=== PATIENT | female | born 1985 | race Caucasian/White ===

== ENCOUNTER → 2018-05-10 | Outpatient (REF) | payer MEDICAID, OTHER ==
[2018-05-10 15:31] LABS: FREE T3 2.7 PG/ML (2.2-4.0); FREE T4 0.79 NG/DL (0.76-1.46); THYROID STIMULATING HORMONE 0.409 uIU/ML (0.358-3.740)
== END ==
LOC: M LAB REF 14:20
DX: E03.9 Hypothyroidism, unspecified (principal)
CPT/HCPCS: 84443

== ENCOUNTER 2018-05-21 20:03 | Inpatient (IN) | payer MEDICAID, OTHER ==
[~2018-05-21] VITALS: Ht 157.5 cm; Wt 66.7 kg
[2018-05-21] MEDS ORDERED: PROC5TA PO (20:25)
[2018-05-21] MEDS ORDERED: MIDO10TA PO (20:25)
[2018-05-21] MEDS ORDERED: HYDR5TAB59 PO (20:25)
[2018-05-21] MEDS ORDERED: NS 1,000 ML IV ONE (20:45)
[2018-05-21] MEDS ORDERED: dexameTHASONE 20 MG/5 ML VIAL (J1100) IV ONE ×2 (20:45→21:30)
[2018-05-21 21:05] LABS: BASO % 0.2 % (0.0-1.0); EOS % 0.3 % (0.0-3.0); HEMOGLOBIN 13.4 g/dl (12.0-15.5); LYMPH # 1.5 10^3/uL (1.5-4.5); LYMPH % 15.9 % (24.0-44.0); MEAN CORPUSCULAR HGB CONC 34.4 g/dl (32.0-36.5); MEAN CORPUSCULAR VOLUME 87.2 fl (80.0-96.0); MONO # 0.6 10^3/uL (0.0-0.8); MONO % 6.4 % (0.0-5.0); NEUTROPHILS # 7.2 10^3/uL (1.8-7.7); NEUTROPHILS % 76.8 % (36.0-66.0); PLATELET COUNT, AUTOMATED 333 10^3/uL (150-450); RED BLOOD COUNT 4.47 10^6/uL (4.00-5.40); WHITE BLOOD COUNT 9.4 10^3/uL (4.0-10.0)
[2018-05-21] MEDS ORDERED: HYDROCORTISONE 100 MG/2 ML VIAL (J1720) IV ONE (21:15)
[2018-05-21 21:31] LABS: ALBUMIN 3.8 GM/DL (3.2-5.2); ALT/SGPT 20 U/L (12-78); BILIRUBIN,DIRECT < 0.1 MG/DL (0.0-0.2); BILIRUBIN,TOTAL 0.3 MG/DL (0.2-1.0); BLOOD UREA NITROGEN 5 MG/DL (7-18); CALCIUM LEVEL 9.2 MG/DL (8.5-10.1); CARBON DIOXIDE LEVEL 23 MEQ/L (21-32); CHLORIDE LEVEL 110 MEQ/L (98-107); CREATININE FOR GFR 0.63 MG/DL (0.55-1.30); GLOMERULAR FILTRATION RATE > 60.0 (>60); GLUCOSE, FASTING 110 MG/DL (70-100); LIPASE 65 U/L (73-393); POTASSIUM SERUM 3.7 MEQ/L (3.5-5.1); SODIUM LEVEL 142 MEQ/L (136-145); TOTAL PROTEIN 7.3 GM/DL (6.4-8.2)
[2018-05-21] MEDS ORDERED: ONDANSETRON 4 MG ORAL DISINTEGRATING TAB (Q0162 PER 1MG) PO ONE (22:00)
[2018-05-21] MEDS ORDERED: ACETAMINOPHEN 325 MG TAB PO ONE (22:00)
[2018-05-21] MEDS ORDERED: KETOROLAC 30 MG/ML VIAL (J1885) IV ONE (22:45)
[2018-05-21 23:52] LABS: AMORPHOUS SEDIMENT SMALL (NEGATIVE); APPEARANCE, URINE TURBID (CLEAR); BACTERIA, URINE AUTO 1+ (NEGATIVE); BILIRUBIN, URINE AUTO NEGATIVE (NEGATIVE); BLOOD, URINE BLOOD NEGATIVE (NEGATIVE); COLOR, URINE AMBER (YELLOW); GLUCOSE, URINE (UA) AUTO NEGATIVE (NEGATIVE); KETONE, URINE AUTO NEGATIVE (NEGATIVE); LEUKOCYTE ESTERASE, URINE AUTO NEGATIVE (NEGATIVE); MUCUS, URINE SMALL (NEGATIVE); NITRITE, URINE AUTO NEGATIVE (NEGATIVE); PROTEIN, URINE AUTO NEGATIVE (NEGATIVE); RBC, URINE AUTO 0 /HPF (0-3); SPECIFIC GRAVITY URINE AUTO 1.012 (1.002-1.035); SQUAMOUS EPITHELIAL CELL UR AU 2 /HPF (0-6); UROBILINOGEN, URINE AUTO 0.2 mg/dL (0.0-2.0); WBC, URINE AUTO 1 /HPF (0-3)
[2018-05-22 00:49] LABS: HCG, SERUM QUALITATIVE NEGATIVE (NEGATIVE)
[2018-05-22] MEDS ORDERED: TOPI50TA9 PO (01:26)
[2018-05-22] MEDS ORDERED: HYDR5TAB59 PO (01:26)
[2018-05-22] MEDS ORDERED: SUMA25TA3 PO (01:26)
[2018-05-22] MEDS ORDERED: TOPI25CA PO (01:26)
--- NOTE | 2018-05-22 02:22 | REPVR ---
EXAM: CT Abdomen and Pelvis Without Intravenous Contrast EXAM DATE/TIME: 05/22/2018 1:23 AM CLINICAL HISTORY: 32 years old, female; Pain; Abdominal pain; Additional info: Colic TECHNIQUE: Axial computed tomography images of the abdomen and pelvis without intravenous contrast. All CT scans at this facility use at least one of these dose optimization techniques: automated exposure control; mA and/or kV adjustment per patient size (includes targeted exams where dose is matched to clinical indication); or iterative reconstruction. Coronal and sagittal reformatted images were created and reviewed. COMPARISON: No relevant prior studies available. FINDINGS: Lower thorax: No acute findings. ABDOMEN: Liver: Normal. No mass. Gallbladder and bile ducts: Normal. No calcified stones. No ductal dilation. Pancreas: Normal. No ductal dilation. Spleen: Normal. No splenomegaly. Adrenals: Normal. No mass. Kidneys and ureters: Normal. No hydronephrosis. Stomach and bowel: Mild to moderate fecal loading in the right colon. No bowel dilatation or obstruction. Appendix: No evidence of appendicitis. PELVIS: Bladder: Unremarkable as visualized. Reproductive: Cyst in the right ovary measuring 21 x 15 mm. Uterus and left ovary are unremarkable. ABDOMEN and PELVIS: Intraperitoneal space: Small free fluid in the pelvis on the right likely physiologic. Bones/joints: No acute fracture. No dislocation. Soft tissues: Unremarkable. Vasculature: Normal. No abdominal aortic aneurysm. Lymph nodes: Normal. No enlarged lymph nodes. IMPRESSION: Mild to moderate fecal loading in the right colon. No bowel dilatation or obstruction. Small free fluid in the pelvis on the right likely physiologic. Cyst in the right ovary measuring 21 x 15 mm. Uterus and left ovary are unremarkable. Appendix is not seen, however, no secondary signs to suggest acute appendicitis. Electronically signed by: Jerri Cheney On 05/22/2018 02:22:48 AM
[2018-05-22] MEDS ORDERED: ACETAMINOPHEN 650 MG SUPP PR PRN (03:30)
[2018-05-22] MEDS: ONDANSETRON 4MG/2ML VIAL (J2405) IV SCH ×5 (04:37→21:08)
[2018-05-22] MEDS: NS 1,000 ML IV SCH ×2 (04:39→13:18)
--- NOTE | 2018-05-22 04:51 | HPEPDOC ---
[facility] Medical History & Physical Date of Admission May 22, 2018 Attending Physician: Toby Peace MD History and Physical CHIEF COMPLAINT: Nausea and vomiting 3 days HISTORY OF PRESENT ILLNESS: Patient is a 32-year-old female with history of depression, PTSD, insomnia, was on Klonopin. Irritable bowel syndrome, Lyme dise ase, adrenal insufficiency, hypertension and ? Autonomic neuropathy. According to her, she was in her usual state of health until about 3 days ago when she started having abdominal cramps associated with nausea and vomiting recently ingested food and greenish colored liquid substance. She has since been unable to comply with her outpatient medications. She denies any hematemesis. No fever or chills. No shortness of breath. No recent sick contacts. No chest pain or palpitations. No cough. She is unsure if her symptoms started after eating. No recent lower extremity swellings. No pain. No change in urinary habits. No change in bowel habits. PAST MEDICAL HISTORY: As per [facility] PAST SURGICAL HISTORY: None SOCIAL HISTORY: Denies smoking, denies alcohol use. Denies illicit drug use. Denies marijuana use Lives with mother and brother FAMILY HISTORY: Denies significant heart disease in the family. ALLERGIES: Please see below. REVIEW OF SYSTEMS: 14 point review of systems negative other than that described in the body of the [facility] HOME MEDICATIONS: Please see below. PHYSICAL EXAMINATION: VITAL SIGNS: Temperature 98, pulse 98, respiratory rate 16, blood pressure 140/79, pulse oximetry 98% on room air. GENERAL APPEARANCE: See young woman lying down calmly in bed, not in any obvious painful distress. No respiratory distress.. Head: Atraumatic. Neck: Supple. Chest: Clear to auscultation bilaterally. CVS: S1 and 2 heard, no murmurs, rubs or gallops. Abdomen: Obese, soft, not tender, not distended. Bowel sounds normoactive. Extremities: No pedal edema, 2+ bilateral pedal pulses noted. [employer]: Awake, alert, oriented 3. Psychiatric: Normal affect. LABORATORY DATA: See below. IMAGING: CT abdomen and pelvis: Mild to moderate fecal loading in the right colon, appendix not seen. No secondary sign to suggest acute appendicitis. MICROBIOLOGY: Please see below. ASSESSMENT: 49-year-old woman with medical history as enumerated above, comes in with intractable vomiting and abdominal cramping for 3 days. Physical exam reveals mild abdominal tenderness with deep palpation. Imaging revealed fecal loading in the right colon. Labs reviewed grossly within normal limits. . DIAGNOSIS: 1. Intractable vomiting PLAN: 1. Admit to medicine floor. 2. Intractable vomiting with no metabolic changes consistent with vomiting for such an extended period. We will maintain nothing by mouth for now. IV Zofran when necessary nausea and vomiting. IV pantoprazole IV normal saline to run at 100MLS/HR 3. Imaging revealed fecal loading of the right colon was adequate anticonstipation medication. 4. Patient is nothing by mouth for now. She may resume outpatient medications as soon as she can tolerate po. 5. We'll give stress dose hydrocortisone IV 6. DVT prophylaxis: Subcutaneous heparin 5000 units every 12 hours 7. Further management will be per patient's clinical course Vital Signs Vital Signs Date Time Temp Pulse Resp B/P (MAP) Pulse Ox O2 Delivery O2 Flow Rate FiO2 05/22/18 03:31 74 96 05/22/18 03:15 16 140/79 (99) Room Air 05/22/18 01:23 96.8 Laboratory Data Labs 24H Laboratory Tests 2 05/21/18 20:59: Immature Granulocyte % (Auto) 0.4, White Blood Count 9.4, Red Blood Count 4.47, Hemoglobin 13.4, Hematocrit 39.0, Mean Corpuscular Volume 87.2, Mean Corpuscular Hemoglobin 30.0, Mean Corpuscular Hemoglobin Concent 34.4, Red Cell Distribution Width 11.9, Platelet Count 333, Neutrophils (%) (Auto) 76.8H, Lymphocytes (%) (Auto) 15.9L, Monocytes (%) (Auto) 6.4H, Eosinophils (%) (Auto) 0.3, Basophils (%) (Auto) 0.2, Neutrophils # (Auto) 7.2, Lymphocytes # (Auto) 1.5, Monocytes # (Auto) 0.6, Eosinophils # (Auto) 0.0, Basophils # (Auto) 0.0, Nucleated Red Blood Cells % (auto) 0.0, Anion Gap 9, Glomerular Filtration Rate > 60.0, Calcium Level 9.2, Aspartate Amino Transf (AST/SGOT) 11, Alanine Aminotransferase (ALT/SGPT) 20, Alkaline Phosphatase 47, Total Bilirubin 0.3, Direct Bilirubin < 0.1, Total Protein 7.3, Albumin 3.8, Albumin/Globulin Ratio 1.09, Lipase 65L, Human Chorionic Gonadotropin, Qual NEGATIVE 05/21/18 23:36: Urine Appearance TURBIDH, Urine Color ODILON, Urine pH 8.0, Urine Specific [place] 1.012, Urine Protein NEGATIVE, Urine Glucose (UA) NEGATIVE, Urine Ketones NEGATIVE, Urine Urobilinogen 0.2, Urine Bilirubin NEGATIVE, Urine Leukocyte Esterase NEGATIVE, Urine Blood NEGATIVE, Urine Nitrite NEGATIVE, Urine WBC (Auto) 1, Urine RBC (Auto) 0, Urine Hyaline Casts (Auto) 0, Urine Bacteria (Auto) 1+H, Urine Squamous Epithelial Cells 2, Urine Amorphous Sediment SMALLH, Urine Mucus (Auto) SMALL, Urine Sperm (Auto) CBC/BMP Laboratory Tests 05/21/18 20:59 Red Blood Count 4.47, Mean Corpuscular Volume 87.2, Mean Corpuscular Hemoglobin 30.0, Mean Corpuscular Hemoglobin Concent 34.4, Red Cell Distribution Width 11.9, Neutrophils (%) (Auto) 76.8 H, Lymphocytes (%) (Auto) 15.9 L, Monocytes (%) (Auto) 6.4 H, Eosinophils (%) (Auto) 0.3, Basophils (%) (Auto) 0.2, Neutrophils # (Auto) 7.2, Lymphocytes # (Auto) 1.5, Monocytes # (Auto) 0.6, Eosinophils # (Auto) 0.0, Basophils # (Auto) 0.0 Microbiology Microbiology 05/21/18 Urine Culture, Received Pending Home Medications Scheduled Hydrocortisone Base (Hydrocortisone) 5 Mg Tab, 10 MG PO BID TAKES AM AND NOON. PATIENT STATES SHE HAS TAKEN UP TO 75MG A DAY DEPENDING ON HER STATE OF HEALTH AND STRESS LEVEL. SHE ADJUSTS THE DOSE ACCORDINGLY Hydrocortisone Base (Hydrocortisone) 5 Mg Tab, 5 MG PO QPM Midodrine HCl (Midodrine HCl) 10 Mg Tab, 1 TAB PO TID Sumatriptan Succinate (Sumatriptan Succinate) 25 Mg Tab, 25 MG PO ASDIRECTED Topiramate (Topiramate) 25 Mg Cap, 25 MG PO DAILY FOR 2 DAYS Topiramate (Topiramate) 50 Mg Tab, 50 MG PO DAILY TO BEGIN AFTER THE 2 DAYS OF 25MG TABLETS Scheduled PRN Prochlorperazine (Prochlorperazine Maleate) 5 Mg Tab, 1 TAB PO TID PRN for ELLE Allergies Coded Allergies: Gluten Meal (Verified Allergy, Unknown, 05/21/18) AMARILIS HUTSON MD May 22, 2018 04:51
[2018-05-22] MEDS ORDERED: HYDROCORTISONE 100 MG/2 ML VIAL (J1720) IV SCH ×2 (09:00)
[2018-05-22] MEDS ORDERED: HYDROCORTISONE 100 MG/2 ML VIAL (J1720) As Ordered ONE (10:52)
[2018-05-22 11:10] VITALS: BP 132/65
[2018-05-22] MEDS: PANTOPRAZOLE 40MG INJ (PROTONIX) (C9113) IV SCH (13:17)
[2018-05-22] MEDS: HEPARIN SOD (PORCINE) 5000 UNITS/ML VIAL SQ SCH ×3 (13:21→21:08)
[2018-05-22 14:00] VITALS: BP 119/73
[2018-05-22] MEDS: NATURE THROID PO SCH (14:00)
[2018-05-22] MEDS ORDERED: SUMAtriptan SUCCINATE 25 MG TAB PO PRN (16:15)
--- NOTE | 2018-05-22 16:20 | IPNPDOC ---
Subjective Date Seen The patient was seen on 05/22/18. Subjective Chief Complaint/HPI headache General: Denies: Chills Constitutional: Denies: Chills, Fever Eyes: Denies: Pain, Vision change ENT: Reports: Head Aches Skin: Denies: Rash Pulmonary: Denies: Dyspnea, Cough Cardiovascular: Denies: Chest Pain, Palpitations Gastrointestinal: Reports: Nausea Genitourinary: Denies: Dysuria Hematologic: Denies: Bruising Endocrine: Denies: Polydipsia Musculoskeletal: Denies: Neck Pain Neurological: Denies: Weakness Objective Physical Examination General Exam: Positive: Alert Eye Exam: Positive: PERRLA Neck Exam: Negative: JVD Chest Exam: Positive: Clear to auscultation Abdomen Exam: Positive: Normal bowel sounds Extremity Exam: Negative: Cyanosis, Edema Skin Exam: Positive: Nl turgor and temperature Neuro Exam: Positive: Normal Gait Psych Exam: Positive: Mental status NL Assessment /Plan Problems (1) Abdominal migraine with status migrainosus Status: Acute Problem Text: 05/22 increased HD topir 50 QD to BID, restarted HD natalie 100 BID prn, + Fiorcet prn, given vestibular trigger, + meclizine (minimal benefit from ondan, benzos, steroid) IVF at maintenance given minimal po given nausea Contingency: +DVP, eletriptan 40 BID prn (2) Adrenal insufficiency Status: Chronic Problem Text: favor 2 iatrogenic chronic glucocorticoid steroid use from previous PCP for unknown reason 05/22 has received stress dose HC, but s s/s of adrenal crisis; therefore, resta rted HC 10 TID (HD ) 05/21 Na 142/K 3.7 c SBP 130s on admission (3) Orthostatic dizziness Status: Chronic Problem Text: ? POTS on chronic midodrine 10 TID -case dw PCP Dr. Giraldo who favor to hold and repeat outpx tilt-table in soon p dc (apparently previous this year was normal) check orthostatics qshift (4) Constipation, chronic Status: Chronic Problem Text: chronic senna / enema dependence (admits to chronic 8-10 "herbal" senna QD for "years" and ~q2W tap water/cider enema prn) exacerbates abdominal migraine 05/22/18 + HD senna 05/14/18 CT AP c moderate R sided fecal stasis Plan/VTE VTE Prophylaxis Ordered?: Yes (Lovenox) Plan IVF: Continue Diet: Continue Current Activity: Continue Current Therapy: PT Pt and Family Services: Home Care Diagnostics: Check Labs Anticipated Discharge: Home Advance Directives: Other Advance Directive Disposition stable VS, I&O, 24H, Fishbone Vital Signs/I&O Vital Signs Date Time Temp Pulse Resp B/P (MAP) Pulse Ox O2 Delivery O2 Flow Rate FiO2 05/22/18 14:00 98.6 75 16 119/73 (88) 100 Room Air I&O- Last 24 Hours up to 6 AM 05/22/18 05:59 Intake Total 1000 ml Balance 1000 ml Laboratory Data 24H LABS Laboratory Tests 2 05/21/18 20:59: Immature Granulocyte % (Auto) 0.4, White Blood Count 9.4, Red Blood Count 4.47, Hemoglobin 13.4, Hematocrit 39.0, Mean Corpuscular Volume 87.2, Mean Corpuscular Hemoglobin 30.0, Mean Corpuscular Hemoglobin Concent 34.4, Red Cell Distribution Width 11.9, Platelet Count 333, Neutrophils (%) (Auto) 76.8H, Lymphocytes (%) (Auto) 15.9L, Monocytes (%) (Auto) 6.4H, Eosinophils (%) (Auto) 0.3, Basophils (%) (Auto) 0.2, Neutrophils # (Auto) 7.2, Lymphocytes # (Auto) 1.5, Monocytes # (Auto) 0.6, Eosinophils # (Auto) 0.0, Basophils # (Auto) 0.0, Nucleated Red Blood Cells % (auto) 0.0, Anion Gap 9, Glomerular Filtration Rate > 60.0, Calcium Level 9.2, Aspartate Amino Transf (AST/SGOT) 11, Alanine Aminotransferase (ALT/SGPT) 20, Alkaline Phosphatase 47, Total Bilirubin 0.3, Direct Bilirubin < 0.1, Total Protein 7.3, Albumin 3.8, Albumin/Globulin Ratio 1.09, Lipase 65L, Human Chorionic Gonadotropin, Qual NEGATIVE 05/21/18 23:36: Urine Appearance TURBIDH, Urine Color ODILON, Urine pH 8.0, Urine Specific [place] 1.012, Urine Protein NEGATIVE, Urine Glucose (UA) NEGATIVE, Urine Ketones NEGATIVE, Urine Urobilinogen 0.2, Urine Bilirubin NEGATIVE, Urine Leukocyte Esterase NEGATIVE, Urine Blood NEGATIVE, Urine Nitrite NEGATIVE, Urine WBC (Auto) 1, Urine RBC (Auto) 0, Urine Hyaline Casts (Auto) 0, Urine Bacteria (Auto) 1+H, Urine Squamous Epithelial Cells 2, Urine Amorphous Sediment SMALLH, Urine Mucus (Auto) SMALL, Urine Sperm (Auto) CBC/BMP Laboratory Tests 05/21/18 20:59 Red Blood Count 4.47, Mean Corpuscular Volume 87.2, Mean Corpuscular Hemoglobin 30.0, Mean Corpuscular Hemoglobin Concent 34.4, Red Cell Distribution Width 11.9, Neutrophils (%) (Auto) 76.8 H, Lymphocytes (%) (Auto) 15.9 L, Monocytes (%) (Auto) 6.4 H, Eosinophils (%) (Auto) 0.3, Basophils (%) (Auto) 0.2, Neutrophils # (Auto) 7.2, Lymphocytes # (Auto) 1.5, Monocytes # (Auto) 0.6, Eosinophils # (Auto) 0.0, Basophils # (Auto) 0.0 Microbiology Microbiology 05/21/18 Urine Culture, Received Pending Blu Lamar M.D. May 22, 2018 16:20
[2018-05-22 16:51] VITALS: BP 110/51
[2018-05-22] MEDS: HYDROCORTISONE 10 MG TAB PO SCH (17:13)
[2018-05-22] MEDS: FIORICET TAB PO PRN (17:14)
[2018-05-22] MEDS ORDERED: TOPIRAMATE (TopAMAX) 25 MG TAB PO SCH ×2 (21:00)
[2018-05-22] MEDS: MECLIZINE 25 MG TABLET PO SCH (21:08)
[2018-05-22] MEDS: SUMAtriptan SUCCINATE 25 MG TAB PO PRN (21:09)
[2018-05-22 22:00] VITALS: BP 114/62
[2018-05-23] MEDS: ONDANSETRON 4MG/2ML VIAL (J2405) IV SCH ×5 (00:21→16:00)
[2018-05-23] MEDS ORDERED: TOPIRAMATE (TopAMAX) 25 MG TAB PO ONE (02:00)
[2018-05-23] MEDS: NS 1,000 ML IV SCH ×2 (04:37→09:29)
[2018-05-23 06:00] VITALS: BP 100/51
[2018-05-23] MEDS: NATURE THROID PO SCH ×2 (06:00→14:31)
[2018-05-23 06:36] LABS: BASO % 0.2 % (0.0-1.0); EOS # 0.1 10^3/uL (0.0-0.50); EOS % 0.7 % (0.0-3.0); LYMPH # 2.8 10^3/uL (1.5-4.5); LYMPH % 33.5 % (24.0-44.0); MEAN CORPUSCULAR HEMOGLOBIN 29.8 pg (27.0-33.0); MEAN CORPUSCULAR HGB CONC 33.3 g/dl (32.0-36.5); MEAN CORPUSCULAR VOLUME 89.4 fl (80.0-96.0); MONO # 0.8 10^3/uL (0.0-0.8); MONO % 9.1 % (0.0-5.0); NEUTROPHILS # 4.6 10^3/uL (1.8-7.7); NEUTROPHILS % 56.3 % (36.0-66.0); PLATELET COUNT, AUTOMATED 251 10^3/uL (150-450); RED BLOOD COUNT 3.69 10^6/uL (4.00-5.40); WHITE BLOOD COUNT 8.2 10^3/uL (4.0-10.0)
[2018-05-23] MEDS: [UNRECOGNIZED DRUG - OTHER] PO SCH ×2 (06:41→20:08)
[2018-05-23] MEDS: HERB LAX PO SCH ×2 (06:41→20:08)
[2018-05-23 06:55] VITALS: BP_SYST 112; BP_SYST 115; BP_DIAS 65; BP_DIAS 66
[2018-05-23 06:59] LABS: BLOOD UREA NITROGEN 10 MG/DL (7-18); CALCIUM LEVEL 8.3 MG/DL (8.5-10.1); CARBON DIOXIDE LEVEL 24 MEQ/L (21-32); CHLORIDE LEVEL 112 MEQ/L (98-107); GLOMERULAR FILTRATION RATE > 60.0 (>60); GLUCOSE, FASTING 74 MG/DL (70-100); POTASSIUM SERUM 3.5 MEQ/L (3.5-5.1); SODIUM LEVEL 143 MEQ/L (136-145)
[2018-05-23] MEDS: HEPARIN SOD (PORCINE) 5000 UNITS/ML VIAL SQ SCH ×2 (08:38→20:08)
[2018-05-23] MEDS: HYDROCORTISONE 10 MG TAB PO SCH ×4 (08:39→17:53)
[2018-05-23] MEDS: MECLIZINE 25 MG TABLET PO SCH ×2 (08:39→19:55)
[2018-05-23] MEDS: PANTOPRAZOLE 40MG INJ (PROTONIX) (C9113) IV SCH (08:40)
[2018-05-23] MEDS: SUMAtriptan SUCCINATE 25 MG TAB PO PRN ×2 (11:52→17:53)
[2018-05-23] MEDS: FIORICET TAB PO PRN ×2 (14:31→19:57)
[2018-05-23] MEDS: KCL 20MEQ IN D5/0.45NS 1000ML 1,000 ML IV SCH (14:32)
--- NOTE | 2018-05-23 15:15 | REP ---
MAXILLOFACIAL MR: HISTORY: Possible CSF leak. COMPARISON: MR brain 04/26/2012. The sinuses are clear. There is no encephalocele. The globes, optic nerves and rectus muscles are normal in appearance. The naso-and oropharynx are normal in appearance. The salivary glands are normal in size and signal intensity. Small lymph nodes less than 1 cm in size are present in the left internal jugular chain, posterior triangles, and submandibular areas. There are no areas of abnormal signal intensity in the visualized brain. IMPRESSION: Normal study. Electronically Signed by David Tate MD 05/23/2018 03:32 P
[2018-05-23] MEDS ORDERED: MAG SULF 1GM/100ML (MAG RUN) 1 GM in APPROPRIATE DILUENT 1 EA IV ONE (16:45)
[2018-05-23] MEDS: PROMETHAZINE INJ 25 MG/ML VIAL (J2550) IV PRN (16:47)
[2018-05-23] MEDS: LORazepam 2 MG/ML VIAL (J2060) IV PRN (21:12)
[2018-05-23] MEDS: KETOROLAC 30 MG/ML VIAL (J1885) IV SCH (21:12)
[2018-05-23 22:00] VITALS: BP 125/71
[2018-05-23] MEDS ORDERED: PROHANCE 279.3MG/ML 15ML VIAL (A9576) As Ordered ONE (22:09)
--- NOTE | 2018-05-23 23:00 | REPVR ---
EXAM: MRI Head Without and With Intravenous Contrast EXAM DATE/TIME: 05/23/2018 9:48 PM CLINICAL HISTORY: 32 years old, female; Pain; Headache; Headache not specified; Patient HX: Intractable vomiting, intractable jensen's TECHNIQUE: Magnetic resonance images of the head/brain without and with intravenous contrast in multiple planes. CONTRAST: 11 ml of prohance administered intravenously. COMPARISON: MRI-Brain without Contrast 04/26/2012 2:19 PM FINDINGS: Brain: Normal. No hemorrhage. No significant white matter disease. No edema. Ventricles: Normal. No ventriculomegaly. Bones/joints: Unremarkable. Soft tissues: Normal. Sinuses: Normal as visualized. No acute sinusitis. Mastoid air cells: Normal as visualized. No mastoid effusion. IMPRESSION: No acute findings. Electronically signed by: German Mendoza On 05/23/2018 22:59:28 PM
[2018-05-24 02:20] VITALS: BP 107/60
[2018-05-24] MEDS: KETOROLAC 30 MG/ML VIAL (J1885) IV SCH ×4 (03:07→20:44)
[2018-05-24] MEDS: PROMETHAZINE INJ 25 MG/ML VIAL (J2550) IV PRN ×2 (03:07→08:57)
[2018-05-24] MEDS: LORazepam 2 MG/ML VIAL (J2060) IV PRN ×2 (03:56→21:26)
[2018-05-24] MEDS: NATURE THROID PO SCH ×2 (05:16→13:02)
[2018-05-24] MEDS: KCL 20MEQ IN D5/0.45NS 1000ML 1,000 ML IV SCH ×2 (05:16→16:30)
--- NOTE | 2018-05-24 06:17 | IPNPDOC ---
Subjective Date Seen The patient was seen on 05/23/18. Subjective Chief Complaint/HPI intractable vomiting Events since last encounter Patient seen and examined at bedside. Barely able to talk during the beginning of the encounter. As visit progressed, patient was able to converse normally with normal movement and facial expressions. Mother concerned that patient was crying/tearful after MRI and states she has a high tolerance for pain. Nurse reports that orthostatic VS have not been fully successful due to patient's symptoms of nauseousness and unable to go from laying to sitting position to standing position. So far, laying to sitting position orthostatics have been negative. Patient reports she is not eating/drinking. Is having dry heaves but no vomiting. Has been able to take sips of water with medications and able to keep that down. However, unable to intake anything more. States zofran does not help the nausea and feels she needs something 5 times stronger than that. Has tried reglan in the past and this did not help her nausea. Is also asking for stronger dose of meclizine and to have antinausea medications plus fioricet plus immitrex plus meclizine given together for her migraines to see if this helps. In addition, reports that she has been given IV Magnesium during previous hos pitalizations at [facility] and [place], which has helped control her migraines/pain effectively. Is asking if this could also be administered here. Also asks if PICC line can be placed during hospitalization vs. as outpatient, which was being coordinated by PCP and public health. Patient admits to feeling debilitating pain. General: Denies: Night Sweats Constitutional: Denies: Chills, Fever Eyes: Denies: Vision change ENT: Reports: Head Aches Skin: Denies: Rash Pulmonary: Denies: Dyspnea, Cough Cardiovascular: Denies: Chest Pain Gastrointestinal: Reports: Nausea, Constipation; Denies: Vomiting, Abdominal Pain, Diarrhea Genitourinary: Denies: Dysuria Hematologic: Denies: Bruising Musculoskeletal: Reports: Other Symptoms (admits to generalized pain all over when her migraines take over) Neurological: Denies: Weakness Psych: Denies: Mood Normal Objective Physical Examination General Exam: Positive: Alert, Cooperative, No Acute Distress Eye Exam: Positive: Conjunctiva & lids normal, EOMI; Negative: Sclera icteric ENT Exam: Positive: Atraumatic Neck Exam: Positive: Supple Chest Exam: Positive: Clear to auscultation, Normal air movement, Wheezing; Negative: Rales, Rhonchi Heart Exam: Positive: Rate Normal, Regular Rhythm, Normal S1, Normal S2; Negative: Murmurs Abdomen Exam: Positive: Normal bowel sounds, Soft, Tenderness (generalized (mild)); Negative: Hepatospenomegaly Extremity Exam: Negative: Clubbing, Cyanosis, Edema Skin Exam: Negative: Nl turgor and temperature, Rash Neuro Exam: Positive: Normal Speech, Other (no focal neurologic deficits appreciated) Psych Exam: Positive: Mental status NL, Memory Intact, Oriented x 3; Negative: Mood NL (tearful, appears anxious/depressed with flat affect) Assessment /Plan Problems (1) Abdominal migraine with status migrainosus Status: Acute Problem Text: 05/23: increased meclizine to 50 mg BID and switched zofran to phenergan. Gave one dose of IV Mg as patient reported therapeutic effectiveness of this during previous hospitalizations for her migraines. MRI Brain negative for CSF leak. Consider Neurology consult. 05/22 increased HD topir 50 QD to BID, restarted HD natalie 100 BID prn, + Fiorcet prn, given vestibular trigger, + meclizine (minimal benefit from ondan, benzos, steroid) IVF at maintenance given minimal po given nausea Contingency: +DVP, eletriptan 40 BID prn (2) Adrenal insufficiency Status: Chronic Problem Text: 05/23: continue hydrocortisone favor 2 iatrogenic chronic glucocorticoid steroid use from previous PCP for unknown reason 05/22 has received stress dose HC, but s s/s of adrenal crisis; therefore, restarted HC 10 TID (HD ) 05/21 Na 142/K 3.7 c SBP 130s on admission (3) Orthostatic dizziness Status: Chronic Problem Text: 05/23: Orthostatic VS thus far from lying to sitting have been negative. Otherwise, Orthostatics have been unsuccessful due to patient being unable to cooperate secondary to her symptoms. ? POTS on chronic midodrine 10 TID -case dw PCP Dr. Giraldo who favor to hold and repeat outpx tilt-table in soon p dc (apparently previous this year was normal) check orthostatics qshift (4) Constipation, chronic Status: Chronic Problem Text: 05/23: has not eaten yet. Reports hx of several year hx of chronic constipation. Suspect IBS--constipation predominant. chronic senna / enema dependence (admits to chronic 8-10 "herbal" senna QD for "years" and ~q2W tap water/cider enema prn) exacerbates abdominal migraine 05/22/18 + HD senna 05/14/18 CT AP c moderate R sided fecal stasis (5) Intractable vomiting with nausea Status: Acute Problem Text: 05/23: no emesis today. However, admits to nausea uncontrolled with zofran. Have switched to phenergan to see if this may help. In addition, patient reports that reglan did not help her in the past. Plan/VTE VTE Prophylaxis Ordered?: Yes VS, I&O, 24H, Fishbone Vital Signs/I&O Vital Signs Date Time Temp Pulse Resp B/P (MAP) Pulse Ox O2 Delivery O2 Flow Rate FiO2 05/24/18 02:20 97.9 69 19 107/60 (76) 99 Room Air I&O- Last 24 Hours up to 6 AM 05/24/18 06:00 Intake Total 1800 ml Output Total 2700 ml Balance -900 ml Laboratory Data 24H LABS Laboratory Tests 2 05/23/18 06:03: Immature Granulocyte % (Auto) 0.2, White Blood Count 8.2, Red Blood Count 3.69L, Hemoglobin 11.0#L, Hematocrit 33.0L, Mean Corpuscular Volume 89.4, Mean Corpuscular Hemoglobin 29.8, Mean Corpuscular Hemoglobin Concent 33.3, Red Cell Distribution Width 12.1, Platelet Count 251, Neutrophils (%) (Auto) 56.3, Ly mphocytes (%) (Auto) 33.5, Monocytes (%) (Auto) 9.1H, Eosinophils (%) (Auto) 0.7, Basophils (%) (Auto) 0.2, Neutrophils # (Auto) 4.6, Lymphocytes # (Auto) 2.8, Monocytes # (Auto) 0.8, Eosinophils # (Auto) 0.1, Basophils # (Auto) 0.0, Nucleated Red Blood Cells % (auto) 0.0, Anion Gap 7L, Glomerular Filtration Rate > 60.0, Blood Urea Nitrogen 10#, Creatinine 0.60, Sodium Level 143, Potassium Level 3.5, Chloride Level 112H, Carbon Dioxide Level 24, Calcium Level 8.3L CBC/BMP Laboratory Tests 05/23/18 06:03 Red Blood Count 3.69 L, Mean Corpuscular Volume 89.4, Mean Corpuscular Hemoglobin 29.8, Mean Corpuscular Hemoglobin Concent 33.3, Red Cell Distribution Width 12.1, Neutrophils (%) (Auto) 56.3, Lymphocytes (%) (Auto) 33.5, Monocytes (%) (Auto) 9.1 H, Eosinophils (%) (Auto) 0.7, Basophils (%) (Auto) 0.2, Neutrophils # (Auto) 4.6, Lymphocytes # (Auto) 2.8, Monocytes # (Auto) 0.8, Eosinophils # (Auto) 0.1, Basophils # (Auto) 0.0, Calcium Level 8.3 L Microbiology Microbiology 05/21/18 Urine Culture - Final, Complete GME ATTESTATION GME ATTESTATION My faculty preceptor for this patient encounter was Dr. Valentín Muir, and was physically present during the encounter and was fully available. All aspects of the patient interview, examination, medical decision making process, and [facility] care plan development were reviewed and approved by the faculty preceptor. The faculty preceptor is aware and concurs with the plan as stated in the body of this note and will attest to such by his/her cosignature. AMBERLY WRIGHT DO May 24, 2018 06:17
[2018-05-24 06:31] LABS: BASO % 0.3 % (0.0-1.0); EOS # 0.1 10^3/uL (0.0-0.50); EOS % 1.4 % (0.0-3.0); HEMATOCRIT 37.8 % (36.0-47.0); HEMOGLOBIN 12.6 g/dl (12.0-15.5); LYMPH # 2.3 10^3/uL (1.5-4.5); LYMPH % 39.4 % (24.0-44.0); MEAN CORPUSCULAR HGB CONC 33.3 g/dl (32.0-36.5); MONO # 0.7 10^3/uL (0.0-0.8); MONO % 11.4 % (0.0-5.0); NEUTROPHILS # 2.8 10^3/uL (1.8-7.7); NEUTROPHILS % 47.2 % (36.0-66.0); PLATELET COUNT, AUTOMATED 233 10^3/uL (150-450); WHITE BLOOD COUNT 5.9 10^3/uL (4.0-10.0)
[2018-05-24 06:46] LABS: BLOOD UREA NITROGEN 8 MG/DL (7-18); CALCIUM LEVEL 8.8 MG/DL (8.5-10.1); CARBON DIOXIDE LEVEL 25 MEQ/L (21-32); CHLORIDE LEVEL 111 MEQ/L (98-107); CREATININE FOR GFR 0.57 MG/DL (0.55-1.30); GLOMERULAR FILTRATION RATE > 60.0 (>60); GLUCOSE, FASTING 86 MG/DL (70-100); MAGNESIUM LEVEL 2.3 MG/DL (1.8-2.4); POTASSIUM SERUM 3.6 MEQ/L (3.5-5.1); SODIUM LEVEL 142 MEQ/L (136-145)
[2018-05-24 07:50] VITALS: BP 118/62
[2018-05-24] MEDS: PANTOPRAZOLE 40MG INJ (PROTONIX) (C9113) IV SCH (08:57)
[2018-05-24] MEDS: SUMAtriptan SUCCINATE 25 MG TAB PO PRN ×2 (08:58→16:02)
[2018-05-24] MEDS: HYDROCORTISONE 10 MG TAB PO SCH ×3 (08:58→17:12)
[2018-05-24] MEDS: MECLIZINE 25 MG TABLET PO SCH ×2 (08:59→22:47)
[2018-05-24] MEDS: HEPARIN SOD (PORCINE) 5000 UNITS/ML VIAL SQ SCH ×2 (09:00→20:45)
[2018-05-24 12:12] VITALS: BP 123/77
[2018-05-24] MEDS: ONDANSETRON 4MG/2ML VIAL (J2405) IV PRN ×3 (13:02→22:18)
[2018-05-24] MEDS: FIORICET TAB PO PRN ×3 (14:31→23:09)
[2018-05-24 16:00] VITALS: BP 136/76
--- NOTE | 2018-05-24 16:42 | CR ---
DATE OF CONSULTATION: 05/24/2018 REFERRING PHYSICIAN: Dr. Valentín Muir Spoke with Dr. Muir about patient's complicated case. Reviewed in-house documents. Spoke with both mother and brother outside of the patient's room. Dr. Giraldo was examining the patient. Due to the complexity of this case I really do not have any recommendations that have not already been sought. I do hear that the mother would really like to have a last model department supervisor evaluation and I do feel that Dr. Giraldo is working on that. They have seen several neurologists. She is following with Psychiatry. The only long shot that she could entertain as an outpatient would be coming to us for an evaluation for Botox injections. She would not be a candidate due to her current acute status for Botox at this point but may be in the future. ANDREE
[2018-05-24] MEDS: SCOPOLAMINE 1MG TRANSDERMAL PATCH TOP SCH (18:53)
[2018-05-24 20:00] VITALS: BP 132/82
[2018-05-24] MEDS: HERB LAX PO SCH (21:00)
[2018-05-24] MEDS: [UNRECOGNIZED DRUG - OTHER] PO SCH (21:00)
--- NOTE | 2018-05-24 22:50 | IPN ---
DATE: 05/23/2018 Jemima was seen on [address] [place] [address], and her office records were reviewed; whatever records from [facility] were reviewed. She was admitted with intractable headache, vertigo, nausea, and vomiting. She has an extensive history that was comprehensively summarized in Dr. Giraldo's office note from this month. Patient has had several concussions and has a history of chronic rhinitis/sinusitis symptoms and frequent use of a neti pot. No history of fever, chills, neck stiffness. She has seen Dr. Lei in the past. An MRI of the brain was done in 2011 through his office. PHYSICAL EXAMINATION: Afebrile. Blood pressure 112/62, pulse 67, respiratory rate 18, 98% oxygen saturation. General appearance: She is lying in a darkened room with her face covered. She mumbles answers. She moved arms and legs with equal strength. Lungs: Clear. Heart: Regular rhythm. Abdomen: Soft, nontender. No hyperpigmentation of skin. LABS: Reviewed. They were unremarkable. IMPRESSION: Intractable headache. Etiology is unknown. This does defy diagnosis at several tertiary care centers including a prolonged hospitalization at [facility]. She does have a history of chronic rhinitis after head trauma. Raises the possibility of cerebrospinal fluid (CSF) leak, so I ordered an MRI of the brain with maxillofacial MRI to make sure no cribriform plate trauma. Discussed this with neuroradiology. Results have come back today negative for maxillofacial. I do not see the MRI of the brain, which I ordered, was done. Patient has wanted to avoid opiate pain medication per report. She has this intractable pain that has not responded to Toradol in the emergency room, Fioricet, Imitrex, and a run of magnesium. This evening, I discussed the situation with her mother, Meenu, who likewise would like to avoid opiate medication if possible. Patient is very distressed and unable to sleep. I have ordered IV Ativan so that she can sleep, IV Toradol for analgesia. Tomorrow, we will consult neurology as well as the pain clinic. There is a question of adrenal insufficiency. I have not seen strong evidence supporting this diagnosis, but at this point she has received IV hydrocortisone at a high dose yesterday and is on her usual dose of Cortef 10 mg three times a day now. Blood pressure is normal, and electrolytes are unremarkable. I do not think she is in any kind of adrenal crisis of any type.
[2018-05-24 23:59] VITALS: BP 105/58
[2018-05-25] MEDS: KCL 20MEQ IN D5/0.45NS 1000ML 1,000 ML IV SCH ×2 (03:05→17:02)
[2018-05-25] MEDS: KETOROLAC 30 MG/ML VIAL (J1885) IV SCH ×4 (03:06→20:56)
[2018-05-25] MEDS: ONDANSETRON 4MG/2ML VIAL (J2405) IV PRN ×4 (03:14→19:41)
[2018-05-25 04:00] VITALS: BP 117/71
[2018-05-25] MEDS: FIORICET TAB PO PRN ×4 (05:15→19:42)
[2018-05-25 05:22] LABS: BASO % 0.2 % (0.0-1.0); EOS # 0.1 10^3/uL (0.0-0.50); HEMATOCRIT 36.6 % (36.0-47.0); HEMOGLOBIN 12.4 g/dl (12.0-15.5); LYMPH # 2.3 10^3/uL (1.5-4.5); LYMPH % 35.6 % (24.0-44.0); MEAN CORPUSCULAR HEMOGLOBIN 30.1 pg (27.0-33.0); MEAN CORPUSCULAR HGB CONC 33.9 g/dl (32.0-36.5); MEAN CORPUSCULAR VOLUME 88.8 fl (80.0-96.0); MONO # 0.8 10^3/uL (0.0-0.8); MONO % 12.3 % (0.0-5.0); NEUTROPHILS # 3.2 10^3/uL (1.8-7.7); NEUTROPHILS % 49.7 % (36.0-66.0); PLATELET COUNT, AUTOMATED 234 10^3/uL (150-450); RED BLOOD COUNT 4.12 10^6/uL (4.00-5.40); WHITE BLOOD COUNT 6.4 10^3/uL (4.0-10.0)
[2018-05-25 05:41] LABS: BLOOD UREA NITROGEN 5 MG/DL (7-18); CALCIUM LEVEL 8.9 MG/DL (8.5-10.1); CARBON DIOXIDE LEVEL 27 MEQ/L (21-32); CHLORIDE LEVEL 109 MEQ/L (98-107); CREATININE FOR GFR 0.63 MG/DL (0.55-1.30); GLOMERULAR FILTRATION RATE > 60.0 (>60); GLUCOSE, FASTING 99 MG/DL (70-100); POTASSIUM SERUM 3.7 MEQ/L (3.5-5.1); SODIUM LEVEL 142 MEQ/L (136-145)
[2018-05-25] MEDS: NATURE THROID PO SCH ×2 (06:00→10:11)
[2018-05-25 08:00] VITALS: BP 108/75
[2018-05-25] MEDS: HEPARIN SOD (PORCINE) 5000 UNITS/ML VIAL SQ SCH ×2 (09:00→21:00)
[2018-05-25] MEDS: SUMAtriptan SUCCINATE 25 MG TAB PO PRN (09:33)
[2018-05-25] MEDS: PANTOPRAZOLE 40MG INJ (PROTONIX) (C9113) IV SCH (09:50)
[2018-05-25] MEDS: HYDROCORTISONE 10 MG TAB PO SCH ×3 (10:03→17:38)
[2018-05-25] MEDS: MECLIZINE 25 MG TABLET PO SCH (10:03)
[2018-05-25 12:15] VITALS: BP 102/71
--- NOTE | 2018-05-25 14:24 | IPNPDOC ---
Text Note Date of Service The patient was seen on 05/24/18. NOTE This note is a supplemental note to the note from Dr. Muir's team for 05/24. I stopped in to see my patient, Ms. Baum, and see how she is doing. Since I saw her in the office she has been admitted to [facility] and subsequently discharged and then admitted to our facility. I have been kept contact with her and her treatment teams throughout. At [facility] she was admitted and seen in the observation unit by Dr. Lyn Leyva. Following a failed ACTH stimulation test, she was admitted to the neurology service of Dr. Patti Abel. I spoke by phone with both of these physicians. Additionally, she was seen for an endocrinology consultation, but I did not have a chance to speak with them. The reason that she was admitted to the neurology service was that they felt that the primary problem was migraines and were working to control this. She was discharged on a taper up of topirimate with sumatriptan for an abortive medication. The endocrinology service seemed to feel that her adrenal insufficiency was likely secondary and iatrogenic. They recommended she drop to physiologic supplementation (hydrocortisone ), but she was too symptomatic and they ended up increasing her to 20mg TID, but discharging her on . At home over the next several days the patient had increasing symptoms that included: nausea with vomiting and anorexia. The patient/family decided to bring her to the [facility] ER for further evaluation after roughly three days of this stating that they were told by the discharge team that if she couldn't keep anything down that she needed to come in again. They were especially concerned that she couldn't keep her Cortef down. The patient tells me that she is unhappy to be here and would very much like to be out of the hospital and getting better. To help facilitate this she has been paying attention to all of her symptoms and trying to find patterns. She has identified three different types of "headaches" that she experiences and is interested in sharing the differences between these as well as what she has fo und helps to alleviate them. I think this is relevant information as I am beginning to think that migraines are the primary pathology in this patient. Her mother also added that the patient's maternal grandmother suffered for a couple decades with "debilitating migraines" before they found the right balance of supplements for her, "then she never had a headache again in her life." The first type of headache that Jemima describes is brought on by positional change, specifically standing up. She reports that it isn't present initially, but that roughly 5 minutes after she stands or becomes vertical (e.g. to go to the bathroom) she will have an increasingly intense sense of lightheadedness like she is going to pass out. This is only alleviated by going horizontal agai n. She had had times where she has had to lay down on the bathroom floor for fear she would pass out. Once she lays down for a minute or two this "headache" sensation subsides. The second type of headache Jemima describes is a constant retroorbital pressure like pain. It is bilateral and is always present as a dull ache, though often in a less intense way. This headache seems to be exacerbated by lights, smells, and sounds, but she has found that if she drinks caffeine it tends to make this headache less intense. The third type of headache she describes is exacerbated by motion of almost any sort. It can even be if her bed is jostled too hard. She is not always exquisitely sensitive to motion, but when this third type of headache is active she needs to "lay still like [she's] paralyzed." If she doesn't it feels like a sharp, loud car crash inside her head. Additionally this seems to usually be associated with a intense abdominal throbbing that she carefully describes at 10 Hz and nausea so bad that she wretches. Of course the movement from the vomiting makes the headache worse. The pain for this headache is extremely intense and she has not found anything that will alleviate it. She states that she just lays there and tries to be "in the moment" (mindfulness) and prays. She admits that she often asks God to allow her to so that the pain will stop when these headaches are at their most intense. She is careful to explain that she is not suicidal and wouldn't do anything to harm herself; however, when this type of headache is at its worst all she can think of is that being would be so much better than the suffering she is currently enduring. I think that these carefully gleaned insights are clinically helpful. The first type of headache seems to obviously be orthostatic lightheadedness. Interestingly we have not been able to document objective orthostatic hypotension. Dr. Muir is wondering if the basilar artery is more effected than the other circulation. This could explain the symptoms without significant corroborating objective changes in her vitals. The second headache sounds like classic migraines with dilation of the meningeal vasculature. Brought on by light, sounds and smells and responsive to vasoconstrictive treatment (i.e. caffeine). The last sounds like cluster or "suicide headaches." Interestingly usually cluster headaches follow a chronology rather than a specific trigger, like movement. However, the description is pretty accurate for them. I am very much looking forward to Dr. Lei's insights into this case. I am wondering if a genetic predisposition to headaches was activated by the volatile solvent exposure last year. Since she didn't have primary care she fell prey to those on the fringes of medicine who took her money while pushing their own pet agendas including dx of "environmentally triggered immune dysfunction" and "adrenal fatigue with dysautonomia". Unfortunately, she was started on a regimen of medications of great physiologic significance which we now need to carefully wean her off of. I'd like to consider treating her typical, atypical and cluster headache symptoms first and include: abortive medications, prophylactic medications, with consideration for magnesium and oxygen as therapeutic agents. Once we have the headaches as treated as we can, then we can work on an (outpatient) toxicology referral to see what if any treatment is still needed for the solvent exposure. While here I'd like to try to wean her off steroid supplementation as this can cause neuropathy in and of itself. If she shows objective signs of adrenal crisis (abnormal vitals), then we should consider adding this back, otherwise, I'd really like to see her off of all adrenally active meds by discharge. VS,Fishbone, I+O VS, Fishbone, I+O Laboratory Tests 05/25/18 05:04 Red Blood Count 4.12, Mean Corpuscular Volume 88.8, Mean Corpuscular Hemoglobin 30.1, Mean Corpuscular Hemoglobin Concent 33.9, Red Cell Distribution Width 11.7, Neutrophils (%) (Auto) 49.7, Lymphocytes (%) (Auto) 35.6, Monocytes (%) (Auto) 12.3 H, Eosinophils (%) (Auto) 2.0, Basophils (%) (Auto) 0.2, Neutrophils # (Auto) 3.2, Lymphocytes # (Auto) 2.3, Monocytes # (Auto) 0.8, Eosinophils # (Auto) 0.1, Basophils # (Auto) 0.0, Calcium Level 8.9 Vital Signs Date Time Temp Pulse Resp B/P (MAP) Pulse Ox O2 Delivery O2 Flow Rate FiO2 05/25/18 11:22 99.0 79 20 117/71 100 Room Air I&O- Last 24 Hours up to 6 AM 05/25/18 06:00 Intake Total 2680 ml Output Total 300 ml Balance 2380 ml Luis Giraldo MD May 25, 2018 14:24
[2018-05-25] MEDS ORDERED: LIDOCAINE 1% MDV 20ML VIAL As Ordered ONE (14:33)
[2018-05-25] MEDS: LORazepam 2 MG/ML VIAL (J2060) IV PRN (15:49)
[2018-05-25 16:20] VITALS: BP 113/68
[2018-05-25] MEDS ORDERED: FLEET OIL RETENTION ENEMA PR PRN (17:30)
[2018-05-25] MEDS ORDERED: MAG SULF 1GM/100ML (MAG RUN) 1 GM in APPROPRIATE DILUENT 1 EA IV ONE (17:30)
[2018-05-25] MEDS ORDERED: MAGNESIUM SULFATE 1 GM/100 ML D5W BAG (10MG/ML) (J3475) As Ordered ONE (17:31)
[2018-05-25] MEDS: MECLIZINE 25 MG TABLET PO PRN ×2 (17:37→20:54)
[2018-05-25] MEDS ORDERED: APPLE CIDER VINEGAR PR PRN (18:00)
--- NOTE | 2018-05-25 18:19 | REP ---
Procedure: PICC line insertion with Natalie The procedure was performed under the direct supervision of Dr. Yanes. The risks and benefits of the procedure were explained to the patient and informed consent was obtained. The left basilic vein was localized using ultrasound guidance. The skin was prepped and draped in a sterile fashion. 2% lidocaine was used as a local anesthetic. Using ultrasound guidance the basilic vein was cannulated and a 0.018 guidewire was inserted and advanced to the SVC using fluoroscopic guidance. The needle was removed and a 5.5 Colombian dilator and peel-away sheath was inserted over the guide wire. A 5.5 Colombian dual lumen catheter was cut to length of 37 cm. The dilator was removed and the catheter was inserted over the guide wire with the tip ending in the SVC. The peel-away sheath was removed and the catheter was flushed with heparinized saline as per Hospital protocol. The catheter was affixed to the skin and a sterile dressing was applied. The patient tolerated the procedure well and there were no immediate complications. 0.3 minutes of fluoro time was utilized for this procedure. Reviewed by CEDRIC Peña 05/25/2018 05:36 P Electronically Signed by Aurelio Yanes MD 05/25/2018 06:09 P
--- NOTE | 2018-05-25 18:28 | IPNPDOC ---
Subjective Date Seen The patient was seen on 05/25/18. Subjective Chief Complaint/HPI intractable vomiting Events since last encounter Patient seen and examined at bedside. Nurse reports unable to take orthostatics due to patient's inability to cooperate. Patient refused heparin injection today and stated she was trying to move as much as she could around in bed. Admits to 8/10 pain on her scale. Reports any kind of movements around her including trying to move a bedrail will bring on her migraines. Denies fevers, chills, chest pain, SOB. Denies abdominal pain/queeziness. Admits to nausea improved wit h higher dose of zofran, but she did have one episode of bilious vomiting yesterday evening. Is unable to keep any food/water down. Nurse reports patient also wet the bed 3 or 4 times last night because she refused to wear adult pads/"diapers." Reports that last night was the first time she felt better and was able to be pain-free, able to have some clarity. Believes it may be in part due to scopolamine patch, ativan, toradol, zofran. Is requesting if she can have her own enemas from home and use them since she has not had a bowel movement since she has been hospitalized. Is sensitive to light, noise, and movement. Is requesting to be given stress dose of hydrocortisone 100 mg prior to and after PICC line is supposed to be placed this afternoon. Is also requesting a GI consult as this was recommended to her in the past during previous evaluations. Is also wondering if her meclizine can be increased. Constitutional: Denies: Chills, Fever Eyes: Denies: Vision change ENT: Reports: Head Aches (8/10) Skin: Denies: Rash Pulmonary: Denies: Dyspnea Cardiovascular: Denies: Chest Pain Gastrointestinal: Reports: Nausea, Vomiting, Constipation; Denies: Abdominal Pain, Diarrhea Genitourinary: Denies: Dysuria, Frequency Hematologic: Denies: Bruising Endocrine: Denies: Polydipsia, Polyphagia Neurological: Denies: Weakness, Confusion Psych: Reports: Anxiety (is on ativan) Objective Physical Examination General Exam: Positive: Alert, Cooperative, No Acute Distress Eye Exam: Negative: Sclera icteric ENT Exam: Positive: Atraumatic Neck Exam: Positive: Supple Chest Exam: Positive: Clear to auscultation, Normal air movement; Negative: Rales, Rhonchi, Wheezing Heart Exam: Positive: Rate Normal, Regular Rhythm, Normal S1, Normal S2; Negative: Murmurs Telemetry: Positive: No significant arrhythmia, Sinus, Other Telemetry: (VR: 61) Abdomen Exam: Positive: Normal bowel sounds, Soft, Tenderness (under umbilicus (moderate), L and R lower quadrants (mild-moderate), midepigastric region (mild) to deep palpation.); Negative: Hepatospenomegaly Extremity Exam: Negative: Clubbing, Cyanosis, Edema Skin Exam: Negative: Nl turgor and temperature, Rash Neuro Exam: Positive: Normal Speech, Other (no focal neurologic deficits appreciated) Psych Exam: Positive: Mental status NL, Memory Intact, Oriented x 3; Negative: Mood NL (tearful, appears anxious/depressed with flat affect) Assessment /Plan Problems (1) Abdominal migraine with status migrainosus Status: Acute Problem Text: 05/25: Neurology has been consulted: Dr. Lei--awaiting dictation a nd recommendations. Currently patient is on zofran 8 mg q4h PRN, meclizine 50 mg BID, ativan 1 mg q6h PRN anxiety/agitation, immitrex 100 mg BID PRN migraine, fioricet q4h PRN, scopolamine 1 mg q72h topical, toradol 15 mg q6h IV, and IV KCL/dextrose/NaCl @ 100 mLs/hr. Patient reported improvement in symptoms with scopolamine patch. In addition, she is requesting increasing dose of meclizine. Will increase meclizine to 50 mg Q4H PRN and switch short-acting ativan to longer-acting valium 2 mg BID for vestibular symptoms. Will be having PICC line insertion later this afternoon. In addition, spoke to PCP Dr. 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 Her levels on a volatile solvents profile for these chemicals were elevated. In addition, reportedly patient has a family hx of a maternal grandmother who had debilitating migraines as well. It is speculated that patient already may have had abdominal migraines which were not as severe, but worsening migraines may have been triggered by these toxic exposures. These volatile toxins could have produced dysequilibrium/vertigo like side effects affecting the vestibular system. In addition, patient also may be experiencing suicidal migraines. During this hospitalization, the goal should be to control her migraines, getting patient back to functioning, and safely tapering off her steroids for supposed adrenal insufficiency (which is most likely iatrogenic). PCP is also planning to send patient to [facility] for Toxicology evaluation for volatile solvent/chemical exposures as above. 05/23: increased meclizine to 50 mg BID and switched zofran to phenergan. Gave one dose of IV Mg as patient reported therapeutic effectiveness of this during previous hospitalizations for her migraines. MRI Brain negative for CSF leak. Consider Neurology consult. 05/22 increased HD topir 50 QD to BID, restarted HD natalie 100 BID prn, + Fiorcet prn, given vestibular trigger, + meclizine (minimal benefit from ondan, benzos, steroid) IVF at maintenance given minimal po given nausea Contingency: +DVP, eletriptan 40 BID prn (2) Adrenal insufficiency Status: Chronic Problem Text: 05/25: Likely secondary adrenal insufficiency after reviewing Dr. Giraldo's HPI on ECW. 05/23: continue hydrocortisone favor 2 iatrogenic chronic glucocorticoid steroid use from previous PCP for unknown reason 05/22 has received stress dose HC, but s s/s of adrenal crisis; therefore, restarted HC 10 TID (HD ) 05/21 Na 142/K 3.7 c SBP 130s on admission (3) Orthostatic dizziness Status: Chronic Problem Text: 05/25: Nurses still unsuccessful at performing orthostatics. Speculated that one of the three types of migraines patient reports she has: the first migraine is likely from being orthostatic. 05/23: Orthostatic VS thus far from lying to sitting have been negative. Otherwise, Orthostatics have been unsuccessful due to patient being unable to cooperate secondary to her symptoms. ? POTS on chronic midodrine 10 TID -case dw PCP Dr. Giraldo who favor to hold and repeat outpx tilt-table in soon p dc (apparently previous this year was normal) check orthostatics qshift (4) Constipation, chronic Status: Chronic Problem Text: 05/25: patient asked if she can use enemas from home. Will place an order for her to use home medication. 05/23: has not eaten yet. Reports hx of several year hx of chronic constipation. Suspect IBS--constipation predominant vs. gluten enteropathy vs. celiac's disease. chronic senna / enema dependence (admits to chronic 8-10 "herbal" senna QD for "years" and ~q2W tap water/cider enema prn) exacerbates abdominal migraine 05/22/18 + HD senna 05/14/18 CT AP c moderate R sided fecal stasis (5) Intractable vomiting with nausea Status: Acute Problem Text: 05/25: had one episode of bilious vomiting last night reported by patient herself. Increased dose of zofran is more effective. Will continue this. 05/23: no emesis today. However, admits to nausea uncontrolled with zofran. Have switched to phenergan to see if this may help. In addition, patient reports that reglan did not help her in the past. Plan/VTE VTE Prophylaxis Ordered?: Yes VS, I&O, 24H, Fishbone Vital Signs/I&O Vital Signs Date Time Temp Pulse Resp B/P (MAP) Pulse Ox O2 Delivery O2 Flow Rate FiO2 05/25/18 10:52 99.0 79 20 117/71 100 Room Air I&O- Last 24 Hours up to 6 AM 05/25/18 06:00 Intake Total 2680 ml Output Total 300 ml Balance 2380 ml Laboratory Data 24H LABS Laboratory Tests 2 05/25/18 05:04: Immature Granulocyte % (Auto) 0.2, White Blood Count 6.4, Red Blood Count 4.12, Hemoglobin 12.4, Hematocrit 36.6, Mean Corpuscular Volume 88.8, Mean Corpuscular Hemoglobin 30.1, Mean Corpuscular Hemoglobin Concent 33.9, Red Cell Distribution Width 11.7, Platelet Count 234, Neutrophils (%) (Auto) 49.7, Lymphocytes (%) (Auto) 35.6, Monocytes (%) (Auto) 12.3H, Eosinophils (%) (Auto) 2.0, Basophils (%) (Auto) 0.2, Neutrophils # (Auto) 3.2, Lymphocytes # (Auto) 2.3, Monocytes # (Auto) 0.8, Eosinophils # (Auto) 0.1, Basophils # (Auto) 0.0, Nucleated Red Blood Cells % (auto) 0.0, Anion Gap 6L, Glomerular Filtration Rate > 60.0, Blood Urea Nitrogen 5L, Creatinine 0.63, Sodium Level 142, Potassium Level 3.7, Chloride Level 109H, Carbon Dioxide Level 27, Calcium Level 8.9 CBC/BMP Laboratory Tests 05/25/18 05:04 Red Blood Count 4.12, Mean Corpuscular Volume 88.8, Mean Corpuscular Hemoglobin 30.1, Mean Corpuscular Hemoglobin Concent 33.9, Red Cell Distribution Width 11.7, Neutrophils (%) (Auto) 49.7, Lymphocytes (%) (Auto) 35.6, Monocytes (%) (Auto) 12.3 H, Eosinophils (%) (Auto) 2.0, Basophils (%) (Auto) 0.2, Neutrophils # (Auto) 3.2, Lymphocytes # (Auto) 2.3, Monocytes # (Auto) 0.8, Eosinophils # (Auto) 0.1, Basophils # (Auto) 0.0, Calcium Level 8.9 Microbiology Microbiology 05/21/18 Urine Culture - Final, Complete GME ATTESTATION GME ATTESTATION My faculty preceptor for this patient encounter was Dr. Valentín Muir, and was physically present during the encounter and was fully available. All aspects of the patient interview, examination, medical decision making process, and medical care plan development were reviewed and approved by the faculty preceptor. The faculty preceptor is aware and concurs with the plan as stated in the body of this note and will attest to such by his/her cosignature. AMBERLY WRIGHT DO May 25, 2018 11:45
[2018-05-25 20:00] VITALS: BP 108/59
[2018-05-25] MEDS: HERB LAX PO SCH (21:00)
[2018-05-25] MEDS: [UNRECOGNIZED DRUG - OTHER] PO SCH (21:00)
[2018-05-25] MEDS: diazePAM 2 MG TAB PO SCH (22:21)
[2018-05-25 23:59] VITALS: BP 104/74
[2018-05-26] MEDS: MECLIZINE 25 MG TABLET PO PRN ×6 (00:14→20:27)
[2018-05-26] MEDS: ONDANSETRON 4MG/2ML VIAL (J2405) IV PRN ×6 (00:15→20:26)
[2018-05-26] MEDS: FIORICET TAB PO PRN ×6 (00:15→20:28)
[2018-05-26] MEDS: KCL 20MEQ IN D5/0.45NS 1000ML 1,000 ML IV SCH ×3 (00:30→15:33)
[2018-05-26 04:00] VITALS: BP 108/68
[2018-05-26] MEDS: KETOROLAC 30 MG/ML VIAL (J1885) IV SCH ×4 (04:05→21:10)
[2018-05-26 05:07] LABS: BASO % 0.3 % (0.0-1.0); EOS # 0.2 10^3/uL (0.0-0.50); EOS % 1.9 % (0.0-3.0); HEMATOCRIT 34.9 % (36.0-47.0); HEMOGLOBIN 11.9 g/dl (12.0-15.5); LYMPH # 2.3 10^3/uL (1.5-4.5); LYMPH % 24.7 % (24.0-44.0); MEAN CORPUSCULAR HGB CONC 34.1 g/dl (32.0-36.5); MEAN CORPUSCULAR VOLUME 87.9 fl (80.0-96.0); MONO # 0.9 10^3/uL (0.0-0.8); MONO % 9.7 % (0.0-5.0); NEUTROPHILS % 63.1 % (36.0-66.0); PLATELET COUNT, AUTOMATED 241 10^3/uL (150-450); RED BLOOD COUNT 3.97 10^6/uL (4.00-5.40); WHITE BLOOD COUNT 9.5 10^3/uL (4.0-10.0)
[2018-05-26] MEDS: NATURE THROID PO SCH ×2 (05:47→14:21)
[2018-05-26 05:56] LABS: BLOOD UREA NITROGEN 3 MG/DL (7-18); CALCIUM LEVEL 8.2 MG/DL (8.5-10.1); CARBON DIOXIDE LEVEL 23 MEQ/L (21-32); CHLORIDE LEVEL 108 MEQ/L (98-107); CREATININE FOR GFR 0.57 MG/DL (0.55-1.30); GLOMERULAR FILTRATION RATE > 60.0 (>60); GLUCOSE, FASTING 79 MG/DL (70-100); POTASSIUM SERUM 3.1 MEQ/L (3.5-5.1); SODIUM LEVEL 142 MEQ/L (136-145)
[2018-05-26 08:00] VITALS: BP 96/54
[2018-05-26] MEDS: HEPARIN SOD (PORCINE) 5000 UNITS/ML VIAL SQ SCH ×2 (08:53→20:14)
[2018-05-26] MEDS: PANTOPRAZOLE 40MG INJ (PROTONIX) (C9113) IV SCH (09:20)
[2018-05-26] MEDS: SODIUM CHLORIDE 0.9% INJ 10 ML SYR IV SCH ×2 (09:21→17:45)
[2018-05-26] MEDS: HYDROCORTISONE 10 MG TAB PO SCH ×3 (09:21→17:45)
[2018-05-26] MEDS: SUMAtriptan SUCCINATE 25 MG TAB PO PRN (09:21)
[2018-05-26] MEDS: diazePAM 2 MG TAB PO SCH ×2 (09:21→21:10)
[2018-05-26] MEDS: POTASSIUM CHLORIDE 10 MEQ SR TABLET PO SCH ×2 (10:18→12:15)
[2018-05-26] MEDS ORDERED: SUMAtriptan SUCCINATE 6 MG/0.5 ML VIAL SC PRN (11:15)
[2018-05-26 12:00] VITALS: BP 118/56
[2018-05-26 15:45] VITALS: BP 106/60
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
--- NOTE | 2018-05-26 17:32 | IPNPDOC ---
Subjective Date Seen The patient was seen on 05/26/18. Subjective Chief Complaint/HPI intractable vomiting Events since last encounter Patient seen and examined at bedside. Denies fevers, chills, chest pain, SOB, abdominal pain, diarrhea, weakness in extremities, or pain anywhere else. Admits to mild headache, nausea, but minor dizziness when moving positions. Has had some minor bowel movements with her home enema treatment. However, reports she has not gotten much stool out and has to go through 3 rounds of enemas in order to completely evacuate. Had around 8 episodes of vomiting overnight. Is able to keep coffee down this AM, but not able to eat. Feels a lot better this AM than last evening. However, reports yesterday was a nightmare with vertigo, headache, nausea, vomiting symptoms. Nurse on PCU overnight was very helpful with calming things down and helping patient. Patient reports she feels the scopolamine patch, fioricet, imitrex, valium, zofran have helped. She feels that asking for obtaining these medications earlier than scheduled would be helpful prior to when they are due in order to prevent her symptoms from coming on as there is an efficiency difference with administration of medications. Constitutional: Denies: Chills, Fever, Weakness ENT: Reports: Head Aches (minor) Pulmonary: Denies: Dyspnea Cardiovascular: Denies: Chest Pain Gastrointestinal: Reports: Nausea; Denies: Vomiting, Abdominal Pain, Diarrhea Genitourinary: Denies: Dysuria Musculoskeletal: Denies: Joint Pain, Muscle Pain Neurological: Denies: Weakness, Numbness Psych: Reports: Mood Normal Objective Physical Examination General Exam: Positive: Alert, Cooperative, No Acute Distress Eye Exam: Negative: Sclera icteric ENT Exam: Positive: Atraumatic Neck Exam: Positive: Supple Chest Exam: Positive: Clear to auscultation, Normal air movement; Negative: Rales, Rhonchi, Wheezing Heart Exam: Positive: Rate Normal, Regular Rhythm, Normal S1, Normal S2 Telemetry: Positive: No significant arrhythmia, Sinus, Other Telemetry: (VR: 66) Abdomen Exam: Positive: Normal bowel sounds, Soft, Tenderness (mild tenderness to palpation of RLQ and LLQ, but not midepigastric region/RUQ/LUQ); Negative: Hepatospenomegaly Extremity Exam: Negative: Clubbing, Cyanosis, Edema Skin Exam: Negative: Nl turgor and temperature, Rash Neuro Exam: Positive: Normal Speech, Other Psych Exam: Positive: Mental status NL, Mood NL, Memory Intact, Oriented x 3 Assessment /Plan Problems (1) Abdominal migraine with status migrainosus Status: Acute Problem Text: 05/26: Patient looks much improved from prior. Have spoken to Dr. Lei regarding his recommendations. States he has dictated his note last evening. However, it is not yet up on [employer]. He feels that patient is suffering from an emotional state of depression and PTSD. She was crying when he went to evaluate her. She may have Borderline Dependent Personality Disorder, but he is unsure. He recommendations a Psychiatry consultation before placing patient on any antidepressant medications. He also recommends botox injections as outpatient for migraine pain. Feels that patient needs a Multidisciplinary team approach to therapy such as a Comprehensive Headache Clinic at [facility], or [facility], as well as Psychiatry. Patient does report she has a Psychotherapist that she has been working with for >20 years in [place] where she grew up: Nickie Lui. She has been encouraged to communicate with her for psychotherapy during hospitalization if this is available to her. For now, we will continue patient on zofran, meclizine, imitrex, fioricet, scopolamine, toradol, and valium. Will switch the imitrex to 6 mg q2h PRN migraine subcutaneous injection route for better absorption due to patient's GI issues possibly causing decreased absorption. Have also recommended to patient's father to get OTC lubricating eyedrops/artificial tears since meclizine and scopolamine can cause dry eyes. In addition, goal is to try to administer more medications by other routes such as IV/SC in order for patient to have more therapeutic dose absorption to combat her symptoms. 05/25: Neurology has been consulted: Dr. Lei--awaiting dictation and recommendations. Currently patient is on zofran 8 mg q4h PRN, meclizine 50 mg BID, ativan 1 mg q6h PRN anxiety/agitation, imitrex 100 mg BID PRN migraine, fioricet q4h PRN, scopolamine 1 mg q72h topical, toradol 15 mg q6h IV, and IV KCL/dextrose/NaCl @ 100 mLs/hr. Patient reported improvement in symptoms with scopolamine patch. In addition, she is requesting increasing dose of meclizine. Will increase meclizine to 50 mg Q4H PRN and switch short-acting ativan to longer-acting valium 2 mg BID for vestibular symptoms. Will be having PICC line insertion later this afternoon. In addition, spoke to PCP Dr. 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 Her levels on a volatile solvents profile for these chemicals were elevated. In addition, reportedly patient has a family hx of a maternal grandmother who had debilitating migraines as well. It is speculated that patient already may have had abdominal migraines which were not as severe, but worsening migraines may have been triggered by these toxic exposures. These volatile toxins could have produced dysequilibrium/vertigo like side effects affecting the vestibular system. In addition, patient also may be experiencing suicidal migraines. During this hospitalization, the goal should be to control her migraines, getting patient back to functioning, and safely tapering off her steroids for supposed adrenal insufficiency (which is most likely iatrogenic). PCP is also planning to send patient to [facility] for Toxicology evaluation for volatile solvent/chemical exposures as above. 05/23: increased meclizine to 50 mg BID and switched zofran to phenergan. Gave one dose of IV Mg as patient reported therapeutic effectiveness of this during previous hospitalizations for her migraines. MRI Brain negative for CSF leak. Consider Neurology consult. 05/22 increased HD topir 50 QD to BID, restarted HD natalie 100 BID prn, + Fiorcet prn, given vestibular trigger, + meclizine (minimal benefit from ondan, benzos, steroid) IVF at maintenance given minimal po given nausea Contingency: +DVP, eletriptan 40 BID prn (2) Adrenal insufficiency Status: Chronic Problem Text: 05/25: Likely secondary adrenal insufficiency after reviewing Dr. Giraldo's HPI on [facility]. 05/23: continue hydrocortisone favor 2 iatrogenic chronic glucocorticoid steroid use from previous PCP for unknown reason 05/22 has received stress dose HC, but s s/s of adrenal crisis; therefore, restarted HC 10 TID (HD ) 05/21 Na 142/K 3.7 c SBP 130s on admission (3) Orthostatic dizziness Status: Chronic Problem Text: 05/25: Nurses still unsuccessful at performing orthostatics. Speculated that one of the three types of migraines patient reports she has: the first migraine is likely from being orthostatic. 05/23: Orthostatic VS thus far from lying to sitting have been negative. Otherwise, Orthostatics have been unsuccessful due to patient being unable to cooperate secondary to her symptoms. ? POTS on chronic midodrine 10 TID -case dw PCP Dr. Giraldo who favor to hold and repeat outpx tilt-table in soon p dc (apparently previous this year was normal) check orthostatics qshift (4) Constipation, chronic Status: Chronic Problem Text: 05/25: patient asked if she can use enemas from home. 05/23: has not eaten yet. Reports hx of several year hx of chronic constipation. Suspect IBS--constipation predominant vs. gluten enteropathy vs. celiac's disease. chronic senna / enema dependence (admits to chronic 8-10 "herbal" senna QD for "years" and ~q2W tap water/cider enema prn) exacerbates abdominal migraine 05/22/18 + HD senna 05/14/18 CT AP c moderate R sided fecal stasis (5) Intractable vomiting with nausea Status: Acute Problem Text: 05/26: had 8 episodes of vomiting reported overnight. Is feeling less nauseous and much better today. Continue zofran 8 mg q4h PRN IV nausea/vomiting. 05/25: had one episode of bilious vomiting last night reported by patient herself. Increased dose of zofran is more effective. Will continue this. 05/23: no emesis today. However, admits to nausea uncontrolled with zofran. Have switched to phenergan to see if this may help. In addition, patient reports that reglan did not help her in the past. Plan/VTE VTE Prophylaxis Ordered?: Yes VS, I&O, 24H, Fishbone Vital Signs/I&O Vital Signs Date Time Temp Pulse Resp B/P (MAP) Pulse Ox O2 Delivery O2 Flow Rate FiO2 05/26/18 13:00 17 05/26/18 12:00 98.8 96 118/56 (76) 96 Room Air I&O- Last 24 Hours up to 6 AM 05/26/18 06:00 Intake Total 2280 ml Output Total 150 ml Balance 2130 ml Laboratory Data 24H LABS Laboratory Tests 2 05/26/18 04:46: Immature Granulocyte % (Auto) 0.3, White Blood Count 9.5, Red Blood Count 3.97L, Hemoglobin 11.9L, Hematocrit 34.9L, Mean Corpuscular Volume 87.9, Mean Corpuscular Hemoglobin 30.0, Mean Corpuscular Hemoglobin Concent 34.1, Red Cell Distribution Width 11.7, Platelet Count 241, Neutrophils (%) (Auto) 63.1, Lymphocytes (%) (Auto) 24.7, Monocytes (%) (Auto) 9.7H, Eosinophils (%) (Auto) 1.9, Basophils (%) (Auto) 0.3, Neutrophils # (Auto) 6.0, Lymphocytes # (Auto) 2.3, Monocytes # (Auto) 0.9H, Eosinophils # (Auto) 0.2, Basophils # (Auto) 0.0, Nucleated Red Blood Cells % (auto) 0.0, Anion Gap 11, Glomerular Filtration Rate > 60.0, Blood Urea Nitrogen 3L, Creatinine 0.57, Sodium Level 142, Potassium Level 3.1L, Chloride Level 108H, Carbon Dioxide Level 23, Calcium Level 8.2L CBC/BMP Laboratory Tests 05/26/18 04:46 Red Blood Count 3.97 L, Mean Corpuscular Volume 87.9, Mean Corpuscular Hemoglobin 30.0, Mean Corpuscular Hemoglobin Concent 34.1, Red Cell Distribution Width 11.7, Neutrophils (%) (Auto) 63.1, Lymphocytes (%) (Auto) 24.7, Monocytes (%) (Auto) 9.7 H, Eosinophils (%) (Auto) 1.9, Basophils (%) (Auto) 0.3, Neutrophils # (Auto) 6.0, Lymphocytes # (Auto) 2.3, Monocytes # (Auto) 0.9 H, Eosinophils # (Auto) 0.2, Basophils # (Auto) 0.0, Calcium Level 8.2 L Microbiology Microbiology 05/21/18 Urine Culture - Final, Complete GME ATTESTATION GME ATTESTATION My faculty preceptor for this patient encounter was Dr. Valentín Muir, and was physically present during the encounter and was fully available. All aspects of the patient interview, examination, medical decision making process, and medical care plan development were reviewed and approved by the faculty preceptor. The faculty preceptor is aware and concurs with the plan as stated in the body of this note and will attest to such by his/her cosignature. AMBERLY WRIGHT DO May 26, 2018 14:54
[2018-05-26 20:00] VITALS: BP 104/61
[2018-05-26] MEDS: [UNRECOGNIZED DRUG - OTHER] PO SCH (21:11)
[2018-05-26] MEDS: HERB LAX PO SCH (21:11)
[2018-05-26 23:59] VITALS: BP 106/69
[2018-05-27] MEDS: KCL 20MEQ IN D5/0.45NS 1000ML 1,000 ML IV SCH ×3 (00:31→18:19)
[2018-05-27] MEDS: MECLIZINE 25 MG TABLET PO PRN ×6 (00:32→19:59)
[2018-05-27] MEDS: ONDANSETRON 4MG/2ML VIAL (J2405) IV PRN ×6 (00:32→19:59)
[2018-05-27] MEDS: FIORICET TAB PO PRN ×6 (00:33→19:59)
[2018-05-27] MEDS: KETOROLAC 30 MG/ML VIAL (J1885) IV SCH ×4 (03:09→21:16)
[2018-05-27 04:00] VITALS: BP 108/66
[2018-05-27] MEDS: SODIUM CHLORIDE 0.9% INJ 10 ML SYR IV SCH ×2 (06:11→17:02)
[2018-05-27] MEDS: NATURE THROID PO SCH ×2 (06:11→14:14)
[2018-05-27 06:22] LABS: BASO % 0.4 % (0.0-1.0); EOS # 0.3 10^3/uL (0.0-0.50); EOS % 3.8 % (0.0-3.0); HEMOGLOBIN 12.4 g/dl (12.0-15.5); LYMPH # 2.6 10^3/uL (1.5-4.5); LYMPH % 36.8 % (24.0-44.0); MEAN CORPUSCULAR HEMOGLOBIN 30.5 pg (27.0-33.0); MEAN CORPUSCULAR HGB CONC 34.4 g/dl (32.0-36.5); MEAN CORPUSCULAR VOLUME 88.5 fl (80.0-96.0); MONO # 0.7 10^3/uL (0.0-0.8); MONO % 9.5 % (0.0-5.0); NEUTROPHILS # 3.5 10^3/uL (1.8-7.7); NEUTROPHILS % 49.2 % (36.0-66.0); PLATELET COUNT, AUTOMATED 221 10^3/uL (150-450); RED BLOOD COUNT 4.07 10^6/uL (4.00-5.40); WHITE BLOOD COUNT 7.2 10^3/uL (4.0-10.0)
[2018-05-27 06:42] LABS: BLOOD UREA NITROGEN 3 MG/DL (7-18); CALCIUM LEVEL 8.9 MG/DL (8.5-10.1); CARBON DIOXIDE LEVEL 26 MEQ/L (21-32); CHLORIDE LEVEL 109 MEQ/L (98-107); CREATININE FOR GFR 0.59 MG/DL (0.55-1.30); GLOMERULAR FILTRATION RATE > 60.0 (>60); GLUCOSE, FASTING 93 MG/DL (70-100); MAGNESIUM LEVEL 2.2 MG/DL (1.8-2.4); POTASSIUM SERUM 3.9 MEQ/L (3.5-5.1); SODIUM LEVEL 140 MEQ/L (136-145)
[2018-05-27] MEDS: PANTOPRAZOLE 40MG INJ (PROTONIX) (C9113) IV SCH (08:36)
[2018-05-27] MEDS: HYDROCORTISONE 10 MG TAB PO SCH ×3 (08:38→18:19)
[2018-05-27] MEDS: diazePAM 2 MG TAB PO SCH ×2 (08:38→21:16)
[2018-05-27] MEDS: HEPARIN SOD (PORCINE) 5000 UNITS/ML VIAL SQ SCH ×2 (08:40→19:49)
[2018-05-27] MEDS: SCOPOLAMINE 1MG TRANSDERMAL PATCH TOP SCH (08:40)
[2018-05-27] MEDS ORDERED: MAG SULF 1GM/100ML (MAG RUN) 1 GM in APPROPRIATE DILUENT 1 EA IV ONE (10:30)
[2018-05-27] MEDS ORDERED: SUMAtriptan SUCCINATE 25 MG TAB PO PRN (10:30)
[2018-05-27] MEDS: SUMAtriptan SUCCINATE 25 MG TAB PO PRN ×2 (10:44→20:28)
[2018-05-27 12:00] VITALS: BP 105/58
--- NOTE | 2018-05-27 12:16 | IPNPDOC ---
Subjective Date Seen The patient was seen on 05/27/18. Subjective Chief Complaint/HPI intractable vomiting Events since last encounter Patient seen but not fully examined at bedside. Brother at bedside reports patient was having a severe migraine with escalating pain. Patient reported having a reaction to the IV sumatriptan with nausea/vomiting/headache/neck pain. Requesting to be switched back to PO. Is in obvious discomfort and lying in position crying in bed with lights off in room. Nurse reports no events reported overnight, but that she was having vertigo with "anything," a 10/10 constant headache, but no vomiting. Was on the commode and had a bowel movement. General: Reports: ROS Unobtainable (not fully obtainable. ) ENT: Reports: Head Aches Gastrointestinal: Denies: Vomiting, Constipation Musculoskeletal: Reports: Other Symptoms (experiencing pain in neck) Neurological: Reports: Other Symptoms (migraine headache and vertigo) Objective Physical Examination General Exam: Positive: Alert, Cooperative, Mild Distress Neck Exam: Positive: Supple Chest Exam: Positive: Other (symmetric chest rise ) Skin Exam: Negative: Rash Neuro Exam: Positive: Normal Speech Psych Exam: Positive: Anxiety, Memory Intact, Oriented x 3 Assessment /Plan Problems (1) Abdominal migraine with status migrainosus Status: Acute Problem Text: 05/27: Patient's condition has once again deteriorated and patient is crying at bedside. Is having 10/10 headache and vertigo symptoms. Difficult to get an accurate hx/physical in this state. Dr. Lei's Neurology note has been reviewed and recommendations will be taken. However, at this point, will not advise a Psychiatric consult since patient already follows with Psych as outpatient. Will look into Multidisciplinary Team Approach and corresponding with [facility], [place] etc. for patient's care. Will look into arranging patient botox injections with Pain Clinic as outpatient. Have d/ce'd IV sumatriptan and restarted 100 mg PO sumatriptan BID. Have given Mg run x1. Will order Mg level checks tonight and tomorrow. Will order a standard Mg run as previously to see if this will help. Will continue current regimen. 05/26: Patient looks much improved from prior. Have spoken to Dr. Lei regarding his recommendations. States he has dictated his note last evening. However, it is not yet up on [employer]. He feels that patient is suffering from an emotional state of depression and PTSD. She was crying when he went to evaluate her. She may have Borderline Dependent Personality Disorder, but he is unsure. He recommendations a Psychiatry consultation before placing patient on any antidepressant medications. He also recommends botox injections as outpatient for migraine pain. Feels that patient needs a Multidisciplinary team approach to therapy such as a [facility] at [place], [place], or [facility], as well as Psychiatry. Patient does report she has a Psychotherapist th at she has been working with for >20 years in [place] where she grew up: Nickie Lui. She has been encouraged to communicate with her for psychotherapy during hospitalization if this is available to her. For now, we will continue patient on zofran, meclizine, imitrex, fioricet, scopolamine, toradol, and valium. Will switch the imitrex to 6 mg q2h PRN migraine subcutaneous injection route for better absorption due to patient's GI issues possibly causing decreased absorption. Have also recommended to patient's father to get OTC lubricating eyedrops/artificial tears since meclizine and scopolamine can cause dry eyes. In addition, goal is to try to administer more medications by other routes such as IV/SC in order for patient to have more therapeutic dose absorption to combat her symptoms. 05/25: Neurology has been consulted: Dr. Lei--awaiting dictation and recommendations. Currently patient is on zofran 8 mg q4h PRN, meclizine 50 mg BID, ativan 1 mg q6h PRN anxiety/agitation, imitrex 100 mg BID PRN migraine, fioricet q4h PRN, scopolamine 1 mg q72h topical, toradol 15 mg q6h IV, and IV KCL/dextrose/NaCl @ 100 mLs/hr. Patient reported improvement in symptoms with scopolamine patch. In addition, she is requesting increasing dose of meclizine. Will increase meclizine to 50 mg Q4H PRN and switch short-acting ativan to longer-acting valium 2 mg BID for vestibular symptoms. Will be having PICC line insertion later this afternoon. In addition, spoke to PCP Dr. 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 Her levels on a volatile solvents profile for these chemicals were elevated. In addition, reportedly patient has a family hx of a maternal grandmother who had debilitating migraines as well. It is speculated that patient already may have had abdominal migraines which were not as severe, but worsening migraines may have been triggered by these toxic exposures. These volatile toxins could have produced dysequilibrium/vertigo like side effects affecting the vestibular system. In addition, patient also may be experiencing suicidal migraines. During this hospitalization, the goal should be to control her migraines, getting patient back to functioning, and safely tapering off her steroids for supposed adrenal insufficiency (which is most likely iatrogenic). PCP is also planning to send patient to [facility] for Toxicology evaluation for volatile solvent/chemical exposures as above. 05/23: increased meclizine to 50 mg BID and switched zofran to phenergan. Gave one dose of IV Mg as patient reported therapeutic effectiveness of this during previous hospitalizations for her migraines. MRI Brain negative for CSF leak. Consider Neurology consult. 05/22 increased HD topir 50 QD to BID, restarted HD natalie 100 BID prn, + Fiorcet prn, given vestibular trigger, + meclizine (minimal benefit from ondan, benzos, steroid) IVF at maintenance given minimal po given nausea Contingency: +DVP, eletriptan 40 BID prn (2) Adrenal insufficiency Status: Chronic Problem Text: 05/25: Likely secondary adrenal insufficiency after reviewing Dr. Giraldo's HPI on [facility]. 05/23: continue hydrocortisone favor 2 iatrogenic chronic glucocorticoid steroid use from previous PCP for unknown reason 05/22 has received stress dose HC, but s s/s of adrenal crisis; therefore, restarted HC 10 TID (HD ) 05/21 Na 142/K 3.7 c SBP 130s on admission (3) Orthostatic dizziness Status: Chronic Problem Text: 05/25: Nurses still unsuccessful at performing orthostatics. Speculated that one of the three types of migraines patient reports she has: the first migraine is likely from being orthostatic. 05/23: Orthostatic VS thus far from lying to sitting have been negative. Otherwise, Orthostatics have been unsuccessful due to patient being unable to cooperate secondary to her symptoms. ? POTS on chronic midodrine 10 TID -case dw PCP Dr. Giraldo who favor to hold and repeat outpx tilt-table in soon p dc (apparently previous this year was normal) check orthostatics qshift (4) Constipation, chronic Status: Chronic Problem Text: 05/27: Has 5 documented BMs. 05/25: patient asked if she can use enemas from home. 05/23: has not eaten yet. Reports hx of several year hx of chronic constipation. Suspect IBS--constipation predominant vs. gluten enteropathy vs. celiac's disease. chronic senna / enema dependence (admits to chronic 8-10 "herbal" senna QD for "years" and ~q2W tap water/cider enema prn) exacerbates abdominal migraine 05/22/18 + HD senna 05/14/18 CT AP c moderate R sided fecal stasis (5) Intractable vomiting with nausea Status: Acute Problem Text: 05/27: No vomiting reported today. 05/26: had 8 episodes of vomiting reported overnight. Is feeling less nauseous and much better today. Continue zofran 8 mg q4h PRN IV nausea/vomiting. 05/25: had one episode of bilious vomiting last night reported by patient herself. Increased dose of zofran is more effective. Will continue this. 05/23: no emesis today. However, admits to nausea uncontrolled with zofran. Have switched to phenergan to see if this may help. In addition, patient reports that reglan did not help her in the past. Plan/VTE VTE Prophylaxis Ordered?: Yes VS, I&O, 24H, Fishbone Vital Signs/I&O Vital Signs Date Time Temp Pulse Resp B/P (MAP) Pulse Ox O2 Delivery O2 Flow Rate FiO2 05/27/18 09:08 18 Room Air 05/27/18 04:00 99.8 57 108/66 (80) 99 I&O- Last 24 Hours up to 6 AM 05/27/18 06:00 Intake Total 3740 ml Output Total 1900 ml Balance 1840 ml Laboratory Data 24H LABS Laboratory Tests 2 05/27/18 06:11: Immature Granulocyte % (Auto) 0.3, White Blood Count 7.2, Red Blood Count 4.07, Hemoglobin 12.4, Hematocrit 36.0, Mean Corpuscular Volume 88.5, Mean Corpuscular Hemoglobin 30.5, Mean Corpuscular Hemoglobin Concent 34.4, Red Cell Distribution Width 12.0, Platelet Count 221, Neutrophils (%) (Auto) 49.2, Lymphocytes (%) (Auto) 36.8, Monocytes (%) (Auto) 9.5H, Eosinophils (%) (Auto) 3.8H, Basophils (%) (Auto) 0.4, Neutrophils # (Auto) 3.5, Lymphocytes # (Auto) 2.6, Monocytes # (Auto) 0.7, Eosinophils # (Auto) 0.3, Basophils # (Auto) 0.0, Nucleated Red Blood Cells % (auto) 0.0, Anion Gap 5L, Glomerular Filtration Rate > 60.0, Blood Urea Nitrogen 3L, Creatinine 0.59, Sodium Level 140, Potassium Level 3.9#, Chloride Level 109H, Carbon Dioxide Level 26, Calcium Level 8.9, Magnesium Level 2.2 CBC/BMP Laboratory Tests 05/27/18 06:11 Red Blood Count 4.07, Mean Corpuscular Volume 88.5, Mean Corpuscular Hemoglobin 30.5, Mean Corpuscular Hemoglobin Concent 34.4, Red Cell Distribution Width 12.0, Neutrophils (%) (Auto) 49.2, Lymphocytes (%) (Auto) 36.8, Monocytes (%) (Auto) 9.5 H, Eosinophils (%) (Auto) 3.8 H, Basophils (%) (Auto) 0.4, Neutrophils # (Auto) 3.5, Lymphocytes # (Auto) 2.6, Monocytes # (Auto) 0.7, Eosinophils # (Auto) 0.3, Basophils # (Auto) 0.0, Calcium Level 8.9 Microbiology Microbiology 05/21/18 Urine Culture - Final, Complete GME ATTESTATION GME ATTESTATION My faculty preceptor for this patient encounter was Dr. Valentín Muir, and was physically present during the encounter and was fully available. All aspects of the patient interview, examination, medical decision making process, and medical care plan development were reviewed and approved by the faculty preceptor. The faculty preceptor is aware and concurs with the plan as stated in the body of this note and will attest to such by his/her cosignature. AMBERLY WRIGHT DO May 27, 2018 12:16
[2018-05-27 16:00] VITALS: BP 118/71
[2018-05-27] MEDS: SODIUM CHLORIDE 0.9% INJ 10 ML SYR IV PRN (16:30)
[2018-05-27 20:00] VITALS: BP 106/64
[2018-05-27] MEDS: [UNRECOGNIZED DRUG - OTHER] PO SCH (21:00)
[2018-05-27] MEDS: HERB LAX PO SCH (21:00)
[2018-05-27 23:59] VITALS: BP 140/80
[2018-05-28] MEDS: FIORICET TAB PO PRN ×3 (00:03→08:09)
[2018-05-28] MEDS: MECLIZINE 25 MG TABLET PO PRN ×3 (00:03→08:09)
[2018-05-28] MEDS: ONDANSETRON 4MG/2ML VIAL (J2405) IV PRN ×3 (00:04→08:08)
[2018-05-28] MEDS: KETOROLAC 30 MG/ML VIAL (J1885) IV SCH (03:03)
[2018-05-28 04:00] VITALS: BP 98/60
[2018-05-28] MEDS: KCL 20MEQ IN D5/0.45NS 1000ML 1,000 ML IV SCH ×2 (04:03→17:01)
[2018-05-28] MEDS: [UNRECOGNIZED DRUG - OTHER] PO SCH ×2 (04:45→21:12)
[2018-05-28] MEDS: HERB LAX PO SCH ×2 (04:45→21:12)
[2018-05-28] MEDS: SODIUM CHLORIDE 0.9% INJ 10 ML SYR IV SCH ×2 (06:24→17:01)
[2018-05-28] MEDS: NATURE THROID PO SCH ×2 (06:24→14:00)
[2018-05-28 06:46] LABS: BASO % 0.5 % (0.0-1.0); EOS # 0.3 10^3/uL (0.0-0.50); EOS % 4.7 % (0.0-3.0); HEMATOCRIT 35.2 % (36.0-47.0); LYMPH # 2.4 10^3/uL (1.5-4.5); MEAN CORPUSCULAR HEMOGLOBIN 30.3 pg (27.0-33.0); MEAN CORPUSCULAR HGB CONC 34.1 g/dl (32.0-36.5); MEAN CORPUSCULAR VOLUME 88.9 fl (80.0-96.0); MONO # 0.7 10^3/uL (0.0-0.8); MONO % 11.1 % (0.0-5.0); NEUTROPHILS % 46.4 % (36.0-66.0); PLATELET COUNT, AUTOMATED 214 10^3/uL (150-450); RED BLOOD COUNT 3.96 10^6/uL (4.00-5.40); WHITE BLOOD COUNT 6.4 10^3/uL (4.0-10.0)
[2018-05-28 07:00] LABS: BLOOD UREA NITROGEN 2 MG/DL (7-18); CALCIUM LEVEL 9.1 MG/DL (8.5-10.1); CARBON DIOXIDE LEVEL 24 MEQ/L (21-32); CHLORIDE LEVEL 109 MEQ/L (98-107); CREATININE FOR GFR 0.56 MG/DL (0.55-1.30); GLOMERULAR FILTRATION RATE > 60.0 (>60); GLUCOSE, FASTING 95 MG/DL (70-100); POTASSIUM SERUM 3.8 MEQ/L (3.5-5.1); SODIUM LEVEL 140 MEQ/L (136-145)
[2018-05-28 08:00] VITALS: BP 96/50
[2018-05-28] MEDS: SUMAtriptan SUCCINATE 25 MG TAB PO PRN (08:36)
[2018-05-28] MEDS: HEPARIN SOD (PORCINE) 5000 UNITS/ML VIAL SQ SCH ×2 (09:00→21:00)
[2018-05-28] MEDS ORDERED: diazePAM 2 MG TAB PO PRN (10:30)
[2018-05-28] MEDS: HYDROCORTISONE 10 MG TAB PO SCH ×3 (11:04→18:22)
[2018-05-28 12:00] VITALS: BP 97/59
--- NOTE | 2018-05-28 12:27 | IPN ---
DATE: 05/28/2018 Jemima was seen in the presence of her parents and brother. It was a 57-minute visit today, and the plan as determined through that visit will be outlined below. Today, things started off poorly for Jemima. She was exposed to bleach fumes, which provoked migraine and then she developed a migraine with a strong vertiginous component that improved during the course of our visit. PHYSICAL EXAMINATION: Vital signs were stable. Neurologic Exam: She had no facial droop or weakness. Moves arms and legs with equal strength. Lungs: Clear. Heart: Regular rhythm. Labs were unremarkable today. IMPRESSION: 1. Severe migraine headaches with strong vestibular component. At this point, she has been seen by neurology as well as the pain clinic, she has had adequate imaging studies. We have been treating the pain with IV Toradol, but she has reached the limit of how much of that we can give. She has been getting as needed doses of Imitrex and Fioricet, and finds that she does much better if she gets her as needed medications on a scheduled basis and to accommodate that, I have changed the Fioricet to every 4 hours scheduled, her meclizine to every 4 hours scheduled, and her Zofran every 4 hours scheduled. I think if we can accommodate this for a few days, we can knock back the headache enough that she can become more functional. I have stopped the Toradol; she has reached the dose limit on that. I have ordered Indomethacin 50 mg three times a day as needed in its place. We have been using Valium to deal with the vestibular component of her headaches and it has done a good job in making her more functional. She is sitting up in bed today, able to move head, arms, hands, etcetera without provoking any motion sickness. I will increase the Valium to 3 mg twice a day today. We talked about outpatient care, which might include going to the pain clinic for Botox injections. She already gets cognitive behavioral therapy through her counselor that she works with through [facility] or telephone, and the person is in [place]. 2. Urinary frequency. It is probably from the IV fluids. At this point, she thinks she can take orally well enough that I am reducing her IV rate to 50 mL per hour. I will get a urinalysis (UA) with a culture and sensitivity (C and S). She has had lifelong problems with urinary issues including urinary incontinence. It is worse when she has migraines but is a premorbid condition in its own way, and I discussed with her the possibility of referral for pelvic conditioning therapy through the physical therapy department at [facility], which can also be set up by Dr. Giraldo. 3. Questionable adrenal problems. I again expressed skepticism that she has any documented problems with her adrenal glands. Her adrenal antibodies are negative, which rules out autoimmune problems with her adrenals. At this point, she has been placed on hydrocortisone 10 mg three times a day by the provider in [facility] referenced previously, and, unfortunately, it is going to take months of weaning off from that before true adrenal functioning can be tested in a legitimate fashion. I did tell the family I see nothing to suggest that she has an adrenal problem except that created by being placed on the hydrocortisone, which we now have to deal with and wean off in a slow systematic fashion. Dr. Lamar will be assuming her care tomorrow. I will give him adequate sign out on this challenging but ultimately rewarding case.
[2018-05-28] MEDS: PYRIDOXINE 50 MG TAB PO SCH (12:49)
[2018-05-28] MEDS: TOPIRAMATE (TopAMAX) 25 MG TAB PO SCH ×2 (12:50→21:08)
[2018-05-28] MEDS: FIORICET TAB PO SCH ×3 (12:50→21:09)
[2018-05-28] MEDS: ONDANSETRON 4MG/2ML VIAL (J2405) IV SCH ×3 (12:51→21:10)
[2018-05-28] MEDS: MECLIZINE 25 MG TABLET PO SCH ×3 (12:51→21:10)
[2018-05-28] MEDS: SODIUM CHLORIDE 0.9% INJ 10 ML SYR IV PRN (12:51)
[2018-05-28] MEDS: ANUSOL HC CREAM 30GM TOP SCH ×2 (12:52→21:12)
[2018-05-28 13:09] LABS: APPEARANCE, URINE CLEAR (CLEAR); BACTERIA, URINE AUTO 1+ (NEGATIVE); BILIRUBIN, URINE AUTO NEGATIVE (NEGATIVE); BLOOD, URINE BLOOD NEGATIVE (NEGATIVE); COLOR, URINE YELLOW (YELLOW); GLUCOSE, URINE (UA) AUTO NEGATIVE (NEGATIVE); KETONE, URINE AUTO NEGATIVE (NEGATIVE); LEUKOCYTE ESTERASE, URINE AUTO NEGATIVE (NEGATIVE); MUCUS, URINE SMALL (NEGATIVE); NITRITE, URINE AUTO NEGATIVE (NEGATIVE); PROTEIN, URINE AUTO NEGATIVE (NEGATIVE); RBC, URINE AUTO 0 /HPF (0-3); SPECIFIC GRAVITY URINE AUTO 1.006 (1.002-1.035); SQUAMOUS EPITHELIAL CELL UR AU 0 /HPF (0-6); UROBILINOGEN, URINE AUTO 0.2 mg/dL (0.0-2.0); WBC, URINE AUTO 1 /HPF (0-3)
[2018-05-28] MEDS ORDERED: PILL CRUSHER/CUTTER 1 EACH XX PRN (13:15)
[2018-05-28] MEDS: diazePAM 2 MG TAB PO SCH ×2 (14:34→22:24)
[2018-05-28 16:00] VITALS: BP 109/53
[2018-05-28 20:00] VITALS: BP 126/74
[2018-05-29] VITALS (8 sets, daily range): BP systolic 102–133; BP diastolic 56–74
[2018-05-29] MEDS: MECLIZINE 25 MG TABLET PO SCH ×6 (00:46→20:34)
[2018-05-29] MEDS: ONDANSETRON 4MG/2ML VIAL (J2405) IV SCH ×6 (00:46→20:34)
[2018-05-29] MEDS: FIORICET TAB PO SCH ×6 (00:47→20:35)
[2018-05-29] MEDS: SODIUM CHLORIDE 0.9% INJ 10 ML SYR IV SCH ×4 (05:14→17:18)
[2018-05-29 08:45] LABS: BASO % 0.6 % (0.0-1.0); EOS # 0.3 10^3/uL (0.0-0.50); EOS % 4.7 % (0.0-3.0); HEMOGLOBIN 12.6 g/dl (12.0-15.5); LYMPH # 2.7 10^3/uL (1.5-4.5); LYMPH % 37.4 % (24.0-44.0); MEAN CORPUSCULAR HEMOGLOBIN 29.9 pg (27.0-33.0); MEAN CORPUSCULAR HGB CONC 33.2 g/dl (32.0-36.5); MONO # 0.6 10^3/uL (0.0-0.8); MONO % 8.2 % (0.0-5.0); NEUTROPHILS # 3.5 10^3/uL (1.8-7.7); NEUTROPHILS % 48.8 % (36.0-66.0); PLATELET COUNT, AUTOMATED 241 10^3/uL (150-450); RED BLOOD COUNT 4.22 10^6/uL (4.00-5.40); WHITE BLOOD COUNT 7.2 10^3/uL (4.0-10.0)
[2018-05-29] MEDS: HEPARIN SOD (PORCINE) 5000 UNITS/ML VIAL SQ SCH ×2 (09:00→20:35)
[2018-05-29 09:04] LABS: BLOOD UREA NITROGEN 2 MG/DL (7-18); CALCIUM LEVEL 8.4 MG/DL (8.5-10.1); CARBON DIOXIDE LEVEL 21 MEQ/L (21-32); CHLORIDE LEVEL 110 MEQ/L (98-107); GLOMERULAR FILTRATION RATE > 60.0 (>60); GLUCOSE, FASTING 381 MG/DL (70-100); POTASSIUM SERUM 5.3 MEQ/L (3.5-5.1); SODIUM LEVEL 137 MEQ/L (136-145)
[2018-05-29] MEDS: diazePAM 2 MG TAB PO SCH ×2 (09:23→20:35)
[2018-05-29] MEDS: PANTOPRAZOLE 40MG TAB (PROTONIX) PO SCH (09:25)
[2018-05-29] MEDS: PYRIDOXINE 50 MG TAB PO SCH (09:25)
[2018-05-29] MEDS: HYDROCORTISONE 10 MG TAB PO SCH ×3 (09:26→17:18)
[2018-05-29] MEDS: TOPIRAMATE (TopAMAX) 25 MG TAB PO SCH ×2 (09:26→20:34)
[2018-05-29] MEDS: ANUSOL HC CREAM 30GM TOP SCH ×2 (09:30→20:36)
[2018-05-29] MEDS: NATURE THROID PO SCH ×2 (09:34→13:30)
[2018-05-29] MEDS: PROPRANOLOL 10 MG TAB PO SCH ×2 (13:30→22:43)
[2018-05-29] MEDS: PROCHLORPERAZINE 5 MG TAB (S0183) PO PRN (13:43)
[2018-05-29] MEDS: HERB LAX PO SCH (20:35)
[2018-05-29] MEDS: [UNRECOGNIZED DRUG - OTHER] PO SCH (20:35)
[2018-05-30] VITALS (7 sets, daily range): BP systolic 99–132; BP diastolic 54–77
[2018-05-30] MEDS: FIORICET TAB PO SCH ×6 (01:05→20:56)
[2018-05-30] MEDS: MECLIZINE 25 MG TABLET PO SCH ×6 (01:05→20:54)
[2018-05-30] MEDS: ONDANSETRON 4MG/2ML VIAL (J2405) IV SCH ×6 (01:05→20:54)
[2018-05-30] MEDS: PROCHLORPERAZINE 5 MG TAB (S0183) PO PRN ×3 (01:16→19:50)
[2018-05-30] MEDS: SODIUM CHLORIDE 0.9% INJ 10 ML SYR IV PRN (05:09)
[2018-05-30] MEDS: diazePAM 2 MG TAB PO SCH ×2 (08:48→20:57)
[2018-05-30] MEDS: SCOPOLAMINE 1MG TRANSDERMAL PATCH TOP SCH (08:48)
[2018-05-30] MEDS: PYRIDOXINE 50 MG TAB PO SCH (08:50)
[2018-05-30] MEDS: PANTOPRAZOLE 40MG TAB (PROTONIX) PO SCH (08:51)
[2018-05-30] MEDS: TOPIRAMATE (TopAMAX) 25 MG TAB PO SCH ×2 (08:58→20:55)
[2018-05-30] MEDS: NATURE THROID PO SCH ×2 (09:00→14:00)
[2018-05-30] MEDS: HEPARIN SOD (PORCINE) 5000 UNITS/ML VIAL SQ SCH ×2 (09:00→20:57)
[2018-05-30] MEDS: ANUSOL HC CREAM 30GM TOP SCH ×2 (09:00→20:57)
[2018-05-30] MEDS: PROPRANOLOL 10 MG TAB PO SCH (09:00)
[2018-05-30] MEDS: HYDROCORTISONE 10 MG TAB PO SCH ×3 (09:00→17:11)
--- NOTE | 2018-05-30 14:40 | IPNPDOC ---
Subjective Date Seen The patient was seen on 05/30/18. Subjective Chief Complaint/HPI Patient seen and examined at bedside. Reports she is feeling better today. However, had a difficult night and was not able to sleep well. Was begun on propanolol yesterday to which she reports a reaction where her anterior neck m uscles spasmed. Last time she vomited was yesterday morning multiple times from a sensitivity to bleach. Was able to hold breakfast and dinner down yesterday. Reports her bowels are moving regularly now and reports 3 BMs yesterday, none today. Admits to 5-6/10 throbbing frontal and retroorbital headache. Denies dizziness, visual changes, weakness in extremities. It was reported that labs were canceled this morning including CBC and chemistry due to patient refusal/difficulty with obtaining blood from PICC line. In addition, patient reports that as long as she gets meclizine, zofran, fioricet cocktail exactly at the 4 hour scheduled interval, it seems to keep her symptoms controlled/stable. She would like the zofran increased from 4 to 8 mg if possible along with the compazine. She also states she does not want to have to take imitrex and she does not wish to make herself susceptible to migraines. States her vertigo is not managed yet. When she tries to stand up during PT, it's a lot of movement for her and she starts feeling like she is experiencing a car crash and becomes nauseous/starts vomiting again. Feels that she is off balance going from a sitting to standing position and can fall. Has not been able to stand for an extended period of time successfully. Is asking if another medication could be added as an extra support for vertigo as a daily scheduled medication. States Dr. Lamar was considering dopamine inhibitor and valproic acid. In addition, she does not know if valium helped her. Is also asking for a "muscle strengthener" on a short-term basis for her to be able to work with PT to allow for a faster initial recovery stage. Last but not least, is asking if her Nature Thyroid medication can be increased to a 1/2 grain or 3/4 grain BID as she states she is getting a low dose of this as of now. General: Reports: Normal Appetite Constitutional: Denies: Chills, Fever ENT: Reports: Head Aches, Sore Throat Skin: Denies: Rash Pulmonary: Reports: Dyspnea (mild); Denies: Cough Cardiovascular: Denies: Chest Pain Gastrointestinal: Reports: Nausea; Denies: Vomiting, Abdominal Pain, Diarrhea, Constipation Genitourinary: Reports: Frequency, Hematuria; Denies: Dysuria Endocrine: Reports: Polyuria; Denies: Polydipsia, Polyphagia, Heat Intolerance, Cold Intolerance Musculoskeletal: Denies: Joint Pain, Muscle Pain, Spasms Neurological: Reports: Incoordination (when trying to stand); Denies: Weakness, Numbness Psych: Reports: Mood Normal; Denies: Anxiety, Depression Objective Physical Examination General Exam: Positive: Alert, Cooperative, No Acute Distress Eye Exam: Positive: Conjunctiva & lids normal ENT Exam: Positive: Atraumatic Neck Exam: Positive: Supple Chest Exam: Positive: Clear to auscultation, Normal air movement; Negative: Rales, Rhonchi, Wheezing Heart Exam: Positive: Rate Normal, Regular Rhythm, Normal S1, Normal S2; Negative: Murmurs Telemetry: Positive: Other Telemetry: (SA, VR: 77) Abdomen Exam: Positive: BS Hypoactive, Soft; Negative: Tenderness Extremity Exam: Negative: Clubbing, Cyanosis, Edema Skin Exam: Positive: Nl turgor and temperature; Negative: Rash Neuro Exam: Positive: Normal Speech Psych Exam: Positive: Mental status NL, Mood NL, Oriented x 3 Assessment /Plan Problems (1) Abdominal migraine with status migrainosus Status: Acute Problem Text: 05/30: Patient feeling better today than yesterday and was more functional upon interview. Current regimen for migraine includes: ondansetron 4 mg q4h IV, prochlorperazine 10 mg PO q6h PRN nausea/vomiting, fioricet 1 ea q4h PO, meclizine 50 mg q4h PO, indomethacin 50 mg TID PRN PO pain, topiramate 50 mg BID PO, valium 3 mg PO BID, imitrex 100 mg PO BID PRN, scopolamine 1 mg q72h topical. Today, added 250 mg BID divalproex sodium Er and propanolol 10 mg QID for help with migraine prophylaxis. However, patient refused propanolol as she stated she had a bad reaction to it with muscle spasms in her anterior neck. Additionally, was worried about the additive colored coating that the propanolol pills were made with, and asking for the same/similar type of medication that is white. Have d/ce'd propanolol and started carvedilol 3.125 mg BID. Will see if this helps with migraine prophylaxis. Will reevaluate tomorrow for improvement in symptoms. 05/27: Patient's condition has once again deteriorated and patient is crying at bedside. Is having 10/10 headache and vertigo symptoms. Difficult to get an accurate hx/physical in this state. Dr. Lei's Neurology note has been reviewed and recommendations will be taken. However, at this point, will not advise a Psychiatric consult since patient already follows with Psych as outpatient. Will look into Multidisciplinary Team Approach and corresponding with [place], [facility], [place] etc. for patient's care. Will look into arranging patient botox injections with [facility] as outpatient. Have d/ce'd IV sumatriptan and restarted 100 mg PO sumatriptan BID. Have given Mg run x1. Will order Mg level checks tonight and tomorrow. Will order a standard Mg run as previously to see if this will help. Will continue current regimen. 05/26: Patient looks much improved from prior. Have spoken to Dr. Lei regarding his recommendations. States he has dictated his note last evening. However, it is not yet up on [employer]. He feels that patient is suffering from an emotional state of depression and PTSD. She was crying when he went to evaluate her. She may have Borderline Dependent Personality Disorder, but he is unsure. He recommendations a Psychiatry consultation before placing patient on any antidepressant medications. He also recommends botox injections as outpatient for migraine pain. Feels that patient needs a Multidisciplinary team approach to therapy such as a Comprehensive Headache Clinic at [facility], or [facility], as well as Psychiatry. Patient does report she has a Psychotherapist that she has been working with for >20 years in [place] where she grew up: Nickie Lui. She has been encouraged to communicate with her for psychotherapy during hospitalization if this is available to her. For now, we will continue patient on zofran, meclizine, imitrex, fioricet, scopolamine, toradol, and valium. Will switch the imitrex to 6 mg q2h PRN migraine subcutaneous injection route for better absorption due to patient's GI issues possibly causing decreased absorption. Have also recommended to patient's father to get OTC lubricating eyedrops/artificial tears since meclizine and scopolamine can cause dry eyes. In addition, goal is to try to administer more medications by other routes such as IV/SC in order for patient to have more therapeutic dose absorption to combat her symptoms. 05/25: Neurology has been consulted: Dr. Lei--awaiting dictation and rec ommendations. Currently patient is on zofran 8 mg q4h PRN, meclizine 50 mg BID, ativan 1 mg q6h PRN anxiety/agitation, imitrex 100 mg BID PRN migraine, fioricet q4h PRN, scopolamine 1 mg q72h topical, toradol 15 mg q6h IV, and IV KCL/dextrose/NaCl @ 100 mLs/hr. Patient reported improvement in symptoms with scopolamine patch. In addition, she is requesting increasing dose of meclizine. Will increase meclizine to 50 mg Q4H PRN and switch short-acting ativan to longer-acting valium 2 mg BID for vestibular symptoms. Will be having PICC line insertion later this afternoon. In addition, spoke to PCP Dr. 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 Her levels on a volatile solvents profile for these chemicals were elevated. In addition, reportedly patient has a family hx of a maternal grandmother who had debilitating migraines as well. It is speculated that patient already may have had abdominal migraines which were not as severe, but worsening migraines may have been triggered by these toxic exposures. These volatile toxins could have produced dysequilibrium/vertigo like side effects affecting the vestibular system. In addition, patient also may be experiencing suicidal migraines. During this hospitalization, the goal should be to control her migraines, getting patient back to functioning, and safely tapering off her steroids for supposed adrenal insufficiency (which is most likely iatrogenic). PCP is also planning to send patient to [facility] for Toxicology evaluation for volatile solvent/chemical exposures as above. 05/23: increased meclizine to 50 mg BID and switched zofran to phenergan. Gave one dose of IV Mg as patient reported therapeutic effectiveness of this during previous hospitalizations for her migraines. MRI Brain negative for CSF leak. Consider Neurology consult. 05/22 increased HD topir 50 QD to BID, restarted HD natalie 100 BID prn, + Fiorcet prn, given vestibular trigger, + meclizine (minimal benefit from ondan, benzos, steroid) IVF at maintenance given minimal po given nausea Contingency: +DVP, eletriptan 40 BID prn (2) Adrenal insufficiency Status: Chronic Problem Text: 05/25: Likely secondary adrenal insufficiency after reviewing Dr. Giraldo's HPI on [facility]. 05/23: continue hydrocortisone favor 2 iatrogenic chronic glucocorticoid steroid use from previous PCP for unknown reason 05/22 has received stress dose HC, but s s/s of adrenal crisis; therefore, restarted HC 10 TID (HD ) 05/21 Na 142/K 3.7 c SBP 130s on admission (3) Orthostatic dizziness Status: Chronic Problem Text: 05/25: Nurses still unsuccessful at performing orthostatics. Speculated that one of the three types of migraines patient reports she has: the first migraine is likely from being orthostatic. 05/23: Orthostatic VS thus far from lying to sitting have been negative. Otherwise, Orthostatics have been unsuccessful due to patient being unable to cooperate secondary to her symptoms. ? POTS on chronic midodrine 10 TID -case dw PCP Dr. Giraldo who favor to hold and repeat outpx tilt-table in soon p dc (apparently previous this year was normal) check orthostatics qshift (4) Constipation, chronic Status: Chronic Problem Text: 05/30: Patient reports she had 3 BMs yesterday and her bowels are moving regularly now. 05/27: Has 5 documented BMs. 05/25: patient asked if she can use enemas from home. 05/23: has not eaten yet. Reports hx of several year hx of chronic constipation. Suspect IBS--constipation predominant vs. gluten enteropathy vs. celiac's disea se. chronic senna / enema dependence (admits to chronic 8-10 "herbal" senna QD for "years" and ~q2W tap water/cider enema prn) exacerbates abdominal migraine 05/22/18 + HD senna 05/14/18 CT AP c moderate R sided fecal stasis (5) Intractable vomiting with nausea Status: Acute Problem Text: 05/30: Last episode of vomiting multiple times was yesterday AM from sensitivity to bleach. Has sign on her door to not clean BP cuff or other equipment with sanitizers, bleach, and to not wear strong scented perfumes into patient's room to avoid migraine triggers. No emesis reported today. Is able to tolerate PO since yesterday: breakfast and dinner without vomiting. 05/27: No vomiting reported today. 05/26: had 8 episodes of vomiting reported overnight. Is feeling less nauseous and much better today. Continue zofran 8 mg q4h PRN IV nausea/vomiting. 05/25: had one episode of bilious vomiting last night reported by patient herself. Increased dose of zofran is more effective. Will continue this. 05/23: no emesis today. However, admits to nausea uncontrolled with zofran. Have switched to phenergan to see if this may help. In addition, patient reports that reglan did not help her in the past. Plan/VTE VTE Prophylaxis Ordered?: Yes (Lovenox) Plan IVF: Continue Diet: Continue Current Activity: Continue Current Therapy: PT Pt and Family Services: Home Care Diagnostics: Check Labs Anticipated Discharge: Home Advance Directives: Other Advance Directive VS, I&O, 24H, Fishbone Vital Signs/I&O Vital Signs Date Time Temp Pulse Resp B/P (MAP) Pulse Ox O2 Delivery O2 Flow Rate FiO2 05/30/18 13:07 18 05/30/18 12:00 98.4 88 106/72 (83) 98 Room Air I&O- Last 24 Hours up to 6 AM 05/30/18 06:00 Intake Total 560 ml Output Total 750 ml Balance -190 ml Laboratory Data Microbiology Microbiology 05/28/18 Urine Culture - Final, Complete 05/21/18 Urine Culture - Final, Complete GME ATTESTATION GME ATTESTATION My faculty preceptor for this patient encounter was Dr. Blu Lamar, and was physically present during the encounter and was fully available. All aspects of the patient interview, examination, medical decision making process, and medical care plan development were reviewed and approved by the faculty preceptor. The faculty preceptor is aware and concurs with the plan as stated in the body of this note and will attest to such by his/her cosignature. AMBERLY WRIGHT DO May 30, 2018 14:17
[2018-05-30] MEDS ORDERED: PROPRANOLOL 10 MG TAB PO SCH (17:00)
[2018-05-30] MEDS: SODIUM CHLORIDE 0.9% INJ 10 ML SYR IV SCH (17:13)
[2018-05-30] MEDS: INDOMETHACIN 25 MG CAP PO PRN (18:57)
[2018-05-30] MEDS: DIVALPROEX 250MG *ER* TAB PO SCH (20:55)
[2018-05-30] MEDS: CARVedilol 3.125 MG TAB PO SCH (20:56)
[2018-05-30] MEDS: [UNRECOGNIZED DRUG - OTHER] PO SCH (20:58)
[2018-05-30] MEDS: HERB LAX PO SCH (20:58)
[2018-05-31] MEDS: MECLIZINE 25 MG TABLET PO SCH ×6 (01:07→21:27)
[2018-05-31] MEDS: FIORICET TAB PO SCH ×6 (01:07→21:28)
[2018-05-31] MEDS: ONDANSETRON 4MG/2ML VIAL (J2405) IV SCH ×6 (01:07→21:29)
[2018-05-31] MEDS: PROCHLORPERAZINE 5 MG TAB (S0183) PO PRN (02:50)
[2018-05-31 04:00] VITALS: BP 109/75
[2018-05-31] MEDS: SODIUM CHLORIDE 0.9% INJ 10 ML SYR IV SCH ×2 (05:04→17:15)
[2018-05-31] MEDS: INDOMETHACIN 25 MG CAP PO PRN (06:58)
[2018-05-31 08:00] VITALS: BP 151/81
[2018-05-31] MEDS: diazePAM 2 MG TAB PO SCH ×2 (08:42→21:29)
[2018-05-31] MEDS: PANTOPRAZOLE 40MG TAB (PROTONIX) PO SCH (08:43)
[2018-05-31] MEDS: TOPIRAMATE (TopAMAX) 25 MG TAB PO SCH ×2 (08:43→21:27)
[2018-05-31] MEDS: HYDROCORTISONE 10 MG TAB PO SCH ×3 (08:44→17:15)
[2018-05-31] MEDS: CARVedilol 3.125 MG TAB PO SCH ×2 (08:44→21:29)
[2018-05-31] MEDS: PYRIDOXINE 50 MG TAB PO SCH (08:44)
[2018-05-31] MEDS: DIVALPROEX 250MG *ER* TAB PO SCH ×2 (08:44→21:28)
[2018-05-31] MEDS: ANUSOL HC CREAM 30GM TOP SCH ×2 (09:00→21:30)
[2018-05-31] MEDS: HEPARIN SOD (PORCINE) 5000 UNITS/ML VIAL SQ SCH ×3 (09:00→21:28)
[2018-05-31] MEDS: NATURE THROID PO SCH ×2 (09:00→14:00)
[2018-05-31 12:15] VITALS: BP 129/88
[2018-05-31] MEDS: SODIUM CHLORIDE 0.9% INJ 10 ML SYR IV PRN (12:59)
--- NOTE | 2018-05-31 14:08 | IPN ---
DATE: 05/31/2018 ADDENDUM I wanted to mention that she indicated today that she has been "hearing some voices." These are not particularly troublesome. She knows that they are not real and that she does often hear them when she is coming out of sleep. She has never had this before. I suspect that it is a result of her medications with Topamax or indomethacin or maybe the Compazine. If they worsen, we may have to adjust her medications. I suspect that this is a medication side effect and not a manifestation of any type of psychosis.
--- NOTE | 2018-05-31 14:10 | IPN ---
DATE: 05/31/2018 Jemima is seen in the progressive care unit (PCU). She is sitting up. She was having a conversation with a friend who came and saw her. Each day, she seems more functional, is sitting up more and looking more functional. Physical Examination: Vital signs stable. She is alert, conversant, in no distress. Lungs clear. Heart regular rhythm. Abdomen soft. Nontender. Nonfocal neurologic exam. Plan: I do think she is making progress. She is probably nearing the point where we could be thinking about disposition. I wonder whether she would benefit from physical medicine and rehabilitation (PM and R) so I put a PM and R consult in. I am transferring her out of the PCU up to the general medical floor. She is agreeable to this.
[2018-05-31 16:00] VITALS: BP 110/56
[2018-05-31] MEDS: [UNRECOGNIZED DRUG - OTHER] PO SCH (21:00)
[2018-05-31] MEDS: HERB LAX PO SCH (21:00)
[2018-05-31 23:59] VITALS: BP 133/66
[2018-06-01] MEDS: PROCHLORPERAZINE 5 MG TAB (S0183) PO PRN ×3 (00:40→14:14)
[2018-06-01] MEDS: MECLIZINE 25 MG TABLET PO SCH ×6 (00:40→22:07)
[2018-06-01] MEDS: ONDANSETRON 4MG/2ML VIAL (J2405) IV SCH ×6 (00:40→22:07)
[2018-06-01] MEDS: FIORICET TAB PO SCH ×6 (00:41→22:09)
[2018-06-01 04:00] VITALS: BP 114/63
[2018-06-01] MEDS: SODIUM CHLORIDE 0.9% INJ 10 ML SYR IV SCH ×2 (04:56→17:11)
[2018-06-01] MEDS: ANUSOL HC CREAM 30GM TOP SCH ×2 (09:00→21:00)
[2018-06-01] MEDS: NATURE THROID PO SCH ×2 (09:00→14:00)
[2018-06-01] MEDS: HEPARIN SOD (PORCINE) 5000 UNITS/ML VIAL SQ SCH ×2 (09:00→21:00)
[2018-06-01] MEDS: diazePAM 2 MG TAB PO SCH ×2 (09:23→22:09)
[2018-06-01] MEDS: PANTOPRAZOLE 40MG TAB (PROTONIX) PO SCH (09:24)
[2018-06-01] MEDS: PYRIDOXINE 50 MG TAB PO SCH (09:24)
[2018-06-01] MEDS: HYDROCORTISONE 10 MG TAB PO SCH ×3 (09:24→17:11)
[2018-06-01] MEDS: CARVedilol 3.125 MG TAB PO SCH ×2 (09:25→22:10)
[2018-06-01] MEDS: DIVALPROEX 250MG *ER* TAB PO SCH ×2 (09:25→22:10)
[2018-06-01] MEDS: TOPIRAMATE (TopAMAX) 25 MG TAB PO SCH ×2 (09:25→22:07)
[2018-06-01 12:00] VITALS: BP 100/62
[2018-06-01 14:00] VITALS: BP 93/60
[2018-06-01] MEDS: INDOMETHACIN 25 MG CAP PO PRN (14:14)
--- NOTE | 2018-06-01 18:47 | IPNPDOC ---
Subjective Date Seen The patient was seen on 06/01/18. Subjective Chief Complaint/HPI slowly improving nausea c movement Constitutional: Denies: Chills, Fever Eyes: Denies: Pain ENT: Reports: Head Aches Skin: Denies: Rash Pulmonary: Denies: Dyspnea, Cough Cardiovascular: Denies: Chest Pain Gastrointestinal: Reports: Nausea; Denies: Vomiting Genitourinary: Denies: Dysuria Objective Physical Examination General Exam: Positive: Alert, Cooperative, No Acute Distress Eye Exam: Positive: Conjunctiva & lids normal ENT Exam: Positive: Atraumatic Neck Exam: Positive: Supple Chest Exam: Positive: Clear to auscultation, Normal air movement; Negative: Rales, Rhonchi, Wheezing Heart Exam: Positive: Rate Normal, Regular Rhythm, Normal S1, Normal S2; Negative: Murmurs Telemetry: Positive: Other Telemetry: (SA, VR: 77) Abdomen Exam: Positive: BS Hypoactive, Soft; Negative: Tenderness Extremity Exam: Negative: Clubbing, Cyanosis, Edema Skin Exam: Positive: Nl turgor and temperature; Negative: Rash Neuro Exam: Positive: Normal Speech Psych Exam: Positive: Mental status NL, Mood NL, Oriented x 3 Assessment /Plan Problems (1) Abdominal migraine with status migrainosus Status: Acute Problem Text: Current regimen: ondansetron 4 mg IV r9s-meif change to ODT prochlorperazine 10 mg PO q6h PRN nausea/vomiting fioricet 1 ea q4h PO meclizine 50 mg q4h PO indomethacin 50 mg TID PRN PO pain topiramate 50 mg PO BID diazepam 3 mg PO BID sumatrip 100 mg PO BID PRN-attempting to wean scopolamine 1 mg q72h topical pyridoxine 100 QD 05/30 changed propran 10 BID to carve 3.125 BID (? allergic rxn to propranolol dye-within 10 mins of 1 dose-immediate throat pain) and + DVP 250 BId 05/29 Dr. Lei Neurology 05/26: Patient looks much improved from prior. Have spoken to Dr. Lei regarding his recommendations. States he has dictated his note last evening. However, it is not yet up on [employer]. He feels that patient is suffering from an emotional state of depression and PTSD. She was crying when he went to evaluate her. She may have Borderline Dependent Personality Disorder, but he is unsure. He recommendations a Psychiatry consultation before placing patient on any antidepressant medications. He also recommends botox injections as outpatient for migraine pain. Feels that patient needs a Multidisciplinary team approach to therapy such as a Comprehensive Headache Clinic at [facility], or [facility], as well as Psychiatry. Patient does report she has a Psychotherapist that she has been working with for >20 years in [place] where she grew up: Nickie Lui. She has been encouraged to communicate with her for psychotherapy during hospitalization if this is available to her. For now, we will continue patient on zofran, meclizine, imitrex, fioricet, scopolamine, toradol, and valium. Will switch the imitrex to 6 mg q2h PRN migraine subcutaneous injection route for better absorption due to patient's GI issues possibly causing decreased absorption. Have also recommended to patient's father to get OTC lubricating eyedrops/artificial tears since meclizine and scopolamine can cause dry eyes. In addition, goal is to try to administer more medications by other routes such as IV/SC in order for patient to have more therapeutic dose absorption to combat her symptoms. 05/25: Neurology has been consulted: Dr. Lei--awaiting dictation and recommendations. Currently patient is on zofran 8 mg q4h PRN, meclizine 50 mg BID, ativan 1 mg q6h PRN anxiety/agitation, imitrex 100 mg BID PRN migraine, fioricet q4h PRN, scopolamine 1 mg q72h topical, toradol 15 mg q6h IV, and IV KCL/dextrose/NaCl @ 100 mLs/hr. Patient reported improvement in symptoms with scopolamine patch. In addition, she is requesting increasing dose of meclizine. Will increase meclizine to 50 mg Q4H PRN and switch short-acting ativan to longer-acting valium 2 mg BID for vestibular symptoms. Will be having PICC line insertion later this afternoon. In addition, spoke to PCP Dr. 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 Her levels on a volatile solvents profile for these chemicals were elevated. In addition, reportedly patient has a family hx of a maternal grandmother who had debilitating migraines as well. It is speculated that patient already may have had abdominal migraines which were not as severe, but worsening migraines may have been triggered by these toxic exposures. These volatile toxins could have produced dysequilibrium/vertigo like side effects affecting the vestibular system. In addition, patient also may be experiencing suicidal migraines. During this hospitalization, the goal should be to control her migraines, getting patient back to functioning, and safely tapering off her steroids for supposed adrenal insufficiency (which is most likely iatrogenic). PCP is also planning to send patient to [facility] for Toxicology evaluation for volatile solvent/chemical exposures as above. 05/23: increased meclizine to 50 mg BID and switched zofran to phenergan. Gave one dose of IV Mg as patient reported therapeutic effectiveness of this during previous hospitalizations for her migraines. MRI Brain negative for CSF leak. Consider Neurology consult. 05/22 increased HD topir 50 QD to BID, restarted HD natalie 100 BID prn, + Fiorcet prn, given vestibular trigger, + meclizine (minimal benefit from ondan, benzos, steroid) (2) Adrenal insufficiency Status: Chronic Problem Text: 05/25: Likely secondary adrenal insufficiency after reviewing Dr. Giraldo's HPI on [facility]. 05/23: continue hydrocortisone favor 2 iatrogenic chronic glucocorticoid steroid use from previous PCP for unknown reason 05/22 has received stress dose HC, but s s/s of adrenal crisis; therefore, restarted HC 10 TID (HD ) 05/21 Na 142/K 3.7 c SBP 130s on admission (3) Orthostatic dizziness Status: Chronic Problem Text: 05/25: Nurses still unsuccessful at performing orthostatics. Speculated that one of the three types of migraines patient reports she has: the first migraine is likely from being orthostatic. 05/23: Orthostatic VS thus far from lying to sitting have been negative. Otherwise, Orthostatics have been unsuccessful due to patient being unable to cooperate secondary to her symptoms. ? POTS on chronic midodrine 10 TID -case dw PCP Dr. Giraldo who favor to hold and repeat outpx tilt-table in soon p dc (apparently previous this year was normal) check orthostatics qshift (4) Constipation, chronic Status: Chronic Problem Text: 05/30: Patient reports she had 3 BMs yesterday and her bowels are moving regularly now. 05/27: Has 5 documented BMs. 05/25: patient asked if she can use enemas from home. 05/23: has not eaten yet. Reports hx of several year hx of chronic constipation. Suspect IBS--constipation predominant vs. gluten enteropathy vs. celiac's disease. chronic senna / enema dependence (admits to chronic 8-10 "herbal" senna QD for "years" and ~q2W tap water/cider enema prn) exacerbates abdominal migraine 05/22/18 + HD senna 05/14/18 CT AP c moderate R sided fecal stasis (5) Physical deconditioning Status: Chronic Problem Text: 06/01 not safe for dc home-plan home c services ([facility]- spent 71 mins! c px) 05/31 PMR consulted-awaiting evaluation (6) Hypothyroid Status: Chronic Problem Text: 05/10/18 0.41, 0.8, 106 on HD replacement Plan/VTE VTE Prophylaxis Ordered?: Yes (Lovenox) Plan IVF: Continue Diet: Continue Current Activity: Continue Current Therapy: PT Pt and Family Services: Home Care Diagnostics: Check Labs Anticipated Discharge: Home Advance Directives: Other Advance Directive VS, I&O, 24H, Fishbone Vital Signs/I&O Vital Signs Date Time Temp Pulse Resp B/P (MAP) Pulse Ox O2 Delivery O2 Flow Rate FiO2 06/01/18 18:06 18 Room Air 06/01/18 14:00 97.4 80 93/60 (71) 100 I&O- Last 24 Hours up to 6 AM 06/01/18 05:59 Intake Total 960 ml Output Total 900 ml Balance 60 ml Laboratory Data Microbiology Microbiology 05/28/18 Urine Culture - Final, Complete Blu Lamar M.D. Jun 01, 2018 18:47
[2018-06-01] MEDS: [UNRECOGNIZED DRUG - OTHER] PO SCH (21:00)
[2018-06-01] MEDS: HERB LAX PO SCH (21:00)
[2018-06-01 22:00] VITALS: BP 117/64
[2018-06-02] MEDS: ONDANSETRON 4MG/2ML VIAL (J2405) IV SCH ×4 (00:59→12:24)
[2018-06-02] MEDS: MECLIZINE 25 MG TABLET PO SCH ×6 (00:59→20:38)
[2018-06-02] MEDS: FIORICET TAB PO SCH ×6 (01:01→20:45)
[2018-06-02] MEDS: PROCHLORPERAZINE 5 MG TAB (S0183) PO PRN ×3 (01:01→13:51)
[2018-06-02] MEDS: SODIUM CHLORIDE 0.9% INJ 10 ML SYR IV SCH ×2 (05:52→17:22)
[2018-06-02 06:00] VITALS: BP 122/71
[2018-06-02 06:37] LABS: BASO % 0.6 % (0.0-1.0); EOS # 0.2 10^3/uL (0.0-0.50); EOS % 2.4 % (0.0-3.0); HEMATOCRIT 38.3 % (36.0-47.0); HEMOGLOBIN 12.7 g/dl (12.0-15.5); LYMPH # 2.9 10^3/uL (1.5-4.5); LYMPH % 41.3 % (24.0-44.0); MEAN CORPUSCULAR HEMOGLOBIN 29.8 pg (27.0-33.0); MEAN CORPUSCULAR HGB CONC 33.2 g/dl (32.0-36.5); MEAN CORPUSCULAR VOLUME 89.9 fl (80.0-96.0); MONO # 0.6 10^3/uL (0.0-0.8); NEUTROPHILS # 3.2 10^3/uL (1.8-7.7); NEUTROPHILS % 46.3 % (36.0-66.0); PLATELET COUNT, AUTOMATED 251 10^3/uL (150-450); RED BLOOD COUNT 4.26 10^6/uL (4.00-5.40)
[2018-06-02 07:00] LABS: ALBUMIN 3.5 GM/DL (3.2-5.2); ALT/SGPT 18 U/L (12-78); BILIRUBIN,TOTAL 0.1 MG/DL (0.2-1.0); BLOOD UREA NITROGEN 8 MG/DL (7-18); CALCIUM LEVEL 9.2 MG/DL (8.5-10.1); CARBON DIOXIDE LEVEL 27 MEQ/L (21-32); CHLORIDE LEVEL 111 MEQ/L (98-107); CREATININE FOR GFR 0.71 MG/DL (0.55-1.30); GLOMERULAR FILTRATION RATE > 60.0 (>60); GLUCOSE, FASTING 99 MG/DL (70-100); POTASSIUM SERUM 4.2 MEQ/L (3.5-5.1); SODIUM LEVEL 144 MEQ/L (136-145); TOTAL PROTEIN 7.1 GM/DL (6.4-8.2); VALPROIC ACID (DEPAKOTE) 26.9 UG/ML (50.0-100.0)
[2018-06-02] MEDS: PANTOPRAZOLE 40MG TAB (PROTONIX) PO SCH (08:54)
[2018-06-02] MEDS: PYRIDOXINE 50 MG TAB PO SCH (08:55)
[2018-06-02] MEDS: CARVedilol 3.125 MG TAB PO SCH ×2 (08:55→20:41)
[2018-06-02] MEDS: DIVALPROEX 250MG *ER* TAB PO SCH (08:55)
[2018-06-02] MEDS: TOPIRAMATE (TopAMAX) 25 MG TAB PO SCH ×2 (08:56→20:41)
[2018-06-02] MEDS: SCOPOLAMINE 1MG TRANSDERMAL PATCH TOP SCH (08:57)
[2018-06-02] MEDS: HEPARIN SOD (PORCINE) 5000 UNITS/ML VIAL SQ SCH ×3 (08:57→20:52)
[2018-06-02] MEDS: diazePAM 2 MG TAB PO SCH ×2 (08:58→20:42)
[2018-06-02] MEDS: HYDROCORTISONE 10 MG TAB PO SCH ×2 (08:58→12:25)
[2018-06-02] MEDS: ANUSOL HC CREAM 30GM TOP SCH ×2 (09:08→21:02)
[2018-06-02] MEDS: NATURE THROID PO SCH ×2 (10:46→14:27)
[2018-06-02 14:00] VITALS: BP 109/78
--- NOTE | 2018-06-02 16:45 | IPNPDOC ---
Subjective Date Seen The patient was seen on 06/02/18. Subjective Chief Complaint/HPI slowly improving nausea c movement Constitutional: Denies: Chills, Fever Eyes: Denies: Pain, Vision change ENT: Denies: Head Aches, Ear Pain Pulmonary: Denies: Dyspnea Cardiovascular: Denies: Chest Pain, Palpitations Gastrointestinal: Reports: Nausea Genitourinary: Denies: Dysuria Objective Physical Examination General Exam: Positive: Alert, Cooperative, No Acute Distress Eye Exam: Positive: Conjunctiva & lids normal ENT Exam: Positive: Atraumatic Neck Exam: Positive: Supple Chest Exam: Positive: Clear to auscultation, Normal air movement; Negative: Rales, Rhonchi, Wheezing Heart Exam: Positive: Rate Normal, Regular Rhythm, Normal S1, Normal S2; Negative: Murmurs Telemetry: Positive: Other Telemetry: (SA, VR: 77) Abdomen Exam: Positive: BS Hypoactive, Soft; Negative: Tenderness Extremity Exam: Negative: Clubbing, Cyanosis, Edema Skin Exam: Positive: Nl turgor and temperature; Negative: Rash Neuro Exam: Positive: Normal Speech Psych Exam: Positive: Mental status NL, Mood NL, Oriented x 3 Assessment /Plan Problems (1) Abdominal migraine with status migrainosus Status: Acute Problem Text: Current regimen: ondansetron 4 mg IV q4h (06/02 changed to 8 ODT q8H) prochlorperazine 10 mg PO q6h PRN nausea/vomiting fioricet 1 ea q4h PO meclizine 50 mg q4h PO indomethacin 50 mg TID PRN PO pain topiramate 50 mg PO BID diazepam 3 mg PO BID sumatrip 100 mg PO BID PRN-attempting to wean scopolamine 1 mg q72h topical pyridoxine 100 QD DVP 500 BID (06/02 VPA 27 on 250 BID; therefore, increased to 500 BID) 05/30 changed propran 10 BID to carve 3.125 BID (? allergic rxn to propranolol dye-within 10 mins of 1 dose-immediate throat pain) and + DVP 250 BId 05/29 Dr. Lei Neurology 05/26: Patient looks much improved from prior. Have spoken to Dr. Lei regarding his recommendations. States he has dictated his note last evening. However, it is not yet up on [employer]. He feels that patient is suffering from an emotional state of depression and PTSD. She was crying when he went to evaluate her. She may have Borderline Dependent Personality Disorder, but he is unsure. He recommendations a Psychiatry consultation before placing patient on any antidepressant medications. He also recommends botox injections as outpatient for migraine pain. Feels that patient needs a Multidisciplinary team approach to therapy such as a [facility] Head[facility] Clinic at [facility], or [facility], as well as Psychiatry. Patient does report she has a Psychotherapist that she has been working with for >20 years in [place] where she grew up: Nickie Lui. She has been encouraged to communicate with her for psychotherapy during hospitalization if this is available to her. For now, we will continue patient on zofran, meclizine, imitrex, fioricet, scopolamine, toradol, and valium. Will switch the imitrex to 6 mg q2h PRN migraine subcutaneous injection route for better absorption due to patient's GI issues possibly causing decreased absorption. Have also recommended to patient's father to get OTC lubricating eyedrops/artificial tears since meclizine and scopolamine can cause dry eyes. In addition, goal is to try to administer more medications by other routes such as IV/SC in order for patient to have more therapeutic dose absorption to combat her symptoms. 05/25: Neurology has been consulted: Dr. Lei--awaiting dictation and recommendations. Currently patient is on zofran 8 mg q4h PRN, meclizine 50 mg BID, ativan 1 mg q6h PRN anxiety/agitation, imitrex 100 mg BID PRN migraine, fioricet q4h PRN, scopolamine 1 mg q72h topical, toradol 15 mg q6h IV, and IV KCL/dextrose/NaCl @ 100 mLs/hr. Patient reported improvement in symptoms with scopolamine patch. In addition, she is requesting increasing dose of meclizine. Will increase meclizine to 50 mg Q4H PRN and switch short-acting ativan to longer-acting valium 2 mg BID for vestibular symptoms. Will be having PICC line insertion later this afternoon. In addition, spoke to PCP Dr. 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 Her levels on a volatile solvents profile for these chemicals were elevated. In addition, reportedly patient has a family hx of a maternal grandmother who had debilitating migraines as well. It is speculated that patient already may have had abdominal migraines which were not as severe, but worsening migraines may have been triggered by these toxic exposures. These volatile toxins could have produced dysequilibrium/vertigo like side effects affecting the vestibular system. In addition, patient also may be experiencing suicidal migraines. During this hospitalization, the goal should be to control her migraines, getting patient back to functioning, and safely tapering off her steroids for supposed adrenal insufficiency (which is most likely iatrogenic). PCP is also planning to send patient to [facility] for Toxicology evaluation for volatile solvent/chemical exposures as above. 05/23: increased meclizine to 50 mg BID and switched zofran to phenergan. Gave one dose of IV Mg as patient reported therapeutic effectiveness of this during previous hospitalizations for her migraines. MRI Brain negative for CSF leak. Consider Neurology consult. 05/22 increased HD topir 50 QD to BID, restarted HD natalie 100 BID prn, + Fiorcet prn, given vestibular trigger, + meclizine (minimal benefit from ondan, benzos, steroid) (2) Adrenal insufficiency Status: Chronic Problem Text: HD favor 2 iatrogenic chronic glucocorticoid steroid use from previous PCP for unknown reason 06/02 decrease 10 TID to c goal to wean by 5 q5D-Na 144, SBP 110-120 (3) Orthostatic dizziness Status: Chronic Problem Text: no documentation of ? POTS on chronic midodrine 10 TID -case dw PCP Dr. Giraldo who favor to hold and repeat outpx tilt-table in soon p dc (apparently previous this year was normal) (4) Constipation, chronic Status: Chronic Problem Text: 05/30: Patient reports she had 3 BMs yesterday and her bowels are moving regularly now. 05/27: Has 5 documented BMs. 05/25: patient asked if she can use enemas from home. 05/23: has not eaten yet. Reports hx of several year hx of chronic constipation. Suspect IBS--constipation predominant vs. gluten enteropathy vs. celiac's disease. chronic senna / enema dependence (admits to chronic 8-10 "herbal" senna QD for "years" and ~q2W tap water/cider enema prn) exacerbates abdominal migraine 05/22/18 + HD senna 05/14/18 CT AP c moderate R sided fecal stasis (5) Physical deconditioning Status: Chronic Problem Text: 06/01 not safe for dc home-plan home c services (Lulyyehuda Forrest- spent 71 mins! c px) 11 PMR consulted-awaiting evaluation (6) Hypothyroid Status: Chronic Problem Text: 05/10/18 0.41, 0.8, 106 on HD replacement of dessicated thyroid Plan/VTE VTE Prophylaxis Ordered?: Yes (Lovenox) Plan IVF: Continue Diet: Continue Current Activity: Continue Current Therapy: PT Pt and Family Services: Home Care Diagnostics: Check Labs Anticipated Discharge: Home Advance Directives: Other Advance Directive VS, I&O, 24H, Fishbone Vital Signs/I&O Vital Signs Date Time Temp Pulse Resp B/P (MAP) Pulse Ox O2 Delivery O2 Flow Rate FiO2 06/02/18 12:58 20 06/02/18 08:55 75 122/71 06/02/18 06:00 96.7 97 Room Air I&O- Last 24 Hours up to 6 AM 06/02/18 06:00 Intake Total 1050 ml Output Total 0 ml Balance 1050 ml Laboratory Data 24H LABS Laboratory Tests 2 06/02/18 06:13: Immature Granulocyte % (Auto) 0.4, White Blood Count 7.0, Red Blood Count 4.26, Hemoglobin 12.7, Hematocrit 38.3, Mean Corpuscular Volume 89.9, Mean Corpuscular Hemoglobin 29.8, Mean Corpuscular Hemoglobin Concent 33.2, Red Cell Distribution Width 12.4, Platelet Count 251, Neutrophils (%) (Auto) 46.3, Lymphocytes (%) (Auto) 41.3, Monocytes (%) (Auto) 9.0H, Eosinophils (%) (Auto) 2.4, Basophils (%) (Auto) 0.6, Neutrophils # (Auto) 3.2, Lymphocytes # (Auto) 2.9, Monocytes # (Auto) 0.6, Eosinophils # (Auto) 0.2, Basophils # (Auto) 0.0, Nucleated Red Blood Cells % (auto) 0.0, Anion Gap 6L, Glomerular Filtration Rate > 60.0, Blood Urea Nitrogen 8, Creatinine 0.71, Sodium Level 144, Potassium Level 4.2, Chloride Level 111H, Carbon Dioxide Level 27, Calcium Level 9.2, Aspartate Amino Transf (AST/SGOT) 13, Alanine Aminotransferase (ALT/SGPT) 18, Alkaline Phosphatase 58, Total Bilirubin 0.1L, Total Protein 7.1, Albumin 3.5, Albumin/Globulin Ratio 0.97L, Valproic Acid (Depakene) Level 26.9L CBC/BMP Laboratory Tests 06/02/18 06:13 Red Blood Count 4.26, Mean Corpuscular Volume 89.9, Mean Corpuscular Hemoglobin 29.8, Mean Corpuscular Hemoglobin Concent 33.2, Red Cell Distribution Width 12.4, Neutrophils (%) (Auto) 46.3, Lymphocytes (%) (Auto) 41.3, Monocytes (%) (Auto) 9.0 H, Eosinophils (%) (Auto) 2.4, Basophils (%) (Auto) 0.6, Neutrophils # (Auto) 3.2, Lymphocytes # (Auto) 2.9, Monocytes # (Auto) 0.6, Eosinophils # (Auto) 0.2, Basophils # (Auto) 0.0, Calcium Level 9.2, Aspartate Amino Transf (AST/SGOT) 13, Alanine Aminotransferase (ALT/SGPT) 18, Alkaline Phosphatase 58, Total Bilirubin 0.1 L, Total Protein 7.1, Albumin 3.5 Microbiology Microbiology 05/28/18 Urine Culture - Final, Complete Blu Lamar M.D. Jun 02, 2018 16:45
[2018-06-02] MEDS: HYDROCORTISONE 5MG TABLET PO SCH (18:25)
[2018-06-02] MEDS: INDOMETHACIN 25 MG CAP PO PRN (18:26)
[2018-06-02] MEDS ORDERED: PROCHLORPERAZINE 10 MG/2 ML VIAL (J0780) IV ONE (20:00)
[2018-06-02] MEDS: DIVALPROEX 500MG *ER* TAB PO SCH (20:42)
[2018-06-02] MEDS ORDERED: PILL CRUSHER/CUTTER 1 EACH XX PRN (20:45)
[2018-06-02 20:55] VITALS: BP 120/78
[2018-06-02] MEDS ORDERED: ONDANSETRON 4 MG ORAL DISINTEGRATING TAB (Q0162 PER 1MG) SL SCH (21:00)
[2018-06-02] MEDS: HERB LAX PO SCH (21:01)
[2018-06-02] MEDS: [UNRECOGNIZED DRUG - OTHER] PO SCH (21:01)
--- NOTE | 2018-06-02 21:08 | IPNPDOC ---
Subjective Date Seen The patient was seen on 06/02/18. Subjective Chief Complaint/HPI Patient seen and examined at bedside. Is feeling better today than other times. Has very mild baseline headache and nausea. Is able to keep soups down. Has been drinking coffee and able to keep this down, and this helps with her migraine headaches as well. Denies fevers, chills, chest pain, SOB, diarrhea, constipation, abdominal pain. Had 3 BMs yesterday. Is trying to expose herself to stimuli to desensitize herself to triggers for migraines. Is keeping the window blinds open and exposing herself to sunlight. Is doing fairly well with this. In addition, she states she would like to go to work with physical therapy and go to rehab. Would like physical therapist to work with her and recognize her limitations, but states her ultimate goal is to get her mobility back and heal whatever it takes. In addition, she is wondering if her zofran can be increased temporarily from 4 mg to 8 mg until she can become functional again to get her on a regimen that will keep her functional long-term. Is also asking if her scheduled medications can be given to her earlier before her migraine/vestibular symptoms come on. Is also wondering if there is any reason why when she was given aldosterone by doctor at [facility] for suspected "adrenal insufficiency," her symptoms and mobility got better in the past, and she became functional again. States she went from being bedridden back then to being able to get out of bed, exercise, and shower on her own. It was a drastic change for her. Is wondering if there is a relationship with this medication. Wondering if she can be placed back on aldosterone and/or alternatively droxidopa. She states that the 3 medication cocktail that seems to work well so far for her is: fioricet 1 tablet, meclizine 50 mg, and zofran. She would like to keep the compazine as needed. States she has not had to take as much of the immitrex if she is given her medications well in advance, especially this cocktail. Does not wish to switch zofran to ODT because she would like to first become functional again, and then deescalate the zofran dose from 8 mg to 4 mg and take PO as soon as she can become functional. General: Reports: Normal Appetite Constitutional: Denies: Chills, Fever ENT: Reports: Head Aches (very minimal today) Skin: Denies: Rash Pulmonary: Denies: Dyspnea, Cough Cardiovascular: Denies: Chest Pain Gastrointestinal: Reports: Nausea (very minimal today); Denies: Vomiting Genitourinary: Denies: Dysuria, Hematuria Hematologic: Denies: Bruising Endocrine: Denies: Heat Intolerance, Cold Intolerance Musculoskeletal: Denies: Joint Pain, Muscle Pain Neurological: Reports: Incoordination (when trying to stand/walk. reports loss of balance and dizziness as well as nausea.); Denies: Weakness, Numbness Psych: Reports: Mood Normal Objective Physical Examination General Exam: Positive: Alert, Cooperative, No Acute Distress Eye Exam: Positive: Conjunctiva & lids normal ENT Exam: Positive: Atraumatic Neck Exam: Positive: Supple; Negative: thyromegaly Chest Exam: Positive: Clear to auscultation, Normal air movement; Negative: Rales, Rhonchi, Wheezing Heart Exam: Positive: Rate Normal, Regular Rhythm, Normal S1, Normal S2 Abdomen Exam: Positive: BS Hypoactive, Soft; Negative: Tenderness Extremity Exam: Negative: Clubbing, Cyanosis, Edema Skin Exam: Positive: Nl turgor and temperature; Negative: Rash Neuro Exam: Positive: Normal Speech Psych Exam: Positive: Mental status NL, Mood NL, Oriented x 3 Assessment /Plan Problems (1) Abdominal migraine with status migrainosus Status: Acute Problem Text: 06/02: Patient is much more functional today than she has been. Please see Dr. Lamar's note: A/P section for plan for 06/02/18 for patient. Current regimen: ondansetron 4 mg IV [id number] change to ODT prochlorperazine 10 mg PO q6h PRN nausea/vomiting fioricet 1 ea q4h PO meclizine 50 mg q4h PO indomethacin 50 mg TID PRN PO pain topiramate 50 mg PO BID diazepam 3 mg PO BID sumatrip 100 mg PO BID PRN-attempting to wean scopolamine 1 mg q72h topical pyridoxine 100 QD 05/30 changed propran 10 BID to carve 3.125 BID (? allergic rxn to propranolol dye-within 10 mins of 1 dose-immediate throat pain) and + DVP 250 BId 05/29 Dr. Lei Neurology 05/26: Patient looks much improved from prior. Have spoken to Dr. Lei regarding his recommendations. States he has dictated his note last evening. However, it is not yet up on [employer]. He feels that patient is suffering from an emotional state of depression and PTSD. She was crying when he went to evaluate her. She may have Borderline Dependent Personality Disorder, but he is unsure. He recommendations a Psychiatry consultation before placing patient on any antidepressant medications. He also recommends botox injections as outpatient for migraine pain. Feels that patient needs a Multidisciplinary team approach to therapy such as a Comprehensive Headache Clinic at [facility], or [facility], as well as Psychiatry. Patient does report she has a Psychotherapist that she has been working with for >20 years in [place] where she grew up: Nickie Lui. She has been encouraged to communicate with her for psychotherapy during hospitalization if this is available to her. For now, we will continue patient on zofran, meclizine, imitrex, fioricet, scopolamine, toradol, and valium. Will switch the imitrex to 6 mg q2h PRN migraine subcutaneous injection route for better absorption due to patient's GI issues possibly causing decreased absorption. Have also recommended to patient's father to get OTC lubricating eyedrops/artificial tears since meclizine and scopolamine can cause dry eyes. In addition, goal is to try to administer more medications by other routes such as IV/SC in order for patient to have more therapeutic dose absorption to combat her symptoms. 05/25: Neurology has been consulted: Dr. Lei--awaiting dictation and recommendations. Currently patient is on zofran 8 mg q4h PRN, meclizine 50 mg BID, ativan 1 mg q6h PRN anxiety/agitation, imitrex 100 mg BID PRN migraine, fioricet q4h PRN, scopolamine 1 mg q72h topical, toradol 15 mg q6h IV, and IV KCL/dextrose/NaCl @ 100 mLs/hr. Patient reported improvement in symptoms with scopolamine patch. In addition, she is requesting increasing dose of meclizine. Will increase meclizine to 50 mg Q4H PRN and switch short-acting ativan to longer-acting valium 2 mg BID for vestibular symptoms. Will be having PICC line insertion later this afternoon. In addition, spoke to PCP Dr. 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 Her levels on a volatile solvents profile for these chemicals were elevated. In addition, reportedly patient has a family hx of a maternal grandmother who had debilitating migraines as well. It is speculated that patient already may have had abdominal migraines which were not as severe, but worsening migraines may have been triggered by these toxic exposures. These volatile toxins could have produced dysequilibrium/vertigo like side effects affecting the vestibular system. In addition, patient also may be experiencing suicidal migraines. During this hospitalization, the goal should be to control her migraines, getting patient back to functioning, and safely tapering off her steroids for supposed adrenal insufficiency (which is most likely iatrogenic). PCP is also planning to send patient to [facility] for Toxicology evaluation for volatile solvent/chemical exposures as above. 05/23: increased meclizine to 50 mg BID and switched zofran to phenergan. Gave one dose of IV Mg as patient reported therapeutic effectiveness of this during previous hospitalizations for her migraines. MRI Brain negative for CSF leak. Consider Neurology consult. 05/22 increased HD topir 50 QD to BID, restarted HD natalie 100 BID prn, + Fiorcet prn, given vestibular trigger, + meclizine (minimal benefit from ondan, benzos, steroid) (2) Adrenal insufficiency Status: Chronic Problem Text: 05/25: Likely secondary adrenal insufficiency after reviewing Dr. Giraldo's HPI on ECW. 05/23: continue hydrocortisone favor 2 iatrogenic chronic glucocorticoid steroid use from previous PCP for unknown reason 05/22 has received stress dose HC, but s s/s of adrenal crisis; therefore, restarted HC 10 TID (HD ) 05/21 Na 142/K 3.7 c SBP 130s on admission (3) Orthostatic dizziness Status: Chronic Problem Text: 05/25: Nurses still unsuccessful at performing orthostatics. Speculated that one of the three types of migraines patient reports she has: the first migraine is likely from being orthostatic. 05/23: Orthostatic VS thus far from lying to sitting have been negative. Otherwise, Orthostatics have been unsuccessful due to patient being unable to cooperate secondary to her symptoms. ? POTS on chronic midodrine 10 TID -case dw PCP Dr. Giraldo who favor to hold and repeat outpx tilt-table in soon p dc (apparently previous this year was normal) check orthostatics qshift (4) Constipation, chronic Status: Chronic Problem Text: 05/30: Patient reports she had 3 BMs yesterday and her bowels are moving regularly now. 05/27: Has 5 documented BMs. 05/25: patient asked if she can use enemas from home. 05/23: has not eaten yet. Reports hx of several year hx of chronic constipation. Suspect IBS--constipation predominant vs. gluten enteropathy vs. celiac's disease. chronic senna / enema dependence (admits to chronic 8-10 "herbal" senna QD for "years" and ~q2W tap water/cider enema prn) exacerbates abdominal migraine 05/22/18 + HD senna 05/14/18 CT AP c moderate R sided fecal stasis (5) Physical deconditioning Status: Chronic Problem Text: 06/01 not safe for dc home-plan home c services (Deandre Forrest- spent 71 mins! c px) 05/31 PMR consulted-awaiting evaluation (6) Hypothyroid Status: Chronic Problem Text: 05/10/18 0.41, 0.8, 106 on HD replacement Plan/VTE VTE Prophylaxis Ordered?: Yes (Lovenox) Plan IVF: Continue Diet: Continue Current Activity: Continue Current Therapy: PT Pt and Family Services: Home Care Diagnostics: Check Labs Anticipated Discharge: Home Advance Directives: Other Advance Directive VS, I&O, 24H, [place]un Vital Signs/I&O Vital Signs Date Time Temp Pulse Resp B/P (MAP) Pulse Ox O2 Delivery O2 Flow Rate FiO2 06/02/18 12:58 20 06/02/18 08:55 75 122/71 06/02/18 06:00 96.7 97 Room Air I&O- Last 24 Hours up to 6 AM 06/02/18 05:59 Intake Total 1050 ml Output Total 0 ml Balance 1050 ml Laboratory Data 24H LABS Laboratory Tests 2 06/02/18 06:13: Immature Granulocyte % (Auto) 0.4, White Blood Count 7.0, Red Blood Count 4.26, Hemoglobin 12.7, Hematocrit 38.3, Mean Corpuscular Volume 89.9, Mean Corpuscular Hemoglobin 29.8, Mean Corpuscular Hemoglobin Concent 33.2, Red Cell Distribution Width 12.4, Platelet Count 251, Neutrophils (%) (Auto) 46.3, Lymphocytes (%) (Auto) 41.3, Monocytes (%) (Auto) 9.0H, Eosinophils (%) (Auto) 2.4, Basophils (%) (Auto) 0.6, Neutrophils # (Auto) 3.2, Lymphocytes # (Auto) 2.9, Monocytes # (Auto) 0.6, Eosinophils # (Auto) 0.2, Basophils # (Auto) 0.0, Nucleated Red Blood Cells % (auto) 0.0, Anion Gap 6L, Glomerular Filtration Rate > 60.0, Blood Urea Nitrogen 8, Creatinine 0.71, Sodium Level 144, Potassium Level 4.2, Ch loride Level 111H, Carbon Dioxide Level 27, Calcium Level 9.2, Aspartate Amino Transf (AST/SGOT) 13, Alanine Aminotransferase (ALT/SGPT) 18, Alkaline Phosphatase 58, Total Bilirubin 0.1L, Total Protein 7.1, Albumin 3.5, Albumin/Globulin Ratio 0.97L, Valproic Acid (Depakene) Level 26.9L CBC/BMP Laboratory Tests 06/02/18 06:13 Red Blood Count 4.26, Mean Corpuscular Volume 89.9, Mean Corpuscular Hemoglobin 29.8, Mean Corpuscular Hemoglobin Concent 33.2, Red Cell Distribution Width 12.4, Neutrophils (%) (Auto) 46.3, Lymphocytes (%) (Auto) 41.3, Monocytes (%) (Auto) 9.0 H, Eosinophils (%) (Auto) 2.4, Basophils (%) (Auto) 0.6, Neutrophils # (Auto) 3.2, Lymphocytes # (Auto) 2.9, Monocytes # (Auto) 0.6, Eosinophils # (Auto) 0.2, Basophils # (Auto) 0.0, Calcium Level 9.2, Aspartate Amino Transf (AST/SGOT) 13, Alanine Aminotransferase (ALT/SGPT) 18, Alkaline Phosphatase 58, Total Bilirubin 0.1 L, Total Protein 7.1, Albumin 3.5 Microbiology Microbiology 05/28/18 Urine Culture - Final, Complete GME ATTESTATION GME ATTESTATION My faculty preceptor for this patient encounter was Dr. Blu Lamar, and was physically present during the encounter and was fully available. All aspects of the patient interview, examination, medical decision making process, and medical care plan development were reviewed and approved by the faculty preceptor. The faculty preceptor is aware and concurs with the plan as stated in the body of this note and will attest to such by his/her cosignature. AMBERLY WRIGHT DO Jun 02, 2018 15:44
[2018-06-02] MEDS: ONDANSETRON 4 MG ORAL DISINTEGRATING TAB (Q0162 PER 1MG) SL SCH (23:59)
[2018-06-03] MEDS: MECLIZINE 25 MG TABLET PO SCH ×6 (00:05→21:05)
[2018-06-03] MEDS: FIORICET TAB PO SCH ×6 (00:06→21:07)
[2018-06-03] MEDS: PROCHLORPERAZINE 10 MG/2 ML VIAL (J0780) IV SCH ×4 (01:28→18:44)
[2018-06-03] MEDS: SODIUM CHLORIDE 0.9% INJ 10 ML SYR IV SCH ×2 (06:00→18:45)
[2018-06-03 06:02] VITALS: BP 101/57
[2018-06-03] MEDS: ONDANSETRON 4 MG ORAL DISINTEGRATING TAB (Q0162 PER 1MG) SL SCH ×3 (06:03→17:18)
[2018-06-03] MEDS: HEPARIN SOD (PORCINE) 5000 UNITS/ML VIAL SQ SCH ×2 (09:06→20:58)
[2018-06-03] MEDS: HYDROCORTISONE 10 MG TAB PO SCH ×2 (09:18→12:27)
[2018-06-03] MEDS: PANTOPRAZOLE 40MG TAB (PROTONIX) PO SCH (09:18)
[2018-06-03] MEDS: PYRIDOXINE 50 MG TAB PO SCH (09:19)
[2018-06-03] MEDS: DIVALPROEX 500MG *ER* TAB PO SCH ×2 (09:19→21:05)
[2018-06-03] MEDS: diazePAM 2 MG TAB PO SCH ×2 (09:20→21:06)
[2018-06-03] MEDS: CARVedilol 3.125 MG TAB PO SCH ×2 (09:20→21:05)
[2018-06-03] MEDS: TOPIRAMATE (TopAMAX) 25 MG TAB PO SCH ×2 (09:21→21:06)
[2018-06-03] MEDS: ANUSOL HC CREAM 30GM TOP SCH ×2 (09:22→21:08)
[2018-06-03] MEDS: NATURE THROID PO SCH ×2 (09:39→12:43)
[2018-06-03 14:00] VITALS: BP 114/70
--- NOTE | 2018-06-03 17:15 | IPNPDOC ---
Subjective Date Seen The patient was seen on 06/03/18. Subjective Chief Complaint/HPI slowly improving motion-induced nausea Constitutional: Denies: Chills, Fever Eyes: Denies: Pain ENT: Reports: Head Aches Skin: Denies: Rash Pulmonary: Denies: Dyspnea Cardiovascular: Denies: Chest Pain, Palpitations Gastrointestinal: Reports: Nausea; Denies: Vomiting Genitourinary: Denies: Dysuria Objective Physical Examination General Exam: Positive: Alert, Cooperative, No Acute Distress Eye Exam: Positive: Conjunctiva & lids normal ENT Exam: Positive: Atraumatic Neck Exam: Positive: Supple Chest Exam: Positive: Clear to auscultation, Normal air movement; Negative: Rales, Rhonchi, Wheezing Heart Exam: Positive: Rate Normal, Regular Rhythm, Normal S1, Normal S2; Negative: Murmurs Telemetry: Positive: Other Telemetry: (SA, VR: 77) Abdomen Exam: Positive: BS Hypoactive, Soft; Negative: Tenderness Extremity Exam: Negative: Clubbing, Cyanosis, Edema Skin Exam: Positive: Nl turgor and temperature; Negative: Rash Neuro Exam: Positive: Normal Speech Psych Exam: Positive: Mental status NL, Mood NL, Oriented x 3 Assessment /Plan Problems (1) Abdominal migraine with status migrainosus Status: Acute Problem Text: Current regimen: ondansetron ODT 8 SL q6 prochlorperazine 10 IV q6 fioricet 1 PO q4 meclizine 50 po q4 indomethacin 50 PO TID PRN topiramate 50 PO BID diazepam 3 PO BID sumatrip 100 mg PO BID PRN-attempting to wean scopolamine 1 mg topical q72h pyridoxine 100 PO QD DVP 500 PO BID attempting to transition OFF IV medications to dc PICC 06/02 stable CBCD/CMP, VPA 27-increased DVP to 500 BID, changed ondan IV to ODT 05/30 changed propran 10 BID to carve 3.125 BID (? allergic rxn to propranolol dye-within 10 mins of 1 dose-immediate throat pain) and + DVP 250 BID 05/29 Dr. Lei Neurology favored "more advanced neurological care than can be offered in [place]", multi-discipline approach and psychiatric evaluation (2) Adrenal insufficiency Status: Chronic Problem Text: favor 2 iatrogenic chronic glucocorticoid steroid use from previous PCP for unknown reason 05/22 has received stress dose HC, but s s/s of adrenal crisis; therefore, restarted HC 10 TID (HD ) 05/21 Na 142/K 3.7 c SBP 130s on admission (3) Orthostatic dizziness Status: Chronic Problem Text: presented c POTS diagnosis on chronic midodrine 10 TID-but NO diagnostic increased HR c standing while hospitalized case dw PCP Dr. Giraldo who favor to hold and repeat outpx tilt-table in soon p dc (apparently previous this year was normal) (4) Constipation, chronic Status: Chronic Problem Text: 05/30: Patient reports she had 3 BMs yesterday and her bowels are moving regularly now. 05/27: Has 5 documented BMs. 05/25: patient asked if she can use enemas from home. 05/23: has not eaten yet. Reports hx of several year hx of chronic constipation. Suspect IBS--constipation predominant vs. gluten enteropathy vs. celiac's disease. chronic senna / enema dependence (admits to chronic 8-10 "herbal" senna QD for "years" and ~q2W tap water/cider enema prn) exacerbates abdominal migraine 05/22/18 + HD senna 05/14/18 CT AP c moderate R sided fecal stasis (5) Physical deconditioning Status: Chronic Problem Text: 06/01 not safe for dc home-plan home c services (Vikkiabiodun Forrest- spent 71 mins! c px) 05/31 PMR consulted-awaiting evaluation (6) Hypothyroid Status: Chronic Problem Text: 06/04/18 TPO/TG Ab P (if -, i.e. not c/w AITD, highly doubt she needs complete replacement 06/03/18 recommended to change to LT4, but ONLY formulation patient will take is Tirosint which is not on [facility] nor [facility] (patient's prescription plan) formulary; therefore, will probably need to stick c porcine TH, but keep at a constant dose 05/10/18 0.41, 0.8, 106 on HD "self-titrated" desiccated porcine TH-taking somewhere between 1/4-3/4 grain BID (which would be between LT4 25-75 BID) Plan/VTE VTE Prophylaxis Ordered?: Yes (Lovenox) Plan IVF: Continue Diet: Continue Current Activity: Continue Current Therapy: PT Pt and Family Services: Home Care Diagnostics: Check Labs Anticipated Discharge: Home Advance Directives: Other Advance Directive VS, I&O, 24H, Fishbone Vital Signs/I&O Vital Signs Date Time Temp Pulse Resp B/P (MAP) Pulse Ox O2 Delivery O2 Flow Rate FiO2 06/03/18 13:19 20 06/03/18 09:20 66 101/57 06/03/18 06:02 98.2 99 Room Air I&O- Last 24 Hours up to 6 AM 06/03/18 06:00 Intake Total 1200 ml Balance 1200 ml Laboratory Data Microbiology Microbiology 05/28/18 Urine Culture - Final, Complete Blu Lamar M.D. Jun 03, 2018 17:15
[2018-06-03] MEDS: HYDROCORTISONE 5MG TABLET PO SCH (17:18)
[2018-06-03] MEDS: HERB LAX PO SCH (21:07)
[2018-06-03] MEDS: [UNRECOGNIZED DRUG - OTHER] PO SCH (21:07)
[2018-06-03 22:00] VITALS: BP 121/80
[2018-06-04] MEDS: ONDANSETRON 4 MG ORAL DISINTEGRATING TAB (Q0162 PER 1MG) SL SCH ×4 (00:17→18:03)
[2018-06-04] MEDS: PROCHLORPERAZINE 10 MG/2 ML VIAL (J0780) IV SCH ×4 (01:13→19:00)
[2018-06-04] MEDS: MECLIZINE 25 MG TABLET PO SCH ×6 (01:13→21:24)
[2018-06-04] MEDS: FIORICET TAB PO SCH ×6 (01:14→21:25)
[2018-06-04] MEDS: SODIUM CHLORIDE 0.9% INJ 10 ML SYR IV PRN (01:24)
[2018-06-04] MEDS: SODIUM CHLORIDE 0.9% INJ 10 ML SYR IV SCH ×3 (01:25→18:06)
[2018-06-04 06:00] VITALS: BP 103/57
[2018-06-04] MEDS: ANUSOL HC CREAM 30GM TOP SCH ×2 (09:00→21:34)
[2018-06-04] MEDS: HEPARIN SOD (PORCINE) 5000 UNITS/ML VIAL SQ SCH ×2 (09:00→21:00)
[2018-06-04] MEDS: NATURE THROID PO SCH ×2 (09:00→13:45)
[2018-06-04] MEDS: CARVedilol 3.125 MG TAB PO SCH ×2 (09:00→21:26)
[2018-06-04] MEDS: TOPIRAMATE (TopAMAX) 25 MG TAB PO SCH ×2 (09:00→21:24)
[2018-06-04] MEDS: PYRIDOXINE 50 MG TAB PO SCH (10:07)
[2018-06-04] MEDS: diazePAM 2 MG TAB PO SCH ×2 (10:08→21:25)
[2018-06-04] MEDS: PANTOPRAZOLE 40MG TAB (PROTONIX) PO SCH (10:08)
[2018-06-04] MEDS: DIVALPROEX 500MG *ER* TAB PO SCH ×2 (10:13→21:25)
[2018-06-04] MEDS: HYDROCORTISONE 10 MG TAB PO SCH ×2 (10:14→12:15)
[2018-06-04 14:00] VITALS: BP 107/58
[2018-06-04] MEDS: HYDROCORTISONE 5MG TABLET PO SCH (18:04)
--- NOTE | 2018-06-04 18:33 | IPNPDOC ---
Subjective Date Seen The patient was seen on 06/04/18. Subjective Chief Complaint/HPI slowly improving motion-induced VELA/nausea s vomiting last syncopal episode 06/03 lasting ~30 mins Constitutional: Denies: Chills Eyes: Denies: Pain ENT: Reports: Head Aches Pulmonary: Denies: Dyspnea, Cough Cardiovascular: Denies: Chest Pain, Palpitations Gastrointestinal: Reports: Nausea; Denies: Vomiting Objective Physical Examination General Exam: Positive: Alert, Cooperative, No Acute Distress Eye Exam: Positive: Conjunctiva & lids normal ENT Exam: Positive: Atraumatic Neck Exam: Positive: Supple Chest Exam: Positive: Clear to auscultation, Normal air movement; Negative: Rales, Rhonchi, Wheezing Heart Exam: Positive: Rate Normal, Regular Rhythm, Normal S1, Normal S2; Negative: Murmurs Telemetry: Positive: Other Telemetry: (SA, VR: 77) Abdomen Exam: Positive: BS Hypoactive, Soft; Negative: Tenderness Extremity Exam: Negative: Clubbing, Cyanosis, Edema Skin Exam: Positive: Nl turgor and temperature; Negative: Rash Neuro Exam: Positive: Normal Speech Psych Exam: Positive: Mental status NL, Mood NL, Oriented x 3 Assessment /Plan Problems (1) Hypothyroid Status: Chronic Problem Text: 06/04/18 TPO/TG Ab P (if -, i.e. not c/w AITD and therefore, highly doubt she needs complete replacement) 06/03/18 recommended to change to LT4 (given too high of T3/T4 ratio of porcine TH /, normal human ratio on 08/04), but ONLY formulation patient will take is Tirosint which is not on [facility] nor [facility] (patient's prescription plan) formulary; therefore, will probably need to continue Nature-Throid (but keep at a constant dose-patient was prescribed 1/4 grain (16.25 mg) BID since admission BUT has only taken 3 times!) 05/10/18 0.41, 0.8, 106 on HD "self-titrated" desiccated porcine TH-taking somewhere between 1/4-3/4 grain BID (which would be between LT4 25-75 BID) (2) Vestibular migraine Problem Text: Current regimen: ondansetron ODT 8 SL q6 prochlorperazine 10 IV q6 meclizine 50 po q4 carvedilol 3.125 BID_ SBP remains 100-110, HR 80-90 topiramate 50 PO BID diazepam 3 PO BID scopolamine 1 mg topical q72h pyridoxine 100 PO QD DVP 500 PO BID indomethacin 50 PO TID PRN Fioricet 1 PO q4 sumatrip 100 mg PO BID PRN-attempting to wean attempting to transition OFF IV medications in order to dc PICC (placed 05/25/18) attempting to limit prn triptan and Fioricet to prevent tolerance 06/02 stable CBCD/CMP, VPA 27-increased DVP to 500 BID, changed ondan IV to ODT 05/30 changed propran 10 BID to carve 3.125 BID (? allergic rxn to propranolol dye-within 10 mins of 1 dose-immediate throat pain) and + DVP 250 BID 05/29 Dr. Lei Neurology favored "more advanced neurological care than can be offered in [place]", multi-discipline approach and psychiatric evaluation 05/23/18 MRI brain c/s angie and MR face s angie NAD (3) Adrenal insufficiency Status: Chronic Problem Text: favor tertiary AI 2 iatrogenic chronic glucocorticoid steroid use from previous PCP for unknown reason goal to slowly wean off HC-decreasing dose by 5 mg q5-7D 06/02 decreased HC 10 TID to , stable SBP, Na/K 05/22 has received stress dose HC, but s s/s of adrenal crisis; therefore, restarted HC 10 TID (HD ) 05/21 Na 142/K 3.7 c SBP 130s on admission (4) Orthostatic dizziness Status: Chronic Problem Text: presented c POTS diagnosis on chronic midodrine 10 TID-but NO diagnostic increased HR c standing while hospitalized case dw PCP Dr. Giraldo who favor to hold midodrine and repeat outpx tilt-table in soon p dc (apparently previous this year was normal) (5) Constipation, chronic Status: Chronic Problem Text: chronic senna / enema dependence (admits to chronic 8-10 "herbal" senna QD for "years" and ~q2W tap water/cider enema prn) exacerbates abdominal migraine Stable daily BMs on HD senna 05/22/18 + HD senna 05/14/18 CT AP c moderate R sided fecal stasis (6) Physical deconditioning Status: Chronic Problem Text: 06/01 not safe for dc home-plan home c services (Deandre Forrest- spent 71 mins! c px) 05/31 PMR consulted-awaiting evaluation Plan/VTE VTE Prophylaxis Ordered?: Yes (Lovenox) Plan IVF: Continue Diet: Continue Current Activity: Continue Current Therapy: PT Pt and Family Services: Home Care Diagnostics: Check Labs Anticipated Discharge: Home Advance Directives: Other Advance Directive VS, I&O, 24H, Fishbone Vital Signs/I&O Vital Signs Date Time Temp Pulse Resp B/P (MAP) Pulse Ox O2 Delivery O2 Flow Rate FiO2 06/04/18 18:05 18 Room Air 06/04/18 14:00 97.3 98 107/58 (74) 95 I&O- Last 24 Hours up to 6 AM 06/04/18 06:00 Intake Total 900 ml Output Total 0 ml Balance 900 ml Laboratory Data 24H LABS Laboratory Tests 2 06/04/18 06:22: Microbiology Microbiology 05/28/18 Urine Culture - Final, Complete Blu Lamar M.D. Jun 04, 2018 18:33
[2018-06-04] MEDS ORDERED: INDOMETHACIN 25 MG CAP PO PRN (19:45)
[2018-06-04] MEDS: ANUSOL HC 25MG SUPP PR SCH (21:00)
[2018-06-04] MEDS: HERB LAX PO SCH (21:28)
[2018-06-04] MEDS: [UNRECOGNIZED DRUG - OTHER] PO SCH (21:28)
[2018-06-04 22:00] VITALS: BP 123/75
[2018-06-05] MEDS: ONDANSETRON 4 MG ORAL DISINTEGRATING TAB (Q0162 PER 1MG) SL SCH ×4 (00:52→18:26)
[2018-06-05] MEDS: PROCHLORPERAZINE 10 MG/2 ML VIAL (J0780) IV SCH ×4 (00:52→18:26)
[2018-06-05] MEDS: MECLIZINE 25 MG TABLET PO SCH ×6 (00:53→21:55)
[2018-06-05] MEDS: FIORICET TAB PO SCH ×6 (00:53→21:54)
[2018-06-05 06:00] VITALS: BP 110/64
[2018-06-05] MEDS: SODIUM CHLORIDE 0.9% INJ 10 ML SYR IV SCH ×2 (06:07→17:30)
[2018-06-05] MEDS: HYDROCORTISONE 10 MG TAB PO SCH ×2 (07:19→12:40)
[2018-06-05] MEDS: SCOPOLAMINE 1MG TRANSDERMAL PATCH TOP SCH (08:40)
[2018-06-05] MEDS: PYRIDOXINE 50 MG TAB PO SCH (08:40)
[2018-06-05] MEDS: DIVALPROEX 500MG *ER* TAB PO SCH ×2 (08:41→21:53)
[2018-06-05] MEDS: TOPIRAMATE (TopAMAX) 25 MG TAB PO SCH ×2 (08:41→21:54)
[2018-06-05] MEDS: PANTOPRAZOLE 40MG TAB (PROTONIX) PO SCH (08:42)
[2018-06-05] MEDS: diazePAM 2 MG TAB PO SCH ×2 (08:42→21:55)
[2018-06-05] MEDS: CARVedilol 3.125 MG TAB PO SCH ×2 (08:42→21:53)
[2018-06-05] MEDS: HEPARIN SOD (PORCINE) 5000 UNITS/ML VIAL SQ SCH ×2 (08:50→21:00)
[2018-06-05] MEDS: NATURE THROID 65 MG PO SCH ×2 (09:00→14:07)
[2018-06-05] MEDS: ANUSOL HC CREAM 30GM TOP SCH ×2 (09:00→21:00)
[2018-06-05 10:20] LABS: THYROGLOBULIN ANTIBODY 65.3 U/ML (<60.0); THYROID PEROXIDASE ANTIBODY 1012.5 U/ML (<60.0)
[2018-06-05 14:00] VITALS: BP 126/75
[2018-06-05] MEDS: HYDROCORTISONE 5MG TABLET PO SCH (17:29)
--- NOTE | 2018-06-05 19:30 | IPNPDOC ---
Subjective Date Seen The patient was seen on 06/05/18. Subjective Chief Complaint/HPI Jemima is seen again today for ongoing care for her headaches with associated nausea and other symptoms. Events since last encounter She reports that she had a pretty good day, although she acknowledges that the P/T session tired her out. She is pleased that the recent changes made to her nausea regimen have allowed her to continue to do more P/T than she was able to and "get right up to the edge" of being nauseated without actual nausea and subsequent vomiting which was the case last week. She seems to be tolerating the increased dose of valproic acid well although she did have another "blackout" episode where she felt strange and then woke up in her bed "with tons of drool" about an hour later. She is interested in moving the indomethacin to scheduled for the short term while she tries to keep her nausea under even better control so she can participate in a more aggressive P/T regimen than she currently is able to. She does acknowledge that if she is not able to do more than the 40-45 minutes of therapy that she was able to do today without feeling very tired after, that she probably won't be a good candidate for acute rehab. She knows that this means that sub-acute rehab is likely in her future. General: Reports: Normal Appetite Constitutional: Denies: Chills, Fever ENT: Reports: Head Aches (with associated vertigo. These are improving slowly each day.); Denies: Sore Throat Skin: Denies: Rash, Lesions Pulmonary: Denies: Cough Cardiovascular: Denies: Chest Pain, Palpitations Gastrointestinal: Reports: Nausea; Denies: Vomiting, Abdominal Pain, Diarrhea Hematologic: Denies: Bruising, Bleeding Excessively Neurological: Reports: Weakness, Incoordination; Denies: Change in speech, Confusion, Seizures Psych: Reports: Mood Normal Objective Physical Examination General Exam: Positive: Alert, Cooperative (sitting up in bed playing "[employer]" with two brothers while her mother watches and squawks at them when I entered the room. ), No Acute Distress Eye Exam: Positive: PERRLA, Conjunctiva & lids normal, EOMI; Negative: Sclera icteric ENT Exam: Positive: Atraumatic, Mucous membr. moist/pink Neck Exam: Positive: Supple, Other (Careful thyroid examination reveals no masses or lesions on my examination. The thyroid is not tender to palpation. ); Negative: thyromegaly Telemetry: Positive: Other Telemetry: (SA, VR: 77) Extremity Exam: Negative: Clubbing, Cyanosis, Edema Skin Exam: Positive: Nl turgor and temperature; Negative: Rash Neuro Exam: Positive: Normal Speech Psych Exam: Positive: Mental status NL, Mood NL, Oriented x 3 Assessment /Plan Problems (1) Chronic autoimmune thyroiditis Status: Chronic Discussed With: Patient Problem Specific Plan: Monitor Clinically, Repeat Labs Problem Text: 06/05/18: TPO Ab are markedly positive. Tg Ab are mildly positive. Her last set of thyroid function tests were done just before she was admitted and were completely normal. She states that she was on 3/4 grain of Nature Thyroid BID which could correlate to about 150mcg of levothyroxine. However, it is not clear how fastidiously she was taking her supplement. She has theoretically been on 1/4 grain of the Nature Thyroid BID here, but has about 3 doses that were actually administered. My plan for now is to repeat the thyroid function tests since she basically has not been on thyroid supplementation for about 2 weeks. If they are normal, then I am willing to take a bet that her thyroid is functional enough at present to self-regulate and will advocate stopping all thyroid supplementation and monitoring her thyroid functions closely as it is likely that the gland will eventually fail from the auto-immune insult. If they are abnormal, then I'd like to evaluate the pattern and start her on some form of regulated levothyroxine +/- Cytomel if it seems needed. 06/04/18 TPO/TG Ab P (if -, i.e. not c/w AITD and therefore, highly doubt she needs complete replacement) 06/03/18 recommended to change to LT4 (given too high of T3/T4 ratio of porcine TH 07/28, normal human ratio on 08/04), but ONLY formulation patient will take is Tirosint which is not on [facility] nor [facility] (patient's prescription plan) formulary; therefore, will probably need to continue Nature-Throid (but keep at a constant dose-patient was prescribed 1/4 grain (16.25 mg) BID since admission BUT has only taken 3 times!) 05/10/18 0.41, 0.8, 106 on HD "self-titrated" desiccated porcine TH-taking somewhere between 1/4-3/4 grain BID (which would be between LT4 25-75 BID) (2) Vestibular migraine Problem Text: Current regimen: ondansetron ODT 8 SL q6 prochlorperazine 10 IV q6 meclizine 50 po q4 carvedilol 3.125 BID_ SBP remains 100-110, HR 80-90 topiramate 50 PO BID diazepam 3 PO BID scopolamine 1 mg topical q72h pyridoxine 100 PO QD DVP 500 PO BID indomethacin 50 PO TID PRN Fioricet 1 PO q4 sumatrip 100 mg PO BID PRN-attempting to wean attempting to transition OFF IV medications in order to dc PICC (placed 05/25/18) attempting to limit prn triptan and Fioricet to prevent tolerance 06/05 - will check a repeat valproic acid level tomorrow. This regimen seems to have her the most functional so far. She is reporting some feelings of sedation after the diazepam doses, but these are transient. I will make the indomethacin scheduled for now with a plan to decrease the dose of the diazepam soon. 06/02 stable CBCD/CMP, VPA 27-increased DVP to 500 BID, changed ondan IV to ODT 05/30 changed propran 10 BID to carve 3.125 BID (? allergic rxn to propranolol dye-within 10 mins of 1 dose-immediate throat pain) and + DVP 250 BID 05/29 Dr. Lei Neurology favored "more advanced neurological care than can be offered in [place]", multi-discipline approach and psychiatric evaluation 05/23/18 MRI brain c/s angie and MR face s angie NAD (3) Adrenal insufficiency Status: Chronic Problem Text: Favor tertiary AI 2 iatrogenic chronic glucocorticoid steroid use from previous PCP for unknown reason. Goal to slowly wean off HC-decreasing dose by 5 mg q5-7D. 06/05- day 3 of . She seems to be tolerating this just fine. 06/02 decreased HC 10 TID to , stable SBP, Na/K 05/22 has received stress dose HC, but s s/s of adrenal crisis; therefore, restarted HC 10 TID (HD ) 05/21 Na 142/K 3.7 c SBP 130s on admission (4) Orthostatic dizziness Status: Chronic Problem Text: Presented c POTS diagnosis on chronic midodrine 10 TID-but NO diagnostic increased HR c standing while hospitalized. Midodrine and fludrocortisone are held. Suspect that the symptoms or orthostatic intolerance are more migraine related than true autonomic dysfunction. (5) Constipation, chronic Status: Chronic Problem Text: Chronic senna / enema dependence (admits to chronic 8-10 "herbal" senna QD for "years" and ~q2W tap water/cider enema prn) Probably exacerbates abdominal component of her migraine. Stable daily BMs on HD senna. 05/22/18 + HD senna 05/14/18 CT AP c moderate R sided fecal stasis (6) Physical deconditioning Status: Chronic Problem Text: More accurately difficulty walking. 06/05 - apparently she expended significant effort and energy to stand up in her rolling walker today. She reports that she is doing exercises in bed between therapy sessions. She admits to doing "bed Brian Chi" to help focus on balance and push herself so that towards a goal of recovery and a normal functional life. 06/01 not safe for dc home-plan home c services (Deandre Forrest-spent 71 mins! c px) 05/31 PMR consulted-awaiting evaluation Plan/VTE VTE Prophylaxis Ordered?: Yes (Lovenox) Plan Diet: Continue Current Activity: Continue Current, Advance Therapy: PT Medications: Taper Steroids Diagnostics: Check Labs Advance Directives: Other Advance Directive Disposition Once her thyroid issue is sorted out and she is able to settle into a more stable regimen of P/T at whatever level that is, I'd like to plan on her going into rehab until she can walk around her home with minimal assistance. P/T continues to recommend home with services, but I'd like to discuss if she meets criteria for rehab (probably sub-acute). I'm not sure that her home environment is as conducive to healing b/c of family dynamics. I anticipate we may be able t o reach this goal by the end of this week. VS, I&O, 24H, Fishbone Vital Signs/I&O Vital Signs Date Time Temp Pulse Resp B/P (MAP) Pulse Ox O2 Delivery O2 Flow Rate FiO2 06/05/18 17:55 18 06/05/18 17:25 Room Air 06/05/18 14:00 98.5 68 126/75 (35) 19 I&O- Last 24 Hours up to 6 AM 06/05/18 05:59 Intake Total 1680 ml Output Total 0 ml Balance 1680 ml Laboratory Data Microbiology Microbiology 05/28/18 Urine Culture - Final, Complete Luis Giraldo MD Jun 05, 2018 7:30 pm
[2018-06-05] MEDS: [UNRECOGNIZED DRUG - OTHER] PO SCH (21:00)
[2018-06-05] MEDS: ANUSOL HC 25MG SUPP PR SCH (21:00)
[2018-06-05] MEDS: HERB LAX PO SCH (21:00)
[2018-06-05 22:00] VITALS: BP 113/66
[2018-06-06] MEDS: ONDANSETRON 4 MG ORAL DISINTEGRATING TAB (Q0162 PER 1MG) SL SCH ×4 (00:35→18:15)
[2018-06-06] MEDS: MECLIZINE 25 MG TABLET PO SCH ×6 (01:46→22:00)
[2018-06-06] MEDS: PROCHLORPERAZINE 10 MG/2 ML VIAL (J0780) IV SCH ×4 (01:47→18:16)
[2018-06-06] MEDS: FIORICET TAB PO SCH ×6 (01:47→21:59)
[2018-06-06] MEDS: SODIUM CHLORIDE 0.9% INJ 10 ML SYR IV SCH ×2 (05:43→17:22)
[2018-06-06] MEDS: HYDROCORTISONE 10 MG TAB PO SCH ×2 (06:45→12:03)
[2018-06-06] MEDS: SODIUM CHLORIDE 0.9% INJ 10 ML SYR IV PRN (06:45)
[2018-06-06 08:29] LABS: HEMATOCRIT 38.2 % (36.0-47.0); HEMOGLOBIN 12.4 g/dl (12.0-15.5); MEAN CORPUSCULAR HEMOGLOBIN 29.8 pg (27.0-33.0); MEAN CORPUSCULAR HGB CONC 32.5 g/dl (32.0-36.5); MEAN CORPUSCULAR VOLUME 91.8 fl (80.0-96.0); PLATELET COUNT, AUTOMATED 282 10^3/uL (150-450); RED BLOOD COUNT 4.16 10^6/uL (4.00-5.40); WHITE BLOOD COUNT 6.6 10^3/uL (4.0-10.0)
[2018-06-06] MEDS: HEPARIN SOD (PORCINE) 5000 UNITS/ML VIAL SQ SCH ×2 (09:00→21:00)
[2018-06-06 09:06] LABS: ALBUMIN 3.5 GM/DL (3.2-5.2); ALT/SGPT 17 U/L (12-78); BILIRUBIN,TOTAL 0.2 MG/DL (0.2-1.0); BLOOD UREA NITROGEN 6 MG/DL (7-18); CALCIUM LEVEL 9.3 MG/DL (8.5-10.1); CARBON DIOXIDE LEVEL 27 MEQ/L (21-32); CHLORIDE LEVEL 108 MEQ/L (98-107); CREATININE FOR GFR 0.78 MG/DL (0.55-1.30); FREE T4 0.78 NG/DL (0.76-1.46); GLOMERULAR FILTRATION RATE > 60.0 (>60); GLUCOSE, FASTING 92 MG/DL (70-100); POTASSIUM SERUM 4.1 MEQ/L (3.5-5.1); SODIUM LEVEL 142 MEQ/L (136-145)
[2018-06-06] MEDS: DIVALPROEX 500MG *ER* TAB PO SCH ×2 (09:06→21:59)
[2018-06-06] MEDS: PANTOPRAZOLE 40MG TAB (PROTONIX) PO SCH (09:09)
[2018-06-06] MEDS: TOPIRAMATE (TopAMAX) 25 MG TAB PO SCH ×2 (09:10→22:00)
[2018-06-06] MEDS: diazePAM 2 MG TAB PO SCH ×2 (09:10→22:01)
[2018-06-06] MEDS: PYRIDOXINE 50 MG TAB PO SCH (09:10)
[2018-06-06] MEDS: INDOMETHACIN 25 MG CAP PO SCH ×3 (09:11→21:59)
[2018-06-06] MEDS: CARVedilol 3.125 MG TAB PO SCH ×2 (09:11→22:00)
[2018-06-06] MEDS: NATURE THROID 65 MG PO SCH ×2 (09:12→15:31)
[2018-06-06] MEDS: ANUSOL HC CREAM 30GM TOP SCH ×2 (09:16→21:00)
[2018-06-06 09:20] LABS: TOTAL T3 119.8 NG/DL (60.0-181.0)
[2018-06-06 14:00] VITALS: BP 111/67
[2018-06-06] MEDS: HYDROCORTISONE 5MG TABLET PO SCH (18:15)
[2018-06-06] MEDS: ANUSOL HC 25MG SUPP PR SCH (21:00)
[2018-06-06] MEDS: [UNRECOGNIZED DRUG - OTHER] PO SCH (21:00)
[2018-06-06] MEDS: HERB LAX PO SCH (21:00)
[2018-06-06 22:00] VITALS: BP 112/71
[2018-06-07] MEDS: MECLIZINE 25 MG TABLET PO SCH ×6 (00:46→21:20)
[2018-06-07] MEDS: ONDANSETRON 4 MG ORAL DISINTEGRATING TAB (Q0162 PER 1MG) SL SCH ×5 (00:47→23:41)
[2018-06-07] MEDS: FIORICET TAB PO SCH ×6 (00:48→21:21)
[2018-06-07] MEDS: PROCHLORPERAZINE 10 MG/2 ML VIAL (J0780) IV SCH ×4 (02:08→17:50)
[2018-06-07] MEDS: SODIUM CHLORIDE 0.9% INJ 10 ML SYR IV SCH ×2 (06:00→17:50)
[2018-06-07] MEDS: HYDROCORTISONE 10 MG TAB PO SCH ×2 (06:21→12:00)
[2018-06-07] MEDS: PYRIDOXINE 50 MG TAB PO SCH (08:24)
[2018-06-07] MEDS: diazePAM 2 MG TAB PO SCH ×2 (08:24→21:22)
[2018-06-07] MEDS: PANTOPRAZOLE 40MG TAB (PROTONIX) PO SCH (08:25)
[2018-06-07] MEDS: DIVALPROEX 500MG *ER* TAB PO SCH (08:25)
[2018-06-07] MEDS: INDOMETHACIN 25 MG CAP PO SCH ×3 (08:25→21:20)
[2018-06-07] MEDS: CARVedilol 3.125 MG TAB PO SCH ×2 (08:25→21:27)
[2018-06-07] MEDS: TOPIRAMATE (TopAMAX) 25 MG TAB PO SCH ×2 (08:25→21:21)
[2018-06-07] MEDS: HEPARIN SOD (PORCINE) 5000 UNITS/ML VIAL SQ SCH ×2 (08:26→21:00)
[2018-06-07] MEDS: NATURE THROID 65 MG PO SCH ×2 (08:26→14:00)
[2018-06-07] MEDS: ANUSOL HC CREAM 30GM TOP SCH ×2 (08:26→21:00)
[2018-06-07 14:00] VITALS: BP 115/64
[2018-06-07] MEDS: HYDROCORTISONE 5MG TABLET PO SCH (17:49)
--- NOTE | 2018-06-07 19:57 | IPNPDOC ---
Subjective Date Seen The patient was seen on 06/07/18. Subjective Chief Complaint/HPI Jemima reports that she feels she is making slow progress with her symptoms. She feels that her body is settling into more of a normal rhythm. However, she also states that she felt she was pushed/pushing a little too hard with P/T for the last couple days. The staggering of her anti-nausea meds is helping control her symptoms well, but she also was dry heaving after P/T today. She in anxious about what the P/T reevaluation at the end of this week will bring. General: Reports: Normal Appetite Neurological: Reports: Weakness, Incoordination, Confusion (transiently after she takes her diazepam and valproic acid) Psych: Reports: Mood Normal; Denies: Thoughts of Self Harm Objective Physical Examination General Exam: Positive: Alert, Cooperative (sitting in a reclining chair resting comfortably when I entered the room), No Acute Distress Eye Exam: Positive: PERRLA, Conjunctiva & lids normal, EOMI; Negative: Sclera icteric ENT Exam: Positive: Atraumatic, Mucous membr. moist/pink Neck Exam: Positive: Supple Extremity Exam: Negative: Clubbing, Cyanosis, Edema Skin Exam: Positive: Nl turgor and temperature; Negative: Rash Neuro Exam: Positive: Normal Speech Psych Exam: Positive: Mental status NL, Mood NL, Oriented x 3 Assessment /Plan Problems (1) Vestibular migraine Problem Text: Current regimen: ondansetron ODT 8 SL q6 prochlorperazine 10 IV q6 meclizine 50 po q4 carvedilol 3.125 BID_ SBP remains 100-110, HR 80-90 topiramate 50 PO BID diazepam 3 PO BID scopolamine 1 mg topical q72h pyridoxine 100 PO QD DVP 500/750 PO BID indomethacin 50 PO TID PRN Fioricet 1 PO q4 sumatrip 100 mg PO BID PRN-attempting to wean attempting to transition OFF IV medications in order to dc PICC (placed 05/25/18) attempting to limit prn triptan and Fioricet to prevent tolerance 06/07 - DVP level still <50. Will increase to 500/750. Monitor. Discussed changing the timing of the meds from 9 and 9, but she isn't sure when she wants it. 06/05 - will check a repeat valproic acid level tomorrow. This regimen seems to have her the most functional so far. She is reporting some feelings of sedation after the diazepam doses, but these are transient. I will make the indomethacin scheduled for now with a plan to decrease the dose of the diazepam soon. 06/02 stable CBCD/CMP, VPA 27-increased DVP to 500 BID, changed ondan IV to ODT 05/30 changed propran 10 BID to carve 3.125 BID (? allergic rxn to propranolol dye-within 10 mins of 1 dose-immediate throat pain) and + DVP 250 BID 05/29 Dr. Lei Neurology favored "more advanced neurological care than can be offered in [place]", multi-discipline approach and psychiatric evaluation 05/23/18 MRI brain c/s angie and MR face s angie NAD (2) Chronic autoimmune thyroiditis Status: Chronic Discussed With: Patient Problem Specific Plan: Monitor Clinically, Repeat Labs Problem Text: 06/07: Thyroid fx are basically normal on little/no supplementation. Will d/c supplementation and monitor her thyroid fx at regular intervals. 06/05/18: TPO Ab are markedly positive. Tg Ab are mildly positive. Her last set of thyroid function tests were done just before she was admitted and were completely normal. She states that she was on 3/4 grain of Nature Thyroid BID which could correlate to about 150mcg of levothyroxine. However, it is not clear how fastidiously she was taking her supplement. She has theoretically been on 1/4 grain of the Nature Thyroid BID here, but has about 3 doses that were actually administered. My plan for now is to repeat the thyroid function tests since she basically has not been on thyroid supplementation for about 2 weeks. If they are normal, then I am willing to take a bet that her thyroid is functional enough at present to self-regulate and will advocate stopping all thyroid supplementation and monitoring her thyroid functions closely as it is likely that the gland will eventually fail from the auto-immune insult. If they are abnormal, then I'd like to evaluate the pattern and start her on some form of regulated levothyroxine +/- Cytomel if it seems needed. 06/04/18 TPO/TG Ab P (if -, i.e. not c/w AITD and therefore, highly doubt she needs complete replacement) 06/03/18 recommended to change to LT4 (given too high of T3/T4 ratio of porcine TH /, normal human ratio on 08/04), but ONLY formulation patient will take is Tirosint which is not on [facility] nor [facility] (patient's prescription plan) formulary; therefore, will probably need to continue Nature-Throid (but keep at a constant dose-patient was prescribed 1/4 grain (16.25 mg) BID since admission BUT has only taken 3 times!) 05/10/18 0.41, 0.8, 106 on HD "self-titrated" desiccated porcine TH-taking somewhere between 1/4-3/4 grain BID (which would be between LT4 25-75 BID) (3) Adrenal insufficiency Status: Chronic Problem Text: Favor tertiary AI 2 iatrogenic chronic glucocorticoid steroid use from previous PCP for unknown reason. Goal to slowly wean off HC-decreasing dose by 5 mg q5-7D. 06/07 - will decrease to starting tomorrow. 06/05- day 3 of . She seems to be tolerating this just fine. 06/02 decreased HC 10 TID to , stable SBP, Na/K 05/22 has received stress dose HC, but s s/s of adrenal crisis; therefore, restarted HC 10 TID (HD ) 05/21 Na 142/K 3.7 c SBP 130s on admission (4) Orthostatic dizziness Status: Chronic Problem Text: Presented c POTS diagnosis on chronic midodrine 10 TID-but NO alia gnostic increased HR c standing while hospitalized. Midodrine and fludrocortisone are held. Suspect that the symptoms or orthostatic intolerance are more migraine related than true autonomic dysfunction. (5) Constipation, chronic Status: Chronic Problem Text: Chronic senna / enema dependence (admits to chronic 8-10 "herbal" senna QD for "years" and ~q2W tap water/cider enema prn) Probably exacerbates abdominal component of her migraine. Stable daily BMs on HD senna. 05/22/18 + HD senna 05/14/18 CT AP c moderate R sided fecal stasis (6) Physical deconditioning Status: Chronic Problem Text: More accurately exercise intolerance limited by symptoms. 06/07 - continues to work with P/T but it is becoming more obvious that acute rehab isn't an option for her because of her exercise intolerance. 06/05 - apparently she expended significant effort and energy to stand up in her rolling walker today. She reports that she is doing exercises in bed between therapy sessions. She admits to doing "bed Brian Chi" to help focus on balance and push herself so that towards a goal of recovery and a normal functional life. 06/01 not safe for dc home-plan home c services (Deandre Forrest-spent 71 mins! c px) 05/31 PMR consulted-awaiting evaluation Plan/VTE VTE Prophylaxis Ordered?: Yes (Lovenox) Plan Diet: Continue Current Activity: Continue Current, Advance Therapy: PT Medications: Taper Steroids Diagnostics: Check Labs Advance Directives: Other Advance Directive VS, I&O, 24H, Krish Vital Signs/I&O Vital Signs Date Time Temp Pulse Resp B/P (MAP) Pulse Ox O2 Delivery O2 Flow Rate FiO2 06/07/18 16:54 16 06/07/18 14:00 97.8 75 115/64 (81) 100 Room Air I&O- Last 24 Hours up to 6 AM 06/07/18 05:59 Intake Total 1920 ml Output Total 0 ml Balance 1920 ml Laboratory Data 24H LABS Laboratory Tests 2 06/07/18 06:22: Valproic Acid (Depakene) Level 48.5L Microbiology Microbiology 05/28/18 Urine Culture - Final, Complete Luis Giraldo MD Jun 07, 2018 7:57 pm
[2018-06-07] MEDS: ANUSOL HC 25MG SUPP PR SCH (21:00)
[2018-06-07] MEDS ORDERED: DIVALPROEX 250MG *ER* TAB PO SCH (21:00)
[2018-06-07] MEDS: HERB LAX PO SCH (21:23)
[2018-06-07] MEDS: [UNRECOGNIZED DRUG - OTHER] PO SCH (21:23)
[2018-06-07 22:00] VITALS: BP 112/62
[2018-06-08] MEDS: MECLIZINE 25 MG TABLET PO SCH ×6 (01:20→23:39)
[2018-06-08] MEDS: FIORICET TAB PO SCH ×6 (01:21→23:47)
[2018-06-08] MEDS: PROCHLORPERAZINE 10 MG/2 ML VIAL (J0780) IV SCH ×5 (01:21→23:38)
[2018-06-08 06:00] VITALS: BP 103/58
[2018-06-08] MEDS: HYDROCORTISONE 10 MG TAB PO SCH (06:04)
[2018-06-08] MEDS: ONDANSETRON 4 MG ORAL DISINTEGRATING TAB (Q0162 PER 1MG) SL SCH ×4 (06:04→23:39)
[2018-06-08] MEDS: SODIUM CHLORIDE 0.9% INJ 10 ML SYR IV SCH ×3 (06:04→18:00)
[2018-06-08] MEDS: ANUSOL HC CREAM 30GM TOP SCH ×2 (09:00→21:00)
[2018-06-08] MEDS: HEPARIN SOD (PORCINE) 5000 UNITS/ML VIAL SQ SCH ×2 (09:00→21:00)
[2018-06-08] MEDS ORDERED: DIVALPROEX 250MG *ER* TAB PO SCH (09:00)
[2018-06-08] MEDS: HYDROCORTISONE 5MG TABLET PO SCH ×2 (10:17→18:09)
[2018-06-08] MEDS: INDOMETHACIN 25 MG CAP PO SCH ×3 (10:17→23:39)
[2018-06-08] MEDS: PANTOPRAZOLE 40MG TAB (PROTONIX) PO SCH (10:18)
[2018-06-08] MEDS: PYRIDOXINE 50 MG TAB PO SCH (10:18)
[2018-06-08] MEDS: CARVedilol 3.125 MG TAB PO SCH ×2 (10:26→23:42)
[2018-06-08] MEDS: SCOPOLAMINE 1MG TRANSDERMAL PATCH TOP SCH (10:26)
[2018-06-08] MEDS: diazePAM 2 MG TAB PO SCH ×2 (13:59→23:45)
[2018-06-08] MEDS: TOPIRAMATE (TopAMAX) 25 MG TAB PO SCH ×2 (13:59→23:43)
[2018-06-08] MEDS ORDERED: LIDOCAINE 1% MDV 20ML VIAL As Ordered ONE (15:31)
--- NOTE | 2018-06-08 18:17 | REP ---
Procedure: Mid line catheter insertion with Franklyn-Ritabiodun The procedure was performed under the direct supervision of Dr. Yanes. The risks and benefits of the procedure were explained to the patient and informed consent was obtained. The right basilic vein was localized using ultrasound guidance. The skin was prepped and draped in a sterile fashion. 1% lidocaine was used as a local anesthetic. Using ultrasound guidance the basilic vein was cannulated and a 0.018 guidewire was inserted. The needle was removed and a 4.5 [place] dilator and peel-away sheath was inserted over the guide wire. A 4.5 [place] single lumen catheter was cut to length of 12 cm. The dilator was removed and the catheter was inserted over the guide wire. The peel-away sheath was removed and the catheter was flushed with heparinized saline as per Hospital protocol. The catheter was affixed to the skin and a sterile dressing was applied. The patient tolerated the procedure well and there were no immediate complications. Reviewed by CEDRIC Peña 06/08/2018 04:38 P Electronically Signed by Aurelio Yanes MD 06/08/2018 06:08 P
[2018-06-08 22:00] VITALS: BP 133/77
--- NOTE | 2018-06-08 22:00 | IPNPDOC ---
Subjective Date Seen The patient was seen on 06/08/18. Subjective Chief Complaint/HPI Jemima reports that she has not noticed a significant change in her vertigo or nausea with the slight increase in valproic acid. She is also not complaining of increased fatigue with the decrease in hydrocortisone dose. However, she did defer her 9:00am meds to 1:00pm today without a significant increase in symptoms. She reports that she feels her body is tired out and needs a "rest day" today, but she was not able to do this with P/T. Nursing and P/T both report that the patient is now transferring herself from bed to chair on her own, but they are not sure she is being safe. She tells me that she is esse ntially crawling from the bed to chair and back again. These are close by each other and she is not touching the floor at any time while she does this. Constitutional: Reports: Weakness Skin: Denies: Bruising Hematologic: Denies: Bruising Neurological: Reports: Weakness, Incoordination Psych: Reports: Mood Normal; Denies: Memory Issues, Thoughts of Self Harm Objective Physical Examination General Exam: Positive: Alert, Cooperative (sitting in a reclining chair resting comfortably when I entered the room), No Acute Distress Eye Exam: Positive: PERRLA, Conjunctiva & lids normal, EOMI; Negative: Sclera icteric ENT Exam: Positive: Atraumatic, Mucous membr. moist/pink Neck Exam: Positive: Supple Extremity Exam: Negative: Clubbing, Cyanosis, Edema Skin Exam: Positive: Nl turgor and temperature; Negative: Rash Neuro Exam: Positive: Normal Speech Psych Exam: Positive: Mental status NL, Mood NL, Oriented x 3 Assessment /Plan Problems (1) Vestibular migraine Problem Text: Current regimen: ondansetron ODT 8 SL q6 prochlorperazine 10 IV q6 meclizine 50 po q4 carvedilol 3.125 BID_ SBP remains 100-110, HR 80-90 topiramate 50 PO BID diazepam 3 PO BID scopolamine 1 mg topical q72h pyridoxine 100 PO QD DVP 500/750 PO BID indomethacin 50 PO TID PRN Fioricet 1 PO q4 sumatrip 100 mg PO BID PRN-attempting to wean attempting to transition OFF IV medications in order to dc PICC (placed 05/25/18) attempting to limit prn triptan and Fioricet to prevent tolerance 06/08 - Her symptoms are about the same, BUT she was able to defer the medications for about 4h this morning without symptoms. Based on this I feel it is a safe time to begin weaning her diazepam as I don't think she needs it as much any more. She requests to change that medication and the Depakote to a 12 and 12 schedule to facilitate her sleep and give her more time for activities and socialization during the times of day when she most often has visitors. 06/07 - DVP level still <50. Will increase to 500/750. Monitor. Discussed changing the timing of the meds from and , but she isn't sure when she wants it. 06/05 - will check a repeat valproic acid level tomorrow. This regimen seems to have her the most functional so far. She is reporting some feelings of sedation after the diazepam doses, but these are transient. I will make the indomethacin scheduled for now with a plan to decrease the dose of the diazepam soon. 06/02 stable CBCD/CMP, VPA 27-increased DVP to 500 BID, changed ondan IV to ODT 05/30 changed propran 10 BID to carve 3.125 BID (? allergic rxn to propranolol dye-within 10 mins of 1 dose-immediate throat pain) and + DVP 250 BID 05/29 Dr. Lei Neurology favored "more advanced neurological care than can be offered in [place]", multi-discipline approach and psychiatric evaluation 05/23/18 MRI brain c/s angie and MR face s angie NAD (2) Chronic autoimmune thyroiditis Status: Chronic Discussed With: Patient Problem Specific Plan: Monitor Clinically, Repeat Labs Problem Text: Thyroid fx are basically normal on little/no supplementation. Will d/c supplementation and monitor her thyroid fx at regular intervals. 06/05/18: TPO Ab are markedly positive. Tg Ab are mildly positive. Her last set of thyroid function tests were done just before she was admitted and were completely normal. She states that she was on 3/4 grain of Nature Thyroid BID which could correlate to about 150mcg of levothyroxine. However, it is not clear how fastidiously she was taking her supplement. She has theoretically been on 1/4 grain of the Nature Thyroid BID here, but has about 3 doses that were actually administered. My plan for now is to repeat the thyroid function tests since she basically has not been on thyroid supplementation for about 2 weeks. If they are normal, then I am willing to take a bet that her thyroid is functional enough at present to self-regulate and will advocate stopping all thyroid supplementation and monitoring her thyroid functions closely as it is likely that the gland will eventually fail from the auto-immune insult. If they are abnormal, then I'd like to evaluate the pattern and start her on some form of regulated levothyroxine +/- Cytomel if it seems needed. 06/04/18 TPO/TG Ab P (if -, i.e. not c/w AITD and therefore, highly doubt she needs complete replacement) 06/03/18 recommended to change to LT4 (given too high of T3/T4 ratio of porcine TH 07/28, normal human ratio on 08/04), but ONLY formulation patient will take is Tirosint which is not on [facility] nor [facility] (patient's prescription plan) formulary; therefore, will probably need to continue Nature-Throid (but keep at a constant dose-patient was prescribed 1/4 grain (16.25 mg) BID since admission BUT has only taken 3 times!) 05/10/18 0.41, 0.8, 106 on HD "self-titrated" desiccated porcine TH-taking somewhere between 1/4-3/4 grain BID (which would be between LT4 25-75 BID) (3) Adrenal insufficiency Status: Chronic Problem Text: Favor tertiary AI 2 iatrogenic chronic glucocorticoid steroid use from previous PCP for unknown reason. Goal to slowly wean off HC-decreasing dose by 5 mg q5-7D. 06/08 - tolerating just fine (Day 1). I anticipate the next change to 5/5/5 on 06/13. 06/07 - will decrease to 10/5/5 starting tomorrow. 06/05- day 3 of . She seems to be tolerating this just fine. 06/02 decreased HC 10 TID to , stable SBP, Na/K 05/22 has received stress dose HC, but s s/s of adrenal crisis; therefore, restarted HC 10 TID (HD ) 05/21 Na 142/K 3.7 c SBP 130s on admission (4) Orthostatic dizziness Status: Chronic Problem Text: Presented c POTS diagnosis on chronic midodrine 10 TID-but NO diagnostic increased HR c standing while hospitalized. Midodrine and fludrocortisone are held. Suspect that the symptoms or orthostatic intolerance are more migraine related than true autonomic dysfunction. (5) Constipation, chronic Status: Chronic Problem Text: Chronic senna / enema dependence (admits to chronic 8-10 "herbal" senna QD for "years" and ~q2W tap water/cider enema prn) Probably exacerbates abdominal component of her migraine. Stable daily BMs on HD senna. 05/22/18 + HD senna 05/14/18 CT AP c moderate R sided fecal stasis (6) Physical deconditioning Status: Chronic Problem Text: More accurately exercise intolerance limited by symptoms. 06/08 - I made it clear to her and P/T and PFS that I believe that sub-acute rehab is the right option for her and that I think we are in a place where she can begin filling out apps. Case management let me know that they think that it is unlikely that she will get a local bed. Additionally, Aram Tang let me know that her insurance company is interested in finding out when she will be discharged from the acute care facility. 06/07 - continues to work with P/T but it is becoming more obvious that acute rehab isn't an option for her because of her exercise intolerance. 06/05 - apparently she expended significant effort and energy to stand up in her rolling walker today. She reports that she is doing exercises in bed between therapy sessions. She admits to doing "bed Brian Chi" to help focus on balance and push herself so that towards a goal of recovery and a normal functional life. 06/01 not safe for dc home-plan home c services ([facility] Forrest-spent 71 mins! c px) 05/31 PMR consulted-awaiting evaluation Plan/VTE VTE Prophylaxis Ordered?: Yes (Lovenox) Plan Diet: Continue Current Activity: Continue Current, Advance Therapy: PT Medications: Taper Steroids Diagnostics: Check Labs Anticipated Discharge: Sub Acute Rehab (She is working on filling out apps for local SNF/sub-acute. We will see how that goes, then look at beds farther out if we need to.) Advance Directives: Other Advance Directive VS, I&O, 24H, Fishbone Vital Signs/I&O Vital Signs Date Time Temp Pulse Resp B/P (MAP) Pulse Ox O2 Delivery O2 Flow Rate FiO2 06/08/18 18:40 18 06/08/18 10:26 73 117/67 06/08/18 06:00 97.4 99 Room Air I&O- Last 24 Hours up to 6 AM 06/08/18 06:00 Intake Total 780 ml Balance 780 ml Luis Giraldo MD Jun 08, 2018 22:00
[2018-06-08] MEDS: DIVALPROEX 250MG *ER* TAB PO SCH (23:40)
[2018-06-08] MEDS: HERB LAX PO SCH (23:46)
[2018-06-08] MEDS: [UNRECOGNIZED DRUG - OTHER] PO SCH (23:46)
[2018-06-08] MEDS: ANUSOL HC 25MG SUPP PR SCH (23:47)
[2018-06-09] MEDS: MECLIZINE 25 MG TABLET PO SCH ×6 (01:00→22:02)
[2018-06-09] MEDS: FIORICET TAB PO SCH ×6 (01:00→22:03)
[2018-06-09] MEDS: HYDROCORTISONE 10 MG TAB PO SCH (05:40)
[2018-06-09] MEDS: ONDANSETRON 4 MG ORAL DISINTEGRATING TAB (Q0162 PER 1MG) SL SCH ×3 (05:40→18:35)
[2018-06-09] MEDS: SODIUM CHLORIDE 0.9% INJ 10 ML SYR IV SCH ×4 (05:40→22:03)
[2018-06-09 06:49] LABS: HEMATOCRIT 33.6 % (36.0-47.0); HEMOGLOBIN 11.2 g/dl (12.0-15.5); MEAN CORPUSCULAR HEMOGLOBIN 29.7 pg (27.0-33.0); MEAN CORPUSCULAR HGB CONC 33.3 g/dl (32.0-36.5); MEAN CORPUSCULAR VOLUME 89.1 fl (80.0-96.0); PLATELET COUNT, AUTOMATED 305 10^3/uL (150-450); RED BLOOD COUNT 3.77 10^6/uL (4.00-5.40); WHITE BLOOD COUNT 6.2 10^3/uL (4.0-10.0)
[2018-06-09] MEDS: PROCHLORPERAZINE 10 MG/2 ML VIAL (J0780) IV SCH ×3 (07:00→20:10)
[2018-06-09 07:09] LABS: ALBUMIN 3.2 GM/DL (3.2-5.2); BLOOD UREA NITROGEN 7 MG/DL (7-18); CALCIUM LEVEL 8.6 MG/DL (8.5-10.1); CARBON DIOXIDE LEVEL 24 MEQ/L (21-32); CHLORIDE LEVEL 108 MEQ/L (98-107); CREATININE FOR GFR 0.81 MG/DL (0.55-1.30); GLOMERULAR FILTRATION RATE > 60.0 (>60); GLUCOSE, FASTING 93 MG/DL (70-100); PHOSPHORUS LEVEL 4.4 MG/DL (2.5-4.9); POTASSIUM SERUM 3.9 MEQ/L (3.5-5.1); SODIUM LEVEL 140 MEQ/L (136-145)
[2018-06-09] MEDS: HEPARIN SOD (PORCINE) 5000 UNITS/ML VIAL SQ SCH ×2 (09:00→21:00)
[2018-06-09] MEDS: INDOMETHACIN 25 MG CAP PO SCH ×3 (10:10→22:01)
[2018-06-09] MEDS: PANTOPRAZOLE 40MG TAB (PROTONIX) PO SCH (10:10)
[2018-06-09] MEDS: PYRIDOXINE 50 MG TAB PO SCH (10:11)
[2018-06-09] MEDS: ANUSOL HC CREAM 30GM TOP SCH ×2 (10:13→21:00)
--- NOTE | 2018-06-09 11:27 | IPNPDOC ---
Subjective Date Seen The patient was seen on 06/09/18. Subjective Chief Complaint/HPI Jemima is doing relatively well today. She reports that she has tolerated the decrease in her diazepam dose without any additional dizziness and nausea. Our main focus today is clarification of a disposition for her. I'd like to see if she could go to acute rehabilitation, but she still being assessed for this. If that does not work then we'll need to focus on subacute rehabilitation options for her. Pulmonary: Denies: Dyspnea, Cough Gastrointestinal: Denies: Vomiting Neurological: Reports: Weakness (slowly improving); Denies: Confusion Psych: Reports: Mood Normal Objective Physical Examination General Exam: Positive: Alert, Cooperative (sitting crosslegged on her bed talking to someone on the phone when I entered the room), No Acute Distress Eye Exam: Positive: PERRLA, Conjunctiva & lids normal, EOMI; Negative: Sclera icteric ENT Exam: Positive: Atraumatic, Mucous membr. moist/pink Neck Exam: Positive: Supple Extremity Exam: Negative: Clubbing, Cyanosis, Edema Skin Exam: Positive: Nl turgor and temperature; Negative: Rash Neuro Exam: Positive: Normal Speech Psych Exam: Positive: Mental status NL, Mood NL, Oriented x 3 Assessment /Plan Problems (1) Vestibular migraine Problem Text: Current regimen: ondansetron ODT 8 SL q6 prochlorperazine 10 IV q6 meclizine 50 po q4 carvedilol 3.125 BID_ SBP remains 100-110, HR 80-90 topiramate 50 PO BID diazepam 2 PO BID scopolamine 1 mg topical q72h pyridoxine 100 PO QD DVP 500/750 PO BID indomethacin 50 PO TID PRN Fioricet 1 PO q4 sumatrip 100 mg PO BID PRN-attempting to wean attempting to transition OFF IV medications in order to dc PICC (placed 05/25/18) attempting to limit prn triptan and Fioricet to prevent tolerance 06/09 - she is tolerating the decrease in the diazepam dose well. I will probably try to reduce the diazepam to 1 mg twice a day on 06/11. 06/08 - Her symptoms are about the same, BUT she was able to defer the medications for about 4h this morning without symptoms. Based on this I feel it is a safe time to begin weaning her diazepam as I don't think she needs it as much any more. She requests to change that medication and the Depakote to a 12 and 12 schedule to facilitate her sleep and give her more time for activities and socialization during the times of day when she most often has visitors. 06/07 - DVP level still <50. Will increase to 500/750. Monitor. Discussed changing the timing of the meds from and , but she isn't sure when she wants it. 06/05 - will check a repeat valproic acid level tomorrow. This regimen seems to have her the most functional so far. She is reporting some feelings of sedation after the diazepam doses, but these are transient. I will make the indomethacin scheduled for now with a plan to decrease the dose of the diazepam soon. 06/02 stable CBCD/CMP, VPA 27-increased DVP to 500 BID, changed ondan IV to ODT 05/30 changed propran 10 BID to carve 3.125 BID (? allergic rxn to propranolol dye-within 10 mins of 1 dose-immediate throat pain) and + DVP 250 BID 05/29 Dr. Lei Neurology favored "more advanced neurological care than can be of fer in [place]", multi-discipline approach and psychiatric evaluation 05/23/18 MRI brain c/s angie and MR face s angie NAD (2) Chronic autoimmune thyroiditis Status: Chronic Discussed With: Patient Problem Specific Plan: Monitor Clinically, Repeat Labs Problem Text: Thyroid fx are basically normal on little/no supplementation. Will d/c supplementation and monitor her thyroid fx at regular intervals. 06/05/18: TPO Ab are markedly positive. Tg Ab are mildly positive. Her last set of thyroid function tests were done just before she was admitted and were completely normal. She states that she was on 3/4 grain of Nature Thyroid BID which could correlate to about 150mcg of levothyroxine. However, it is not clear how fastidiously she was taking her supplement. She has theoretically been on 1/4 grain of the Nature Thyroid BID here, but has about 3 doses that were actually administered. My plan for now is to repeat the thyroid function tests since she basically has not been on thyroid supplementation for about 2 weeks. If they are normal, then I am willing to take a bet that her thyroid is functional enough at present to self-regulate and will advocate stopping all thyroid supplementation and monitoring her thyroid functions closely as it is likely that the gland will eventually fail from the auto-immune insult. If they are abnormal, then I'd like to evaluate the pattern and start her on some form of regulated levothyroxine +/- Cytomel if it seems needed. 06/04/18 TPO/TG Ab P (if -, i.e. not c/w AITD and therefore, highly doubt she needs complete replacement) 06/03/18 recommended to change to LT4 (given too high of T3/T4 ratio of porcine TH 07/28, normal human ratio on 08/04), but ONLY formulation patient will take is Tirosint which is not on [facility] nor [facility] (patient's prescription plan) formulary; therefore, will probably need to continue Nature-Throid (but keep at a constant dose-patient was prescribed 1/4 grain (16.25 mg) BID since admission BUT has only taken 3 times!) 05/10/18 0.41, 0.8, 106 on HD "self-titrated" desiccated porcine TH-taking somewhere between 1/4-3/4 grain BID (which would be between LT4 25-75 BID) (3) Adrenal insufficiency Status: Chronic Problem Text: Favor tertiary AI 2 iatrogenic chronic glucocorticoid steroid use from previous PCP for unknown reason. Goal to slowly wean off HC-decreasing dose by 5 mg q5-7D. 06/09 - D#2 06/08 - tolerating just fine (Day 1). I anticipate the next change to on 06/13. 06/07 - will decrease to starting tomorrow. 06/05- day 3 of . She seems to be tolerating this just fine. 06/02 decreased HC 10 TID to , stable SBP, Na/K 05/22 has received stress dose HC, but s s/s of adrenal crisis; therefore, restarted HC 10 TID (HD ) 05/21 Na 142/K 3.7 c SBP 130s on admission (4) Orthostatic dizziness Status: Chronic Problem Text: Presented c POTS diagnosis on chronic midodrine 10 TID-but NO diagnostic increased HR c standing while hospitalized. Midodrine and fludrocortisone are held. Suspect that the symptoms or orthostatic intolerance are more migraine related than true autonomic dysfunction. (5) Constipation, chronic Status: Chronic Problem Text: Chronic senna / enema dependence (admits to chronic 8-10 "herbal" senna QD for "years" and ~q2W tap water/cider enema prn) Probably exacerbates abdominal component of her migraine. Stable daily BMs on HD senna. 05/22/18 + HD senna 05/14/18 CT AP c moderate R sided fecal stasis (6) Physical deconditioning Status: Chronic Problem Text: More accurately exercise intolerance limited by symptoms. 06/09 - she was evaluated by occupational therapy today and reports the session went really well. I have hopes that acute rehabilitation may work for her. If that does not subacute remains an option, but I'm encouraged that she may be able to participate with intolerant more intense therapy. 06/08 - I made it clear to her and P/T and PFS that I believe that sub-acute rehab is the right option for her and that I think we are in a place where she can begin filling out apps. Case management let me know that they think that it is unlikely that she will get a local bed. Additionally, Aram Tang let me know that her insurance company is interested in finding out when she will be discharged from the acute care facility. 06/07 - continues to work with P/T but it is becoming more obvious that acute rehab isn't an option for her because of her exercise intolerance. 06/05 - apparently she expended significant effort and energy to stand up in her rolling walker today. She reports that she is doing exercises in bed between therapy sessions. She admits to doing "bed Brian Chi" to help focus on balance and push herself so that towards a goal of recovery and a normal functional life. 06/01 not safe for dc home-plan home c services (Deandre Forrest-spent 71 mins! c px) 05/31 PMR consulted-awaiting evaluation Plan/VTE VTE Prophylaxis Ordered?: Yes (Lovenox) Plan Diet: Continue Current Activity: Continue Current, Advance Therapy: PT Medications: Taper Steroids Diagnostics: Check Labs Advance Directives: Other Advance Directive Disposition Acute versus subacute rehabilitation VS, I&O, 24H, Fishbone Vital Signs/I&O Vital Signs Date Time Temp Pulse Resp B/P (MAP) Pulse Ox O2 Delivery O2 Flow Rate FiO2 06/09/18 10:10 18 06/09/18 06:09 Room Air 06/08/18 23:42 84 110/63 06/08/18 22:00 95.6 96 I&O- Last 24 Hours up to 6 AM 06/09/18 05:59 Intake Total 1320 ml Output Total 0 ml Balance 1320 ml Laboratory Data 24H LABS Laboratory Tests 2 06/09/18 06:24: Nucleated Red Blood Cells % (auto) 0.0, Blood Urea Nitrogen 7, Creatinine 0.81, Sodium Level 140, Potassium Level 3.9, Chloride Level 108H, Carbon Dioxide Level 24, Anion Gap 8, Glomerular Filtration Rate > 60.0, Calcium Level 8.6, Phosphorus Level 4.4, Albumin 3.2 CBC/BMP Laboratory Tests 06/09/18 06:24 Red Blood Count 3.77 L, Mean Corpuscular Volume 89.1, Mean Corpuscular Hemoglobin 29.7, Mean Corpuscular Hemoglobin Concent 33.3, Red Cell Distribution Width 12.5, Anion Gap 8 Luis Giraldo MD Jun 09, 2018 11:27
[2018-06-09] MEDS: HYDROCORTISONE 5MG TABLET PO SCH ×2 (12:49→18:33)
[2018-06-09] MEDS: TOPIRAMATE (TopAMAX) 25 MG TAB PO SCH ×2 (12:50→22:01)
[2018-06-09] MEDS: CARVedilol 3.125 MG TAB PO SCH ×2 (12:51→22:02)
[2018-06-09] MEDS: diazePAM 2 MG TAB PO SCH (12:52)
[2018-06-09] MEDS: DIVALPROEX 250MG *ER* TAB PO SCH (12:53)
[2018-06-09 14:00] VITALS: BP 118/75
[2018-06-09] MEDS: ANUSOL HC 25MG SUPP PR SCH (21:00)
[2018-06-09 22:00] VITALS: BP 90/78
[2018-06-09] MEDS: [UNRECOGNIZED DRUG - OTHER] PO SCH (22:15)
[2018-06-09] MEDS: HERB LAX PO SCH (22:15)
[2018-06-10] MEDS: DIVALPROEX 250MG *ER* TAB PO SCH ×2 (00:30→12:58)
[2018-06-10] MEDS: diazePAM 2 MG TAB PO SCH ×2 (00:31→12:58)
[2018-06-10] MEDS: ONDANSETRON 4 MG ORAL DISINTEGRATING TAB (Q0162 PER 1MG) SL SCH ×4 (00:31→18:22)
[2018-06-10] MEDS: FIORICET TAB PO SCH ×6 (01:56→20:50)
[2018-06-10] MEDS: PROCHLORPERAZINE 10 MG/2 ML VIAL (J0780) IV SCH ×4 (01:56→19:01)
[2018-06-10] MEDS: SODIUM CHLORIDE 0.9% INJ 10 ML SYR IV PRN (01:57)
[2018-06-10] MEDS: MECLIZINE 25 MG TABLET PO SCH ×6 (01:57→20:48)
[2018-06-10 06:00] VITALS: BP_SYST 112; BP_SYST 151; BP_DIAS 54; BP_DIAS 95
[2018-06-10] MEDS: HYDROCORTISONE 10 MG TAB PO SCH (06:41)
[2018-06-10] MEDS: SODIUM CHLORIDE 0.9% INJ 10 ML SYR IV SCH ×4 (06:41→18:24)
[2018-06-10] MEDS: PANTOPRAZOLE 40MG TAB (PROTONIX) PO SCH (09:54)
[2018-06-10] MEDS: PYRIDOXINE 50 MG TAB PO SCH (09:54)
[2018-06-10] MEDS: CARVedilol 3.125 MG TAB PO SCH ×2 (09:55→20:53)
[2018-06-10] MEDS: INDOMETHACIN 25 MG CAP PO SCH ×3 (09:56→20:49)
[2018-06-10] MEDS: TOPIRAMATE (TopAMAX) 25 MG TAB PO SCH ×2 (09:56→20:49)
[2018-06-10] MEDS: ANUSOL HC CREAM 30GM TOP SCH ×2 (09:59→20:53)
[2018-06-10] MEDS: HEPARIN SOD (PORCINE) 5000 UNITS/ML VIAL SQ SCH ×2 (09:59→20:53)
[2018-06-10] MEDS: HYDROCORTISONE 5MG TABLET PO SCH ×2 (12:58→18:22)
[2018-06-10 14:00] VITALS: BP 125/86
[2018-06-10 16:25] VITALS: BP 107/71
--- NOTE | 2018-06-10 17:27 | IPNPDOC ---
Subjective Date Seen The patient was seen on 06/10/18. Subjective Chief Complaint/HPI Jemima had an "episode" just prior to my coming in to see her today. Nursing took her vitals and they were WNL. I recommended she try sumatriptan to break the "episode". When I went to see her she was laying in a semi- position in a darkened room. She had refused the sumatriptan. When I asked her why she said that her goal every day is to not take the sumatriptan. She was told that if she overused this medication that her body would become used to it and require it or she would get headaches. She doesn't want to become dependent on this medication, so she has a personal goal to "deal with the pain" rather than put another medication she could be come dependent on into her body. ENT: Reports: Head Aches Pulmonary: Denies: Dyspnea, Cough Cardiovascular: Denies: Chest Pain, Palpitations Gastrointestinal: Reports: Nausea; Denies: Vomiting, Diarrhea Neurological: Reports: Weakness; Denies: Change in speech, Confusion Objective Physical Examination General Exam: Positive: Cooperative (laying in bed on her left side in a semi- position. She has her right hand covering her eyes in a darkened room. As the interview progressed she seemed to do better and was sitting up in her bed by the time I left. ), No Acute Distress (she appears very uncomfortable but is in no true distress), Other (she was awake and conversant, but not as mentally sharp as usual. Initially there were some pauses for wordfinding, this improved throughout our 20 minute discussion.) Neck Exam: Positive: Supple Chest Exam: Positive: Clear to auscultation, Normal air movement Heart Exam: Positive: Rate Normal, Normal S1, Normal S2; Negative: Murmurs, Rubs Abdomen Exam: Positive: Normal bowel sounds, Soft; Negative: Tenderness Extremity Exam: Negative: Clubbing, Cyanosis, Edema Skin Exam: Positive: Nl turgor and temperature; Negative: Rash Psych Exam: Positive: Oriented x 3 Assessment /Plan Problems (1) Vestibular migraine Problem Text: Current regimen: ondansetron ODT 8 SL q6 prochlorperazine 10 IV q6 meclizine 50 po q4 carvedilol 3.125 BID_ SBP remains 100-110, HR 80-90 topiramate 50 PO BID diazepam 2 PO BID scopolamine 1 mg topical q72h pyridoxine 100 PO QD DVP 500/750 PO BID indomethacin 50 PO TID PRN Fioricet 1 PO q4 sumatrip 100 mg PO BID PRN-attempting to wean attempting to transition OFF IV medications in order to dc PICC (placed 05/25/18) attempting to limit prn triptan and Fioricet to prevent tolerance 06/10 - she had an "episode" which to me certainly looks like an atypical migraine, though vestibular symptoms were not prominent this time. She refused the triptan to decrease the chance she would become tolerant to this. I reeducated her on the appropriate and inappropriate use of triptans and encouraged her to try it the next time she has an episode like this. I will probably move the decrease of the diazepam dose to 06/12 in case this "episode" was related to the decrease in the diazepam, though again the vestibular symptoms were not prominent. I will also discuss taking her Fioricet from routine to prn as this medication with routine use will induce tolerance and possibly can cause episodes of confusion and decreased mental clarity like she was having. 06/09 - she is tolerating the decrease in the diazepam dose well. I will probably try to reduce the diazepam to 1 mg twice a day on 06/11. 06/08 - Her symptoms are about the same, BUT she was able to defer the medications for about 4h this morning without symptoms. Based on this I feel it is a safe time to begin weaning her diazepam as I don't think she needs it as much any more. She requests to change that medication and the Depakote to a 12 and 12 schedule to facilitate her sleep and give her more time for activities and socialization during the times of day when she most often has visitors. 06/07 - DVP level still <50. Will increase to 500/750. Monitor. Discussed changing the timing of the meds from and , but she isn't sure when she wants it. 06/05 - will check a repeat valproic acid level tomorrow. This regimen seems to have her the most functional so far. She is reporting some feelings of sedation after the diazepam doses, but these are transient. I will make the indomethacin scheduled for now with a plan to decrease the dose of the diazepam soon. 06/02 stable CBCD/CMP, VPA 27-increased DVP to 500 BID, changed ondan IV to ODT 05/30 changed propran 10 BID to carve 3.125 BID (? allergic rxn to propranolol dye-within 10 mins of 1 dose-immediate throat pain) and + DVP 250 BID 05/29 Dr. Lei Neurology favored "more advanced neurological care than can be offered in [place]", multi-discipline approach and psychiatric evaluation 05/23/18 MRI brain c/s angie and MR face s angie NAD (2) Chronic autoimmune thyroiditis Status: Chronic Discussed With: Patient Problem Specific Plan: Monitor Clinically, Repeat Labs Problem Text: Thyroid fx are basically normal on little/no supplementation. Will d/c supplementation and monitor her thyroid fx at regular intervals. Next thyroid fx testing will likely be just before [place]. 06/05/18: TPO Ab are markedly positive. Tg Ab are mildly positive. Her last set of thyroid function tests were done just before she was admitted and were completely normal. She states that she was on 3/4 grain of Nature Thyroid BID which could correlate to about 150mcg of levothyroxine. However, it is not clear how fastidiously she was taking her supplement. She has theoretically been on 1/4 grain of the Nature Thyroid BID here, but has about 3 doses that were actually administered. My plan for now is to repeat the thyroid function tests since she basically has not been on thyroid supplementation for about 2 weeks. If they are normal, then I am willing to take a bet that her thyroid is functional enough at present to self-regulate and will advocate stopping all thyroid supplementation and monitoring her thyroid functions closely as it is likely that the gland will eventually fail from the auto-immune insult. If they are abnormal, then I'd like to evaluate the pattern and start her on some form of regulated levothyroxine +/- Cytomel if it seems needed. 06/04/18 TPO/TG Ab P (if -, i.e. not c/w AITD and therefore, highly doubt she needs complete replacement) 06/03/18 recommended to change to LT4 (given too high of T3/T4 ratio of porcine TH 07/28, normal human ratio on 08/04), but ONLY formulation patient will take is Tirosint which is not on [facility] nor [facility] (patient's prescription plan) formulary; therefore, will probably need to continue Nature-Throid (but keep at a constant dose-patient was prescribed 1/4 grain (16.25 mg) BID since admission BUT has only taken 3 times!) 05/10/18 0.41, 0.8, 106 on HD "self-titrated" desiccated porcine TH-taking somewhere between 1/4-3/4 grain BID (which would be between LT4 25-75 BID) (3) Adrenal insufficiency Status: Chronic Problem Text: Favor tertiary AI 2 iatrogenic chronic glucocorticoid steroid use from previous PCP for unknown reason. Goal to slowly wean off HC-decreasing dose by 5 mg q5-7D. 06/10 - D#3 . Had an "episode" but I don't think it was adrenal related as her vitals were completely normal when the "episode" the worst. 06/09 - D#2 06/08 - tolerating just fine (Day 1). I anticipate the next change to on 06/13. 06/07 - will decrease to starting tomorrow. 06/05- day 3 of . She seems to be tolerating this just fine. 06/02 decreased HC 10 TID to , stable SBP, Na/K 05/22 has received stress dose HC, but s s/s of adrenal crisis; therefore, restarted HC 10 TID (HD ) 05/21 Na 142/K 3.7 c SBP 130s on admission (4) Constipation, chronic Status: Chronic Problem Text: Chronic senna / enema dependence (admits to chronic 8-10 "herbal" senna QD for "years" and ~q2W tap water/cider enema prn) Probably exacerbates abdominal component of her migraine. Stable daily BMs on HD senna. 05/22/18 + HD senna 05/14/18 CT AP c moderate R sided fecal stasis (5) Physical deconditioning Status: Chronic Problem Text: More accurately exercise intolerance limited by symptoms. 06/10 - She reports that the sessions with Catrachita Andres, O/T and David Babb DPT yesterday were some of the best she has had since she has been here. She felt that the cuing that was done was helpful in a way that she could really understand. She was encouraged by the sessions and has hopes that she will be accepted to the ARU. I am getting conflicting reports; the patient thinks this is still an open option, but nursing reported to me that she was declined by ARU. I will try to clarify this with Dr. Mosher as I think she is a reasonable ARU candidate as long as her sessions can be split to give her some physical rest when her body tires out. She is certainly motivated to get better. 06/09 - she was evaluated by occupational therapy today and reports the session went really well. I have hopes that acute rehabilitation may work for her. If that does not subacute remains an option, but I'm encouraged that she may be able to participate with intolerant more intense therapy. 06/08 - I made it clear to her and P/T and PFS that I believe that sub-acute rehab is the right option for her and that I think we are in a place where she can begin filling out apps. Case management let me know that they think that it is unlikely that she will get a local bed. Additionally, Aram Tang let me know that her insurance company is interested in finding out when she will be discharged from the acute care facility. 06/07 - continues to work with P/T but it is becoming more obvious that acute rehab isn't an option for her because of her exercise intolerance. 06/05 - apparently she expended significant effort and energy to stand up in her rolling walker today. She reports that she is doing exercises in bed between therapy sessions. She admits to doing "bed Brian Chi" to help focus on balance and push herself so that towards a goal of recovery and a normal functional life. 06/01 not safe for dc home-plan home c services (Deandre Forrest-spent 71 mins! c px) 05/31 PMR consulted-awaiting evaluation (6) Orthostatic dizziness Status: Chronic Problem Text: Presented c POTS diagnosis on chronic midodrine 10 TID-but NO diagnostic increased HR c standing while hospitalized. Midodrine and fludrocortisone are held. Suspect that the symptoms or orthostatic intolerance are more migraine related than true autonomic dysfunction. Plan/VTE VTE Prophylaxis Ordered?: Yes (Lovenox) Plan Diet: Continue Current Activity: Continue Current, Advance Therapy: PT Medications: Taper Steroids Diagnostics: Check Labs Advance Directives: Other Advance Directive VS, I&O, 24H, Fishbone Vital Signs/I&O Vital Signs Date Time Temp Pulse Resp B/P (MAP) Pulse Ox O2 Delivery O2 Flow Rate FiO2 06/10/18 16:25 96.2 76 18 107/71 (83) 100 Room Air I&O- Last 24 Hours up to 6 AM 06/10/18 05:59 Intake Total 1680 ml Output Total 0 ml Balance 1680 ml Luis Giraldo MD Jun 10, 2018 17:27
[2018-06-10] MEDS: [UNRECOGNIZED DRUG - OTHER] PO SCH (20:53)
[2018-06-10] MEDS: HERB LAX PO SCH (20:53)
[2018-06-10] MEDS: ANUSOL HC 25MG SUPP PR SCH (20:53)
[2018-06-10 22:00] VITALS: BP 101/68
[2018-06-11] MEDS: ONDANSETRON 4 MG ORAL DISINTEGRATING TAB (Q0162 PER 1MG) SL SCH ×4 (00:17→18:23)
[2018-06-11] MEDS: diazePAM 2 MG TAB PO SCH ×2 (00:17→11:59)
[2018-06-11] MEDS: DIVALPROEX 250MG *ER* TAB PO SCH ×2 (00:18→12:00)
[2018-06-11] MEDS: PROCHLORPERAZINE 10 MG/2 ML VIAL (J0780) IV SCH ×4 (01:37→18:57)
[2018-06-11] MEDS: MECLIZINE 25 MG TABLET PO SCH ×6 (01:38→21:10)
[2018-06-11] MEDS: FIORICET TAB PO SCH ×4 (01:38→13:10)
[2018-06-11] MEDS: SODIUM CHLORIDE 0.9% INJ 10 ML SYR IV PRN ×2 (01:39→13:10)
[2018-06-11 06:00] VITALS: BP 117/78
[2018-06-11] MEDS: SODIUM CHLORIDE 0.9% INJ 10 ML SYR IV SCH ×4 (06:00→18:24)
[2018-06-11] MEDS: HYDROCORTISONE 10 MG TAB PO SCH (06:56)
[2018-06-11] MEDS: SCOPOLAMINE 1MG TRANSDERMAL PATCH TOP SCH (08:55)
[2018-06-11] MEDS: TOPIRAMATE (TopAMAX) 25 MG TAB PO SCH ×2 (08:56→21:09)
[2018-06-11] MEDS: INDOMETHACIN 25 MG CAP PO SCH ×3 (08:56→21:09)
[2018-06-11] MEDS: PYRIDOXINE 50 MG TAB PO SCH (08:56)
[2018-06-11] MEDS: CARVedilol 3.125 MG TAB PO SCH ×2 (08:57→21:09)
[2018-06-11] MEDS: PANTOPRAZOLE 40MG TAB (PROTONIX) PO SCH (08:57)
[2018-06-11] MEDS: HEPARIN SOD (PORCINE) 5000 UNITS/ML VIAL SQ SCH ×2 (08:57→21:00)
[2018-06-11] MEDS: ANUSOL HC CREAM 30GM TOP SCH ×2 (09:02→21:00)
--- NOTE | 2018-06-11 09:59 | IPNPDOC ---
Subjective Date Seen The patient was seen on 06/11/18. Subjective Chief Complaint/HPI Jemima reports that she is generally having a good day today. She's not had significant nausea, vertigo, or any blackout spells. She is curious to find out what her status is with ARU, since she and I were left on Tuesday with different understandings. Constitutional: Denies: Chills, Fever ENT: Denies: Head Aches Gastrointestinal: Denies: Nausea, Vomiting, Abdominal Pain Neurological: Reports: Weakness; Denies: Change in speech Psych: Reports: Mood Normal Objective Physical Examination General Exam: Positive: Cooperative (laying in a semi-recumbent position when I entered the room. ), No Acute Distress, Other (she was awake and conversant, but not as mentally sharp as usual. Initially there were some pauses for wordfinding, this improved throughout our 20 minute discussion.) Eye Exam: Negative: Sclera icteric ENT Exam: Positive: Mucous membr. moist/pink Neck Exam: Positive: Supple Chest Exam: Positive: Clear to auscultation, Normal air movement Heart Exam: Positive: Rate Normal, Normal S1, Normal S2; Negative: Murmurs, Rubs Abdomen Exam: Positive: Normal bowel sounds, Soft; Negative: Tenderness Extremity Exam: Negative: Clubbing, Cyanosis, Edema Skin Exam: Positive: Nl turgor and temperature; Negative: Rash Psych Exam: Positive: Mood NL, Oriented x 3 Assessment /Plan Problems (1) Vestibular migraine Problem Text: Current regimen: ondansetron ODT 8 SL q6 prochlorperazine 10 IV q6 meclizine 50 po q4 carvedilol 3.125 BID_ SBP remains 100-110, HR 80-90 topiramate 50 PO BID diazepam 2 PO BID scopolamine 1 mg topical q72h pyridoxine 100 PO QD DVP 500/750 PO BID indomethacin 50 PO TID Fioricet 1 PO q4 prn Sumatran 100 mg PO BID PRN-attempting to wean attempting to transition OFF IV medications in order to dc PICC (placed 05/25/18) attempting to limit prn triptan and Fioricet to prevent tolerance 06/11 - today I am changing her Fioricet to prn. She felt it was a safer drug that many of the others since the main ingredient that she was familiar with was caffeine. I explained how the barbital is metabolized into a barbiturate. She was more agreeable to making this prn and trying to wean it off after learning this. I anticipate a decrease in the diazepam dose to 1mg q12h tomorrow. 06/10 - she had an "episode" which to me certainly looks like an atypical migraine, though vestibular symptoms were not prominent this time. She refused the triptan to decrease the chance she would become tolerant to this. I reeducated her on the appropriate and inappropriate use of triptans and encouraged her to try it the next time she has an episode like this. I will probably move the decrease of the diazepam dose to 06/12 in case this "episode" was related to the decrease in the diazepam, though again the vestibular symptoms were not prominent. I will also discuss taking her Fioricet from routine to prn as this medication with routine use will induce tolerance and possibly can cause episodes of confusion and decreased mental clarity like she was having. 06/09 - she is tolerating the decrease in the diazepam dose well. I will probably try to reduce the diazepam to 1 mg twice a day on 06/11. 06/08 - Her symptoms are about the same, BUT she was able to defer the medications for about 4h this morning without symptoms. Based on this I feel it is a safe time to begin weaning her diazepam as I don't think she needs it as much any more. She requests to change that medication and the Depakote to a 12 and 12 schedule to facilitate her sleep and give her more time for activities and socialization during the times of day when she most often has visitors. 06/07 - DVP level still <50. Will increase to 500/750. Monitor. Discussed changing the timing of the meds from and , but she isn't sure when she wants it. 06/05 - will check a repeat valproic acid level tomorrow. This regimen seems to have her the most functional so far. She is reporting some feelings of sedation after the diazepam doses, but these are transient. I will make the indomethacin scheduled for now with a plan to decrease the dose of the diazepam soon. 06/02 stable CBCD/CMP, VPA 27-increased DVP to 500 BID, changed ondan IV to ODT 05/30 changed propran 10 BID to carve 3.125 BID (? allergic rxn to propranolol dye-within 10 mins of 1 dose-immediate throat pain) and + DVP 250 BID 05/29 Dr. Lei Neurology favored "more advanced neurological care than can be offered in [place]", multi-discipline approach and psychiatric evaluation 05/23/18 MRI brain c/s angie and MR face s angie NAD (2) Chronic autoimmune thyroiditis Status: Chronic Discussed With: Patient Problem Specific Plan: Monitor Clinically, Repeat Labs Problem Text: Thyroid fx are basically normal on little/no supplementation. Will d/c supplementation and monitor her thyroid fx at regular intervals. Next thyroid fx testing will likely be just before [place]. 06/05/18: TPO Ab are markedly positive. Tg Ab are mildly positive. Her last set of thyroid function tests were done just before she was admitted and were completely normal. She states that she was on 3/4 grain of Nature Thyroid BID which could correlate to about 150mcg of levothyroxine. However, it is not clear how fastidiously she was taking her supplement. She has theoretically been on 1/4 grain of the Nature Thyroid BID here, but has about 3 doses that were actually administered. My plan for now is to repeat the thyroid function tests since she basically has not been on thyroid supplementation for about 2 weeks. If they are normal, then I am willing to take a bet that her thyroid is functional enough at present to self-regulate and will advocate stopping all thyroid supplementation and monitoring her thyroid functions closely as it is likely that the gland will eventually fail from the auto-immune insult. If they are abnormal, then I'd like to evaluate the pattern and start her on some form of regulated levothyroxine +/- Cytomel if it seems needed. 06/04/18 TPO/TG Ab P (if -, i.e. not c/w AITD and therefore, highly doubt she needs complete replacement) 06/03/18 recommended to change to LT4 (given too high of T3/T4 ratio of porcine TH 07/28, normal human ratio on 08/04), but ONLY formulation patient will take is Tirosint which is not on [facility] nor [facility] (patient's prescription plan) formulary; therefore, will probably need to continue Nature-Throid (but keep at a constant dose-patient was prescribed 1/4 grain (16.25 mg) BID since admission BUT has only taken 3 times!) 05/10/18 0.41, 0.8, 106 on HD "self-titrated" desiccated porcine TH-taking somewhere between 1/4-3/4 grain BID (which would be between LT4 25-75 BID) (3) Adrenal insufficiency Status: Chronic Problem Text: Favor tertiary AI 2 iatrogenic chronic glucocorticoid steroid use from previous PCP for unknown reason. Goal to slowly wean off HC-decreasing dose by 5 mg q5-7D. 06/11 - D #4 of . Still on track to taper back again on 06/13. 06/10 - D#3 . Had an "episode" but I don't think it was adrenal related as her vitals were completely normal when the "episode" the worst. 06/09 - D#2 06/08 - tolerating just fine (Day 1). I anticipate the next change to on 06/13. 06/07 - will decrease to starting tomorrow. 06/05- day 3 of . She seems to be tolerating this just fine. 06/02 decreased HC 10 TID to , stable SBP, Na/K 05/22 has received stress dose HC, but s s/s of adrenal crisis; therefore, restarted HC 10 TID (HD ) 05/21 Na 142/K 3.7 c SBP 130s on admission (4) Constipation, chronic Status: Chronic Problem Text: Chronic senna / enema dependence (admits to chronic 8-10 "herbal" senna QD for "years" and ~q2W tap water/cider enema prn) Probably exacerbates abdominal component of her migraine. Stable daily BMs on HD senna. 05/22/18 + HD senna 05/14/18 CT AP c moderate R sided fecal stasis (5) Physical deconditioning Status: Chronic Problem Text: More accurately exercise intolerance limited by symptoms. 06/11 - I spoke to Dr. Mosher today regarding Jemima's history, current conditions, what we are doing to both dx and tx her. She is looking for some improvement in Jemima's function over the weekend. If this happens than ARU is looking like a better option as she may be able to recover quickly enough to meet her functional goals before her insurance company starts to squawk. However, if Jemima has not made demonstrable functional progress, then SNF is looking more like the correct option for her. 06/10 - She reports that the sessions with Catrachita Andres, O/T and David Babb DPT yesterday were some of the best she has had since she has been here. She felt that the cuing that was done was helpful in a way that she could really understand. She was encouraged by the sessions and has hopes that she will be accepted to the ARU. I am getting conflicting reports; the patient thinks this is still an open option, but nursing reported to me that she was declined by ARU. I will try to clarify this with Dr. Mosher as I think she is a reasonable ARU candidate as long as her sessions can be split to give her some physical rest when her body tires out. She is certainly motivated to get better. 06/09 - she was evaluated by occupational therapy today and reports the session went really well. I have hopes that acute rehabilitation may work for her. If that does not subacute remains an option, but I'm encouraged that she may be able to participate with intolerant more intense therapy. 06/08 - I made it clear to her and P/T and PFS that I believe that sub-acute rehab is the right option for her and that I think we are in a place where she can begin filling out apps. Case management let me know that they think that it is unlikely that she will get a local bed. Additionally, Aram Tang let me know that her insurance company is interested in finding out when she will be discharged from the acute care facility. 06/07 - continues to work with P/T but it is becoming more obvious that acute rehab isn't an option for her because of her exercise intolerance. 06/05 - apparently she expended significant effort and energy to stand up in her rolling walker today. She reports that she is doing exercises in bed between therapy sessions. She admits to doing "bed Brian Chi" to help focus on balance and push herself so that towards a goal of recovery and a normal functional life. 06/01 not safe for dc home-plan home c services (Deandre Forrest-spent 71 mins! c px) 05/31 PMR consulted-awaiting evaluation (6) Orthostatic dizziness Status: Chronic Problem Text: Presented c POTS diagnosis on chronic midodrine 10 TID-but NO diagnostic increased HR c standing while hospitalized. Midodrine and fludrocortisone are held. Suspect that the symptoms or orthostatic intolerance are more migraine related than true autonomic dysfunction. Plan/VTE VTE Prophylaxis Ordered?: Yes (Lovenox) Plan Diet: Continue Current Activity: Continue Current, Advance Therapy: PT Medications: Taper Steroids Diagnostics: Check Labs Advance Directives: Other Advance Directive VS, I&O, 24H, [facility] Vital Signs/I&O Vital Signs Date Time Temp Pulse Resp B/P (MAP) Pulse Ox O2 Delivery O2 Flow Rate FiO2 06/11/18 08:57 63 117/78 06/11/18 08:57 17 Room Air 06/11/18 06:00 98.1 100 I&O- Last 24 Hours up to 6 AM 06/11/18 06:00 Intake Total 1440 ml Output Total 0 ml Balance 1440 ml Luis Giraldo MD Jun 11, 2018 09:59
[2018-06-11] MEDS: HYDROCORTISONE 5MG TABLET PO SCH ×2 (11:59→18:22)
[2018-06-11 14:00] VITALS: BP 123/86
[2018-06-11] MEDS: FIORICET TAB PO PRN (17:26)
[2018-06-11] MEDS: ANUSOL HC 25MG SUPP PR SCH (21:00)
[2018-06-11] MEDS: HERB LAX PO SCH (21:00)
[2018-06-11] MEDS: [UNRECOGNIZED DRUG - OTHER] PO SCH (21:00)
[2018-06-11 22:00] VITALS: BP 112/68
[2018-06-12] MEDS: DIVALPROEX 250MG *ER* TAB PO SCH ×2 (00:50→12:05)
[2018-06-12] MEDS: diazePAM 2 MG TAB PO SCH ×3 (00:50→23:31)
[2018-06-12] MEDS: FIORICET TAB PO PRN ×4 (00:51→21:58)
[2018-06-12] MEDS: PROCHLORPERAZINE 10 MG/2 ML VIAL (J0780) IV SCH ×4 (02:01→18:00)
[2018-06-12] MEDS: MECLIZINE 25 MG TABLET PO SCH ×6 (02:01→21:58)
[2018-06-12] MEDS: SODIUM CHLORIDE 0.9% INJ 10 ML SYR IV PRN (02:02)
[2018-06-12] MEDS: ONDANSETRON 4 MG ORAL DISINTEGRATING TAB (Q0162 PER 1MG) SL SCH ×5 (05:54→23:32)
[2018-06-12] MEDS: SODIUM CHLORIDE 0.9% INJ 10 ML SYR IV SCH ×4 (05:55→17:05)
[2018-06-12 06:00] VITALS: BP 110/71
[2018-06-12 06:25] LABS: HEMATOCRIT 35.2 % (36.0-47.0); MEAN CORPUSCULAR HEMOGLOBIN 28.9 pg (27.0-33.0); MEAN CORPUSCULAR HGB CONC 31.3 g/dl (32.0-36.5); MEAN CORPUSCULAR VOLUME 92.6 fl (80.0-96.0); PLATELET COUNT, AUTOMATED 451 10^3/uL (150-450); WHITE BLOOD COUNT 5.4 10^3/uL (4.0-10.0)
[2018-06-12] MEDS: HYDROCORTISONE 10 MG TAB PO SCH (06:43)
[2018-06-12 06:47] LABS: ALT/SGPT 18 U/L (12-78); BILIRUBIN,TOTAL < 0.1 MG/DL (0.2-1.0); BLOOD UREA NITROGEN 6 MG/DL (7-18); CALCIUM LEVEL 8.7 MG/DL (8.5-10.1); CARBON DIOXIDE LEVEL 24 MEQ/L (21-32); CHLORIDE LEVEL 111 MEQ/L (98-107); CREATININE FOR GFR 0.64 MG/DL (0.55-1.30); GLOMERULAR FILTRATION RATE > 60.0 (>60); GLUCOSE, FASTING 95 MG/DL (70-100); MAGNESIUM LEVEL 2.2 MG/DL (1.8-2.4); POTASSIUM SERUM 4.1 MEQ/L (3.5-5.1); SODIUM LEVEL 142 MEQ/L (136-145); TOTAL PROTEIN 6.3 GM/DL (6.4-8.2)
[2018-06-12] MEDS: ANUSOL HC CREAM 30GM TOP SCH ×2 (09:00→21:00)
[2018-06-12] MEDS: HEPARIN SOD (PORCINE) 5000 UNITS/ML VIAL SQ SCH ×2 (09:00→21:00)
[2018-06-12] MEDS: PYRIDOXINE 50 MG TAB PO SCH (09:01)
[2018-06-12] MEDS: PANTOPRAZOLE 40MG TAB (PROTONIX) PO SCH (09:01)
[2018-06-12] MEDS: TOPIRAMATE (TopAMAX) 25 MG TAB PO SCH ×2 (09:01→21:58)
[2018-06-12] MEDS: INDOMETHACIN 25 MG CAP PO SCH ×3 (09:01→21:56)
[2018-06-12] MEDS: CARVedilol 3.125 MG TAB PO SCH ×2 (09:02→21:59)
[2018-06-12] MEDS: HYDROCORTISONE 5MG TABLET PO SCH ×2 (12:04→18:00)
[2018-06-12 14:00] VITALS: BP 110/80
--- NOTE | 2018-06-12 17:10 | IPNPDOC ---
Subjective Date Seen The patient was seen on 06/12/18. Subjective Chief Complaint/HPI slowly improving motion-induced dizziness/VELA Constitutional: Denies: Chills, Fever Eyes: Denies: Pain ENT: Reports: Head Aches Skin: Denies: Rash Pulmonary: Denies: Dyspnea Cardiovascular: Denies: Chest Pain Gastrointestinal: Reports: Nausea; Denies: Vomiting Objective Physical Examination General Exam: Positive: Cooperative (laying in a semi-recumbent position when I entered the room. ), No Acute Distress, Other (she was awake and conversant, but not as mentally sharp as usual. Initially there were some pauses for wordfinding, this improved throughout our 20 minute discussion.) Eye Exam: Negative: Sclera icteric ENT Exam: Positive: Mucous membr. moist/pink Neck Exam: Positive: Supple Chest Exam: Positive: Clear to auscultation, Normal air movement Heart Exam: Positive: Rate Normal, Normal S1, Normal S2; Negative: Murmurs, Rubs Abdomen Exam: Positive: Normal bowel sounds, Soft; Negative: Tenderness Extremity Exam: Negative: Clubbing, Cyanosis, Edema Skin Exam: Positive: Nl turgor and temperature; Negative: Rash Psych Exam: Positive: Mood NL, Oriented x 3 Assessment /Plan Problems (1) Vestibular migraine Problem Text: Current regimen: ondansetron ODT 8 SL q6 prochlorperazine 10 IV q6 meclizine 50 po q4 carvedilol 3.125 BID_ SBP remains 100-110, HR 80-90 topiramate 50 PO BID diazepam 2 PO BID scopolamine 1 mg topical q72h pyridoxine 100 PO QD DVP 500/750 PO BID indomethacin 50 PO TID Fioricet 1 PO q4 prn Sumatran 100 mg PO BID PRN-attempting to wean attempting to transition OFF IV medications in order to dc PICC (placed 05/25/18) attempting to limit prn triptan and Fioricet to prevent tolerance 06/[address] Browne and Lela for ARU-initial consult for ARU eval was placed 05/31, then again 06/10-per Lela we should have answer if insurance will cover by 06/13 06/11 - today I am changing her Fioricet to prn. She felt it was a safer drug that many of the others since the main ingredient that she was familiar with was caffeine. I explained how the barbital is metabolized into a barbiturate. She was more agreeable to making this prn and trying to wean it off after learning this. I anticipate a decrease in the diazepam dose to 1mg q12h tomorrow. 06/10 - she had an "episode" which to me certainly looks like an atypical migraine, though vestibular symptoms were not prominent this time. She refused the triptan to decrease the chance she would become tolerant to this. I reeducated her on the appropriate and inappropriate use of triptans and encouraged her to try it the next time she has an episode like this. I will probably move the decrease of the diazepam dose to 06/12 in case this "episode" was related to the decrease in the diazepam, though again the vestibular symptoms were not prominent. I will also discuss taking her Fioricet from routine to prn as this medication with routine use will induce tolerance and possibly can cause episodes of confusion and decreased mental clarity like she was having. 06/09 - she is tolerating the decrease in the diazepam dose well. I will probably try to reduce the diazepam to 1 mg twice a day on 06/11. 06/08 - Her symptoms are about the same, BUT she was able to defer the medications for about 4h this morning without symptoms. Based on this I feel it is a safe time to begin weaning her diazepam as I don't think she needs it as much any more. She requests to change that medication and the Depakote to a 12 and 12 schedule to facilitate her sleep and give her more time for activities and socialization during the times of day when she most often has visitors. 06/07 - DVP level still <50. Will increase to 500/750. Monitor. Discussed changing the timing of the meds from and , but she isn't sure when she wants it. 06/05 - will check a repeat valproic acid level tomorrow. This regimen seems to have her the most functional so far. She is reporting some feelings of sedation after the diazepam doses, but these are transient. I will make the indomethacin scheduled for now with a plan to decrease the dose of the diazepam soon. 06/02 stable CBCD/CMP, VPA 27-increased DVP to 500 BID, changed ondan IV to ODT 05/30 changed propran 10 BID to carve 3.125 BID (? allergic rxn to propranolol dye-within 10 mins of 1 dose-immediate throat pain) and + DVP 250 BID 05/29 Dr. Lei Neurology favored "more advanced neurological care than can be offered in [place]", multi-discipline approach and psychiatric evaluation 05/23/18 MRI brain c/s angie and MR face s angie NAD (2) Chronic autoimmune thyroiditis Status: Chronic Discussed With: Patient Problem Specific Plan: Monitor Clinically, Repeat Labs Problem Text: Thyroid fx are basically normal on little/no supplementation. Will d/c supplementation and monitor her thyroid fx at regular intervals. Next thyroid fx testing will likely be just before [place]. 06/05/18: TPO Ab are markedly positive. Tg Ab are mildly positive. Her last set of thyroid function tests were done just before she was admitted and were completely normal. She states that she was on 3/4 grain of Nature Thyroid BID which could correlate to about 150mcg of levothyroxine. However, it is not clear how fastidiously she was taking her supplement. She has theoretically been on 1/4 grain of the Nature Thyroid BID here, but has about 3 doses that were actually administered. My plan for now is to repeat the thyroid function tests since she basically has not been on thyroid supplementation for about 2 weeks. If they are normal, then I am willing to take a bet that her thyroid is functional enough at present to self-regulate and will advocate stopping all thyroid supplementation and monitoring her thyroid functions closely as it is likely that the gland will eventually fail from the auto-immune insult. If they are abnormal, then I'd like to evaluate the pattern and start her on some form of regulated levothyroxine +/- Cytomel if it seems needed. 06/04/18 TPO/TG Ab P (if -, i.e. not c/w AITD and therefore, highly doubt she needs complete replacement) 06/03/18 recommended to change to LT4 (given too high of T3/T4 ratio of porcine TH 07/28, normal human ratio on 08/04), but ONLY formulation patient will take is Tirosint which is not on [facility] nor [facility] (patient's prescription plan) formulary; therefore, will probably need to continue Nature-Throid (but keep at a constant dose-patient was prescribed 1/4 grain (16.25 mg) BID since admission BUT has only taken 3 times!) 05/10/18 0.41, 0.8, 106 on HD "self-titrated" desiccated porcine TH-taking somewhere between 1/4-3/4 grain BID (which would be between LT4 25-75 BID) (3) Adrenal insufficiency Status: Chronic Problem Text: Favor tertiary AI 2 iatrogenic chronic glucocorticoid steroid use from previous PCP for unknown reason. Goal to slowly wean off HC-decreasing dose by 5 mg q5-7D. 06/11 - D #4 of . Still on track to taper back again on 06/13. 06/10 - D#3 . Had an "episode" but I don't think it was adrenal related as her vitals were completely normal when the "episode" the worst. 06/09 - D#2 06/08 - tolerating just fine (Day 1). I anticipate the next change to on 06/13. 06/07 - will decrease to starting tomorrow. 06/05- day 3 of . She seems to be tolerating this just fine. 06/02 decreased HC 10 TID to , stable SBP, Na/K 05/22 has received stress dose HC, but s s/s of adrenal crisis; therefore, restarted HC 10 TID (HD ) 05/21 Na 142/K 3.7 c SBP 130s on admission (4) Constipation, chronic Status: Chronic Problem Text: Chronic senna / enema dependence (admits to chronic 8-10 "herbal" senna QD for "years" and ~q2W tap water/cider enema prn) Probably exacerbates abdominal component of her migraine. Stable daily BMs on HD senna. 05/22/18 + HD senna 05/14/18 CT AP c moderate R sided fecal stasis (5) Physical deconditioning Status: Chronic Problem Text: More accurately exercise intolerance limited by symptoms. 06/11 - I spoke to Dr. Mosher today regarding Jemima's history, current conditions, what we are doing to both dx and tx her. She is looking for some improvement in Jemima's function over the weekend. If this happens than ARU is looking like a better option as she may be able to recover quickly enough to meet her functional goals before her insurance company starts to squawk. However, if Jemima has not made demonstrable functional progress, then SNF is lo oking more like the correct option for her. 06/10 - She reports that the sessions with Catrachita Andres, O/T and David Babb DPT yesterday were some of the best she has had since she has been here. She felt that the cuing that was done was helpful in a way that she could really understand. She was encouraged by the sessions and has hopes that she will be accepted to the ARU. I am getting conflicting reports; the patient thinks this is still an open option, but nursing reported to me that she was declined by ARU. I will try to clarify this with Dr. Mosher as I think she is a reasonable ARU candidate as long as her sessions can be split to give her some physical rest when her body tires out. She is certainly motivated to get better. 06/09 - she was evaluated by occupational therapy today and reports the session went really well. I have hopes that acute rehabilitation may work for her. If that does not subacute remains an option, but I'm encouraged that she may be able to participate with intolerant more intense therapy. 06/08 - I made it clear to her and P/T and PFS that I believe that sub-acute rehab is the right option for her and that I think we are in a place where she can begin filling out apps. Case management let me know that they think that it is unlikely that she will get a local bed. Additionally, Aram Tang let me know that her insurance company is interested in finding out when she will be discharged from the acute care facility. 06/07 - continues to work with P/T but it is becoming more obvious that acute rehab isn't an option for her because of her exercise intolerance. 06/05 - apparently she expended significant effort and energy to stand up in her rolling walker today. She reports that she is doing exercises in bed between therapy sessions. She admits to doing "bed Brian Chi" to help focus on balance and push herself so that towards a goal of recovery and a normal functional life. 06/01 not safe for dc home-plan home c services (Deandre Forrest-spent 71 mins! c px) 11/7 PMR consulted-awaiting evaluation (6) Orthostatic dizziness Status: Chronic Problem Text: Presented c POTS diagnosis on chronic midodrine 10 TID-but NO diagnostic increased HR c standing while hospitalized. Midodrine and fludrocortisone are held. Suspect that the symptoms or orthostatic intolerance are more migraine related than true autonomic dysfunction. Plan/VTE VTE Prophylaxis Ordered?: Yes (Lovenox) Plan Diet: Continue Current Activity: Continue Current, Advance Therapy: PT Medications: Taper Steroids Diagnostics: Check Labs Advance Directives: Other Advance Directive VS, I&O, [facility] Vital Signs/I&O Vital Signs Date Time Temp Pulse Resp B/P (MAP) Pulse Ox O2 Delivery O2 Flow Rate FiO2 06/12/18 14:00 98.1 78 20 110/80 (90) 98 Room Air I&O- Last 24 Hours up to 6 AM 06/12/18 06:00 Intake Total 1560 ml Balance 1560 ml Laboratory Data 24H LABS Laboratory Tests 2 06/12/18 06:05: Nucleated Red Blood Cells % (auto) 0.0, Anion Gap 7L, Glomerular Filtration Rate > 60.0, Blood Urea Nitrogen 6L, Creatinine 0.64, Sodium Level 142, Potassium Level 4.1, Chloride Level 111H, Carbon Dioxide Level 24, Calcium Level 8.7, Aspartate Amino Transf (AST/SGOT) 13, Alanine Aminotransferase (ALT/SGPT) 18, Alkaline Phosphatase 50, Total Bilirubin < 0.1L, Total Protein 6.3L, Albumin 3.0L, Magnesium Level 2.2, Albumin/Globulin Ratio 0.91L CBC/BMP Laboratory Tests 06/12/18 06:05 Red Blood Count 3.80 L, Mean Corpuscular Volume 92.6, Mean Corpuscular Hemoglobin 28.9, Mean Corpuscular Hemoglobin Concent 31.3 L, Red Cell Distri bution Width 13.3, Calcium Level 8.7, Aspartate Amino Transf (AST/SGOT) 13, Alanine Aminotransferase (ALT/SGPT) 18, Alkaline Phosphatase 50, Total Bilirubin < 0.1 L, Total Protein 6.3 L, Albumin 3.0 L Blu Lamar M.D. Jun 12, 2018 17:09
[2018-06-12] MEDS: ANUSOL HC 25MG SUPP PR SCH ×2 (21:00→22:00)
[2018-06-12 22:00] VITALS: BP 118/76
[2018-06-12] MEDS: [UNRECOGNIZED DRUG - OTHER] PO SCH (22:00)
[2018-06-12] MEDS: HERB LAX PO SCH (22:00)
[2018-06-13] MEDS: DIVALPROEX 250MG *ER* TAB PO SCH ×3 (00:52→23:30)
[2018-06-13] MEDS: FIORICET TAB PO PRN ×3 (01:59→23:31)
[2018-06-13] MEDS: MECLIZINE 25 MG TABLET PO SCH ×6 (01:59→20:15)
[2018-06-13] MEDS: PROCHLORPERAZINE 10 MG/2 ML VIAL (J0780) IV SCH ×3 (01:59→13:00)
[2018-06-13] MEDS: ONDANSETRON 4 MG ORAL DISINTEGRATING TAB (Q0162 PER 1MG) SL SCH ×4 (05:00→23:32)
[2018-06-13 06:00] VITALS: BP 109/75
[2018-06-13] MEDS: HYDROCORTISONE 10 MG TAB PO SCH (06:05)
[2018-06-13] MEDS: SODIUM CHLORIDE 0.9% INJ 10 ML SYR IV SCH ×2 (06:06→17:04)
[2018-06-13] MEDS: ANUSOL HC CREAM 30GM TOP SCH ×2 (09:00→20:16)
[2018-06-13] MEDS: HEPARIN SOD (PORCINE) 5000 UNITS/ML VIAL SQ SCH ×2 (09:00→20:16)
[2018-06-13] MEDS: PANTOPRAZOLE 40MG TAB (PROTONIX) PO SCH (09:08)
[2018-06-13] MEDS: PYRIDOXINE 50 MG TAB PO SCH (09:08)
[2018-06-13] MEDS: INDOMETHACIN 25 MG CAP PO SCH ×3 (09:08→20:15)
[2018-06-13] MEDS: TOPIRAMATE (TopAMAX) 25 MG TAB PO SCH ×2 (09:09→20:15)
[2018-06-13] MEDS: CARVedilol 3.125 MG TAB PO SCH ×2 (09:09→20:16)
[2018-06-13] MEDS: HYDROCORTISONE 5MG TABLET PO SCH ×2 (13:32→17:08)
[2018-06-13] MEDS: diazePAM 2 MG TAB PO SCH ×2 (13:32→23:31)
--- NOTE | 2018-06-13 13:40 | MHCRPDOC ---
[facility] Consultation Consultation DATE OF CONSULTATION: 06/13/18 CONSULTATION REQUESTED BY: Dr. Lamar REASON FOR CONSULTATION: psych eval prior ARU admission RELEVANT HISTORY: Pt is a 32y/o CF who was initially admitted 05/22/18 for irretractable vomiting secondary go vertigo who has since admission been diagnosed with vestibular migraines, autoimmune thyroiditis, adrenal insufficiency. Pt's prolonged hospital stay has left her with physical deconditioning. Consult requested as general psychiatric evaluation prior admission ARU. Pt seen and states she feels good overall. States she's a very optimistic person and always looks to make the best out of a negative situation. States that it has been hard to be in the hospital so long but that her family is supportive, staff is very nice, and she keeps herself well occupied with journalling, talking to family/friends, independent relaxing activities. Admits she had an episode of depression in college that was treated with outpatient therapy in which she was able to learn coping skills for her stressors in life and states she uses those practices still and that they generally keep her upbeat and positive. She is motivated to work hard to get back to her life as she states she's very independent person and values that. She is excited to participate in PT/OT in ARU and can't wait to start. She denies any symptoms of depression, anxiety, insomnia, SI/HI, hallucinations, delusions. PAST PSYCHIATRIC HISTORY: hx of depression while in college, treated with outpatient therapy, now resolved. PAST MEDICAL HISTORY: see above FAMILY HISTORY: denies PERSONAL AND SOCIAL HISTORY: The patient was born and raised in [place]. 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 She is pleasant and cooperative Speech is rate/rhythm/volume Language skills are average Thought processes including: linear, logical, optimistic, goal directed, motivated Thought content: motivated to get stronger and back to her life Abstract reasoning, and computation: intact Description of associations: appropriate Description of abnormal or psychotic thoughts: denies Judgment: good Insight: good Orientation to x3 Recent and remote memory: intact Attention span and concentration: good Language: good Fund of knowledge: above average, educated and intelligent Mood: "good" Affect: euthymic, full range, bright DIAGNOSIS: 1. No Diagnosis: Well Functioning adult PLAN: 1. pt is ok to go to ARU. She is greatly looking forward to it. Vital Signs Vital Signs Date Time Temp Pulse Resp B/P (MAP) Pulse Ox O2 Delivery O2 Flow Rate FiO2 06/13/18 09:09 86 109/75 06/13/18 06:35 16 06/13/18 06:00 97.6 99 Room Air Home Medications Current Medications Current Medications Acetaminophen (Tylenol Suppository) 650 mg Q4HP PRN CO MILD PAIN OR FEVER Last administered on 05/22/18at 15:00; Start 05/22/18 at 03:30 Acetaminophen/ Butalbital/ Caffeine (Fioricet) 1 ea Q4H PO Last administered on 06/11/18at 13:10; Start 05/28/18 at 13:00; Stop 06/11/18 at 16:17; Status DC Acetaminophen/ Butalbital/ Caffeine (Fioricet) 1 ea Q4HP PRN PO HEADACHE Last administered on 05/28/18at 08:09; Start 05/22/18 at 16:45; Stop 05/28/18 at 10:42; Status DC Acetaminophen/ Butalbital/ Caffeine (Fioricet) 1 ea Q4HP PRN PO HEADACHE or DISCOMFORT Last administered on 06/13/18at 06:05; Start 06/11/18 at 16:30 Carvedilol (COReg) 3.125 mg BID PO Last administered on 06/13/18at 09:09; Start 05/30/18 at 21:00 Diazepam (Valium) 2 mg BID PO Last administered on 05/27/18at 21:16; Start 05/25/18 at 21:00; Stop 05/28/18 at 10:27; Status DC Diazepam (Valium) 2 mg Q12H PO Last administered on 06/12/18at 23:31; Start 06/09/18 at 00:00 Diazepam (Valium) 3 mg BID PO Last administered on 06/08/18at 13:59; Start 05/28/18 at 09:00; Stop 06/08/18 at 21:38; Status DC Diazepam (Valium) 3 mg BID PRN PO ANXIETY; Start 05/28/18 at 10:30; Stop 05/28/18 at 11:40; Status DC Divalproex Sodium (Depakote Er) 250 mg BID PO Last administered on 06/02/18at 08:55; Start 05/30/18 at 21:00; Stop 06/02/18 at 17:17; Status DC Divalproex Sodium (Depakote Er) 500 mg BID PO Last administered on 06/07/18at 08:25; Start 06/02/18 at 21:00; Stop 06/07/18 at 20:05; Status DC Divalproex Sodium (Depakote Er) 500 mg DAILY PO Last administered on 06/08/18at 13:59; Start 06/08/18 at 09:00; Stop 06/08/18 at 21:42; Status DC Divalproex Sodium (Depakote Er) 500 mg DAILY@1200 PO Last administered on 06/12/18at 12:05; Start 06/09/18 at 12:00 Divalproex Sodium (Depakote Er) 750 mg QHS PO Last administered on 06/07/18at 21:20; Start 06/07/18 at 21:00; Stop 06/08/18 at 21:42; Status DC Divalproex Sodium (Depakote Er) 750 mg QHS@0000 PO Last administered on 06/13/18at 00:52; Start 06/09/18 at 00:00 Heparin Sodium (Heparin (Flush)) 100 units ASDIRECTED PRN IV SEE LABEL COMMENTS Last administered on 06/12/18at 02:02; Start 06/08/18 at 18:00 Heparin Sodium (Heparin (Flush)) 100 units PICC IV Last administered on 8at 06:06; Start 06/08/18 at 18:00 Heparin Sodium (Heparin (Flush)) 200 units ASDIRECTED PRN IV SEE LABEL COMMENTS Last administered on 06/06/18at 06:45; Start 05/25/18 at 20:30 Heparin Sodium (Heparin (Flush)) 200 units PICC IV Last administered on at 06:00; Start 05/26/18 at 06:00; Stop 06/13/18 at 04:34; Status DC Heparin Sodium (Porcine) (Heparin) 5,000 units Q12H SQ ; Start 05/22/18 at 09:00 Home Med (Med Rec Complete!) ASDIRECTED XX ; Start 05/22/18 at 01:30; Stop 05/22/18 at 01:31; Status DC Hydrocortisone (A-Hydrocort) 10 mg Q12H IV ; Start 05/22/18 at 09:00; Stop 05/22/18 at 09:00; Status DC Hydrocortisone (A-Hydrocort) 100 mg Q8H IV Last administered on 05/22/18at 10:59; Start 05/22/18 at 09:00; Stop 05/22/18 at 16:09; Status DC Hydrocortisone (Cortef) 5 mg BID@1200,1800 PO Last administered on 06/12/18at 18:00; Start 06/08/18 at 12:00 Hydrocortisone (Cortef) 5 mg DAILY@1800 PO Last administered on 06/07/18at 17:49; Start 06/02/18 at 18:00; Stop 06/07/18 at 20:05; Status DC Hydrocortisone (Cortef) 10 mg BID@0700,1200 PO Last administered on 06/07/18at 06:21; Start 06/05/18 at 07:00; Stop 06/07/18 at 20:05; Status DC Hydrocortisone (Cortef) 10 mg BID@0900,1200 PO Last administered on 06/04/18at 12:15; Start 06/03/18 at 09:00; Stop 06/04/18 at 19:36; Status DC Hydrocortisone (Cortef) 10 mg DAILY@0700 PO Last administered on 06/13/18at 06:05; Start 06/08/18 at 07:00 Hydrocortisone (Cortef) 10 mg TID@0900,1200,1800 PO Last administered on 06/02/18at 12:25; Start 05/22/18 at 18:00; Stop 06/02/18 at 16:48; Status DC Hydrocortisone (Proctosol Hc) APPLY TO RECTAL AREA BID TOP Last administered on 06/13/18at 09:00; Start 05/28/18 at 09:00 Hydrocortisone Acetate (Anusol Hc Supp) 25 mg QHS CO Last administered on 06/12/18at 22:00; Start 06/04/18 at 21:00 Indomethacin (Indocin) 50 mg TID PO Last administered on 06/13/18at 09:08; Start 06/06/18 at 09:00 Indomethacin (Indocin) 50 mg TID PRN PO PAIN; Start 06/04/18 at 19:45; Stop 06/06/18 at 00:24; Status DC Indomethacin (Indocin) 50 mg TIDP PRN PO PAIN Last administered on 06/02/18at 18:26; Start 05/28/18 at 10:45; Stop 06/04/18 at 19:34; Status DC Ketorolac Tromethamine (ToRADol) 15 mg Q6H IV Last administered on 05/28/18at 03:03; Start 05/23/18 at 21:00; Stop 05/28/18 at 10:37; Status DC Lorazepam (Ativan) 1 mg Q6HP PRN IV ANXIETY/AGITATION Last administered on 05/25/18at 15:49; Start 05/23/18 at 20:30; Stop 05/25/18 at 17:26; Status DC Meclizine HCl (Antivert) 25 mg BID PO Last administered on 05/23/18at 08:39; Start 05/22/18 at 21:00; Stop 05/23/18 at 16:26; Status DC Meclizine HCl (Antivert) 50 mg BID PO Last administered on 05/25/18at 10:03; Start 05/23/18 at 21:00; Stop 05/25/18 at 17:26; Status DC Meclizine HCl (Antivert) 50 mg Q4H PO Last administered on 06/13/18at 09:09; Start 05/28/18 at 13:00 Meclizine HCl (Antivert) 50 mg Q4HP PRN PO DIZZINESS Last administered on 05/28at 08:09; Start 05/25/18 at 17:30; Stop 05/28/18 at 10:45; Status DC Mineral Oil (Fleet Oil Retention Enema) 1 ENEMA BIDP PRN CO CONSTIPATION; Start 05/25/18 at 17:30 Miscellaneous (Unresolved Clarification Entry) SEE LABEL COMMENTS DAILY XX ; Start 05/28/18 at 09:00; Stop 05/28/18 at 10:17; Status DC Miscellaneous (Unresolved Clarification Entry) SEE LABEL COMMENTS DAILY XX ; Start 06/02/18 at 09:00; Stop 06/03/18 at 18:37; Status DC Ondansetron HCl (ZOFRAN INJection) 4 mg Q4H IV Last administered on 05/23/18at 11:47; Start 05/22/18 at 04:00; Stop 05/24/18 at 12:36; Status DC Ondansetron HCl (ZOFRAN INJection) 4 mg Q4H IV Last administered on 06/02/18at 12:24; Start 05/29/18 at 13:00; Stop 06/02/18 at 17:04; Status DC Ondansetron HCl (ZOFRAN INJection) 8 mg Q4H IV Last administered on 05/29/18at 09:23; Start 05/28/18 at 13:00; Stop 05/29/18 at 12:26; Status DC Ondansetron HCl (ZOFRAN INJection) 8 mg Q4HP PRN IV NAUSEA OR VOMITING Last administered on 05/28/18at 08:08; Start 05/24/18 at 12:45; Stop 05/28/18 at 10:42; Status DC Ondansetron HCl (Zofran Odt) 8 mg Q6H SL Last administered on 06/13/18at 05:00; Start 06/03/18 at 00:00 Ondansetron HCl (Zofran Odt) 8 mg TID SL ; Start 06/02/18 at 21:00; Stop 06/02/18 at 21:00; Status DC Pantoprazole Sodium (Protonix) 40 mg DAILY IV Last administered on 05/27/18at 08:36; Start 05/22/18 at 09:00; Stop 05/28/18 at 10:42; Status DC Pantoprazole Sodium (Protonix) 40 mg DAILY PO Last administered on 06/13/18at 09:08; Start 05/29/18 at 09:00 Patient Own Medication (Patient'S Own Med) 1 TABLET = 16.25MG BID@0900,1400 PO Last administered on 06/01/18at 14:00; Start 05/28/18 at 14:00; Stop 06/05/18 at 09:11; Status DC Patient Own Medication (Patient'S Own Med) 1 ea BID@0600,1400 PO Last administered on 05/28/18at 06:24; Start 05/22/18 at 14:00; Stop 05/28/18 at 10:37; Status DC Patient Own Medication (Patient'S Own Med) 1 TABLET = 16.25MG BID@0900,1400 PO Last administered on 06/07/18at 08:26; Start 06/05/18 at 09:00; Stop 06/07/18 at 22:42; Status DC Patient Own Medication (Patient'S Own Med) Herb-Lax tabs: ADMINIS... QHS PO Last administered on 06/12/18at 22:00; Start 05/22/18 at 21:00 Patient Own Medication (Patient'S Own Med) Mix 150mls of Apple Ci... BID PRN CO CONSTIPATION; Start 05/25/18 at 18:00 Potassium Chloride/Dextrose/ Sod Cl 1,000 ml @ 50 mls/hr Q20H IV Last administered on 05/28/18at 17:01; Start 05/23/18 at 12:30; Stop 05/29/18 at 10:27; Status DC Potassium Chloride (Micro-K Extencaps) 40 meq Q1H PO Last administered on 05/26/18at 12:15; Start 05/26/18 at 11:00; Stop 05/26/18 at 12:01; Status DC Prochlorperazine (Compazine) 10 mg Q6H IV Last administered on 06/13/18at 06:06; Start 06/03/18 at 01:00 Prochlorperazine (Compazine) 10 mg Q6HP PRN PO NAUSEA OR VOMITING Last administ ered on 06/02/18at 13:51; Start 05/29/18 at 12:30; Stop 06/02/18 at 20:01; Status DC Promethazine HCl (PHENERGAN INJection) 12.5 mg Q4HP PRN IV NAUSEA Last administered on 05/24/18at 08:57; Start 05/23/18 at 16:30; Stop 05/24/18 at 12:36; Status DC Propranolol HCl (Inderal) 10 mg BID PO Last administered on 05/29/18at 22:43; Start 05/29/18 at 09:00; Stop 05/30/18 at 15:54; Status DC Propranolol HCl (Inderal) 10 mg QID PO ; Start 05/30/18 at 17:00; Stop 05/30/18 at 18:50; Status DC Pyridoxine HCl (Vitamin B6) 100 mg DAILY PO Last administered on 06/13/18at 09:08; Start 05/28/18 at 09:00 Scopolamine (Scopolamine) 1 mg Q72H TOP Last administered on 06/11/18at 08:55; Start 05/24/18 at 09:00 Sodium Chloride 1,000 ml @ 100 mls/hr Q10H IV Last administered on 05/23/18at 04:37; Start 05/22/18 at 03:29; Stop 05/23/18 at 12:20; Status DC Sodium Chloride (Saline Lock Flush) 10 ML PICC IV Last administered on 06/13/18at 06:06; Start 06/08/18 at 18:00 Sodium Chloride (Saline Lock Flush) 10 ml ASDIRECTED PRN IV SEE LABEL COMMENTS Last administered on 06/06/18at 06:45; Start 05/25/18 at 20:30 Sodium Chloride (Saline Lock Flush) 10 ml PICC IV Last administered on 06/12/18at 05:55; Start 05/26/18 at 06:00; Stop 06/13/18 at 04:34; Status DC Sodium Chloride (Saline Lock Flush) 10ML ASDIRECTED PRN IV SEE LABEL COMMENTS Last administered on 06/12/18at 02:02; Start 06/08/18 at 18:00 Sumatriptan Succinate (IMITREX INJection) 6 mg Q2HP PRN SC MIGRAINE Last administered on 05/26/18at 17:45; Start 05/26/18 at 11:15; Stop 05/27/18 at 10:31; Status DC Sumatriptan Succinate (Imitrex) 25 mg Q2HP PRN PO MIGRAINE; Start 05/22/18 at 16:15; Stop 05/22/18 at 16:44; Status DC Sumatriptan Succinate (Imitrex) 25 mg Q2HP PRN PO MIGRAINE; Start 05/27/18 at 10:30; Status Cancel Sumatriptan Succinate (Imitrex) 100 mg BIDP PRN PO MIGRAINE Last administered on 05/26/18at 09:21; Start 05/22/18 at 16:45; Stop 05/26/18 at 11:14; Status DC Sumatriptan Succinate (Imitrex) 100 mg BIDP PRN PO MIGRAINE Last administered on 05/28/18at 08:36; Start 05/27/18 at 10:30 Topiramate (TopAMAX) 25 mg BID PO ; Start 05/22/18 at 21:00; Stop 05/22/18 at 21:00; Status DC Topiramate (TopAMAX) 50 mg BID PO ; Start 05/22/18 at 21:00; Stop 05/23/18 at 02:01; Status DC Topiramate (TopAMAX) 50 mg BID PO Last administered on 06/13/18at 09:09; Start 05/28/18 at 09:00 Scheduled Hydrocortisone Base (Hydrocortisone) 5 Mg Tab, 10 MG PO BID, (Reported) TAKES AM AND NOON. PATIENT STATES SHE HAS TAKEN UP TO 75MG A DAY DEPENDING ON HER STATE OF HEALTH AND STRESS LEVEL. SHE ADJUSTS THE DOSE ACCORDINGLY Hydrocortisone Base (Hydrocortisone) 5 Mg Tab, 5 MG PO QPM, (Reported) Midodrine HCl (Midodrine HCl) 10 Mg Tab, 1 TAB PO TID, (Reported) Sumatriptan Succinate (Sumatriptan Succinate) 25 Mg Tab, 25 MG PO ASDIRECTED, (Reported) Topiramate (Topiramate) 25 Mg Cap, 25 MG PO DAILY, (Reported) FOR 2 DAYS Topiramate (Topiramate) 50 Mg Tab, 50 MG PO DAILY, (Reported) TO BEGIN AFTER THE 2 DAYS OF 25MG TABLETS Scheduled PRN Prochlorperazine (Prochlorperazine Maleate) 5 Mg Tab, 1 TAB PO TID PRN for ELLE, (Reported) Allergies Coded Allergies: Gluten Meal (Verified Allergy, Unknown, 05/21/18) MISSY WHITE DO Jun 13, 2018 13:40
[2018-06-13 14:00] VITALS: BP 139/88
[2018-06-13] MEDS: [UNRECOGNIZED DRUG - OTHER] PO SCH (20:16)
[2018-06-13] MEDS: HERB LAX PO SCH (20:16)
[2018-06-13] MEDS: ANUSOL HC 25MG SUPP PR SCH ×2 (20:16→22:56)
[2018-06-13 22:00] VITALS: BP 111/71
[2018-06-14] MEDS: MECLIZINE 25 MG TABLET PO SCH ×6 (01:20→20:14)
[2018-06-14] MEDS: ONDANSETRON 4 MG ORAL DISINTEGRATING TAB (Q0162 PER 1MG) SL SCH ×3 (05:10→17:40)
[2018-06-14 06:00] VITALS: BP 112/75
[2018-06-14] MEDS: HYDROCORTISONE 10 MG TAB PO SCH (06:00)
[2018-06-14] MEDS: FIORICET TAB PO PRN ×4 (06:00→22:26)
[2018-06-14] MEDS: PYRIDOXINE 50 MG TAB PO SCH (08:35)
[2018-06-14] MEDS: HEPARIN SOD (PORCINE) 5000 UNITS/ML VIAL SQ SCH ×2 (08:36→20:18)
[2018-06-14] MEDS: TOPIRAMATE (TopAMAX) 25 MG TAB PO SCH ×2 (08:36→20:17)
[2018-06-14] MEDS: PANTOPRAZOLE 40MG TAB (PROTONIX) PO SCH (08:36)
[2018-06-14] MEDS: INDOMETHACIN 25 MG CAP PO SCH ×3 (08:36→20:17)
[2018-06-14] MEDS: CARVedilol 3.125 MG TAB PO SCH ×2 (08:36→20:14)
[2018-06-14] MEDS: ANUSOL HC CREAM 30GM TOP SCH ×2 (08:37→20:19)
[2018-06-14] MEDS: SCOPOLAMINE 1MG TRANSDERMAL PATCH TOP SCH (08:37)
[2018-06-14] MEDS: HYDROCORTISONE 5MG TABLET PO SCH ×2 (11:42→17:40)
[2018-06-14] MEDS: DIVALPROEX 250MG *ER* TAB PO SCH (11:42)
[2018-06-14] MEDS: diazePAM 2 MG TAB PO SCH (11:42)
--- NOTE | 2018-06-14 12:40 | IPN ---
DATE OF VISIT: 06/13/2018 Jemima was seen on 06/13, status was unchanged from previous day. She was alert and conversant. Mental status exam was unremarkable. Plan: Was waiting for approval for ARU.
--- NOTE | 2018-06-14 12:44 | IPN ---
DATE OF VISIT: 06/14/2018 Page was seen on 06/14. I put psychiatry consult in yesterday to make sure that there were no uncovered psychiatric issues before ARU admission and there are none. I appreciate Dr. Alvarez evaluation. Page has walked over 50 steps today. It is the most active she has been. She is making significant progress with physical therapy. Yesterday we pulled her PICC line. She is on all p.o. medications. PHYSICAL EXAMINATION: Alert and conversant, bright, interactive. Lungs clear. Heart regular rhythm. Abdomen soft, nontender. Moves arms and legs with good strength. IMPRESSION: At this point, she is stable for ARU. We are waiting for insurance coverage. Her current regimen has good control of her vertigo, migraines headaches, and anxiety. Hopefully she will be accepted to ARU today, otherwise she will be here through the weekend.
[2018-06-14 14:00] VITALS: BP 111/72
[2018-06-14] MEDS: ANUSOL HC 25MG SUPP PR SCH (20:13)
[2018-06-14] MEDS: HERB LAX PO SCH (20:18)
[2018-06-14] MEDS: [UNRECOGNIZED DRUG - OTHER] PO SCH (20:18)
[2018-06-14 22:00] VITALS: BP 131/71
[2018-06-15] MEDS: DIVALPROEX 250MG *ER* TAB PO SCH ×2 (00:11→12:33)
[2018-06-15] MEDS: diazePAM 2 MG TAB PO SCH ×2 (00:11→12:32)
[2018-06-15] MEDS: MECLIZINE 25 MG TABLET PO SCH ×6 (00:11→21:49)
[2018-06-15] MEDS: ONDANSETRON 4 MG ORAL DISINTEGRATING TAB (Q0162 PER 1MG) SL SCH ×5 (00:12→17:39)
[2018-06-15] MEDS: FIORICET TAB PO PRN ×5 (02:30→21:49)
[2018-06-15] MEDS: HYDROCORTISONE 10 MG TAB PO SCH (06:31)
[2018-06-15] MEDS: HEPARIN SOD (PORCINE) 5000 UNITS/ML VIAL SQ SCH ×2 (09:00→21:00)
[2018-06-15] MEDS: PANTOPRAZOLE 40MG TAB (PROTONIX) PO SCH (09:13)
[2018-06-15] MEDS: TOPIRAMATE (TopAMAX) 25 MG TAB PO SCH ×2 (09:13→21:48)
[2018-06-15] MEDS: PYRIDOXINE 50 MG TAB PO SCH (09:14)
[2018-06-15] MEDS: INDOMETHACIN 25 MG CAP PO SCH ×3 (09:14→21:50)
[2018-06-15] MEDS: CARVedilol 3.125 MG TAB PO SCH ×2 (09:15→21:51)
[2018-06-15] MEDS: ANUSOL HC CREAM 30GM TOP SCH ×2 (09:16→21:00)
--- NOTE | 2018-06-15 10:21 | IPNPDOC ---
Subjective Date Seen The patient was seen on 06/15/18. Subjective Chief Complaint/HPI none new Constitutional: Denies: Chills ENT: Reports: Head Aches (minimal, improved compared to previous) Pulmonary: Denies: Dyspnea Cardiovascular: Denies: Chest Pain Gastrointestinal: Denies: Nausea Hematologic: Denies: Bruising Neurological: Reports: Other Symptoms (has been able to cruise about the room holding on to furnishings, getting to BR, etc. ); Denies: Weakness Psych: Reports: Mood Normal Objective Physical Examination General Exam: Positive: Cooperative (laying in a semi-recumbent position when I entered the room. ), No Acute Distress, Other (she was awake and conversant, but not as mentally sharp as usual. Initially there were some pauses for wordfinding, this improved throughout our 20 minute discussion.) Eye Exam: Negative: Sclera icteric ENT Exam: Positive: Mucous membr. moist/pink Neck Exam: Positive: Supple Extremity Exam: Negative: Clubbing, Cyanosis Skin Exam: Positive: Rash (faint bimalar erythema, no petechiae) Neuro Exam: Positive: Normal Speech Psych Exam: Positive: Mood NL, Oriented x 3 Assessment /Plan Problems (1) Vestibular migraine Problem Text: 06/15 now on po regimen Current regimen: ondansetron ODT 8 SL q6 prochlorperazine 10 IV q6 meclizine 50 po q4 carvedilol 3.125 BID_ SBP remains 100-110, HR 80-90 topiramate 50 PO BID diazepam 2 PO BID scopolamine 1 mg topical q72h pyridoxine 100 PO QD DVP 500/750 PO BID indomethacin 50 PO TID Fioricet 1 PO q4 prn Sumatran 100 mg PO BID PRN-attempting to wean attempting to transition OFF IV medications in order to dc PICC (placed 05/25/18) attempting to limit prn triptan and Fioricet to prevent tolerance 06/[address] Browne and Lela for ARU-initial consult for ARU evdelmi was placed 05/31, then again 06/10-per Lela we should have answer if insurance will cover by 06/13 06/11 - today I am changing her Fioricet to prn. She felt it was a safer drug that many of the others since the main ingredient that she was familiar with was caffeine. I explained how the barbital is metabolized into a barbiturate. She was more agreeable to making this prn and trying to wean it off after learning this. I anticipate a decrease in the diazepam dose to 1mg q12h tomorrow. 06/10 - she had an "episode" which to me certainly looks like an atypical migraine, though vestibular symptoms were not prominent this time. She refused the triptan to decrease the chance she would become tolerant to this. I reeducated her on the appropriate and inappropriate use of triptans and encouraged her to try it the next time she has an episode like this. I will probably move the decrease of the diazepam dose to 06/12 in case this "episode" was related to the decrease in the diazepam, though again the vestibular symptoms were not prominent. I will also discuss taking her Fioricet from routine to prn as this medication with routine use will induce tolerance and possibly can cause episodes of confusion and decreased mental clarity like she was having. 06/09 - she is tolerating the decrease in the diazepam dose well. I will probably try to reduce the diazepam to 1 mg twice a day on 06/11. 06/08 - Her symptoms are about the same, BUT she was able to defer the medications for about 4h this morning without symptoms. Based on this I feel it is a safe time to begin weaning her diazepam as I don't think she needs it as much any more. She requests to change that medication and the Depakote to a 12 and 12 schedule to facilitate her sleep and give her more time for activities and socialization during the times of day when she most often has visitors. 06/07 - DVP level still <50. Will increase to 500/750. Monitor. Discussed changing the timing of the meds from and , but she isn't sure when she wants it. 06/05 - will check a repeat valproic acid level tomorrow. This regimen seems to have her the most functional so far. She is reporting some feelings of sedation after the diazepam doses, but these are transient. I will make the indomethacin scheduled for now with a plan to decrease the dose of the diazepam soon. 06/02 stable CBCD/CMP, VPA 27-increased DVP to 500 BID, changed ondan IV to ODT 05/30 changed propran 10 BID to carve 3.125 BID (? allergic rxn to propranolol dye-within 10 mins of 1 dose-immediate throat pain) and + DVP 250 BID 05/29 Dr. Lei Neurology favored "more advanced neurological care than can be offered in [place]", multi-discipline approach and psychiatric evaluation 05/23/18 MRI brain c/s angie and MR face s angie NAD (2) Chronic autoimmune thyroiditis Status: Chronic Discussed With: Patient Problem Specific Plan: Monitor Clinically, Repeat Labs Problem Text: Reviewed this finding with patient and its implications for fu ture monitoring. Thyroid fx are basically normal on little/no supplementation. Will d/c supplementation and monitor her thyroid fx at regular intervals. Next thyroid fx testing will likely be just before [place]. 06/05/18: TPO Ab are markedly positive. Tg Ab are mildly positive. Her last set of thyroid function tests were done just before she was admitted and were completely normal. She states that she was on 3/4 grain of Nature Thyroid BID which could correlate to about 150mcg of levothyroxine. However, it is not clear how fastidiously she was taking her supplement. She has theoretically been on 1/4 grain of the Nature Thyroid BID here, but has about 3 doses that were actually administered. My plan for now is to repeat the thyroid function tests since she basically has not been on thyroid supplementation for about 2 weeks. If they are normal, then I am willing to take a bet that her thyroid is functional enough at present to self-regulate and will advocate stopping all thyroid supplementation and monitoring her thyroid functions closely as it is likely that the gland will eventually fail from the auto-immune insult. If they are abnormal, then I'd like to evaluate the pattern and start her on some form of regulated levothyroxine +/- Cytomel if it seems needed. 06/04/18 TPO/TG Ab P (if -, i.e. not c/w AITD and therefore, highly doubt she needs complete replacement) 06/03/18 recommended to change to LT4 (given too high of T3/T4 ratio of porcine TH 07/28, normal human ratio on 08/04), but ONLY formulation patient will take is Tirosint which is not on [facility] nor [facility] (patient's prescription plan) formulary; therefore, will probably need to continue Nature-Throid (but keep at a constant dose-patient was prescribed 1/4 grain (16.25 mg) BID since admission BUT has only taken 3 times!) 05/10/18 0.41, 0.8, 106 on HD "self-titrated" desiccated porcine TH-taking somewhere between 1/4-3/4 grain BID (which would be between LT4 25-75 BID) (3) Adrenal insufficiency Status: Chronic Problem Text: Favor tertiary AI 2 iatrogenic chronic glucocorticoid steroid use from previous PCP for unknown reason. Goal to slowly wean off HC-decreasing dose by 5 mg q5-7D. 06/11 - D #4 of . Still on track to taper back again on 06/13. 06/10 - D#3 . Had an "episode" but I don't think it was adrenal related as her vitals were completely normal when the "episode" the worst. 06/09 - D#2 06/08 - tolerating just fine (Day 1). I anticipate the next change to on 06/13. 06/07 - will decrease to starting tomorrow. 06/05- day 3 of . She seems to be tolerating this just fine. 06/02 decreased HC 10 TID to , stable SBP, Na/K 05/22 has received stress dose HC, but s s/s of adrenal crisis; therefore, restarted HC 10 TID (HD ) 05/21 Na 142/K 3.7 c SBP 130s on admission (4) Constipation, chronic Status: Chronic Problem Text: Chronic senna / enema dependence (admits to chronic 8-10 "herbal" senna QD for "years" and ~q2W tap water/cider enema prn) Probably exacerbates abdominal component of her migraine. Stable daily BMs on HD senna. 05/22/18 + HD senna 05/14/18 CT AP c moderate R sided fecal stasis (5) Physical deconditioning Status: Chronic Problem Text: More accurately exercise intolerance limited by symptoms. 06/11 - I spoke to Dr. Mosher today regarding Jemima's history, current conditions, what we are doing to both dx and tx her. She is looking for some improvement in Jemima's function over the weekend. If this happens than ARU is looking like a better option as she may be able to recover quickly enough to meet her functional goals before her insurance company starts to squawk. However, if Jemima has not made demonstrable functional progress, then SNF is looking more like the correct option for her. 06/10 - She reports that the sessions with Catrachita Andres, O/T and David Babb DPT yesterday were some of the best she has had since she has been here. She felt that the cuing that was done was helpful in a way that she could really understand. She was encouraged by the sessions and has hopes that she will be accepted to the ARU. I am getting conflicting reports; the patient thinks this is still an open option, but nursing reported to me that she was declined by ARU. I will try to clarify this with Dr. Mosher as I think she is a reasonable ARU candidate as long as her sessions can be split to give her some physical rest when her body tires out. She is certainly motivated to get better. 06/09 - she was evaluated by occupational therapy today and reports the session went really well. I have hopes that acute rehabilitation may work for her. If that does not subacute remains an option, but I'm encouraged that she may be able to participate with intolerant more intense therapy. 06/08 - I made it clear to her and P/T and PFS that I believe that sub-acute rehab is the right option for her and that I think we are in a place where she can begin filling out apps. Case management let me know that they think that it is unlikely that she will get a local bed. Additionally, Aram Tang let me know that her insurance company is interested in finding out when she will be discharged from the acute care facility. 06/07 - continues to work with P/T but it is becoming more obvious that acute rehab isn't an option for her because of her exercise intolerance. 06/05 - apparently she expended significant effort and energy to stand up in her rolling walker today. She reports that she is doing exercises in bed between therapy sessions. She admits to doing "bed Brian Chi" to help focus on balance and push herself so that towards a goal of recovery and a normal functional life. 06/01 not safe for dc home-plan home c services (Deandre Forrest-spent 71 mins! c px) 11 PMR consulted-awaiting evaluation (6) Orthostatic dizziness Status: Chronic Problem Text: Presented c POTS diagnosis on chronic midodrine 10 TID-but NO diagnostic increased HR c standing while hospitalized. Midodrine and fludrocortisone are held. Suspect that the symptoms or orthostatic intolerance are more migraine related than true autonomic dysfunction. Plan/VTE VTE Prophylaxis Ordered?: Yes (patient noted to refuse prophylaxis dose.) Plan Diet: Continue Current Activity: Continue Current, Advance Therapy: PT Medications: Taper Steroids Diagnostics: Check Labs Advance Directives: Other Advance Directive VS, I&O, 24H, Fishbone Vital Signs/I&O Vital Signs Date Time Temp Pulse Resp B/P (MAP) Pulse Ox O2 Delivery O2 Flow Rate FiO2 06/15/18 09:15 84 111/72 06/15/18 07:01 16 06/14/18 22:00 97.9 96 Room Air I&O- Last 24 Hours up to 6 AM 06/15/18 06:00 Intake Total 960 ml Balance 960 ml Toby Peace MD Jun 15, 2018 10:21
[2018-06-15] MEDS: HYDROCORTISONE 5MG TABLET PO SCH ×2 (12:33→17:39)
[2018-06-15] MEDS: PROCHLORPERAZINE 5 MG TAB (S0183) PO PRN ×2 (13:30→19:47)
[2018-06-15 14:00] VITALS: BP 131/89
[2018-06-15] MEDS: [UNRECOGNIZED DRUG - OTHER] PO SCH (21:50)
[2018-06-15] MEDS: HERB LAX PO SCH (21:50)
[2018-06-15] MEDS: ANUSOL HC 25MG SUPP PR SCH (21:51)
[2018-06-15 22:00] VITALS: BP 121/76
[2018-06-16] MEDS: DIVALPROEX 250MG *ER* TAB PO SCH ×2 (00:31→12:15)
[2018-06-16] MEDS: ONDANSETRON 4 MG ORAL DISINTEGRATING TAB (Q0162 PER 1MG) SL SCH ×4 (00:31→18:16)
[2018-06-16] MEDS: diazePAM 2 MG TAB PO SCH ×2 (00:31→12:15)
[2018-06-16] MEDS: MECLIZINE 25 MG TABLET PO SCH ×6 (02:06→21:57)
[2018-06-16] MEDS: FIORICET TAB PO PRN ×4 (02:07→16:06)
[2018-06-16] MEDS: PROCHLORPERAZINE 5 MG TAB (S0183) PO PRN ×2 (02:07→09:14)
[2018-06-16 06:00] VITALS: BP 132/86
[2018-06-16] MEDS: HYDROCORTISONE 10 MG TAB PO SCH (06:05)
[2018-06-16] MEDS: TOPIRAMATE (TopAMAX) 25 MG TAB PO SCH ×2 (09:02→21:57)
[2018-06-16] MEDS: INDOMETHACIN 25 MG CAP PO SCH ×3 (09:02→21:57)
[2018-06-16] MEDS: PANTOPRAZOLE 40MG TAB (PROTONIX) PO SCH (09:02)
[2018-06-16] MEDS: HEPARIN SOD (PORCINE) 5000 UNITS/ML VIAL SQ SCH ×3 (09:03→22:22)
[2018-06-16] MEDS: ANUSOL HC CREAM 30GM TOP SCH ×2 (09:03→22:01)
[2018-06-16] MEDS: PYRIDOXINE 50 MG TAB PO SCH (09:03)
[2018-06-16] MEDS: CARVedilol 3.125 MG TAB PO SCH ×2 (09:14→22:19)
[2018-06-16] MEDS: HYDROCORTISONE 5MG TABLET PO SCH ×2 (12:15→18:16)
[2018-06-16 14:00] VITALS: BP 138/87
[2018-06-16] MEDS: PROCHLORPERAZINE 5 MG TAB (S0183) PO SCH ×2 (16:00→23:14)
--- NOTE | 2018-06-16 16:04 | IPNPDOC ---
Subjective Date Seen The patient was seen on 06/16/18. Subjective Chief Complaint/HPI Patient is having some residual discomfort in right forearm. She had midline removed the other day and hurts since. She notices the pain when trying to reach for something. It hurts so much when she does move her arm that she would "like to snip something in there". Other than that has been working well with PT. She had some Thanksgiving dinner with family yesterday and is looking forward to going to acute rehab unit. Constitutional: Denies: Chills, Fever Objective Physical Examination General Exam: Positive: Alert, Cooperative (laying in a semi-recumbent position when I entered the room. ), Other (she was awake and conversant, but not as mentally sharp as usual. Initially there were some pauses for wordfinding, this improved throughout our 20 minute discussion.) Eye Exam: Positive: EOMI; Negative: Sclera icteric ENT Exam: Positive: Mucous membr. moist/pink Chest Exam: Positive: Clear to auscultation Heart Exam: Positive: Rate Normal, Normal S1, Normal S2; Negative: Tachycardic, Bradycardic Extremity Exam: Positive: Normal pulses (radial pulse 2/4 bilaterally), Other (Able to fully flex left arm, can flex right arm to roughly 135 degrees prior to pain.); Negative: Clubbing, Cyanosis, Edema Skin Exam: Positive: Rash (faint bimalar erythema, no petechiae) Neuro Exam: Positive: Normal Speech Psych Exam: Positive: Mood NL, Oriented x 3 Assessment /Plan Assessment Right arm pain Suspect secondary to thrombophlebitis from the midline that was removed a couple days ago. No swelling or erythema on exam. Pain to palpation right upper extremity, medial upper arm. No recent injury suspected. Denies any falls. Duplex US ordered for possible DVT. Will consider anticoagulation if positive. If no DVT recommend hot compress. Problems (1) Vestibular migraine Problem Text: 06/16 Patient has been regularly taking Compazine every 6 hours. Was scheduled previously when IV, changing to scheduled medication q6. 06/15 now on po regimen Current regimen: ondansetron ODT 8 SL q6 prochlorperazine 10 IV q6 meclizine 50 po q4 carvedilol 3.125 BID_ SBP remains 100-110, HR 80-90 topiramate 50 PO BID diazepam 2 PO BID scopolamine 1 mg topical q72h pyridoxine 100 PO QD DVP 500/750 PO BID indomethacin 50 PO TID Fioricet 1 PO q4 prn Sumatran 100 mg PO BID PRN-attempting to wean attempting to transition OFF IV medications in order to dc PICC (placed 05/25/18) attempting to limit prn triptan and Fioricet to prevent tolerance 06/[address] Browne and Lela for ARU-initial consult for ARU eval was placed 05/31, then again 06/10-per Lela we should have answer if insurance will cover by 06/13 06/11 - today I am changing her Fioricet to prn. She felt it was a safer drug th at many of the others since the main ingredient that she was familiar with was caffeine. I explained how the barbital is metabolized into a barbiturate. She was more agreeable to making this prn and trying to wean it off after learning this. I anticipate a decrease in the diazepam dose to 1mg q12h tomorrow. 06/10 - she had an "episode" which to me certainly looks like an atypical migraine, though vestibular symptoms were not prominent this time. She refused the triptan to decrease the chance she would become tolerant to this. I reeducated her on the appropriate and inappropriate use of triptans and encouraged her to try it the next time she has an episode like this. I will probably move the decrease of the diazepam dose to 06/12 in case this "episode" was related to the decrease in the diazepam, though again the vestibular symptoms were not prominent. I will also discuss taking her Fioricet from routine to prn as this medication with routine use will induce tolerance and possibly can cause episodes of confusion and decreased mental clarity like she was having. 06/09 - she is tolerating the decrease in the diazepam dose well. I will probably try to reduce the diazepam to 1 mg twice a day on 06/11. 06/08 - Her symptoms are about the same, BUT she was able to defer the medications for about 4h this morning without symptoms. Based on this I feel it is a safe time to begin weaning her diazepam as I don't think she needs it as much any more. She requests to change that medication and the Depakote to a 12 and 12 schedule to facilitate her sleep and give her more time for activities and socialization during the times of day when she most often has visitors. 06/07 - DVP level still <50. Will increase to 500/750. Monitor. Discussed changing the timing of the meds from and , but she isn't sure when she wants it. 06/05 - will check a repeat valproic acid level tomorrow. This regimen seems to have her the most functional so far. She is reporting some feelings of sedation after the diazepam doses, but these are transient. I will make the indomethacin scheduled for now with a plan to decrease the dose of the diazepam soon. 06/02 stable CBCD/CMP, VPA 27-increased DVP to 500 BID, changed ondan IV to ODT 05/30 changed propran 10 BID to carve 3.125 BID (? allergic rxn to propranolol dye-within 10 mins of 1 dose-immediate throat pain) and + DVP 250 BID 05/29 Dr. Lei Neurology favored "more advanced neurological care than can be offered in [place]", multi-discipline approach and psychiatric evaluation 05/23/18 MRI brain c/s angie and MR face s angie NAD (2) Chronic autoimmune thyroiditis Status: Chronic Discussed With: Patient Problem Specific Plan: Monitor Clinically, Repeat Labs Problem Text: Reviewed this finding with patient and its implications for future monitoring. Thyroid fx are basically normal on little/no supplementation. Will d/c supplementation and monitor her thyroid fx at regular intervals. Next thyroid fx testing will likely be just before [place]. 06/05/18: TPO Ab are markedly positive. Tg Ab are mildly positive. Her last set of thyroid function tests were done just before she was admitted and were completely normal. She states that she was on 3/4 grain of Nature Thyroid BID which could correlate to about 150mcg of levothyroxine. However, it is not clear how fastidiously she was taking her supplement. She has theoretically been on 1/4 grain of the Nature Thyroid BID here, but has about 3 doses that were actually administered. My plan for now is to repeat the thyroid function tests since she basically has not been on thyroid supplementation for about 2 weeks. If they are normal, then I am willing to take a bet that her thyroid is functional enough at present to self-regulate and will advocate stopping all thyroid supplementation and monitoring her thyroid functions closely as it is likely that the gland will eventually fail from the auto-immune insult. If they are abnormal, then I'd like to evaluate the pattern and start her on some form of regulated levothyroxine +/- Cytomel if it seems needed. 06/04/18 TPO/TG Ab P (if -, i.e. not c/w AITD and therefore, highly doubt she needs complete replacement) 06/03/18 recommended to change to LT4 (given too high of T3/T4 ratio of porcine TH 07/28, normal human ratio on 08/04), but ONLY formulation patient will take is Tirosint which is not on [facility] nor [facility] (patient's prescription plan) formulary; therefore, will probably need to continue Nature-Throid (but keep at a constant dose-patient was prescribed 1/4 grain (16.25 mg) BID since admission BUT has only taken 3 times!) 05/10/18 0.41, 0.8, 106 on HD "self-titrated" desiccated porcine TH-taking somewhere between 1/4-3/4 grain BID (which would be between LT4 25-75 BID) (3) Adrenal insufficiency Status: Chronic Problem Text: Favor tertiary AI 2 iatrogenic chronic glucocorticoid steroid use from previous PCP for unknown reason. Goal to slowly wean off HC-decreasing dose by 5 mg q5-7D. 06/11 - D #4 of . Still on track to taper back again on 06/13. 06/10 - D#3 . Had an "episode" but I don't think it was adrenal related as her vitals were completely normal when the "episode" the worst. 06/09 - D#2 06/08 - tolerating just fine (Day 1). I anticipate the next change to on 06/13. 06/07 - will decrease to starting tomorrow. 06/05- day 3 of . She seems to be tolerating this just fine. 06/02 decreased HC 10 TID to , stable SBP, Na/K 05/22 has received stress dose HC, but s s/s of adrenal crisis; therefore, restarted HC 10 TID (HD ) 05/21 Na 142/K 3.7 c SBP 130s on admission (4) Constipation, chronic Status: Chronic Problem Text: Chronic senna / enema dependence (admits to chronic 8-10 "herbal" senna QD for "years" and ~q2W tap water/cider enema prn) Probably exacerbates abdominal component of her migraine. Stable daily BMs on HD senna. 05/22/18 + HD senna 05/14/18 CT AP c moderate R sided fecal stasis (5) Physical deconditioning Status: Chronic Problem Text: More accurately exercise intolerance limited by symptoms. 06/11 - I spoke to Dr. Mosher today regarding Jemima's history, current conditions, what we are doing to both dx and tx her. She is looking for some improvement in Jemima's function over the weekend. If this happens than ARU is looking like a better option as she may be able to recover quickly enough to meet her functional goals before her insurance company starts to squawk. However, if Jemima has not made demonstrable functional progress, then SNF is looking more like the correct option for her. 06/10 - She reports that the sessions with Catrachita Andres, O/T and Brandon Babb DPT yesterday were some of the best she has had since she has been here. She felt that the cuing that was done was helpful in a way that she could really understand. She was encouraged by the sessions and has hopes that she will be accepted to the ARU. I am getting conflicting reports; the patient thinks this is still an open option, but nursing reported to me that she was declined by ARU. I will try to clarify this with Dr. Mosher as I think she is a reasonable ARU candidate as long as her sessions can be split to give her some physical rest when her body tires out. She is certainly motivated to get better. 06/09 - she was evaluated by occupational therapy today and reports the session went really well. I have hopes that acute rehabilitation may work for her. If that does not subacute remains an option, but I'm encouraged that she may be able to participate with intolerant more intense therapy. 06/08 - I made it clear to her and P/T and PFS that I believe that sub-acute rehab is the right option for her and that I think we are in a place where she can begin filling out apps. Case management let me know that they think that it is unlikely that she will get a local bed. Additionally, Aram Tang let me know that her insurance company is interested in finding out when she will be discharged from the acute care facility. 06/07 - continues to work with P/T but it is becoming more obvious that acute rehab isn't an option for her because of her exercise intolerance. 06/05 - apparently she expended significant effort and energy to stand up in her rolling walker today. She reports that she is doing exercises in bed between therapy sessions. She admits to doing "bed Brian Chi" to help focus on balance and push herself so that towards a goal of recovery and a normal functional life. 06/01 not safe for dc home-plan home c services (Deandre Forrest-spent 71 mins! c px) 05/31 PMR consulted-awaiting evaluation (6) Orthostatic dizziness Status: Chronic Problem Text: Presented c POTS diagnosis on chronic midodrine 10 TID-but NO diagnostic increased HR c standing while hospitalized. Midodrine and fludrocortisone are held. Suspect that the symptoms or orthostatic intolerance are more migraine related than true autonomic dysfunction. Plan/VTE VTE Prophylaxis Ordered?: Yes (patient noted to refuse prophylaxis dose.) Plan Diet: Continue Current Activity: Continue Current, Advance Therapy: PT Medications: Taper Steroids Diagnostics: Check Labs Advance Directives: Other Advance Directive VS, I&O, 24H, Fishbone Vital Signs/I&O Vital Signs Date Time Temp Pulse Resp B/P (MAP) Pulse Ox O2 Delivery O2 Flow Rate FiO2 06/16/18 14:00 97.8 77 18 138/87 (104) 100 Room Air I&O- Last 24 Hours up to 6 AM 06/16/18 06:00 Intake Total 480 ml Balance 480 ml GME ATTESTATION GME ATTESTATION My faculty preceptor for this patient encounter was physically present during the encounter and was fully available. All aspects of the patient interview, examination, medical decision making process, and medical care plan development were reviewed and approved by the faculty preceptor. The faculty preceptor is aware and concurs with the plan as stated in the body of this note and will attest to such by his/her cosignature. ATTENDING NOTE The patient was seen and examined with the PGY-3 resident and the case was reviewed with him. BRANDON SANTANA DO Jun 16, 2018 16:04 Anthony Vyas M.D. Jun 22, 2018 09:07
[2018-06-16] MEDS: ANUSOL HC 25MG SUPP PR SCH ×2 (21:59→22:14)
[2018-06-16 22:00] VITALS: BP 101/87
[2018-06-16] MEDS: [UNRECOGNIZED DRUG - OTHER] PO SCH (22:14)
[2018-06-16] MEDS: HERB LAX PO SCH (22:14)
[2018-06-17] MEDS: DIVALPROEX 250MG *ER* TAB PO SCH ×2 (00:58→12:04)
[2018-06-17] MEDS: MECLIZINE 25 MG TABLET PO SCH ×6 (00:59→20:12)
[2018-06-17] MEDS: diazePAM 2 MG TAB PO SCH ×2 (01:00→12:03)
[2018-06-17] MEDS: ONDANSETRON 4 MG ORAL DISINTEGRATING TAB (Q0162 PER 1MG) SL SCH ×4 (01:02→17:35)
[2018-06-17] MEDS: FIORICET TAB PO PRN ×5 (01:59→20:13)
[2018-06-17] MEDS: PROCHLORPERAZINE 5 MG TAB (S0183) PO SCH ×4 (05:50→23:06)
[2018-06-17 06:00] VITALS: BP 108/70
[2018-06-17] MEDS: HYDROCORTISONE 10 MG TAB PO SCH (06:21)
[2018-06-17] MEDS: ANUSOL HC CREAM 30GM TOP SCH ×2 (09:00→20:14)
[2018-06-17] MEDS: HEPARIN SOD (PORCINE) 5000 UNITS/ML VIAL SQ SCH (09:00)
[2018-06-17] MEDS: INDOMETHACIN 25 MG CAP PO SCH ×3 (09:08→20:12)
[2018-06-17] MEDS: PYRIDOXINE 50 MG TAB PO SCH (09:08)
[2018-06-17] MEDS: SCOPOLAMINE 1MG TRANSDERMAL PATCH TOP SCH (09:08)
[2018-06-17] MEDS: PANTOPRAZOLE 40MG TAB (PROTONIX) PO SCH (09:09)
[2018-06-17] MEDS: CARVedilol 3.125 MG TAB PO SCH ×2 (09:09→20:15)
[2018-06-17] MEDS: TOPIRAMATE (TopAMAX) 25 MG TAB PO SCH ×2 (09:09→20:12)
[2018-06-17] MEDS: HYDROCORTISONE 5MG TABLET PO SCH ×2 (12:03→17:34)
--- NOTE | 2018-06-17 12:29 | REP ---
Clinical: Right upper extremity pain and swelling. Note: Examination was made available on PACS for interpretation on 06/17/2018. Technique: Real time young scale and color Doppler evaluation using linear high frequency transducer. Findings: Occlusive thrombus is identified within the right axillary vein extending through the basilic vein along with focal nonocclusive thrombus in the distal cephalic vein. Visualized right jugular vein, subclavian vein, and brachial veins appear patent. Impression: Acute occlusive thrombus in the right axillary vein extending through the right basilic vein along with small focus of nonocclusive thrombus in the distal cephalic vein. Electronically Signed by Todd Lobo MD 06/17/2018 12:20 P
[2018-06-17 14:00] VITALS: BP 108/61
[2018-06-17] MEDS: WARFARIN SOD 2 MG TAB PO SCH (17:55)
--- NOTE | 2018-06-17 19:40 | IPNPDOC ---
Subjective Date Seen The patient was seen on 06/17/18. Subjective Chief Complaint/HPI Patient is doing alright on exam. She said she worked well with physical therapy. Still has pain and discomfort in right upper extremity. Constitutional: Denies: Chills, Fever Pulmonary: Denies: Dyspnea, Cough Cardiovascular: Denies: Chest Pain Gastrointestinal: Reports: Nausea, Vomiting (reports last was yesterday), Constipation; Denies: Diarrhea Musculoskeletal: Reports: Arm Pain Objective Physical Examination General Exam: Positive: Alert, Cooperative (laying in a semi-recumbent position when I entered the room. ), Other (she was awake and conversant, but not as mentally sharp as usual. Initially there were some pauses for wordfinding, this improved throughout our 20 minute discussion.) Eye Exam: Positive: EOMI; Negative: Sclera icteric ENT Exam: Positive: Mucous membr. moist/pink Chest Exam: Positive: Clear to auscultation Heart Exam: Positive: Rate Normal, Normal S1, Normal S2; Negative: Tachycardic, Bradycardic Extremity Exam: Positive: Normal pulses (radial pulse 2/4 bilaterally), Other (Some tenderness to palpation to medial upper right arm. Some fullness palpated. ); Negative: Clubbing, Cyanosis, Edema Skin Exam: Positive: Rash (faint bimalar erythema, no petechiae) Neuro Exam: Positive: Normal Speech Psych Exam: Positive: Mood NL, Oriented x 3 Assessment /Plan Assessment Seen and examined, agree with resident. Patient counseled extensively re: DVT (associated with mid line) and anticoagulation. Problems (1) Deep vein thrombosis, upper right extremity Problem Text: Diagnosed with Duplex US right upper extremity. Patient still has pain and discomfort. Had discussion starting anticoagulation, Lovenox and Coumadin. Answered patient's questions. (2) Vestibular migraine Problem Text: 06/17 Continue with current regimen 06/16 Patient has been regularly taking Compazine every 6 hours. Was scheduled previously when IV, changing to scheduled medication q6. 06/15 now on po regimen Current regimen: ondansetron ODT 8 SL q6 prochlorperazine 10 IV q6 meclizine 50 po q4 carvedilol 3.125 BID_ SBP remains 100-110, HR 80-90 topiramate 50 PO BID diazepam 2 PO BID scopolamine 1 mg topical q72h pyridoxine 100 PO QD DVP 500/750 PO BID indomethacin 50 PO TID Fioricet 1 PO q4 prn Sumatran 100 mg PO BID PRN-attempting to wean attempting to transition OFF IV medications in order to dc PICC (placed 05/25/18) attempting to limit prn triptan and Fioricet to prevent tolerance 06/[address] Browne and Lela for ARU-initial consult for ARU larissaal was placed 05/31, then again 06/10-per Lela we should have answer if insurance will cover by 06/13 06/11 - today I am changing her Fioricet to prn. She felt it was a safer drug that many of the others since the main ingredient that she was familiar with was caffeine. I explained how the barbital is metabolized into a barbiturate. She was more agreeable to making this prn and trying to wean it off after learning this. I anticipate a decrease in the diazepam dose to 1mg q12h tomorrow. 06/10 - she had an "episode" which to me certainly looks like an atypical migraine, though vestibular symptoms were not prominent this time. She refused the triptan to decrease the chance she would become tolerant to this. I re educated her on the appropriate and inappropriate use of triptans and encouraged her to try it the next time she has an episode like this. I will probably move the decrease of the diazepam dose to 06/12 in case this "episode" was related to the decrease in the diazepam, though again the vestibular symptoms were not prominent. I will also discuss taking her Fioricet from routine to prn as this medication with routine use will induce tolerance and possibly can cause episodes of confusion and decreased mental clarity like she was having. 06/09 - she is tolerating the decrease in the diazepam dose well. I will probably try to reduce the diazepam to 1 mg twice a day on 06/11. 06/08 - Her symptoms are about the same, BUT she was able to defer the medications for about 4h this morning without symptoms. Based on this I feel it is a safe time to begin weaning her diazepam as I don't think she needs it as much any more. She requests to change that medication and the Depakote to a 12 and 12 schedule to facilitate her sleep and give her more time for activities and socialization during the times of day when she most often has visitors. 06/07 - DVP level still <50. Will increase to 500/750. Monitor. Discussed changing the timing of the meds from and , but she isn't sure when she wants it. 06/05 - will check a repeat valproic acid level tomorrow. This regimen seems to have her the most functional so far. She is reporting some feelings of sedation after the diazepam doses, but these are transient. I will make the indomethacin scheduled for now with a plan to decrease the dose of the diazepam soon. 06/02 stable CBCD/CMP, VPA 27-increased DVP to 500 BID, changed ondan IV to ODT 05/30 changed propran 10 BID to carve 3.125 BID (? allergic rxn to propranolol dye-within 10 mins of 1 dose-immediate throat pain) and + DVP 250 BID 05/29 Dr. Lei Neurology favored "more advanced neurological care than can be offered in [place]", multi-discipline approach and psychiatric evaluation 05/23/18 MRI brain c/s angie and MR face s angie NAD (3) Chronic autoimmune thyroiditis Status: Chronic Discussed With: Patient Problem Specific Plan: Monitor Clinically, Repeat Labs Problem Text: Reviewed this finding with patient and its implications for future monitoring. Thyroid fx are basically normal on little/no supplementation. Will d/c supplementation and monitor her thyroid fx at regular intervals. Next thyroid fx testing will likely be just before . 06/05/18: TPO Ab are markedly positive. Tg Ab are mildly positive. Her last set of thyroid function tests were done just before she was admitted and were completely normal. She states that she was on 3/4 grain of Nature Thyroid BID which could correlate to about 150mcg of levothyroxine. However, it is not clear how fastidiously she was taking her supplement. She has theoretically been on 1/4 grain of the Nature Thyroid BID here, but has about 3 doses that were actually administered. My plan for now is to repeat the thyroid function tests since she basically has not been on thyroid supplementation for about 2 weeks. If they are normal, then I am willing to take a bet that her thyroid is functional enough at present to self-regulate and will advocate stopping all thyroid supplementation and monitoring her thyroid functions closely as it is likely that the gland will eventually fail from the auto-immune insult. If they are abnormal, then I'd like to evaluate the pattern and start her on some form of regulated levothyroxine +/- Cytomel if it seems needed. 06/04/18 TPO/TG Ab P (if -, i.e. not c/w AITD and therefore, highly doubt she needs complete replacement) 06/03/18 recommended to change to LT4 (given too high of T3/T4 ratio of porcine TH /4, normal human ratio on 08/04), but ONLY formulation patient will take is Tirosint which is not on [facility] nor [facility] (patient's prescription plan) formulary; therefore, will probably need to continue Nature-Throid (but keep at a constant dose-patient was prescribed 1/4 grain (16.25 mg) BID since admission BUT has only taken 3 times!) 05/10/18 0.41, 0.8, 106 on HD "self-titrated" desiccated porcine TH-taking somewhere between 1/4-3/4 grain BID (which would be between LT4 25-75 BID) (4) Adrenal insufficiency Status: Chronic Problem Text: Favor tertiary AI 2 iatrogenic chronic glucocorticoid steroid use from previous PCP for unknown reason. Goal to slowly wean off HC-decreasing dose by 5 mg q5-7D. 06/11 - D #4 of . Still on track to taper back again on 06/13. 06/10 - D#3 . Had an "episode" but I don't think it was adrenal related as her vitals were completely normal when the "episode" the worst. 06/09 - D#2 06/08 - tolerating just fine (Day 1). I anticipate the next change to on 06/13. 06/07 - will decrease to starting tomorrow. 06/05- day 3 of . She seems to be tolerating this just fine. 06/02 decreased HC 10 TID to , stable SBP, Na/K 05/22 has received stress dose HC, but s s/s of adrenal crisis; therefore, restarted HC 10 TID (HD ) 05/21 Na 142/K 3.7 c SBP 130s on admission (5) Constipation, chronic Status: Chronic Problem Text: Chronic senna / enema dependence (admits to chronic 8-10 "herbal" senna QD for "years" and ~q2W tap water/cider enema prn) Probably exacerbates abdominal component of her migraine. Stable daily BMs on HD senna. 05/22/18 + HD senna 05/14/18 CT AP c moderate R sided fecal stasis (6) Physical deconditioning Status: Chronic Problem Text: More accurately exercise intolerance limited by symptoms. 06/11 - I spoke to Dr. Mosher today regarding Jemima's history, current conditions, what we are doing to both dx and tx her. She is looking for some improvement in Jemima's function over the weekend. If this happens than ARU is looking like a better option as she may be able to recover quickly enough to meet her functional goals before her insurance company starts to squawk. However, if Jemima has not made demonstrable functional progress, then SNF is looking more like the correct option for her. 06/10 - She reports that the sessions with Catrachita Andres, O/T and Brandon Babb DPT yesterday were some of the best she has had since she has been here. She felt that the cuing that was done was helpful in a way that she could really understand. She was encouraged by the sessions and has hopes that she will be accepted to the ARU. I am getting conflicting reports; the patient thinks this is still an open option, but nursing reported to me that she was declined by ARU. I will try to clarify this with Dr. Mohser as I think she is a reasonable ARU candidate as long as her sessions can be split to give her some physical rest when her body tires out. She is certainly motivated to get better. 06/09 - she was evaluated by occupational therapy today and reports the session went really well. I have hopes that acute rehabilitation may work for her. If that does not subacute remains an option, but I'm encouraged that she may be able to participate with intolerant more intense therapy. 06/08 - I made it clear to her and P/T and PFS that I believe that sub-acute rehab is the right option for her and that I think we are in a place where she can begin filling out apps. Case management let me know that they think that it is unlikely that she will get a local bed. Additionally, Aram Tang let me know that her insurance company is interested in finding out when she will be discharged from the acute care facility. 06/07 - continues to work with P/T but it is becoming more obvious that acute rehab isn't an option for her because of her exercise intolerance. 06/05 - apparently she expended significant effort and energy to stand up in her rolling walker today. She reports that she is doing exercises in bed between therapy sessions. She admits to doing "bed Brian Chi" to help focus on balance and push herself so that towards a goal of recovery and a normal functional life. 06/01 not safe for dc home-plan home c services (Deandre Forrest-spent 71 mins! c px) 05/31 PMR consulted-awaiting evaluation (7) Orthostatic dizziness Status: Chronic Problem Text: Presented c POTS diagnosis on chronic midodrine 10 TID-but NO diagnostic increased HR c standing while hospitalized. Midodrine and fludrocortisone are held. Suspect that the symptoms or orthostatic intolerance are more migraine related than true autonomic dysfunction. Plan/VTE VTE Prophylaxis Ordered?: Yes (patient noted to refuse prophylaxis dose.) Plan Diet: Continue Current Activity: Continue Current, Advance Therapy: PT Medications: Taper Steroids Diagnostics: Check Labs Advance Directives: Other Advance Directive VS, I&O, 24H, Fishbone Vital Signs/I&O Vital Signs Date Time Temp Pulse Resp B/P (MAP) Pulse Ox O2 Delivery O2 Flow Rate FiO2 06/17/18 15:22 16 06/17/18 14:00 98.6 70 108/61 (77) 98 Room Air I&O- Last 24 Hours up to 6 AM 06/17/18 06:00 Intake Total 840 ml Output Total 0 ml Balance 840 ml GME ATTESTATION GME ATTESTATION My faculty preceptor for this patient encounter was physically present during the encounter and was fully available. All aspects of the patient interview, examination, medical decision making process, and medical care plan development were reviewed and approved by the faculty preceptor. The faculty preceptor is aware and concurs with the plan as stated in the body of this note and will attest to such by his/her cosignature. BARNDON SANTANA DO Jun 17, 2018 19:39 MELLO LARSON DO Jun 17, 2018 23:32
[2018-06-17] MEDS: ENOXAPARIN 80 MG/0.8 ML SYRINGE (J1650) SC SCH (20:11)
[2018-06-17] MEDS: ANUSOL HC 25MG SUPP PR SCH (20:11)
[2018-06-17 20:13] LABS: INR 0.86; PROTHROMBIN TIME 11.8 SECONDS (12.1-14.4)
[2018-06-17] MEDS: HERB LAX PO SCH (20:14)
[2018-06-17] MEDS: [UNRECOGNIZED DRUG - OTHER] PO SCH (20:14)
[2018-06-17 22:00] VITALS: BP 143/96
[2018-06-18] MEDS: DIVALPROEX 250MG *ER* TAB PO SCH ×3 (00:15→23:55)
[2018-06-18] MEDS: diazePAM 2 MG TAB PO SCH ×3 (00:16→23:54)
[2018-06-18] MEDS: MECLIZINE 25 MG TABLET PO SCH ×6 (00:16→20:11)
[2018-06-18] MEDS: FIORICET TAB PO PRN ×5 (00:48→20:13)
[2018-06-18] MEDS: PROCHLORPERAZINE 5 MG TAB (S0183) PO SCH ×4 (05:43→23:54)
[2018-06-18] MEDS: ONDANSETRON 4 MG ORAL DISINTEGRATING TAB (Q0162 PER 1MG) SL SCH ×5 (05:43→23:55)
[2018-06-18] MEDS: HYDROCORTISONE 10 MG TAB PO SCH (05:44)
[2018-06-18 06:00] VITALS: BP 110/76
[2018-06-18] MEDS: ENOXAPARIN 80 MG/0.8 ML SYRINGE (J1650) SC SCH ×2 (08:37→20:10)
[2018-06-18] MEDS: PANTOPRAZOLE 40MG TAB (PROTONIX) PO SCH (08:37)
[2018-06-18] MEDS: TOPIRAMATE (TopAMAX) 25 MG TAB PO SCH ×2 (08:37→20:11)
[2018-06-18] MEDS: INDOMETHACIN 25 MG CAP PO SCH ×3 (08:38→20:11)
[2018-06-18] MEDS: PYRIDOXINE 50 MG TAB PO SCH (08:38)
[2018-06-18] MEDS: CARVedilol 3.125 MG TAB PO SCH ×2 (08:42→20:16)
[2018-06-18] MEDS: ANUSOL HC CREAM 30GM TOP SCH ×2 (08:45→20:13)
[2018-06-18] MEDS: HYDROCORTISONE 5MG TABLET PO SCH ×2 (12:01→17:32)
--- NOTE | 2018-06-18 12:54 | REP ---
Clinical: Sudden onset of weakness . Comparison: None . Findings: The ventricles, sulci, and cisterns are normal in position and appearance. Franco-white differentiation is maintained. No acute intracranial hemorrhage, mass/mass effect, pathology or trauma/injury. No evidence for acute infarction. No extra-axial fluid collection. Calvarium is intact. Paranasal sinuses and mastoid air cells are clear. Impression: Normal noncontrast head CT. No evidence for acute intracranial pathology or trauma/injury. Electronically Signed by Todd Lobo MD 06/18/2018 12:46 P
[2018-06-18 14:00] VITALS: BP 128/75
[2018-06-18 15:14] LABS: HEMATOCRIT 39.3 % (36.0-47.0); HEMOGLOBIN 13.3 g/dl (12.0-15.5); MEAN CORPUSCULAR HEMOGLOBIN 29.8 pg (27.0-33.0); MEAN CORPUSCULAR HGB CONC 33.8 g/dl (32.0-36.5); MEAN CORPUSCULAR VOLUME 87.9 fl (80.0-96.0); PLATELET COUNT, AUTOMATED 458 10^3/uL (150-450); RED BLOOD COUNT 4.47 10^6/uL (4.00-5.40); WHITE BLOOD COUNT 6.1 10^3/uL (4.0-10.0)
[2018-06-18 15:44] LABS: ALBUMIN 3.8 GM/DL (3.2-5.2); ALT/SGPT 19 U/L (12-78); BILIRUBIN,TOTAL 0.2 MG/DL (0.2-1.0); BLOOD UREA NITROGEN 4 MG/DL (7-18); CALCIUM LEVEL 9.3 MG/DL (8.5-10.1); CARBON DIOXIDE LEVEL 27 MEQ/L (21-32); CHLORIDE LEVEL 103 MEQ/L (98-107); CREATININE FOR GFR 0.76 MG/DL (0.55-1.30); GLOMERULAR FILTRATION RATE > 60.0 (>60); GLUCOSE, FASTING 82 MG/DL (70-100); POTASSIUM SERUM 3.9 MEQ/L (3.5-5.1); SODIUM LEVEL 139 MEQ/L (136-145); TOTAL PROTEIN 7.7 GM/DL (6.4-8.2)
[2018-06-18] MEDS: WARFARIN SOD 2 MG TAB PO SCH (17:36)
--- NOTE | 2018-06-18 19:18 | IPNPDOC ---
Subjective Date Seen The patient was seen on 06/18/18. Subjective Chief Complaint/HPI Patient complained of right facial numbness and numbness in her R hand, sudden onset. It initially sounded as though she had R hand or arm weakness, but later it proved to be worsening of R arm pain limiting movement. Patient was concerned that she had a CVA, though her head CT was normal. Upon discussion, she had just woken up from a nap, during which her head and neck had been oddly positioned, at the time that these symptoms started. She further voices concern that she felt the clot in her arm move around the time that all of these s ymptoms started. Constitutional: Denies: Chills, Fever ENT: Reports: Head Aches Pulmonary: Denies: Dyspnea, Cough Cardiovascular: Denies: Chest Pain Gastrointestinal: Reports: Nausea; Denies: Vomiting, Diarrhea, Constipation Musculoskeletal: Reports: Arm Pain (around her right eye, fingers 3-5 R hand) Neurological: Reports: Weakness (in legs only, at baseline), Numbness Objective Physical Examination General Exam: Positive: Alert, Cooperative (laying in a semi-recumbent position when I entered the room. ), Other (she was awake and conversant, but not as mentally sharp as usual. Initially there were some pauses for wordfinding, this improved throughout our 20 minute discussion.) Eye Exam: Positive: Conjunctiva & lids normal, EOMI; Negative: Sclera icteric ENT Exam: Positive: Mucous membr. moist/pink Chest Exam: Positive: Clear to auscultation Heart Exam: Positive: Rate Normal, Normal S1, Normal S2; Negative: Tachycardic, Bradycardic Extremity Exam: Positive: Normal pulses (radial pulse 2/4 bilaterally), Other (Some tenderness to palpation to medial upper right arm, cordlike tenderness R arm in same position as prior); Negative: Clubbing, Cyanosis, Edema Skin Exam: Positive: Rash (faint bimalar erythema, no petechiae) Neuro Exam: Positive: Normal Speech, Normal Tone, Sensation Intact (despite paresthesias, she reports being able to feel her face and fingers), Cranial Nerves 3-12 NL, Reflexes 2+, Other (strength 4/5 bilat UE and LE ); Negative: Normal Gait (not examined secondary to deconditioning) Psych Exam: Positive: Mood NL, Oriented x 3 Assessment /Plan Problems (1) Deep vein thrombosis, upper right extremity Problem Text: 06/16 RUE US: Acute occlusive thrombus in the right axillary vein extending through the right basilic vein along with small focus of nonocclusive thrombus in the distal cephalic vein. (2) Vestibular migraine Problem Text: Current regimen: ondansetron ODT 8 SL q6 prochlorperazine 10 PO q6 meclizine 50 po q4 carvedilol 3.125 BID SBP remains 100-110, HR 80-90 topiramate 50 PO BID diazepam 2 PO BID scopolamine 1 mg topical q72h pyridoxine 100 PO QD DVP 500/750 PO BID indomethacin 50 PO TID Fioricet 1 PO q4 prn Sumatran 100 mg PO BID PRN-attempting to wean attempting to transition OFF IV medications in order to dc PICC (placed 05/25/18) attempting to limit prn triptan and Fioricet to prevent tolerance 06/[address] Browne and Lela for ARU-initial consult for ARU eval was placed 05/31, then again 06/10-per Lela we should have answer if insurance will cover by 06/13 06/11 - today I am changing her Fioricet to prn. She felt it was a safer drug that many of the others since the main ingredient that she was familiar with was caffeine. I explained how the barbital is metabolized into a barbiturate. She was more agreeable to making this prn and trying to wean it off after learning this. I anticipate a decrease in the diazepam dose to 1mg q12h tomorrow. 06/10 - she had an "episode" which to me certainly looks like an atypical migraine, though vestibular symptoms were not prominent this time. She refused the triptan to decrease the chance she would become tolerant to this. I reeducated her on the appropriate and inappropriate use of triptans and encouraged her to try it the next time she has an episode like this. I will probably move the decrease of the diazepam dose to 06/12 in case this "episode" was related to the decrease in the diazepam, though again the vestibular symptoms were not prominent. I will also discuss taking her Fioricet from routine to prn as this medication with routine use will induce tolerance and possibly can cause episodes of confusion and decreased mental clarity like she was having. 06/09 - she is tolerating the decrease in the diazepam dose well. I will probably try to reduce the diazepam to 1 mg twice a day on 06/11. 06/08 - Her symptoms are about the same, BUT she was able to defer the medications for about 4h this morning without symptoms. Based on this I feel it is a safe time to begin weaning her diazepam as I don't think she needs it as much any more. She requests to change that medication and the Depakote to a 12 and 12 schedule to facilitate her sleep and give her more time for activities and socialization during the times of day when she most often has visitors. 06/07 - DVP level still <50. Will increase to 500/750. Monitor. Discussed changing the timing of the meds from and , but she isn't sure when she wants it. 06/05 - will check a repeat valproic acid level tomorrow. This regimen seems to have her the most functional so far. She is reporting some feelings of sedation after the diazepam doses, but these are transient. I will make the indomethacin scheduled for now with a plan to decrease the dose of the diazepam soon. 06/02 stable CBCD/CMP, VPA 27-increased DVP to 500 BID, changed ondan IV to ODT 05/30 changed propran 10 BID to carve 3.125 BID (? allergic rxn to propranolol dye-within 10 mins of 1 dose-immediate throat pain) and + DVP 250 BID 05/29 Dr. Lei Neurology favored "more advanced neurological care than can be offered in [place]", multi-discipline approach and psychiatric evaluation 05/23/18 MRI brain c/s angie and MR face s angie NAD (3) Chronic autoimmune thyroiditis Status: Chronic Discussed With: Patient Problem Specific Plan: Monitor Clinically, Repeat Labs Problem Text: Reviewed this finding with patient and its implications for future monitoring. Thyroid fx are basically normal on little/no supplementation. Will d/c supplementation and monitor her thyroid fx at regular intervals. Next thyroid fx testing will likely be just before [place]. 06/05/18: TPO Ab are markedly positive. Tg Ab are mildly positive. Her last set of thyroid function tests were done just before she was admitted and were completely normal. She states that she was on 3/4 grain of Nature Thyroid BID which could correlate to about 150mcg of levothyroxine. However, it is not clear how fastidiously she was taking her supplement. She has theoretically been on 1/4 grain of the Nature Thyroid BID here, but has about 3 doses that were actually administered. My plan for now is to repeat the thyroid function tests since she basically has not been on thyroid supplementation for about 2 weeks. If they are normal, then I am willing to take a bet that her thyroid is functional enough at present to self-regulate and will advocate stopping all thyroid supplementation and monitoring her thyroid functions closely as it is likely that the gland will eventually fail from the auto-immune insult. If they are abnormal, then I'd like to evaluate the pattern and start her on some form of regulated levothyroxine +/- Cytomel if it seems needed. 06/04/18 TPO/TG Ab P (if -, i.e. not c/w AITD and therefore, highly doubt she needs complete replacement) 06/03/18 recommended to change to LT4 (given too high of T3/T4 ratio of porcine TH 07/28, normal human ratio on 08/04), but ONLY formulation patient will take is Tirosint which is not on [facility] nor [facility] (patient's prescription plan) formulary; therefore, will probably need to continue Nature-Throid (but keep at a constant dose-patient was prescribed 1/4 grain (16.25 mg) BID since admission BUT has only taken 3 times!) 05/10/18 0.41, 0.8, 106 on HD "self-titrated" desiccated porcine TH-taking somewhere between 1/4-3/4 grain BID (which would be between LT4 25-75 BID) (4) Adrenal insufficiency Status: Chronic Problem Text: favor tertiary AI 2 iatrogenic chronic glucocorticoid steroid use from previous PCP for unknown reason. goal to slowly wean off HC-decreasing dose by 5 mg q5-7D. 06/19 decreased to -stable SBP 110-130, 06/18 Na 139/K 3.9 06/08 decreased to 06/02 decreased HC 10 TID to , stable SBP, Na/K 05/22 has received stress dose HC, but s s/s of adrenal crisis; therefore, restarted HC 10 TID (HD ) 05/21 Na 142/K 3.7 c SBP 130s on admission (5) Constipation, chronic Status: Chronic Problem Text: Chronic senna / enema dependence (admits to chronic 8-10 "herbal" senna QD for "years" and ~q2W tap water/cider enema prn) Probably exacerbates abdominal component of her migraine. Stable daily BMs on HD senna. 05/22/18 + HD senna 05/14/18 CT AP c moderate R sided fecal stasis (6) Physical deconditioning Status: Chronic Problem Text: 06/19 dw PFS-still awaiting insurance decision re ARU; if denied, favoring LTC (PCP Dr. Giraldo agrees c this plan) 05/31 PMR consulted-per Lela (ARU coordinator)-will be accepted to [facility] ARU if insurance will cover (7) Orthostatic dizziness Status: Chronic Problem Text: Presented c POTS diagnosis on chronic midodrine 10 TID-but NO diagnostic increased HR c standing while hospitalized. Midodrine and fludrocortisone are held. Suspect that the symptoms or orthostatic intolerance are more migraine related than true autonomic dysfunction. Plan/VTE VTE Prophylaxis Ordered?: Yes (patient noted to refuse prophylaxis dose.) Plan Diet: Continue Current Activity: Continue Current, Advance Therapy: PT Medications: Taper Steroids Diagnostics: Check Labs Advance Directives: Other Advance Directive VS, I&O, 24H, Krish Vital Signs/I&O Vital Signs Date Time Temp Pulse Resp B/P (MAP) Pulse Ox O2 Delivery O2 Flow Rate FiO2 06/18/18 15:57 18 Room Air 06/18/18 14:00 98.3 94 128/75 (92) 100 I&O- Last 24 Hours up to 6 AM 06/18/18 06:00 Intake Total 1090 ml Output Total 0 ml Balance 1090 ml Laboratory Data 24H LABS Laboratory Tests 2 06/17/18 19:49: Prothrombin Time 11.8L, Prothromb Time International Ratio 0.86 06/18/18 15:02: Nucleated Red Blood Cells % (auto) 0.0, Anion Gap 9, Glomerular Filtration Rate > 60.0, Blood Urea Nitrogen 4L, Creatinine 0.76, Sodium Level 139, Potassium Level 3.9, Chloride Level 103, Carbon Dioxide Level 27, Calcium Level 9.3, Aspartate Amino Transf (AST/SGOT) 15, Alanine Aminotransferase (ALT/SGPT) 19, Alkaline Phosphatase 63, Total Bilirubin 0.2, Total Protein 7.7, Albumin 3.8, Albumin/Globulin Ratio 0.97L CBC/BMP Laboratory Tests 06/18/18 15:02 Red Blood Count 4.47, Mean Corpuscular Volume 87.9, Mean Corpuscular Hemoglobin 29.8, Mean Corpuscular Hemoglobin Concent 33.8, Red Cell Distribution Width 12.8, Calcium Level 9.3, Aspartate Amino Transf (AST/SGOT) 15, Alanine Aminotransferase (ALT/SGPT) 19, Alkaline Phosphatase 63, Total Bilirubin 0.2, Total Protein 7.7, Albumin 3.8 MELLO LARSON DO Jun 18, 2018 19:17 Blu Lamar M.D. Jun 19, 2018 16:39
[2018-06-18 20:01] LABS: INR 0.84; PROTHROMBIN TIME 11.6 SECONDS (12.1-14.4)
[2018-06-18] MEDS: ANUSOL HC 25MG SUPP PR SCH (20:13)
[2018-06-18] MEDS: HERB LAX PO SCH (20:14)
[2018-06-18] MEDS: [UNRECOGNIZED DRUG - OTHER] PO SCH (20:14)
[2018-06-18 22:00] VITALS: BP 119/76
[2018-06-18] MEDS ORDERED: WARFARIN SOD 1 MG TAB PO ONE (23:07)
[2018-06-19] MEDS: MECLIZINE 25 MG TABLET PO SCH ×6 (00:31→21:30)
[2018-06-19] MEDS: FIORICET TAB PO PRN ×4 (00:32→14:09)
[2018-06-19] MEDS: PROCHLORPERAZINE 5 MG TAB (S0183) PO SCH ×4 (05:14→23:19)
[2018-06-19] MEDS: HYDROCORTISONE 10 MG TAB PO SCH (05:56)
[2018-06-19] MEDS: ONDANSETRON 4 MG ORAL DISINTEGRATING TAB (Q0162 PER 1MG) SL SCH ×3 (05:56→17:47)
[2018-06-19 06:00] VITALS: BP 100/69
[2018-06-19 07:18] LABS: INR 0.88; PROTHROMBIN TIME 12.1 SECONDS (12.1-14.4)
[2018-06-19] MEDS: ANUSOL HC CREAM 30GM TOP SCH ×2 (09:13→21:00)
[2018-06-19] MEDS: CARVedilol 3.125 MG TAB PO SCH ×2 (09:13→21:31)
[2018-06-19] MEDS: PYRIDOXINE 50 MG TAB PO SCH (09:13)
[2018-06-19] MEDS: TOPIRAMATE (TopAMAX) 25 MG TAB PO SCH ×2 (09:13→21:30)
[2018-06-19] MEDS: INDOMETHACIN 25 MG CAP PO SCH ×3 (09:14→21:31)
[2018-06-19] MEDS: PANTOPRAZOLE 40MG TAB (PROTONIX) PO SCH (09:14)
[2018-06-19] MEDS: ENOXAPARIN 80 MG/0.8 ML SYRINGE (J1650) SC SCH (09:15)
[2018-06-19] MEDS ORDERED: ONDANSETRON 4 MG ORAL DISINTEGRATING TAB (Q0162 PER 1MG) SL ONE (10:30)
[2018-06-19] MEDS: diazePAM 2 MG TAB PO SCH (12:09)
[2018-06-19] MEDS: HYDROCORTISONE 5MG TABLET PO SCH ×2 (12:09→17:45)
[2018-06-19] MEDS: DIVALPROEX 250MG *ER* TAB PO SCH (12:10)
[2018-06-19 14:00] VITALS: BP 128/70
--- NOTE | 2018-06-19 17:10 | IPNPDOC ---
Subjective Date Seen The patient was seen on 06/19/18. Subjective Chief Complaint/HPI 3 unresponsive "spells" today-none observed, feels mildly "tired" afterwards Constitutional: Denies: Chills Eyes: Denies: Pain ENT: Denies: Head Aches Skin: Denies: Rash, Lesions Pulmonary: Denies: Dyspnea Cardiovascular: Denies: Chest Pain, Palpitations Gastrointestinal: Denies: Nausea, Vomiting Objective Physical Examination General Exam: Positive: Alert, Cooperative (laying in a semi-recumbent position when I entered the room. ), Other (she was awake and conversant, but not as mentally sharp as usual. Initially there were some pauses for wordfinding, this improved throughout our 20 minute discussion.) Eye Exam: Positive: Conjunctiva & lids normal, EOMI; Negative: Sclera icteric ENT Exam: Positive: Mucous membr. moist/pink Chest Exam: Positive: Clear to auscultation Heart Exam: Positive: Rate Normal, Normal S1, Normal S2; Negative: Tachycardic, Bradycardic Extremity Exam: Positive: Normal pulses (radial pulse 2/4 bilaterally), Other (Some tenderness to palpation to medial upper right arm, cordlike tenderness R arm in same position as prior); Negative: Clubbing, Cyanosis, Edema Skin Exam: Positive: Rash (faint bimalar erythema, no petechiae) Neuro Exam: Positive: Normal Speech, Normal Tone, Sensation Intact (despite paresthesias, she reports being able to feel her face and fingers), Cranial Nerves 3-12 NL, Reflexes 2+, Other (strength 4/5 bilat UE and LE ); Negative: Normal Gait (not examined secondary to deconditioning) Psych Exam: Positive: Mood NL, Oriented x 3 Assessment /Plan Problems (1) Spell of altered cognition Status: Chronic Problem Text: favor PNEA vs narcolepsy sudden onset of fatigue s T/C activity, loss of B/B, eyes rolling back ? possibly triggered by defecation 06/19/18 4 spells lasting 15-30 mins; therefore, check EEG 06/18/[address] NAD 01/2018 normal 24H video EEG monitoring per patient at [facility] [place] (but no spells while on monitor) (2) Deep vein thrombosis, upper right extremity Problem Text: favor 3M DOAC given provoked by PICC caution on indo (attempt to wean off) 06/19 changed LMWH/VKA to apixiban per px request (blood draws are very traumatic for px) 06/16 RUE US: Acute occlusive thrombus in the right axillary vein extending through the right basilic vein along with small focus of nonocclusive thrombus in the distal cephalic vein. (3) Vestibular migraine Problem Text: Current regimen: ondansetron ODT 8 SL q6 prochlorperazine 10 PO q6 meclizine 50 po q4 carvedilol 3.125 BID SBP remains 100-110, HR 80-90 topiramate 50 PO BID diazepam 2 PO BID scopolamine 1 mg topical q72h pyridoxine 100 PO QD DVP 500/750 PO BID indomethacin 50 PO TID Fioricet 1 PO q4 (06/19 changed from q4H prn to q4H straight given nursing delay in obtaining-plan to slowly wean time between dosing) sumatran 100 mg PO BID PRN-attempting to wean 06/[address] Browne and Lela for ARU-initial consult for ARU eval was placed 05/31, then again 06/10-per Lela we should have answer if insurance will cover by 06/13 06/11 - today I am changing her Fioricet to prn. She felt it was a safer drug that many of the others since the main ingredient that she was familiar with was caffeine. I explained how the barbital is metabolized into a barbiturate. She was more agreeable to making this prn and trying to wean it off after learning this. I anticipate a decrease in the diazepam dose to 1mg q12h tomorrow. 06/10 - she had an "episode" which to me certainly looks like an atypical migraine, though vestibular symptoms were not prominent this time. She refused the triptan to decrease the chance she would become tolerant to this. I reeducated her on the appropriate and inappropriate use of triptans and encouraged her to try it the next time she has an episode like this. I will probably move the decrease of the diazepam dose to 06/12 in case this "episode" was related to the decrease in the diazepam, though again the vestibular symptoms were not prominent. I will also discuss taking her Fioricet from routine to prn as this medication with routine use will induce tolerance and possibly can cause episodes of confusion and decreased mental clarity like she was having. 06/09 - she is tolerating the decrease in the diazepam dose well. I will probably try to reduce the diazepam to 1 mg twice a day on 06/11. 06/08 - Her symptoms are about the same, BUT she was able to defer the medications for about 4h this morning without symptoms. Based on this I feel it is a safe time to begin weaning her diazepam as I don't think she needs it as much any more. She requests to change that medication and the Depakote to a 12 and 12 schedule to facilitate her sleep and give her more time for activities and socialization during the times of day when she most often has visitors. 06/07 - DVP level still <50. Will increase to 500/750. Monitor. Discussed changing the timing of the meds from and , but she isn't sure when she wants it. 06/05 - will check a repeat valproic acid level tomorrow. This regimen seems to have her the most functional so far. She is reporting some feelings of sedation after the diazepam doses, but these are transient. I will make the indomethacin scheduled for now with a plan to decrease the dose of the diazepam soon. 06/02 stable CBCD/CMP, VPA 27-increased DVP to 500 BID, changed ondan IV to ODT 05/30 changed propran 10 BID to carve 3.125 BID (? allergic rxn to propranolol dye-within 10 mins of 1 dose-immediate throat pain) and + DVP 250 BID 05/29 Dr. Lei Neurology favored "more advanced neurological care than can be offered in [place]", multi-discipline approach and psychiatric evaluation 05/23/18 MRI brain c/s angie and MR face s angie NAD (4) Chronic autoimmune thyroiditis Status: Chronic Discussed With: Patient Problem Specific Plan: Monitor Clinically, Repeat Labs Problem Text: Reviewed this finding with patient and its implications for future monitoring. Thyroid fx are basically normal on little/no supplementation. Will d/c supplementation and monitor her thyroid fx at regular intervals. Next thyroid fx testing will likely be just before [place]. 06/05/18: TPO Ab are markedly positive. Tg Ab are mildly positive. Her last set of thyroid function tests were done just before she was admitted and were completely normal. She states that she was on 3/4 grain of Nature Thyroid BID which could correlate to about 150mcg of levothyroxine. However, it is not clear how fastidiously she was taking her supplement. She has theoretically been on 1/4 grain of the Nature Thyroid BID here, but has about 3 doses that were actually administered. My plan for now is to repeat the thyroid function tests since she basically has not been on thyroid supplementation for about 2 weeks. If they are normal, then I am willing to take a bet that her thyroid is functional enough at present to self-regulate and will advocate stopping all thyroid supplementation and monitoring her thyroid functions closely as it is likely that the gland will eventually fail from the auto-immune insult. If they are abnormal, then I'd like to evaluate the pattern and start her on some form of regulated levothyroxine +/- Cytomel if it seems needed. 06/04/18 TPO/TG Ab P (if -, i.e. not c/w AITD and therefore, highly doubt she needs complete replacement) 06/03/18 recommended to change to LT4 (given too high of T3/T4 ratio of porcine TH 07/28, normal human ratio on 08/04), but ONLY formulation patient will take is Tirosint which is not on [facility] nor [facility] (patient's prescription plan) formulary; therefore, will probably need to continue Nature-Throid (but keep at a constant dose-patient was prescribed 1/4 grain (16.25 mg) BID since admission BUT has only taken 3 times!) 05/10/18 0.41, 0.8, 106 on HD "self-titrated" desiccated porcine TH-taking somewhere between 1/4-3/4 grain BID (which would be between LT4 25-75 BID) (5) Adrenal insufficiency Status: Chronic Problem Text: favor tertiary AI 2 iatrogenic chronic glucocorticoid steroid use from previous PCP for unknown reason. goal to slowly wean off HC-decreasing dose by 5 mg q5-7D. 06/19 decreased to -stable SBP 110-130, 06/18 Na 139/K 3.9 06/08 decreased to 06/02 decreased HC 10 TID to , stable SBP, Na/K 05/22 has received stress dose HC, but s s/s of adrenal crisis; therefore, restarted HC 10 TID (HD ) 05/21 Na 142/K 3.7 c SBP 130s on admission (6) Constipation, chronic Status: Chronic Problem Text: Chronic senna / enema dependence (admits to chronic 8-10 "herbal" senna QD for "years" and ~q2W tap water/cider enema prn) Probably exacerbates abdominal component of her migraine. Stable daily BMs on HD senna. 05/22/18 + HD senna 05/14/18 CT AP c moderate R sided fecal stasis (7) Physical deconditioning Status: Chronic Problem Text: 06/19 dw PFS-still awaiting insurance decision re ARU; if denied, favoring LTC (PCP Dr. Giraldo agrees c this plan) 05/31 PMR consulted-paxton Epps (ARU coordinator)-will be accepted to [facility] ARU if insurance will cover (8) Orthostatic dizziness Status: Chronic Problem Text: Presented c POTS diagnosis on chronic midodrine 10 TID-but NO diagnostic increased HR c standing while hospitalized. Midodrine and fludrocortisone are held. Suspect that the symptoms or orthostatic intolerance are more migraine related than true autonomic dysfunction. Plan/VTE VTE Prophylaxis Ordered?: Yes (patient noted to refuse prophylaxis dose.) Plan Diet: Continue Current Activity: Continue Current, Advance Therapy: PT Medications: Taper Steroids Diagnostics: Check Labs Advance Directives: Other Advance Directive VS, I&O, 24H, [facility] Vital Signs/I&O Vital Signs Date Time Temp Pulse Resp B/P (MAP) Pulse Ox O2 Delivery O2 Flow Rate FiO2 06/19/18 14:39 18 06/19/18 14:00 98.9 92 128/70 (89) 100 Room Air I&O- Last 24 Hours up to 6 AM 06/19/18 05:59 Intake Total 1680 ml Output Total 0 ml Balance 1680 ml Laboratory Data 24H LABS Laboratory Tests 2 06/18/18 19:42: Prothrombin Time 11.6L, Prothromb Time International Ratio 0.84 06/19/18 06:47: Prothrombin Time 12.1, Prothromb Time International Ratio 0.88 Blu Lamar M.D. Jun 19, 2018 17:09
[2018-06-19] MEDS ORDERED: FIORICET TAB PO SCH (18:00)
[2018-06-19] MEDS: HERB LAX PO SCH (21:00)
[2018-06-19] MEDS: ANUSOL HC 25MG SUPP PR SCH (21:00)
[2018-06-19] MEDS: [UNRECOGNIZED DRUG - OTHER] PO SCH (21:00)
[2018-06-19] MEDS: APIXABAN 5 MG TAB (ELIQUIS) PO SCH (21:30)
[2018-06-19] MEDS: FIORICET TAB PO SCH (21:32)
[2018-06-19 22:00] VITALS: BP 110/69
[2018-06-20] MEDS: diazePAM 2 MG TAB PO SCH ×2 (00:37→14:09)
[2018-06-20] MEDS: MECLIZINE 25 MG TABLET PO SCH ×6 (00:38→21:49)
[2018-06-20] MEDS: ONDANSETRON 4 MG ORAL DISINTEGRATING TAB (Q0162 PER 1MG) SL SCH ×4 (00:38→17:50)
[2018-06-20] MEDS: DIVALPROEX 250MG *ER* TAB PO SCH ×2 (00:38→14:09)
[2018-06-20] MEDS: FIORICET TAB PO SCH ×6 (01:23→21:47)
[2018-06-20] MEDS: PROCHLORPERAZINE 5 MG TAB (S0183) PO SCH ×3 (04:58→17:51)
[2018-06-20] MEDS: HYDROCORTISONE 5MG TABLET PO SCH ×3 (05:46→17:51)
[2018-06-20 06:00] VITALS: BP 119/83
[2018-06-20 07:14] LABS: INR 0.9; PROTHROMBIN TIME 12.2 SECONDS (12.1-14.4)
[2018-06-20] MEDS: ANUSOL HC CREAM 30GM TOP SCH ×2 (09:00→21:00)
[2018-06-20 09:15] VITALS: BP 121/84
[2018-06-20] MEDS: PANTOPRAZOLE 40MG TAB (PROTONIX) PO SCH (10:05)
[2018-06-20] MEDS: INDOMETHACIN 25 MG CAP PO SCH ×3 (10:06→21:48)
[2018-06-20] MEDS: PYRIDOXINE 50 MG TAB PO SCH (10:06)
[2018-06-20] MEDS: APIXABAN 5 MG TAB (ELIQUIS) PO SCH ×2 (10:06→21:46)
[2018-06-20] MEDS: TOPIRAMATE (TopAMAX) 25 MG TAB PO SCH ×2 (10:06→21:49)
[2018-06-20] MEDS: CARVedilol 3.125 MG TAB PO SCH ×2 (10:07→21:48)
[2018-06-20] MEDS: SCOPOLAMINE 1MG TRANSDERMAL PATCH TOP SCH (10:08)
--- NOTE | 2018-06-20 17:26 | IPNPDOC ---
Subjective Date Seen The patient was seen on 06/20/18. Subjective Chief Complaint/HPI reports 2 "spells" today s provocation lasting ~5-10 minutes. Stable headache/dizziness c movement Constitutional: Denies: Chills, Fever Eyes: Denies: Pain ENT: Denies: Head Aches Skin: Denies: Rash, Lesions Pulmonary: Denies: Dyspnea, Cough Cardiovascular: Denies: Chest Pain Gastrointestinal: Denies: Nausea Objective Physical Examination General Exam: Positive: Alert, Cooperative (laying in a semi-recumbent position when I entered the room. ), Other (she was awake and conversant, but not as mentally sharp as usual. Initially there were some pauses for wordfinding, this improved throughout our 20 minute discussion.) Eye Exam: Positive: Conjunctiva & lids normal, EOMI; Negative: Sclera icteric ENT Exam: Positive: Mucous membr. moist/pink Chest Exam: Positive: Clear to auscultation Heart Exam: Positive: Rate Normal, Normal S1, Normal S2; Negative: Tachycardic, Bradycardic Extremity Exam: Positive: Normal pulses (radial pulse 2/4 bilaterally), Other (Some tenderness to palpation to medial upper right arm, cordlike tenderness R arm in same position as prior); Negative: Clubbing, Cyanosis, Edema Skin Exam: Positive: Rash (faint bimalar erythema, no petechiae) Neuro Exam: Positive: Normal Speech, Normal Tone, Sensation Intact (despite paresthesias, she reports being able to feel her face and fingers), Cranial Nerves 3-12 NL, Reflexes 2+, Other (strength 4/5 bilat UE and LE ); Negative: Normal Gait (not examined secondary to deconditioning) Psych Exam: Positive: Mood NL, Oriented x 3 Assessment /Plan Problems (1) Physical deconditioning Status: Chronic Problem Text: 06/20 per PT, insurance has denied ARU; therefore, favoring STR vs LTC (PCP Dr. Giraldo agrees c this plan)-placed another PFS consult for placement-plan to change to SNF status if PFS agrees 05/31 PMR consulted-per Lela (ARU coordinator)-will be accepted to [facility] ARU if insurance will cover (2) Vestibular migraine Problem Text: Current regimen: ondansetron ODT 8 SL q6 prochlorperazine 10 PO q6 meclizine 50 po q4 carvedilol 3.125 BID SBP remains 100-110, HR 80-90 topiramate 50 PO BID diazepam 2 PO BID scopolamine 1 mg topical q72h pyridoxine 100 PO QD DVP 500/750 PO BID indomethacin 25 PO TID (06/20/18 decreased to 25 TID given now on DOAC, and vestibular migraine is NOT a classically indomethacin-sensitive VELA; no features of trigeminal autonomic cephalgia) Fioricet 1 PO q4 (06/19 changed from q4H prn to q4H straight given nursing delay in obtaining-plan to slowly wean time between dosing) sumatran 100 mg PO BID PRN-attempting to wean 06/[address] Browne and Lela for ARU-initial consult for ARU [place] was placed 05/31, then again 06/10-per Lela we should have answer if insurance will cover by 06/13 06/11 - today I am changing her Fioricet to prn. She felt it was a safer drug that many of the others since the main ingredient that she was familiar with was caffeine. I explained how the barbital is metabolized into a barbiturate. She was more agreeable to making this prn and trying to wean it off after learning this. I anticipate a decrease in the diazepam dose to 1mg q12h tomorrow. 06/10 - she had an "episode" which to me certainly looks like an atypical migraine, though vestibular symptoms were not prominent this time. She refused the triptan to decrease the chance she would become tolerant to this. I reeducated her on the appropriate and inappropriate use of triptans and encouraged her to try it the next time she has an episode like this. I will probably move the decrease of the diazepam dose to 06/12 in case this "episode" was related to the decrease in the diazepam, though again the vestibular symptoms were not prominent. I will also discuss taking her Fioricet from routine to prn as this medication with routine use will induce tolerance and possibly can cause episodes of confusion and decreased mental clarity like she was having. 06/09 - she is tolerating the decrease in the diazepam dose well. I will probably try to reduce the diazepam to 1 mg twice a day on 06/11. 06/08 - Her symptoms are about the same, BUT she was able to defer the medications for about 4h this morning without symptoms. Based on this I feel it is a safe time to begin weaning her diazepam as I don't think she needs it as much any more. She requests to change that medication and the Depakote to a 12 and 12 schedule to facilitate her sleep and give her more time for activities and socialization during the times of day when she most often has visitors. 06/07 - DVP level still <50. Will increase to 500/750. Monitor. Discussed changing the timing of the meds from and , but she isn't sure when she wants it. 06/05 - will check a repeat valproic acid level tomorrow. This regimen seems to have her the most functional so far. She is reporting some feelings of sedation after the diazepam doses, but these are transient. I will make the indomethacin scheduled for now with a plan to decrease the dose of the diazepam soon. 06/02 stable CBCD/CMP, VPA 27-increased DVP to 500 BID, changed ondan IV to ODT 05/30 changed propran 10 BID to carve 3.125 BID (? allergic rxn to propranolol dye-within 10 mins of 1 dose-immediate throat pain) and + DVP 250 BID 05/29 Dr. Lei Neurology favored "more advanced neurological care than can be offered in [place]", multi-discipline approach and psychiatric evaluation 05/23/18 MRI brain c/s angie and MR face s angie NAD (3) Spell of altered cognition Status: Chronic Problem Text: favor PNEA vs narcolepsy sudden onset of fatigue s T/C activity, loss of B/B, eyes rolling back ? possibly triggered by defecation 06/20/18 EEG report P 06/19/18 4 spells lasting 15-30 mins; therefore, checked EEG 06/18/[address] NAD 01/2018 normal 24H video EEG monitoring [place] [facility] (but no spells while on monitor) (4) Deep vein thrombosis, upper right extremity Problem Text: favor 3M DOAC given provoked by PICC caution on indo (attempt to wean off) 06/19 changed LMWH/VKA to apixiban per px request (blood draws are very t raumatic for px) 06/16 RUE US: Acute occlusive thrombus in the right axillary vein extending through the right basilic vein along with small focus of nonocclusive thrombus in the distal cephalic vein. (5) Chronic autoimmune thyroiditis Status: Chronic Discussed With: Patient Problem Specific Plan: Monitor Clinically, Repeat Labs Problem Text: Reviewed this finding with patient and its implications for future monitoring. Thyroid fx are basically normal on little/no supplementation. Will d/c supplementation and monitor her thyroid fx at regular intervals. Next thyroid fx testing will likely be just before [place]. 06/05/18: TPO Ab are markedly positive. Tg Ab are mildly positive. Her last set of thyroid function tests were done just before she was admitted and were completely normal. She states that she was on 3/4 grain of Nature Thyroid BID which could correlate to about 150mcg of levothyroxine. However, it is not clear how fastidiously she was taking her supplement. She has theoretically been on 1/4 grain of the Nature Thyroid BID here, but has about 3 doses that were actually administered. My plan for now is to repeat the thyroid function tests since she basically has not been on thyroid supplementation for about 2 weeks. If they are normal, then I am willing to take a bet that her thyroid is functional enough at present to self-regulate and will advocate stopping all thyroid supplementation and monitoring her thyroid functions closely as it is likely that the gland will eventually fail from the auto-immune insult. If they are abnormal, then I'd like to evaluate the pattern and start her on some form of regulated levothyroxine +/- Cytomel if it seems needed. 06/04/18 TPO/TG Ab P (if -, i.e. not c/w AITD and therefore, highly doubt she needs complete replacement) 06/03/18 recommended to change to LT4 (given too high of T3/T4 ratio of porcine TH 07/28, normal human ratio on 08/04), but ONLY formulation patient will take is Tirosint which is not on [facility] nor [facility] (patient's prescription plan) formulary; therefore, will probably need to continue Nature-Throid (but keep at a constant dose-patient was prescribed 1/4 grain (16.25 mg) BID since admission BUT has only taken 3 times!) 05/10/18 0.41, 0.8, 106 on HD "self-titrated" desiccated porcine TH-taking somew here between 1/4-3/4 grain BID (which would be between LT4 25-75 BID) (6) Adrenal insufficiency Status: Chronic Problem Text: favor tertiary AI 2 iatrogenic chronic glucocorticoid steroid use from previous PCP for unknown reason. goal to slowly wean off HC-decreasing dose by 5 mg q5-7D. 06/19 decreased to -stable SBP 110-130, 06/18 Na 139/K 3.9 06/08 decreased to 06/02 decreased HC 10 TID to , stable SBP, Na/K 05/22 has received stress dose HC, but s s/s of adrenal crisis; therefore, restarted HC 10 TID (HD ) 05/21 Na 142/K 3.7 c SBP 130s on admission (7) Constipation, chronic Status: Chronic Problem Text: Chronic senna / enema dependence (admits to chronic 8-10 "herbal" senna QD for "years" and ~q2W tap water/cider enema prn) Probably exacerbates abdominal component of her migraine. Stable daily BMs on HD senna. 05/22/18 + HD senna 05/14/18 CT AP c moderate R sided fecal stasis (8) Orthostatic dizziness Status: Chronic Problem Text: Presented c POTS diagnosis on chronic midodrine 10 TID-but NO diagnostic increased HR c standing while hospitalized. Midodrine and fludrocortisone are held. Suspect that the symptoms or orthostatic intolerance are more migraine related than true autonomic dysfunction. Plan/VTE VTE Prophylaxis Ordered?: Yes (patient noted to refuse prophylaxis dose.) Plan Diet: Continue Current Activity: Continue Current, Advance Therapy: PT Medications: Taper Steroids Diagnostics: Check Labs Advance Directives: Other Advance Directive VS, I&O, 24H, [facility] Vital Signs/I&O Vital Signs Date Time Temp Pulse Resp B/P (MAP) Pulse Ox O2 Delivery O2 Flow Rate FiO2 06/20/18 14:40 18 06/20/18 10:07 82 121/84 06/20/18 09:15 97.7 98 Room Air I&O- Last 24 Hours up to 6 AM 06/20/18 06:00 Intake Total 2400 ml Balance 2400 ml Laboratory Data 24H LABS Laboratory Tests 2 06/20/18 06:46: Prothrombin Time 12.2, Prothromb Time International Ratio 0.90 Blu Lamar M.D. Jun 20, 2018 17:26
[2018-06-20] MEDS: ANUSOL HC 25MG SUPP PR SCH (21:46)
[2018-06-20] MEDS: [UNRECOGNIZED DRUG - OTHER] PO SCH (21:50)
[2018-06-20] MEDS: HERB LAX PO SCH (21:50)
[2018-06-20 22:00] VITALS: BP 123/85
[2018-06-21] MEDS: MECLIZINE 25 MG TABLET PO SCH ×6 (00:27→22:08)
[2018-06-21] MEDS: PROCHLORPERAZINE 5 MG TAB (S0183) PO SCH ×5 (00:27→22:08)
[2018-06-21] MEDS: ONDANSETRON 4 MG ORAL DISINTEGRATING TAB (Q0162 PER 1MG) SL SCH ×4 (00:28→17:42)
[2018-06-21] MEDS: DIVALPROEX 250MG *ER* TAB PO SCH ×2 (00:28→14:01)
[2018-06-21] MEDS: diazePAM 2 MG TAB PO SCH ×2 (00:28→14:01)
[2018-06-21] MEDS: FIORICET TAB PO SCH ×6 (02:17→22:08)
[2018-06-21 06:00] VITALS: BP 108/65
[2018-06-21] MEDS: HYDROCORTISONE 5MG TABLET PO SCH ×3 (06:35→17:43)
[2018-06-21] MEDS: APIXABAN 5 MG TAB (ELIQUIS) PO SCH ×2 (08:53→22:08)
[2018-06-21] MEDS: CARVedilol 3.125 MG TAB PO SCH ×2 (08:53→22:12)
[2018-06-21] MEDS: INDOMETHACIN 25 MG CAP PO SCH ×3 (08:53→22:07)
[2018-06-21] MEDS: PANTOPRAZOLE 40MG TAB (PROTONIX) PO SCH (08:54)
[2018-06-21] MEDS: PYRIDOXINE 50 MG TAB PO SCH (08:54)
[2018-06-21] MEDS: ANUSOL HC CREAM 30GM TOP SCH ×2 (08:54→21:00)
[2018-06-21] MEDS: TOPIRAMATE (TopAMAX) 25 MG TAB PO SCH ×2 (08:54→22:07)
--- NOTE | 2018-06-21 11:58 | EEG ---
DATE OF PROCEDURE: 06/20/2018 REFERRING PHYSICIAN: Dr. Peace DIAGNOSIS: Seizure activity. EEG NUMBER: [id number] HISTORY: Patient is a 32-year-old woman who was admitted at [facility] due to headaches, dizziness, vertigo and had episodes of seizure-like spells. She had bowel incontinence during these episodes. This EEG was done to rule out epileptic potential. She is currently taking Topamax, diazepam, Depakote, Coumadin, Eliquis, Protonix, carvedilol, etc. TECHNICAL DESCRIPTION: This digital EEG was recorded by 21 scalp, ear and two EKG electrodes and was reviewed in bipolar and referential montages following reformatting 10-20 international electrode placement system. INTERPRETATION: Patient was noted to be in awake and drowsy states during this EEG. Resting awake background rhythm consisted of well-formed posterior dominant rhythm with anterior/posterior gradient comprising of 11 Hz alpha activity measuring 15-40 microvolts in amplitude, which was symmetric and reactive to eye opening. Anteriorly low voltage and mixed frequency activity was noted. Attenuation of posterior dominant rhythm was seen during transition into drowsiness. Stage I and II sleep were reviewed and were symmetric bilaterally. Anteriorly increased beta activity was noted likely due to medication effect. Hyperventilation elicited mild theta slowing of background rhythm. Photic stimulation remained unremarkable. EKG revealed normal sinus rhythm. No focal, lateralizing or epileptiform abnormalities were seen. No clinical or electrographic seizures were recorded. CONCLUSION: This EEG in awake, drowsy states, stage I and II sleep is within normal limits.
[2018-06-21 14:00] VITALS: BP 117/73
--- NOTE | 2018-06-21 15:50 | IPN ---
DATE: 06/21/2018 Jemima was seen briefly today. Apparently, she has been declined for ARU admission. Per nursing staff, she was walking in the halls yesterday without needing any assistance. Her EG is negative. There was an event that occurred that apparently Jemima felt was a seizure but was witnessed by her nurse and was no felt to be a seizure. In any case, she had a negative EEG. She was visiting a family friend, which when I was rounding, which I did not interrupt. She looked smiling, healthy and well. Plan should be discharge or transfer to rehab tomorrow.
[2018-06-21 22:00] VITALS: BP 124/75
[2018-06-21] MEDS: HERB LAX PO SCH (22:09)
[2018-06-21] MEDS: ANUSOL HC 25MG SUPP PR SCH (22:09)
[2018-06-21] MEDS: [UNRECOGNIZED DRUG - OTHER] PO SCH (22:09)
[2018-06-22] MEDS: MECLIZINE 25 MG TABLET PO SCH ×6 (01:05→21:36)
[2018-06-22] MEDS: DIVALPROEX 250MG *ER* TAB PO SCH ×2 (01:05→12:33)
[2018-06-22] MEDS: FIORICET TAB PO SCH ×6 (01:06→21:37)
[2018-06-22] MEDS: diazePAM 2 MG TAB PO SCH ×2 (01:06→12:34)
[2018-06-22] MEDS: ONDANSETRON 4 MG ORAL DISINTEGRATING TAB (Q0162 PER 1MG) SL SCH ×4 (01:07→18:16)
[2018-06-22 06:00] VITALS: BP 124/76
[2018-06-22] MEDS: PROCHLORPERAZINE 5 MG TAB (S0183) PO SCH ×4 (06:20→23:08)
[2018-06-22] MEDS: HYDROCORTISONE 5MG TABLET PO SCH ×3 (06:20→18:15)
[2018-06-22 06:35] LABS: INR 0.91; PROTHROMBIN TIME 12.3 SECONDS (12.1-14.4)
[2018-06-22] MEDS: ANUSOL HC CREAM 30GM TOP SCH ×2 (09:00→21:00)
[2018-06-22 09:55] VITALS: BP 133/82
[2018-06-22] MEDS: CARVedilol 3.125 MG TAB PO SCH ×2 (09:57→21:41)
[2018-06-22] MEDS: APIXABAN 5 MG TAB (ELIQUIS) PO SCH ×2 (09:57→21:35)
[2018-06-22] MEDS: INDOMETHACIN 25 MG CAP PO SCH ×3 (09:58→21:35)
[2018-06-22] MEDS: TOPIRAMATE (TopAMAX) 25 MG TAB PO SCH ×2 (09:58→21:35)
[2018-06-22] MEDS: PYRIDOXINE 50 MG TAB PO SCH (09:58)
[2018-06-22] MEDS: PANTOPRAZOLE 40MG TAB (PROTONIX) PO SCH (09:59)
[2018-06-22 14:00] VITALS: BP 148/72
[2018-06-22] MEDS: [UNRECOGNIZED DRUG - OTHER] PO SCH (21:00)
[2018-06-22] MEDS ORDERED: INDOMETHACIN 25 MG CAP PO SCH (21:00)
[2018-06-22] MEDS: HERB LAX PO SCH (21:00)
[2018-06-22] MEDS: ANUSOL HC 25MG SUPP PR SCH (21:37)
[2018-06-22 22:00] VITALS: BP 138/80
--- NOTE | 2018-06-22 22:10 | IPNPDOC ---
Subjective Date Seen The patient was seen on 06/22/18. Subjective Chief Complaint/HPI Patient feels she is improving lately. Has been working with PT. Is still looking forward to acute rehab. Constitutional: Denies: Chills, Fever Objective Physical Examination General Exam: Positive: Alert, Cooperative, Other Eye Exam: Positive: EOMI ENT Exam: Positive: Mucous membr. moist/pink Chest Exam: Positive: Clear to auscultation Heart Exam: Positive: Rate Normal, Normal S1, Normal S2 Extremity Exam: Positive: Normal pulses, Other Skin Exam: Positive: Rash Neuro Exam: Positive: Normal Speech Psych Exam: Positive: Mood NL, Oriented x 3 Assessment /Plan Problems (1) Physical deconditioning Status: Chronic Problem Text: 06/20 per PT, insurance has denied ARU; therefore, favoring STR vs LTC (PCP Dr. Giraldo agrees c this plan)-placed another PFS consult for placement-plan to change to SNF status if PFS agrees 05/31 PMR consulted-per Lela (ARU coordinator)-will be accepted to [facility] ARU if insurance will cover (2) Vestibular migraine Problem Text: Current regimen: ondansetron ODT 8 SL q6 prochlorperazine 10 PO q6 meclizine 50 po q4 carvedilol 3.125 BID SBP remains 100-110, HR 80-90 topiramate 50 PO BID diazepam 2 PO BID scopolamine 1 mg topical q72h pyridoxine 100 PO QD DVP 500/750 PO BID indomethacin 25 PO TID (06/20/18 decreased to 25 TID given now on DOAC, and vestibular migraine is NOT a classically indomethacin-sensitive VELA; no features of trigeminal autonomic cephalgia) Fioricet 1 PO q4 (06/19 changed from q4H prn to q4H straight given nursing delay in obtaining-plan to slowly wean time between dosing) sumatran 100 mg PO BID PRN-attempting to wean 06/[address] Browne and Lela for ARU-initial consult for ARU eval was placed 05/31, then again 06/10-per Lela we should have answer if insurance will cover by 06/13 06/11 - today I am changing her Fioricet to prn. She felt it was a safer drug that many of the others since the main ingredient that she was familiar with was caffeine. I explained how the barbital is metabolized into a barbiturate. She was more agreeable to making this prn and trying to wean it off after learning this. I anticipate a decrease in the diazepam dose to 1mg q12h tomorrow. 06/10 - she had an "episode" which to me certainly looks like an atypical migraine, though vestibular symptoms were not prominent this time. She refused the triptan to decrease the chance she would become tolerant to this. I reeducated her on the appropriate and inappropriate use of triptans and encouraged her to try it the next time she has an episode like this. I will probably move the decrease of the diazepam dose to 06/12 in case this "episode" was related to the decrease in the diazepam, though again the vestibular symptoms were not prominent. I will also discuss taking her Fioricet from routine to prn as this medication with routine use will induce tolerance and possibly can cause episodes of confusion and decreased mental clarity like she was having. 06/09 - she is tolerating the decrease in the diazepam dose well. I will probably try to reduce the diazepam to 1 mg twice a day on 06/11. 06/08 - Her symptoms are about the same, BUT she was able to defer the medications for about 4h this morning without symptoms. Based on this I feel it is a safe time to begin weaning her diazepam as I don't think she needs it as much any more. She requests to change that medication and the Depakote to a 12 and 12 schedule to facilitate her sleep and give her more time for activities and socialization during the times of day when she most often has visitors. 06/07 - DVP level still <50. Will increase to 500/750. Monitor. Discussed changing the timing of the meds from and , but she isn't sure when she wants it. 06/05 - will check a repeat valproic acid level tomorrow. This regimen seems to have her the most functional so far. She is reporting some feelings of sedation after the diazepam doses, but these are transient. I will make the indomethacin scheduled for now with a plan to decrease the dose of the diazepam soon. 06/02 stable CBCD/CMP, VPA 27-increased DVP to 500 BID, changed ondan IV to ODT 05/30 changed propran 10 BID to carve 3.125 BID (? allergic rxn to propranolol dye-within 10 mins of 1 dose-immediate throat pain) and + DVP 250 BID 05/29 Dr. Lei Neurology favored "more advanced neurological care than can be offered in [place]", multi-discipline approach and psychiatric evaluation 05/23/18 MRI brain c/s angie and MR face s angie NAD (3) Spell of altered cognition Status: Chronic Problem Text: 06/22 negative EEG favor PNEA vs narcolepsy sudden onset of fatigue s T/C activity, loss of B/B, eyes rolling back ? possibly triggered by defecation 06/20/18 EEG report P 06/19/18 4 spells lasting 15-30 mins; therefore, checked EEG 06/18/[address] NAD 01/2018 normal 24H video EEG monitoring per patient at [facility] (but no spells while on monitor) (4) Deep vein thrombosis, upper right extremity Problem Text: favor 3M DOAC given provoked by PICC caution on indo (attempt to wean off) 06/19 changed LMWH/VKA to apixiban per px request (blood draws are very traumatic for px) 06/16 RUE US: Acute occlusive thrombus in the right axillary vein extending through the right basilic vein along with small focus of nonocclusive thrombus in the distal cephalic vein. (5) Chronic autoimmune thyroiditis Status: Chronic Discussed With: Patient Problem Specific Plan: Monitor Clinically, Repeat Labs Problem Text: Reviewed this finding with patient and its implications for future monitoring. Thyroid fx are basically normal on little/no supplementation. Will d/c supplementation and monitor her thyroid fx at regular intervals. Next thyroid fx testing will likely be just before [place]. 06/05/18: TPO Ab are markedly positive. Tg Ab are mildly positive. Her last set of thyroid function tests were done just before she was admitted and were completely normal. She states that she was on 3/4 grain of Nature Thyroid BID which could correlate to about 150mcg of levothyroxine. However, it is not clear how fastidiously she was taking her supplement. She has theoretically been on 1/4 grain of the Nature Thyroid BID here, but has about 3 doses that were actually administered. My plan for now is to repeat the thyroid function tests since she basically has not been on thyroid supplementation for about 2 weeks. If they are normal, then I am willing to take a bet that her thyroid is functi onal enough at present to self-regulate and will advocate stopping all thyroid supplementation and monitoring her thyroid functions closely as it is likely that the gland will eventually fail from the auto-immune insult. If they are abnormal, then I'd like to evaluate the pattern and start her on some form of regulated levothyroxine +/- Cytomel if it seems needed. 06/04/18 TPO/TG Ab P (if -, i.e. not c/w AITD and therefore, highly doubt she needs complete replacement) 06/03/18 recommended to change to LT4 (given too high of T3/T4 ratio of porcine TH 07/28, normal human ratio on 08/04), but ONLY formulation patient will take is Tirosint which is not on [facility] nor [facility] (patient's prescription plan) formulary; therefore, will probably need to continue Nature-Throid (but keep at a constant dose-patient was prescribed 1/4 grain (16.25 mg) BID since admission BUT has only taken 3 times!) 05/10/18 0.41, 0.8, 106 on HD "self-titrated" desiccated porcine TH-taking somewhere between 1/4-3/4 grain BID (which would be between LT4 25-75 BID) (6) Adrenal insufficiency Status: Chronic Problem Text: favor tertiary AI 2 iatrogenic chronic glucocorticoid steroid use from previous PCP for unknown reason. goal to slowly wean off HC-decreasing dose by 5 mg q5-7D. 06/19 decreased to -stable SBP 110-130, 06/18 Na 139/K 3.9 06/08 decreased to 06/02 decreased HC 10 TID to , stable SBP, Na/K 05/22 has received stress dose HC, but s s/s of adrenal crisis; therefore, restarted HC 10 TID (HD ) 05/21 Na 142/K 3.7 c SBP 130s on admission (7) Constipation, chronic Status: Chronic Problem Text: Chronic senna / enema dependence (admits to chronic 8-10 "herbal" senna QD for "years" and ~q2W tap water/cider enema prn) Probably exacerbates abdominal component of her migraine. Stable daily BMs on HD senna. 05/22/18 + HD senna 05/14/18 CT AP c moderate R sided fecal stasis (8) Orthostatic dizziness Status: Chronic Problem Text: Presented c POTS diagnosis on chronic midodrine 10 TID-but NO diagnostic increased HR c standing while hospitalized. Midodrine and fludrocortisone are held. Suspect that the symptoms or orthostatic intolerance are more migraine related than true autonomic dysfunction. Plan/VTE VTE Prophylaxis Ordered?: Yes (patient noted to refuse prophylaxis dose.) Plan Diet: Continue Current Activity: Continue Current, Advance Therapy: PT Medications: Taper Steroids Diagnostics: Check Labs Advance Directives: Other Advance Directive Plan is to make patient half-way status today. She was admitted on 05/22/18 for intractable vomiting. Her labs did not support longstanding vomiting with normal electrolytes on admission. Abdominal CT showed Mild to moderate fecal loading in the right colon. No bowel dilatation or obstruction. Small free fluid in the pelvis on the right likely physiologic. Cyst in the right ovary measuring 21 x 15 mm. Uterus and left ovary are unremarkable. Appendix is not seen, however, no secondary signs to suggest acute appendicitis.Patient was treated for migraines, adrenal insufficiency. Patient's migraines are currently being treated with Fioricet. Patient was diagnosed with chronic immune thyroiditis with elevated antibodies and normal thyroid function. She has a history of adrenal insufficiency from suspected iatrogenic cause. Her steroid dose was maintained and slowly tapered. She was worked up for spells for possible seizures or narcolepsy with negative EEG. Patient also had negative head and face MRI.To minimize blood draws a picc line and a midline were placed. Ultimately they were removed and patient transitioned to oral medications. Patient developed pain and fullness at site of midline, a vascular US revealed Acute occlusive thrombus in the right axillary vein extending through the right basilic vein along with small focus of nonocclusive thrombus in the distal cephalic vein. She was started on Lovenox and warfarin but could not tolerate lovenox. Patient was then placed on eliquis BID. Patient had deconditioning upon arrival to hospital and has been working with PT for strengthening. VS, I&O, 24H, Fishbone Vital Signs/I&O Vital Signs Date Time Temp Pulse Resp B/P (MAP) Pulse Ox O2 Delivery O2 Flow Rate FiO2 06/22/18 21:41 73 138/80 06/22/18 21:37 16 06/22/18 14:00 97.8 94 Room Air I&O- Last 24 Hours up to 6 AM 06/22/18 06:00 Intake Total 1320 ml Balance 1320 ml Laboratory Data 24H LABS Laboratory Tests 2 06/22/18 06:09: Prothrombin Time 12.3, Prothromb Time International Ratio 0.91 GME ATTESTATION GME ATTESTATION My faculty preceptor for this patient encounter was physically present during the encounter and was fully available. All aspects of the patient interview, examination, medical decision making process, and medical care plan development were reviewed and approved by the faculty preceptor. The faculty preceptor is aware and concurs with the plan as stated in the body of this note and will attest to such by his/her cosignature. BRANDON SANTANA DO Jun 22, 2018 22:10
[2018-06-23] MEDS: diazePAM 2 MG TAB PO SCH ×2 (00:56→12:55)
[2018-06-23] MEDS: MECLIZINE 25 MG TABLET PO SCH ×6 (00:56→22:30)
[2018-06-23] MEDS: DIVALPROEX 250MG *ER* TAB PO SCH ×2 (00:56→12:55)
[2018-06-23] MEDS: ONDANSETRON 4 MG ORAL DISINTEGRATING TAB (Q0162 PER 1MG) SL SCH ×4 (00:57→18:39)
[2018-06-23] MEDS: FIORICET TAB PO SCH ×6 (02:16→22:30)
[2018-06-23] MEDS: HYDROCORTISONE 5MG TABLET PO SCH ×3 (05:53→18:38)
[2018-06-23] MEDS: PROCHLORPERAZINE 5 MG TAB (S0183) PO SCH ×4 (05:54→22:29)
[2018-06-23 06:00] VITALS: BP 120/81
[2018-06-23 07:49] LABS: INR 0.95; PROTHROMBIN TIME 12.8 SECONDS (12.1-14.4)
[2018-06-23] MEDS: CARVedilol 3.125 MG TAB PO SCH ×2 (09:05→22:32)
[2018-06-23] MEDS: PYRIDOXINE 50 MG TAB PO SCH (09:05)
[2018-06-23] MEDS: PANTOPRAZOLE 40MG TAB (PROTONIX) PO SCH (09:06)
[2018-06-23] MEDS: INDOMETHACIN 25 MG CAP PO SCH ×3 (09:06→22:30)
[2018-06-23] MEDS: APIXABAN 5 MG TAB (ELIQUIS) PO SCH ×2 (09:06→22:29)
[2018-06-23] MEDS: TOPIRAMATE (TopAMAX) 25 MG TAB PO SCH ×2 (09:06→22:30)
[2018-06-23] MEDS: ANUSOL HC CREAM 30GM TOP SCH ×2 (09:09→22:32)
[2018-06-23] MEDS: SCOPOLAMINE 1MG TRANSDERMAL PATCH TOP SCH (09:09)
[2018-06-23 14:00] VITALS: BP 131/84
[2018-06-23 16:01] VITALS: BP 126/63
--- NOTE | 2018-06-23 18:12 | IPNPDOC ---
Text Note Date of Service The patient was seen on 06/23/18. NOTE This afternoon patient was seen in her room having an episode. This was witnessed by patient's mother who filmed the event with her cell phone. The patient's nurse arrived and also witnessed it. The patient was sitting in a chair in the room with her head on the table. Her extremities were relaxed and not rigid. She was conversant the whole time. There was no rhythmic convulsions noted. The event lasted a few minutes. Then I arrived and assessed the patient. Patient was conversant. She remembered the event and remembered the nurses arriving. No confusion. Patient did not bite tongue. There was no incontinence. She was able to move arms and legs equally. VS,Fishbone, I+O VS, Fishbone, I+O Vital Signs Date Time Temp Pulse Resp B/P (MAP) Pulse Ox O2 Delivery O2 Flow Rate FiO2 06/23/18 16:01 104 18 126/63 (84) 100 Room Air 06/23/18 14:00 98.6 I&O- Last 24 Hours up to 6 AM 06/23/18 06:00 Intake Total 1375 ml Output Total 0 ml Balance 1375 ml GME ATTESTATION GME ATTESTATION My faculty preceptor for this patient encounter was physically present during the encounter and was fully available. All aspects of the patient interview, examination, medical decision making process, and medical care plan development were reviewed and approved by the faculty preceptor. The faculty preceptor is aware and concurs with the plan as stated in the body of this note and will attest to such by his/her cosignature. BRANDON SANTANA DO Jun 23, 2018 18:12
[2018-06-23 22:00] VITALS: BP 113/66
[2018-06-23] MEDS: ANUSOL HC 25MG SUPP PR SCH (22:29)
[2018-06-23] MEDS: HERB LAX PO SCH (22:31)
[2018-06-23] MEDS: [UNRECOGNIZED DRUG - OTHER] PO SCH (22:31)
[2018-06-24] MEDS: FIORICET TAB PO SCH ×6 (01:21→21:38)
[2018-06-24] MEDS: MECLIZINE 25 MG TABLET PO SCH ×6 (01:22→21:38)
[2018-06-24] MEDS: DIVALPROEX 250MG *ER* TAB PO SCH ×2 (01:22→11:56)
[2018-06-24] MEDS: diazePAM 2 MG TAB PO SCH ×2 (01:23→11:55)
[2018-06-24 06:00] VITALS: BP 110/65
[2018-06-24] MEDS: ONDANSETRON 4 MG ORAL DISINTEGRATING TAB (Q0162 PER 1MG) SL SCH ×4 (06:00→18:29)
[2018-06-24] MEDS: HYDROCORTISONE 5MG TABLET PO SCH ×3 (06:04→18:29)
[2018-06-24] MEDS: PROCHLORPERAZINE 5 MG TAB (S0183) PO SCH ×4 (06:05→21:39)
[2018-06-24 07:46] LABS: INR 0.92; PROTHROMBIN TIME 12.5 SECONDS (12.1-14.4)
[2018-06-24] MEDS: PYRIDOXINE 50 MG TAB PO SCH (09:01)
[2018-06-24] MEDS: PANTOPRAZOLE 40MG TAB (PROTONIX) PO SCH (09:01)
[2018-06-24] MEDS: APIXABAN 5 MG TAB (ELIQUIS) PO SCH ×2 (09:01→21:38)
[2018-06-24] MEDS: INDOMETHACIN 25 MG CAP PO SCH ×3 (09:01→21:38)
[2018-06-24] MEDS: ANUSOL HC CREAM 30GM TOP SCH ×2 (09:02→21:40)
[2018-06-24] MEDS: CARVedilol 3.125 MG TAB PO SCH ×2 (09:02→21:39)
[2018-06-24] MEDS: TOPIRAMATE (TopAMAX) 25 MG TAB PO SCH ×2 (09:02→21:38)
[2018-06-24] MEDS: ANUSOL HC 25MG SUPP PR SCH (21:37)
[2018-06-24] MEDS: HERB LAX PO SCH (21:40)
[2018-06-24] MEDS: [UNRECOGNIZED DRUG - OTHER] PO SCH (21:40)
[2018-06-25] MEDS: DIVALPROEX 250MG *ER* TAB PO SCH ×3 (00:55→23:50)
[2018-06-25] MEDS: MECLIZINE 25 MG TABLET PO SCH ×6 (00:55→21:55)
[2018-06-25] MEDS: diazePAM 2 MG TAB PO SCH ×3 (00:56→23:51)
[2018-06-25] MEDS: ONDANSETRON 4 MG ORAL DISINTEGRATING TAB (Q0162 PER 1MG) SL SCH ×5 (00:56→23:50)
[2018-06-25] MEDS: FIORICET TAB PO SCH ×6 (00:57→21:55)
[2018-06-25 06:00] VITALS: BP 131/86
[2018-06-25] MEDS: PROCHLORPERAZINE 5 MG TAB (S0183) PO SCH ×4 (06:22→23:48)
[2018-06-25] MEDS: HYDROCORTISONE 5MG TABLET PO SCH ×3 (06:23→17:47)
[2018-06-25 07:42] LABS: INR 0.87; PROTHROMBIN TIME 11.9 SECONDS (12.1-14.4)
[2018-06-25] MEDS: ANUSOL HC CREAM 30GM TOP SCH ×2 (09:00→21:00)
[2018-06-25 09:58] VITALS: BP 135/96
[2018-06-25] MEDS: CARVedilol 3.125 MG TAB PO SCH ×2 (10:02→22:02)
[2018-06-25] MEDS: PYRIDOXINE 50 MG TAB PO SCH (10:03)
[2018-06-25] MEDS: APIXABAN 5 MG TAB (ELIQUIS) PO SCH ×2 (10:03→21:53)
[2018-06-25] MEDS: INDOMETHACIN 25 MG CAP PO SCH ×3 (10:03→21:53)
[2018-06-25] MEDS: PANTOPRAZOLE 40MG TAB (PROTONIX) PO SCH (10:03)
[2018-06-25] MEDS: TOPIRAMATE (TopAMAX) 25 MG TAB PO SCH ×2 (10:03→21:55)
[2018-06-25 14:00] VITALS: BP 146/81
[2018-06-25] MEDS: ANUSOL HC 25MG SUPP PR SCH (21:56)
[2018-06-25] MEDS: HERB LAX PO SCH (21:57)
[2018-06-25] MEDS: [UNRECOGNIZED DRUG - OTHER] PO SCH (21:57)
[2018-06-26] MEDS: FIORICET TAB PO SCH ×6 (01:56→21:51)
[2018-06-26] MEDS: MECLIZINE 25 MG TABLET PO SCH ×6 (01:56→21:43)
[2018-06-26] MEDS: PROCHLORPERAZINE 5 MG TAB (S0183) PO SCH ×4 (06:01→22:00)
[2018-06-26] MEDS: ONDANSETRON 4 MG ORAL DISINTEGRATING TAB (Q0162 PER 1MG) SL SCH ×2 (06:01→12:47)
[2018-06-26] MEDS: HYDROCORTISONE 5MG TABLET PO SCH ×3 (06:05→18:04)
[2018-06-26] MEDS: ANUSOL HC CREAM 30GM TOP SCH ×2 (09:00→22:13)
[2018-06-26] MEDS: SCOPOLAMINE 1MG TRANSDERMAL PATCH TOP SCH (09:45)
[2018-06-26] MEDS: INDOMETHACIN 25 MG CAP PO SCH ×2 (09:45→15:07)
[2018-06-26] MEDS: PYRIDOXINE 50 MG TAB PO SCH (09:45)
[2018-06-26] MEDS: CARVedilol 3.125 MG TAB PO SCH ×2 (09:46→21:42)
[2018-06-26] MEDS: PANTOPRAZOLE 40MG TAB (PROTONIX) PO SCH (09:46)
[2018-06-26] MEDS: TOPIRAMATE (TopAMAX) 25 MG TAB PO SCH (09:46)
[2018-06-26] MEDS: APIXABAN 5 MG TAB (ELIQUIS) PO SCH ×2 (09:46→22:00)
[2018-06-26] MEDS: diazePAM 2 MG TAB PO SCH ×2 (12:48→22:11)
[2018-06-26] MEDS: DIVALPROEX 250MG *ER* TAB PO SCH (12:48)
--- NOTE | 2018-06-26 16:29 | IPNPDOC ---
Subjective Date Seen The patient was seen on 06/26/18. Subjective Chief Complaint/HPI perirectal discomfort/ breast enlargement//episodic nausea/vertigo Constitutional: Denies: Chills ENT: Reports: Head Aches Skin: Reports: Other (seems to her that her breasts are larger and somewhat firmer than she would expect at this point in her period. denies mass. ); Denies: Rash Pulmonary: Denies: Dyspnea, Cough Cardiovascular: Denies: Chest Pain, Palpitations Gastrointestinal: Reports: Other Symptoms (c/o perirectal irritation/pain and bleeding with BM); Denies: Nausea, Vomiting Genitourinary: Denies: Dysuria, Frequency Hematologic: Denies: Bruising Endocrine: Denies: Polydipsia Objective Physical Examination General Exam: Positive: Alert, Cooperative (laying in a semi-recumbent position when I entered the room. ), Other (she was awake and conversant, but not as mentally sharp as usual. Initially there were some pauses for wordfinding, this improved throughout our 20 minute discussion.) Eye Exam: Positive: Conjunctiva & lids normal, EOMI; Negative: Sclera icteric ENT Exam: Positive: Mucous membr. moist/pink Heart Exam: Negative: Tachycardic, Bradycardic Extremity Exam: Positive: Normal pulses (radial pulse 2/4 bilaterally), Other (Some tenderness to palpation to medial upper right arm, cordlike tenderness R arm in same position as prior); Negative: Clubbing, Cyanosis, Edema Skin Exam: Positive: Rash (faint bimalar erythema, no petechiae) Neuro Exam: Positive: Normal Speech, Normal Tone, Sensation Intact (despite paresthesias, she reports being able to feel her face and fingers), Cranial Nerves 3-12 NL, Reflexes 2+, Other (strength 4/5 bilat UE and LE ); Negative: Normal Gait (not examined secondary to deconditioning) Psych Exam: Positive: Mood NL, Oriented x 3 Other physical findings rectal exam deferred to tomorrow. Assessment /Plan Problems (1) Physical deconditioning Status: Chronic Problem Text: 06/26 hoping that change in insurance will enable rehab services 06/20 per PT, insurance has denied ARU; therefore, favoring STR vs LTC (PCP Dr. Giraldo agrees c this plan)-placed another PFS consult for placement-plan to change to SNF status if PFS agrees 05/31 PMR consulted-per Lela (ARU coordinator)-will be accepted to [facility] ARU if insurance will cover (2) Vestibular migraine Problem Text: 06/26: Modify Current regimen: ondansetron ODT 8 SL change to regular tab qid prochlorperazine 10 PO change to qid meclizine 50 po reduce to qid carvedilol 3.125 BID SBP remains 100-110, HR 80-90 topiramate 50 PO BID change to 100 at hs, 50 in am diazepam 2 PO BID scopolamine 1 mg topical q72h pyridoxine 100 PO QD DVP 500/750 PO BID stop routine indomethacin 25 PO TID, change to prn migraine. (06/20/18 decreased to 25 TID given now on DOAC, and vestibular migraine is NOT a classically indomethacin-sensitive VELA; no features of trigeminal autonomic cephalgia) change Fioricet 1 PO qid sumatran 100 mg PO BID PRN-attempting to wean 06/[address] Browne and Lela for ARU-initial consult for ARU eval was placed 05/31, then again 06/10-per Lela we should have answer if insurance will cover by 06/13 06/11 - today I am changing her Fioricet to prn. She felt it was a safer drug that many of the others since the main ingredient that she was familiar with was caffeine. I explained how the barbital is metabolized into a barbiturate. She was more agreeable to making this prn and trying to wean it off after learning this. I anticipate a decrease in the diazepam dose to 1mg q12h tomorrow. 06/10 - she had an "episode" which to me certainly looks like an atypical migraine, though vestibular symptoms were not prominent this time. She refused the triptan to decrease the chance she would become tolerant to this. I reeducated her on the appropriate and inappropriate use of triptans and encouraged her to try it the next time she has an episode like this. I will probably move the decrease of the diazepam dose to 06/12 in case this "episode" was related to the decrease in the diazepam, though again the vestibular symptoms were not prominent. I will also discuss taking her Fioricet from routine to prn as this medication with routine use will induce tolerance and possibly can cause episodes of confusion and decreased mental clarity like she was having. 06/09 - she is tolerating the decrease in the diazepam dose well. I will probably try to reduce the diazepam to 1 mg twice a day on 06/11. 06/08 - Her symptoms are about the same, BUT she was able to defer the medications for about 4h this morning without symptoms. Based on this I feel it is a safe time to begin weaning her diazepam as I don't think she needs it as much any more. She requests to change that medication and the Depakote to a 12 and 12 schedule to facilitate her sleep and give her more time for activities and socialization during the times of day when she most often has visitors. 06/07 - DVP level still <50. Will increase to 500/750. Monitor. Discussed changing the timing of the meds from and , but she isn't sure when she wants it. 06/05 - will check a repeat valproic acid level tomorrow. This regimen seems to have her the most functional so far. She is reporting some feelings of sedation after the diazepam doses, but these are transient. I will make the indomethacin scheduled for now with a plan to decrease the dose of the diazepam soon. 06/02 stable CBCD/CMP, VPA 27-increased DVP to 500 BID, changed ondan IV to ODT 05/30 changed propran 10 BID to carve 3.125 BID (? allergic rxn to propranolol dye-within 10 mins of 1 dose-immediate throat pain) and + DVP 250 BID 05/29 Dr. Lei Neurology favored "more advanced neurological care than can be offered in [place]", multi-discipline approach and psychiatric evaluation 05/23/18 MRI brain c/s angie and MR face s angie NAD (3) Spell of altered cognition Status: Chronic Problem Text: 06/22 negative EEG favor PNEA vs narcolepsy sudden onset of fatigue s T/C activity, loss of B/B, eyes rolling back ? possibly triggered by defecation 06/20/18 EEG report P 06/19/18 4 spells lasting 15-30 mins; therefore, checked EEG 06/18/[address] NAD 01/2018 normal 24H video EEG monitoring per patient at [facility] (but no spells while on monitor) (4) Deep vein thrombosis, upper right extremity Problem Text: favor 3M DOAC given provoked by PICC caution on indo (attempt to wean off) 06/19 changed LMWH/VKA to apixiban per px request (blood draws are very traumatic for px) 06/16 RUE US: Acute occlusive thrombus in the right axillary vein extending through the right basilic vein along with small focus of nonocclusive thrombus in the distal cephalic vein. (5) Chronic autoimmune thyroiditis Status: Chronic Discussed With: Patient Problem Specific Plan: Monitor Clinically, Repeat Labs Problem Text: Reviewed this finding with patient and its implications for future monitoring. Thyroid fx are basically normal on little/no supplementation. Will d/c supplementation and monitor her thyroid fx at regular intervals. Next thyroid fx testing will likely be just before [place]. 06/05/18: TPO Ab are markedly positive. Tg Ab are mildly positive. Her last set of thyroid function tests were done just before she was admitted and were completely normal. She states that she was on 3/4 grain of Nature Thyroid BID which could correlate to about 150mcg of levothyroxine. However, it is not clear how fastidiously she was taking her supplement. She has theoretically been on 1/4 grain of the Nature Thyroid BID here, but has about 3 doses that were actually administered. My plan for now is to repeat the thyroid function tests since she basically has not been on thyroid supplementation for about 2 weeks. If they are normal, then I am willing to take a bet that her thyroid is functional enough at present to self-regulate and will advocate stopping all thyroid supplementation and monitoring her thyroid functions closely as it is likely that the gland will eventually fail from the auto-immune insult. If they are abnormal, then I'd like to evaluate the pattern and start her on some form of regulated levothyroxine +/- Cytomel if it seems needed. 06/04/18 TPO/TG Ab P (if -, i.e. not c/w AITD and therefore, highly doubt she needs complete replacement) 06/03/18 recommended to change to LT4 (given too high of T3/T4 ratio of porcine TH 07/28, normal human ratio on 08/04), but ONLY formulation patient will take is Tirosint which is not on [facility] nor [facility] (patient's prescription plan) formulary; therefore, will probably need to continue Nature-Throid (but keep at a constant dose-patient was prescribed 1/4 grain (16.25 mg) BID since admission BUT has only taken 3 times!) 05/10/18 0.41, 0.8, 106 on HD "self-titrated" desiccated porcine TH-taking somewhere between 1/4-3/4 grain BID (which would be between LT4 25-75 BID) (6) Adrenal insufficiency Status: Chronic Problem Text: favor tertiary AI 2 iatrogenic chronic glucocorticoid steroid use from previous PCP for unknown reason. goal to slowly wean off HC-decreasing dose by 5 mg q5-7D. 06/19 decreased to -stable SBP 110-130, 06/18 Na 139/K 3.9 06/08 decreased to 06/02 decreased HC 10 TID to , stable SBP, Na/K 05/22 has received stress dose HC, but s s/s of adrenal crisis; therefore, restarted HC 10 TID (HD ) 05/21 Na 142/K 3.7 c SBP 130s on admission (7) Constipation, chronic Status: Chronic Problem Text: 06/26 patient requesting Arturo to evaluate perianal discomfort with BM. deferred to 06/27. Chronic senna / enema dependence (admits to chronic 8-10 "herbal" senna QD for "years" and ~q2W tap water/cider enema prn) Probably exacerbates abdominal component of her migraine. Stable daily BMs on HD senna. 05/22/18 + HD senna 05/14/18 CT AP c moderate R sided fecal stasis (8) Orthostatic dizziness Status: Chronic Problem Text: Presented c POTS diagnosis on chronic midodrine 10 TID-but NO diagnostic increased HR c standing while hospitalized. Midodrine and fludrocortisone are held. Suspect that the symptoms or orthostatic intolerance are more migraine related than true autonomic dysfunction. Plan/VTE VTE Prophylaxis Ordered?: Yes (patient noted to refuse prophylaxis dose.) Plan Diet: Continue Current Activity: Continue Current, Advance Therapy: PT Medications: Taper Steroids Diagnostics: Check Labs Advance Directives: Other Advance Directive VS, I&O, 24H, Fishbone Vital Signs/I&O Vital Signs Date Time Temp Pulse Resp B/P (MAP) Pulse Ox O2 Delivery O2 Flow Rate FiO2 06/26/18 15:08 18 06/26/18 09:46 89 119/81 06/26/18 06:36 Room Air 06/25/18 14:00 97.7 100 I&O- Last 24 Hours up to 6 AM 06/26/18 06:00 Intake Total 1560 ml Output Total 0 ml Balance 1560 ml Toby Peace MD Jun 26, 2018 16:29
[2018-06-26] MEDS ORDERED: FIORICET TAB PO SCH (17:00)
[2018-06-26] MEDS: ONDANSETRON 4 MG TAB (S0181) PO SCH ×2 (18:05→22:11)
[2018-06-26] MEDS: DIVALPROEX 250 MG TAB PO SCH ×2 (21:00→21:43)
[2018-06-26] MEDS ORDERED: TOPIRAMATE (TopAMAX) 100 MG TAB PO SCH (21:00)
[2018-06-26 22:00] VITALS: BP 113/68
[2018-06-26] MEDS: [UNRECOGNIZED DRUG - OTHER] PO SCH (22:12)
[2018-06-26] MEDS: ANUSOL HC 25MG SUPP PR SCH (22:12)
[2018-06-26] MEDS: HERB LAX PO SCH (22:12)
[2018-06-27 06:00] VITALS: BP 106/58
[2018-06-27] MEDS ORDERED: FIORICET TAB PO ONE (06:15)
[2018-06-27] MEDS ORDERED: PROCHLORPERAZINE 5 MG TAB (S0183) PO ONE (06:15)
[2018-06-27] MEDS ORDERED: MECLIZINE 25 MG TABLET PO ONE (06:30)
[2018-06-27] MEDS ORDERED: ONDANSETRON 4 MG TAB (S0181) PO ONE (06:30)
[2018-06-27] MEDS: HYDROCORTISONE 5MG TABLET PO SCH ×2 (06:48→12:11)
[2018-06-27] MEDS: FIORICET TAB PO SCH ×5 (09:00→21:54)
[2018-06-27] MEDS ORDERED: TOPIRAMATE (TopAMAX) 25 MG TAB PO SCH (09:00)
[2018-06-27] MEDS ORDERED: DIVALPROEX 500 MG TAB PO SCH ×2 (09:00→12:00)
[2018-06-27] MEDS: ONDANSETRON 4 MG TAB (S0181) PO SCH ×3 (09:00→18:10)
[2018-06-27] MEDS: MECLIZINE 25 MG TABLET PO SCH ×3 (09:00→18:09)
[2018-06-27] MEDS: PROCHLORPERAZINE 5 MG TAB (S0183) PO SCH ×3 (09:00→18:10)
[2018-06-27] MEDS: diazePAM 2 MG TAB PO SCH (10:21)
[2018-06-27] MEDS: PANTOPRAZOLE 40MG TAB (PROTONIX) PO SCH (10:21)
[2018-06-27] MEDS: CARVedilol 3.125 MG TAB PO SCH ×2 (10:21→21:55)
[2018-06-27] MEDS: APIXABAN 5 MG TAB (ELIQUIS) PO SCH ×2 (10:21→21:54)
[2018-06-27] MEDS: PYRIDOXINE 50 MG TAB PO SCH (10:22)
--- NOTE | 2018-06-27 10:26 | IPNPDOC ---
Subjective Date Seen The patient was seen on 06/27/18. Subjective Chief Complaint/HPI none new Constitutional: Denies: Chills ENT: Reports: Head Aches Pulmonary: Denies: Dyspnea Cardiovascular: Denies: Chest Pain Gastrointestinal: Denies: Nausea Psych: Reports: Other Psych (continued focus on health related anxiety.) Objective Physical Examination General Exam: Positive: Alert, Cooperative (laying in a semi-recumbent position when I entered the room. ), Other (she was awake and conversant, but not as mentally sharp as usual. Initially there were some pauses for wordfinding, this improved throughout our 20 minute discussion.) Eye Exam: Positive: Conjunctiva & lids normal, EOMI; Negative: Sclera icteric ENT Exam: Positive: Mucous membr. moist/pink Heart Exam: Negative: Tachycardic, Bradycardic Female Exam: Negative: Nl Rectal Sphincter Tone (increased sphincter tone, tender at directly posterior position, no internal mass, no active bleeding, small hemorrhoids, compressible and not particularly tender.,) Extremity Exam: Positive: Normal pulses (radial pulse 2/4 bilaterally), Other (Some tenderness to palpation to medial upper right arm, cordlike tenderness R arm in same position as prior); Negative: Clubbing, Cyanosis, Edema Skin Exam: Positive: Rash (faint bimalar erythema, no petechiae) Neuro Exam: Positive: Normal Speech, Normal Tone, Sensation Intact (despite paresthesias, she reports being able to feel her face and fingers), Cranial Nerves 3-12 NL, Reflexes 2+, Other (strength 4/5 bilat UE and LE ); Negative: Normal Gait (not examined secondary to deconditioning) Psych Exam: Positive: Mood NL, Oriented x 3 Assessment /Plan Problems (1) Physical deconditioning Status: Chronic Problem Text: 06/26 hoping that change in insurance will enable rehab services 06/20 per PT, insurance has denied ARU; therefore, favoring STR vs LTC (PCP Dr. Giraldo agrees c this plan)-placed another PFS consult for placement-plan to change to SNF status if PFS agrees 05/31 PMR consulted-per Lela (ARU coordinator)-will be accepted to [facility] ARU if insurance will cover (2) Vestibular migraine Problem Text: 06/26: Modify Current regimen: ondansetron ODT 8 SL change to regular tab qid prochlorperazine 10 PO change to qid meclizine 50 po reduce to qid carvedilol 3.125 BID SBP remains 100-110, HR 80-90 topiramate 50 PO BID change to 100 at hs, 50 in am diazepam 2 PO BID scopolamine 1 mg topical q72h pyridoxine 100 PO QD DVP 500/750 PO BID stop routine indomethacin 25 PO TID, change to prn migraine. (06/20/18 decreased to 25 TID given now on DOAC, and vestibular migraine is NOT a classically indomethacin-sensitive VELA; no features of trigeminal autonomic cephalgia) change Fioricet 1 PO qid sumatran 100 mg PO BID PRN-attempting to wean 06/[address] Browne and Lela for ARU-initial consult for ARU [place] was placed 05/31, then again 06/10-per Lela we should have answer if insurance will cover by 06/13 06/11 - today I am changing her Fioricet to prn. She felt it was a safer drug that many of the others since the main ingredient that she was familiar with was caffeine. I explained how the barbital is metabolized into a barbiturate. She was more agreeable to making this prn and trying to wean it off after learning this. I anticipate a decrease in the diazepam dose to 1mg q12h tomorrow. 06/10 - she had an "episode" which to me certainly looks like an atypical migr christina, though vestibular symptoms were not prominent this time. She refused the triptan to decrease the chance she would become tolerant to this. I reeducated her on the appropriate and inappropriate use of triptans and encouraged her to try it the next time she has an episode like this. I will probably move the decrease of the diazepam dose to 06/12 in case this "episode" was related to the decrease in the diazepam, though again the vestibular symptoms were not prominent. I will also discuss taking her Fioricet from routine to prn as this medication with routine use will induce tolerance and possibly can cause episodes of confusion and decreased mental clarity like she was having. 06/09 - she is tolerating the decrease in the diazepam dose well. I will prob ably try to reduce the diazepam to 1 mg twice a day on 06/11. 06/08 - Her symptoms are about the same, BUT she was able to defer the medications for about 4h this morning without symptoms. Based on this I feel it is a safe time to begin weaning her diazepam as I don't think she needs it as much any more. She requests to change that medication and the Depakote to a 12 and 12 schedule to facilitate her sleep and give her more time for activities and socialization during the times of day when she most often has visitors. 06/07 - DVP level still <50. Will increase to 500/750. Monitor. Discussed changing the timing of the meds from and , but she isn't sure when she wants it. 06/05 - will check a repeat valproic acid level tomorrow. This regimen seems to have her the most functional so far. She is reporting some feelings of sedation after the diazepam doses, but these are transient. I will make the indomethacin scheduled for now with a plan to decrease the dose of the diazepam soon. 06/02 stable CBCD/CMP, VPA 27-increased DVP to 500 BID, changed ondan IV to ODT 05/30 changed propran 10 BID to carve 3.125 BID (? allergic rxn to propranolol dye-within 10 mins of 1 dose-immediate throat pain) and + DVP 250 BID 05/29 Dr. Lei Neurology favored "more advanced neurological care than can be offered in [place]", multi-discipline approach and psychiatric evaluation 05/23/18 MRI brain c/s angie and MR face s angie NAD (3) Spell of altered cognition Status: Chronic Problem Text: 06/22 negative EEG favor PNEA vs narcolepsy sudden onset of fatigue s T/C activity, loss of B/B, eyes rolling back ? possibly triggered by defecation 06/20/18 EEG report P 06/19/18 4 spells lasting 15-30 mins; therefore, checked EEG 06/18/[address] NAD 01/2018 normal 24H video EEG monitoring per patient at [facility] (but no spells while on monitor) (4) Deep vein thrombosis, upper right extremity Problem Text: favor 3M DOAC given provoked by PICC caution on indo (attempt to wean off) 06/19 changed LMWH/VKA to apixiban per px request (blood draws are very trauma tic for px) 06/16 RUE US: Acute occlusive thrombus in the right axillary vein extending through the right basilic vein along with small focus of nonocclusive thrombus in the distal cephalic vein. (5) Chronic autoimmune thyroiditis Status: Chronic Discussed With: Patient Problem Specific Plan: Monitor Clinically, Repeat Labs Problem Text: Reviewed this finding with patient and its implications for future monitoring. Thyroid fx are basically normal on little/no supplementation. Will d/c supplementation and monitor her thyroid fx at regular intervals. Next thyroid fx testing will likely be just before [place]. 06/05/18: TPO Ab are markedly positive. Tg Ab are mildly positive. Her last set of thyroid function tests were done just before she was admitted and were completely normal. She states that she was on 3/4 grain of Nature Thyroid BID which could correlate to about 150mcg of levothyroxine. However, it is not clear how fastidiously she was taking her supplement. She has theoretically been on 1/4 grain of the Nature Thyroid BID here, but has about 3 doses that were actually administered. My plan for now is to repeat the thyroid function tests since she basically has not been on thyroid supplementation for about 2 weeks. If they are normal, then I am willing to take a bet that her thyroid is functional enough at present to self-regulate and will advocate stopping all thyroid supplementation and monitoring her thyroid functions closely as it is likely that the gland will eventually fail from the auto-immune insult. If they are abnormal, then I'd like to evaluate the pattern and start her on some form of regulated levothyroxine +/- Cytomel if it seems needed. 06/04/18 TPO/TG Ab P (if -, i.e. not c/w AITD and therefore, highly doubt she needs complete replacement) 06/03/18 recommended to change to LT4 (given too high of T3/T4 ratio of porcine TH 07/28, normal human ratio on 08/04), but ONLY formulation patient will take is Tirosint which is not on [facility] nor [facility] (patient's prescription plan) formulary; therefore, will probably need to continue Nature-Throid (but keep at a constant dose-patient was prescribed 1/4 grain (16.25 mg) BID since admission BUT has only taken 3 times!) 05/10/18 0.41, 0.8, 106 on HD "self-titrated" desiccated porcine TH-taking somewhere between 1/4-3/4 grain BID (which would be between LT4 25-75 BID) (6) Adrenal insufficiency Status: Chronic Problem Text: 06/27: slight decrease today of hydrocortisone per previously outlined plan.. favor tertiary AI 2 iatrogenic chronic glucocorticoid steroid use from previous PCP for unknown reason. goal to slowly wean off HC-decreasing dose by 5 mg q5-7D. 06/19 decreased to -stable SBP 110-130, 06/18 Na 139/K 3.9 06/08 decreased to 06/02 decreased HC 10 TID to , stable SBP, Na/K 05/22 has received stress dose HC, but s s/s of adrenal crisis; therefore, restarted HC 10 TID (HD ) 05/21 Na 142/K 3.7 c SBP 130s on admission (7) Constipation, chronic Status: Chronic Problem Text: 06/27: exam consistent with possible small rectal fissure due to finding of localizing discomfort, no mass. but no bleeding noted. patient is not a good candidate for treatment with rectal NTG due to headaches. she describes prolapsing tissue at times, that she reduces with gloved finger, that has been problem for years she says. recommend eval by colorectal specialist after discharge from hospital. 06/26 patient requesting Arturo to evaluate perianal discomfort with BM. deferred to 06/27. Chronic senna / enema dependence (admits to chronic 8-10 "herbal" senna QD for "years" and ~q2W tap water/cider enema prn) Probably exacerbates abdominal component of her migraine. Stable daily BMs on HD senna. 05/22/18 + HD senna 05/14/18 CT AP c moderate R sided fecal stasis (8) Orthostatic dizziness Status: Chronic Problem Text: Presented c POTS diagnosis on chronic midodrine 10 TID-but NO diagnostic increased HR c standing while hospitalized. Midodrine and fludrocortisone are held. Suspect that the symptoms or orthostatic intolerance are more migraine related than true autonomic dysfunction. Plan/VTE VTE Prophylaxis Ordered?: Yes (patient noted to refuse prophylaxis dose.) Plan Diet: Continue Current Activity: Continue Current, Advance Therapy: PT Medications: Taper Steroids Diagnostics: Check Labs Advance Directives: Other Advance Directive VS, I&O, 24H, Fishbone Vital Signs/I&O Vital Signs Date Time Temp Pulse Resp B/P (MAP) Pulse Ox O2 Delivery O2 Flow Rate FiO2 06/27/18 06:47 16 Room Air 06/27/18 06:00 97.2 93 106/58 (97) 99 I&O- Last 24 Hours up to 6 AM 06/27/18 05:59 Intake Total 360 ml Balance 360 ml Toby Peace MD Jun 27, 2018 10:26
[2018-06-27] MEDS: ANUSOL HC CREAM 30GM TOP SCH ×2 (12:13→21:00)
[2018-06-27 14:00] VITALS: BP 117/77
[2018-06-27] MEDS: HERB LAX PO SCH (21:53)
[2018-06-27] MEDS: [UNRECOGNIZED DRUG - OTHER] PO SCH (21:53)
[2018-06-27] MEDS: ANUSOL HC 25MG SUPP PR SCH (21:53)
[2018-06-27] MEDS: TOPIRAMATE (TopAMAX) 100 MG TAB PO SCH (21:55)
[2018-06-27 22:00] VITALS: BP 105/58
[2018-06-28] MEDS: diazePAM 2 MG TAB PO SCH ×2 (00:57→12:13)
[2018-06-28] MEDS: DIVALPROEX 250 MG TAB PO SCH (00:57)
[2018-06-28] MEDS: MECLIZINE 25 MG TABLET PO SCH ×4 (00:58→18:08)
[2018-06-28] MEDS: PROCHLORPERAZINE 5 MG TAB (S0183) PO SCH ×4 (00:58→18:07)
[2018-06-28] MEDS: ONDANSETRON 4 MG TAB (S0181) PO SCH ×4 (00:58→18:08)
[2018-06-28] MEDS: FIORICET TAB PO SCH ×6 (03:01→21:08)
[2018-06-28 06:00] VITALS: BP 93/62
[2018-06-28] MEDS: HYDROCORTISONE 5MG TABLET PO SCH ×2 (06:20→12:13)
[2018-06-28] MEDS: TOPIRAMATE (TopAMAX) 25 MG TAB PO SCH (09:40)
[2018-06-28] MEDS: CARVedilol 3.125 MG TAB PO SCH ×2 (09:48→21:09)
[2018-06-28] MEDS: PYRIDOXINE 50 MG TAB PO SCH (09:48)
[2018-06-28] MEDS: PANTOPRAZOLE 40MG TAB (PROTONIX) PO SCH (09:49)
[2018-06-28] MEDS: APIXABAN 5 MG TAB (ELIQUIS) PO SCH ×2 (09:49→21:07)
[2018-06-28] MEDS: ANUSOL HC CREAM 30GM TOP SCH ×2 (09:52→21:00)
[2018-06-28] MEDS: DIVALPROEX 500 MG TAB PO SCH (12:14)
[2018-06-28] MEDS: HERB LAX PO SCH (21:00)
[2018-06-28] MEDS: [UNRECOGNIZED DRUG - OTHER] PO SCH (21:00)
[2018-06-28] MEDS: TOPIRAMATE (TopAMAX) 100 MG TAB PO SCH (21:07)
[2018-06-28] MEDS: ANUSOL HC 25MG SUPP PR SCH (21:08)
[2018-06-28 22:00] VITALS: BP 96/46
[2018-06-29] MEDS: DIVALPROEX 250 MG TAB PO SCH (00:38)
[2018-06-29] MEDS: diazePAM 2 MG TAB PO SCH ×3 (00:39→23:52)
[2018-06-29] MEDS: PROCHLORPERAZINE 5 MG TAB (S0183) PO SCH ×5 (00:39→23:52)
[2018-06-29] MEDS: MECLIZINE 25 MG TABLET PO SCH ×5 (00:39→21:04)
[2018-06-29] MEDS: ONDANSETRON 4 MG TAB (S0181) PO SCH ×5 (00:39→23:52)
[2018-06-29] MEDS: FIORICET TAB PO SCH ×6 (01:48→21:04)
[2018-06-29 06:00] VITALS: BP 97/63
[2018-06-29] MEDS: HYDROCORTISONE 5MG TABLET PO SCH ×2 (06:20→12:06)
[2018-06-29] MEDS: APIXABAN 5 MG TAB (ELIQUIS) PO SCH ×2 (09:40→21:03)
[2018-06-29] MEDS: PYRIDOXINE 50 MG TAB PO SCH (09:40)
[2018-06-29] MEDS: TOPIRAMATE (TopAMAX) 25 MG TAB PO SCH (09:41)
[2018-06-29] MEDS: PANTOPRAZOLE 40MG TAB (PROTONIX) PO SCH (09:41)
[2018-06-29] MEDS: CARVedilol 3.125 MG TAB PO SCH ×2 (09:41→21:05)
[2018-06-29] MEDS: ANUSOL HC CREAM 30GM TOP SCH ×2 (09:45→21:00)
[2018-06-29] MEDS: SCOPOLAMINE 1MG TRANSDERMAL PATCH TOP SCH (09:45)
[2018-06-29] MEDS: DIVALPROEX 500 MG TAB PO SCH (12:07)
[2018-06-29] MEDS: [UNRECOGNIZED DRUG - OTHER] PO SCH (21:00)
[2018-06-29] MEDS: HERB LAX PO SCH (21:00)
[2018-06-29] MEDS: ANUSOL HC 25MG SUPP PR SCH (21:03)
[2018-06-29] MEDS: TOPIRAMATE (TopAMAX) 100 MG TAB PO SCH (21:04)
[2018-06-29 21:05] VITALS: BP 111/66
[2018-06-29 22:00] VITALS: BP 111/66
[2018-06-29] MEDS: VALPROIC ACID 250 MG CAP PO SCH (23:51)
[2018-06-30] MEDS: FIORICET TAB PO SCH ×6 (02:09→22:24)
[2018-06-30] MEDS: ONDANSETRON 4 MG TAB (S0181) PO SCH ×3 (05:56→18:50)
[2018-06-30] MEDS: PROCHLORPERAZINE 5 MG TAB (S0183) PO SCH ×4 (05:56→23:59)
[2018-06-30] MEDS: HYDROCORTISONE 5MG TABLET PO SCH ×2 (05:56→12:33)
[2018-06-30 06:00] VITALS: BP 88/56
[2018-06-30] MEDS: ANUSOL HC CREAM 30GM TOP SCH ×2 (09:00→21:00)
[2018-06-30] MEDS: APIXABAN 5 MG TAB (ELIQUIS) PO SCH ×2 (10:35→22:24)
[2018-06-30] MEDS: PANTOPRAZOLE 40MG TAB (PROTONIX) PO SCH (10:35)
[2018-06-30] MEDS: PYRIDOXINE 50 MG TAB PO SCH (10:35)
[2018-06-30] MEDS: MECLIZINE 25 MG TABLET PO SCH ×4 (10:36→22:24)
[2018-06-30] MEDS: TOPIRAMATE (TopAMAX) 25 MG TAB PO SCH (10:36)
[2018-06-30 11:52] VITALS: BP_SYST 104; BP_SYST 109; BP_SYST 121; BP_DIAS 58; BP_DIAS 69; BP_DIAS 78
[2018-06-30] MEDS: VALPROIC ACID 250 MG CAP PO SCH ×2 (12:33→23:59)
[2018-06-30] MEDS: diazePAM 2 MG TAB PO SCH (12:34)
[2018-06-30] MEDS: ANUSOL HC 25MG SUPP PR SCH (22:23)
[2018-06-30] MEDS: TOPIRAMATE (TopAMAX) 100 MG TAB PO SCH (22:24)
[2018-06-30] MEDS: HERB LAX PO SCH (22:25)
[2018-06-30] MEDS: [UNRECOGNIZED DRUG - OTHER] PO SCH (22:25)
[2018-07-01] MEDS: FIORICET TAB PO SCH ×6 (02:00→21:15)
[2018-07-01 06:00] VITALS: BP 97/59
[2018-07-01] MEDS: HYDROCORTISONE 5MG TABLET PO SCH ×2 (06:04→12:29)
[2018-07-01] MEDS: PROCHLORPERAZINE 5 MG TAB (S0183) PO SCH ×3 (06:04→17:42)
[2018-07-01] MEDS: ONDANSETRON 4 MG TAB (S0181) PO SCH ×4 (06:04→17:42)
[2018-07-01] MEDS: TOPIRAMATE (TopAMAX) 25 MG TAB PO SCH (09:55)
[2018-07-01] MEDS: MECLIZINE 25 MG TABLET PO SCH ×4 (09:55→21:14)
[2018-07-01] MEDS: APIXABAN 5 MG TAB (ELIQUIS) PO SCH ×2 (09:55→21:14)
[2018-07-01] MEDS: PYRIDOXINE 50 MG TAB PO SCH (09:55)
[2018-07-01] MEDS: PANTOPRAZOLE 40MG TAB (PROTONIX) PO SCH (09:56)
[2018-07-01] MEDS: ANUSOL HC CREAM 30GM TOP SCH ×2 (09:58→21:14)
[2018-07-01 11:29] VITALS: BP_SYST 116; BP_SYST 124; BP_SYST 88; BP_DIAS 42; BP_DIAS 77
[2018-07-01] MEDS: VALPROIC ACID 250 MG CAP PO SCH (12:29)
[2018-07-01] MEDS: diazePAM 2 MG TAB PO SCH ×2 (12:29)
--- NOTE | 2018-07-01 18:41 | IPNPDOC ---
Subjective Date Seen The patient was seen on 07/01/18. Subjective Chief Complaint/HPI Jemima reports that today was a reasonable day for her. She did have one "blackout" episode last night before bed. She reports that she usually knows when she has had one of these episodes after the fact. She will wake up, usually roughly an hour after she last remembers, and be very groggy. She usually has drooled on herself and it takes her 30-60 minutes to recover her full mental faculties. She does not fall, and has not injured herself. These episodes seem to be happening more frequently, but she can not correlate them with a particular dosing of a medication, certain time after she eats, time of day, r elation to urination or elimination, or any other routine or habit. General: Reports: Normal Appetite Constitutional: Denies: Chills Pulmonary: Denies: Dyspnea, Cough Cardiovascular: Denies: Chest Pain, Palpitations Genitourinary: Reports: Other Symptoms; Denies: Dysuria Psych: Reports: Mood Normal Objective Physical Examination General Exam: Positive: Alert, Cooperative (laying in a semi-recumbent position talking with the nurse and her brother when I entered the room. ), No Acute Distress, Other (she was not sensitive to me lightly shaking the bed today) Eye Exam: Positive: Conjunctiva & lids normal, EOMI; Negative: Sclera icteric ENT Exam: Positive: Mucous membr. moist/pink Neck Exam: Positive: Supple Female Exam: Negative: Nl Rectal Sphincter Tone (increased sphincter tone, tender at directly posterior position, no internal mass, no active bleeding, small hemorrhoids, compressible and not particularly tender.,) Extremity Exam: Negative: Clubbing, Cyanosis, Edema, Swelling Neuro Exam: Positive: Normal Speech, Normal Tone Psych Exam: Positive: Mood NL, Memory Intact, Oriented x 3 Assessment /Plan Problems (1) Physical deconditioning Status: Chronic Problem Text: 07/01: It is not clear what her current discharge status will be. I continue to support an ARU status as she has medical issues that need active management, but they change on a weekly, not daily basis. Now that she has become comfortable with the therapists here at [facility] that sounds like the best option for her. 06/26 hoping that change in insurance will enable rehab services 06/20 per PT, insurance has denied ARU; therefore, favoring STR vs LTC (PCP Dr. Giraldo agrees c this plan)-placed another PFS consult for placement-plan to change to SNF status if PFS agrees 05/31 PMR consulted-per Lela (ARU coordinator)-will be accepted to [facility] ARU if insurance will cover (2) Spell of altered cognition Status: Chronic Problem Text: 07/01: She continues to have these spells on a daily basis. In careful reflection, it seems that these episodes started shortly after we started Depakote for migraine prevention. As her Depakote level was being increased into the seizure prevention range these episodes increased in frequency. As her vertigo is much improved we will weaning her down off of this medication. If the vertigo symptoms get much worse off of this medication, then we'll consider increasing it again and watch more closely for side effects. 06/22 negative EEG favor PNEA vs narcolepsy sudden onset of fatigue s T/C activity, loss of B/B, eyes rolling back ? possibly triggered by defecation 06/20/18 EEG report P 06/19/18 4 spells lasting 15-30 mins; therefore, checked EEG 06/18/[address] NAD 01/2018 normal 24H video EEG monitoring per patient at [facility] (but no spells while on monitor) (3) Orthostatic dizziness Status: Chronic Problem Text: Presented c POTS diagnosis on chronic midodrine 10 TID-but NO diagnostic increased HR c standing while hospitalized. Midodrine and fludrocortisone are held. Suspect that the symptoms or orthostatic intolerance are more migraine related than true autonomic dysfunction. (4) Vestibular migraine Problem Text: 06/26: Modify Current regimen: ondansetron ODT 8 SL change to regular tab qid prochlorperazine 10 PO change to qid meclizine 50 po reduce to qid carvedilol 3.125 BID SBP remains 100-110, HR 80-90 topiramate 50 PO BID change to 100 at hs, 50 in am diazepam 2 PO BID scopolamine 1 mg topical q72h pyridoxine 100 PO QD DVP 500/750 PO BID stop routine indomethacin 25 PO TID, change to prn migraine. (06/20/18 decreased to 25 TID given now on DOAC, and vestibular migraine is NOT a classically indomethacin-sensitive VELA; no features of trigeminal autonomic cephalgia) change Fioricet 1 PO qid sumatran 100 mg PO BID PRN-attempting to wean 06/[address] Browne and Lela for ARU-initial consult for ARU larissaal was placed 05/31, then again 06/10-per Lela we should have answer if insurance will cover by 06/13 06/11 - today I am changing her Fioricet to prn. She felt it was a safer drug that many of the others since the main ingredient that she was familiar with was caffeine. I explained how the barbital is metabolized into a barbiturate. She was more agreeable to making this prn and trying to wean it off after learning this. I anticipate a decrease in the diazepam dose to 1mg q12h tomorrow. 06/10 - she had an "episode" which to me certainly looks like an atypical migraine, though vestibular symptoms were not prominent this time. She refused the triptan to decrease the chance she would become tolerant to this. I reeducated her on the appropriate and inappropriate use of triptans and encouraged her to try it the next time she has an episode like this. I will probably move the decrease of the diazepam dose to 06/12 in case this "episode" was related to the decrease in the diazepam, though again the vestibular symptoms were not prominent. I will also discuss taking her Fioricet from routine to prn as this medication with routine use will induce tolerance and possibly can cause episodes of confusion and decreased mental clarity like she was having. 06/09 - she is tolerating the decrease in the diazepam dose well. I will probably try to reduce the diazepam to 1 mg twice a day on 06/11. 06/08 - Her symptoms are about the same, BUT she was able to defer the medications for about 4h this morning without symptoms. Based on this I feel it is a safe time to begin weaning her diazepam as I don't think she needs it as much any more. She requests to change that medication and the Depakote to a 12 and 12 schedule to facilitate her sleep and give her more time for activities and socialization during the times of day when she most often has visitors. 06/07 - DVP level still <50. Will increase to 500/750. Monitor. Discussed changing the timing of the meds from 9 and , but she isn't sure when she wants it. 06/05 - will check a repeat valproic acid level tomorrow. This regimen seems to have her the most functional so far. She is reporting some feelings of sedation after the diazepam doses, but these are transient. I will make the indomethacin scheduled for now with a plan to decrease the dose of the diazepam soon. 06/02 stable CBCD/CMP, VPA 27-increased DVP to 500 BID, changed ondan IV to ODT 05/30 changed propran 10 BID to carve 3.125 BID (? allergic rxn to propranolol dye-within 10 mins of 1 dose-immediate throat pain) and + DVP 250 BID 05/29 Dr. Lei Neurology favored "more advanced neurological care than can be offered in [place]", multi-discipline approach and psychiatric evaluation 05/23/18 MRI brain c/s angie and MR face s angie NAD (5) Deep vein thrombosis, upper right extremity Problem Text: favor 3M DOAC given provoked by PICC caution on indo (attempt to wean off) 06/19 changed LMWH/VKA to apixiban per px request (blood draws are very traumatic for px) 06/16 RUE US: Acute occlusive thrombus in the right axillary vein extending through the right basilic vein along with small focus of nonocclusive thrombus in the distal cephalic vein. (6) Chronic autoimmune thyroiditis Status: Chronic Discussed With: Patient Problem Specific Plan: Monitor Clinically, Repeat Labs Problem Text: Reviewed this finding with patient and its implications for future monitoring. Thyroid fx are basically normal on little/no supplementation. Will d/c supplementation and monitor her thyroid fx at regular intervals. Next thyroid fx testing will likely be just before [place]. 06/05/18: TPO Ab are markedly positive. Tg Ab are mildly positive. Her last set of thyroid function tests were done just before she was admitted and were completely normal. She states that she was on 3/4 grain of Nature Thyroid BID which could correlate to about 150mcg of levothyroxine. However, it is not clear how fastidiously she was taking her supplement. She has theoretically been on 1/4 grain of the Nature Thyroid BID here, but has about 3 doses that were actually administered. My plan for now is to repeat the thyroid function tests since she basically has not been on thyroid supplementation for about 2 weeks. If they are normal, then I am willing to take a bet that her thyroid is fu nctional enough at present to self-regulate and will advocate stopping all thyroid supplementation and monitoring her thyroid functions closely as it is likely that the gland will eventually fail from the auto-immune insult. If they are abnormal, then I'd like to evaluate the pattern and start her on some form of regulated levothyroxine +/- Cytomel if it seems needed. 06/04/18 TPO/TG Ab P (if -, i.e. not c/w AITD and therefore, highly doubt she needs complete replacement) 06/03/18 recommended to change to LT4 (given too high of T3/T4 ratio of porcine TH 07/28, normal human ratio on 08/04), but ONLY formulation patient will take is T irosint which is not on [facility] nor [facility] (patient's prescription plan) formulary; therefore, will probably need to continue Nature-Throid (but keep at a constant dose-patient was prescribed 1/4 grain (16.25 mg) BID since admission BUT has only taken 3 times!) 05/10/18 0.41, 0.8, 106 on HD "self-titrated" desiccated porcine TH-taking somewhere between 1/4-3/4 grain BID (which would be between LT4 25-75 BID) (7) Adrenal insufficiency Status: Chronic Problem Text: 06/27: slight decrease today of hydrocortisone per previously outlined plan.. favor tertiary AI 2 iatrogenic chronic glucocorticoid steroid use from previous PCP for unknown reason. goal to slowly wean off HC-decreasing dose by 5 mg q5-7D. 06/19 decreased to -stable SBP 110-130, 06/18 Na 139/K 3.9 06/08 decreased to 06/02 decreased HC 10 TID to , stable SBP, Na/K 05/22 has received stress dose HC, but s s/s of adrenal crisis; therefore, restarted HC 10 TID (HD ) 05/21 Na 142/K 3.7 c SBP 130s on admission (8) Constipation, chronic Status: Chronic Problem Text: 06/27: exam consistent with possible small rectal fissure due to finding of localizing discomfort, no mass. but no bleeding noted. patient is not a good candidate for treatment with rectal NTG due to headaches. she describes prolapsing tissue at times, that she reduces with gloved finger, that has been problem for years she says. recommend eval by colorectal specialist after discharge from hospital. 06/26 patient requesting Arturo to evaluate perianal discomfort with BM. deferred to 06/27. Chronic senna / enema dependence (admits to chronic 8-10 "herbal" senna QD for "years" and ~q2W tap water/cider enema prn) Probably exacerbates abdominal component of her migraine. Stable daily BMs on HD senna. 05/22/18 + HD senna 05/14/18 CT AP c moderate R sided fecal stasis Plan/VTE VTE Prophylaxis Ordered?: Yes (patient noted to refuse prophylaxis dose.) Plan Diet: Continue Current Activity: Continue Current, Advance Therapy: PT Medications: Taper Steroids Diagnostics: Check Labs Advance Directives: Other Advance Directive VS, I&O, 24H, Fishbone Vital Signs/I&O Vital Signs Date Time Temp Pulse Resp B/P (MAP) Pulse Ox O2 Delivery O2 Flow Rate FiO2 07/01/18 17:44 16 Room Air 07/01/18 11:29 71 88/42 (57) 77 124/77 (93) 80 116/77 (90) 07/01/18 06:00 97.9 96 I&O- Last 24 Hours up to 6 AM 07/01/18 05:59 Intake Total 1200 ml Balance 1200 ml Luis Giraldo MD Jul 01, 2018 6:41 pm
[2018-07-01] MEDS: HERB LAX PO SCH (21:14)
[2018-07-01] MEDS: [UNRECOGNIZED DRUG - OTHER] PO SCH (21:14)
[2018-07-01] MEDS: ANUSOL HC 25MG SUPP PR SCH (21:14)
[2018-07-01] MEDS: TOPIRAMATE (TopAMAX) 100 MG TAB PO SCH (21:15)
[2018-07-02] MEDS: diazePAM 2 MG TAB PO SCH ×2 (00:01→13:06)
[2018-07-02] MEDS: ONDANSETRON 4 MG TAB (S0181) PO SCH ×4 (00:01→17:09)
[2018-07-02] MEDS: VALPROIC ACID 250 MG CAP PO SCH ×2 (00:01→13:06)
[2018-07-02] MEDS: PROCHLORPERAZINE 5 MG TAB (S0183) PO SCH ×4 (00:01→17:09)
[2018-07-02] MEDS: FIORICET TAB PO SCH ×6 (02:40→22:22)
[2018-07-02 06:00] VITALS: BP 118/78
[2018-07-02] MEDS: HYDROCORTISONE 5MG TABLET PO SCH ×2 (06:06→13:05)
[2018-07-02] MEDS: ANUSOL HC CREAM 30GM TOP SCH ×2 (09:00→22:22)
[2018-07-02] MEDS: SCOPOLAMINE 1MG TRANSDERMAL PATCH TOP SCH (10:02)
[2018-07-02] MEDS: APIXABAN 5 MG TAB (ELIQUIS) PO SCH ×2 (10:03→22:22)
[2018-07-02] MEDS: TOPIRAMATE (TopAMAX) 25 MG TAB PO SCH (10:03)
[2018-07-02] MEDS: MECLIZINE 25 MG TABLET PO SCH ×4 (10:04→22:21)
[2018-07-02] MEDS: PYRIDOXINE 50 MG TAB PO SCH (10:04)
[2018-07-02] MEDS: PANTOPRAZOLE 40MG TAB (PROTONIX) PO SCH (10:04)
[2018-07-02] MEDS: INDOMETHACIN 25 MG CAP PO PRN ×2 (14:45→22:21)
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
[2018-07-02] MEDS: ANUSOL HC 25MG SUPP PR SCH (22:21)
[2018-07-02] MEDS: TOPIRAMATE (TopAMAX) 100 MG TAB PO SCH (22:21)
[2018-07-02] MEDS: [UNRECOGNIZED DRUG - OTHER] PO SCH (22:23)
[2018-07-02] MEDS: HERB LAX PO SCH (22:23)
[2018-07-03] MEDS: diazePAM 2 MG TAB PO SCH ×3 (00:58→23:28)
[2018-07-03] MEDS: FIORICET TAB PO SCH ×6 (00:58→23:28)
[2018-07-03] MEDS: ONDANSETRON 4 MG TAB (S0181) PO SCH ×5 (00:58→23:28)
[2018-07-03] MEDS: PROCHLORPERAZINE 5 MG TAB (S0183) PO SCH ×5 (00:59→23:28)
[2018-07-03] MEDS: VALPROIC ACID 250 MG CAP PO SCH ×3 (00:59→23:26)
[2018-07-03 05:53] VITALS: BP_SYST 100; BP_SYST 107; BP_SYST 90; BP_DIAS 52; BP_DIAS 72; BP_DIAS 74
[2018-07-03] MEDS: HYDROCORTISONE 5MG TABLET PO SCH (06:03)
[2018-07-03 07:00] LABS: HEMATOCRIT 36.8 % (36.0-47.0); MEAN CORPUSCULAR HEMOGLOBIN 30.2 pg (27.0-33.0); MEAN CORPUSCULAR HGB CONC 32.6 g/dl (32.0-36.5); MEAN CORPUSCULAR VOLUME 92.7 fl (80.0-96.0); PLATELET COUNT, AUTOMATED 275 10^3/uL (150-450); RED BLOOD COUNT 3.97 10^6/uL (4.00-5.40); WHITE BLOOD COUNT 5.3 10^3/uL (4.0-10.0)
[2018-07-03 07:24] LABS: ALBUMIN 3.5 GM/DL (3.2-5.2); ALT/SGPT 29 U/L (12-78); BILIRUBIN,TOTAL 0.2 MG/DL (0.2-1.0); BLOOD UREA NITROGEN 9 MG/DL (7-18); CARBON DIOXIDE LEVEL 23 MEQ/L (21-32); CHLORIDE LEVEL 112 MEQ/L (98-107); CREATININE FOR GFR 0.72 MG/DL (0.55-1.30); GLOMERULAR FILTRATION RATE > 60.0 (>60); GLUCOSE, FASTING 92 MG/DL (70-100); SODIUM LEVEL 143 MEQ/L (136-145); TOTAL PROTEIN 6.9 GM/DL (6.4-8.2)
[2018-07-03] MEDS: ANUSOL HC CREAM 30GM TOP SCH ×2 (09:00→23:29)
[2018-07-03] MEDS: MECLIZINE 25 MG TABLET PO SCH ×4 (09:40→23:28)
[2018-07-03] MEDS: PANTOPRAZOLE 40MG TAB (PROTONIX) PO SCH (09:40)
[2018-07-03] MEDS: TOPIRAMATE (TopAMAX) 25 MG TAB PO SCH (09:40)
[2018-07-03] MEDS: PYRIDOXINE 50 MG TAB PO SCH (09:40)
[2018-07-03] MEDS: APIXABAN 5 MG TAB (ELIQUIS) PO SCH ×2 (09:41→23:27)
[2018-07-03] MEDS: INDOMETHACIN 25 MG CAP PO PRN (20:21)
[2018-07-03] MEDS: ANUSOL HC 25MG SUPP PR SCH (21:00)
[2018-07-03] MEDS: TOPIRAMATE (TopAMAX) 100 MG TAB PO SCH (23:27)
[2018-07-03] MEDS: [UNRECOGNIZED DRUG - OTHER] PO SCH (23:29)
[2018-07-03] MEDS: HERB LAX PO SCH (23:29)
[2018-07-04] MEDS: FIORICET TAB PO SCH ×6 (02:23→21:08)
[2018-07-04] MEDS: PROCHLORPERAZINE 5 MG TAB (S0183) PO SCH ×3 (06:12→17:14)
[2018-07-04] MEDS: HYDROCORTISONE 5MG TABLET PO SCH (06:13)
[2018-07-04] MEDS: ONDANSETRON 4 MG TAB (S0181) PO SCH ×3 (06:13→17:14)
[2018-07-04 06:14] VITALS: BP_SYST 103; BP_SYST 105; BP_DIAS 59; BP_DIAS 60
[2018-07-04] MEDS: ANUSOL HC CREAM 30GM TOP SCH ×2 (09:00→21:00)
[2018-07-04] MEDS: TOPIRAMATE (TopAMAX) 25 MG TAB PO SCH (09:15)
[2018-07-04] MEDS: PYRIDOXINE 50 MG TAB PO SCH (09:15)
[2018-07-04] MEDS: MECLIZINE 25 MG TABLET PO SCH ×4 (09:15→21:06)
[2018-07-04] MEDS: PANTOPRAZOLE 40MG TAB (PROTONIX) PO SCH (09:15)
[2018-07-04] MEDS: APIXABAN 5 MG TAB (ELIQUIS) PO SCH ×2 (09:16→21:07)
[2018-07-04] MEDS: INDOMETHACIN 25 MG CAP PO PRN (09:56)
[2018-07-04] MEDS: VALPROIC ACID 250 MG CAP PO SCH (12:18)
[2018-07-04] MEDS: diazePAM 2 MG TAB PO SCH (12:18)
[2018-07-04] MEDS: HERB LAX PO SCH (21:00)
[2018-07-04] MEDS: [UNRECOGNIZED DRUG - OTHER] PO SCH (21:00)
[2018-07-04] MEDS: TOPIRAMATE (TopAMAX) 100 MG TAB PO SCH (21:07)
[2018-07-04] MEDS: ANUSOL HC 25MG SUPP PR SCH (21:07)
[2018-07-05] MEDS: diazePAM 2 MG TAB PO SCH ×2 (00:37→12:52)
[2018-07-05] MEDS: INDOMETHACIN 25 MG CAP PO PRN (00:37)
[2018-07-05] MEDS: ONDANSETRON 4 MG TAB (S0181) PO SCH ×4 (00:38→18:28)
[2018-07-05] MEDS: VALPROIC ACID 250 MG CAP PO SCH ×2 (00:38→12:52)
[2018-07-05] MEDS: PROCHLORPERAZINE 5 MG TAB (S0183) PO SCH ×4 (00:38→18:27)
[2018-07-05] MEDS: FIORICET TAB PO SCH ×6 (01:33→21:09)
[2018-07-05 06:00] VITALS: BP 94/57
[2018-07-05] MEDS: HYDROCORTISONE 5MG TABLET PO SCH (06:25)
[2018-07-05] MEDS: ANUSOL HC CREAM 30GM TOP SCH ×2 (09:00→21:10)
[2018-07-05] MEDS: PANTOPRAZOLE 40MG TAB (PROTONIX) PO SCH (10:04)
[2018-07-05] MEDS: SCOPOLAMINE 1MG TRANSDERMAL PATCH TOP SCH (10:04)
[2018-07-05] MEDS: TOPIRAMATE (TopAMAX) 25 MG TAB PO SCH (10:05)
[2018-07-05] MEDS: APIXABAN 5 MG TAB (ELIQUIS) PO SCH ×2 (10:05→21:08)
[2018-07-05] MEDS: PYRIDOXINE 50 MG TAB PO SCH (10:05)
[2018-07-05] MEDS: MECLIZINE 25 MG TABLET PO SCH ×4 (10:05→21:08)
--- NOTE | 2018-07-05 20:05 | IPNPDOC ---
Text Note Date of Service These conversations happened on 07/05/18. NOTE Over the course of the day I spoke with Dr. Chaim Browne, Dr. Valentín Muir, and the patient. I also reviewed the last weeks worth of notes by David Babb DPT. Jemima reports that while we are down titrating the valproic acid she has been jensen ving more spells (which she is still calling "blips") where she has a transient loss of memory and she believes consciousness. She reports that these blips are now happening 1-2 times a day, usually at night. She has discerned some patterns. If the blip happens between and 10 it is more like an "electric feeling" when she regains consciousness. She also describes these as "like I was having a bad day and took a pill at a democrat that I shouldn't have." She seems to be describing a mental fatigue, which she differentiates from a physical fatigue that she experiences at the end of most of her P/T sessions. She reports that these earlier in the night blips still take her about 45-60 minutes to recover full mental clarity from. However, if the blip happens after 10pm she finds it less likely that she will ever regain mental clarity until the morning again. She describes these blips more like nightmares that she can't escape from rather than a mental fatigue. She still is holding on hope that these episodes are related to the valproic acid and that once that is cleared from her system they will stop. I pointed out that they are becoming more frequent, not less frequent, as the valproate level in her blood decreases. She affirmed sadly that this does seem to be true. I am in favor of trying to see if we can get her transferred to a facility that has EEG video monitoring so we can sort out if these "blips" are a neurologic phenomenon (like seizures), a sleep disorder (like narcolepsy), something entirely different, or perhaps nothing will show on either the video or EEG during these "blips". The fact that they are at least every day indicates to me that it is likely that we will now be likely to catch at least one of these episodes while she is being monitored. This information will be tremendously useful to us as we determine if we can safely discharge her home while these "blips" are ongoing. I introduced the idea of ruling out serious pathology and then dealing with "very annoying symptoms" with symptom directed safety care if this is needed; even if they are dealt with in the home environment. I will work with Dr. Muir (who is rounding for our group this week) to see if this can be coordinated, or to at least find out what kind of stipulations such a facility may have on accepting her for testing (e.g. must be off all medications, must be directly transferred back, etc). I am pleased to see the continued physical progress she is making. It now looks as if she can walk 115 feet and up the equivalent of 12 stairs. She seemed to be stable ambulating with bilateral canes. I am no longer thinking that she needs significantly more time in an rehab setting. I do think that home with P/T services is a good idea, and it looks as if our physical therapists are in agreement. I will note that she is not yet safe for discharge from either a medical or P/T stand point, but I believe that we are getting much closer. If we can rule out many serious pathologic conditions with video EEG monitoring this will be a huge step in the direction of discharge. VS,Fishbone, I+O VS, Fishbone, I+O Vital Signs Date Time Temp Pulse Resp B/P (MAP) Pulse Ox O2 Delivery O2 Flow Rate FiO2 07/05/18 18:28 18 07/05/18 06:00 98.7 87 94/57 (69) 98 Room Air I&O- Last 24 Hours up to 6 AM 07/05/18 05:59 Intake Total 600 ml Balance 600 ml Luis Giraldo MD Jul 05, 2018 20:05
[2018-07-05] MEDS: TOPIRAMATE (TopAMAX) 100 MG TAB PO SCH (21:08)
[2018-07-05] MEDS: ANUSOL HC 25MG SUPP PR SCH (21:09)
[2018-07-05] MEDS: HERB LAX PO SCH (21:11)
[2018-07-05] MEDS: [UNRECOGNIZED DRUG - OTHER] PO SCH (21:11)
[2018-07-06] MEDS: PROCHLORPERAZINE 5 MG TAB (S0183) PO SCH ×4 (00:22→17:54)
[2018-07-06] MEDS: diazePAM 2 MG TAB PO SCH ×2 (00:22→12:40)
[2018-07-06] MEDS: VALPROIC ACID 250 MG CAP PO SCH ×2 (00:23→12:38)
[2018-07-06] MEDS: ONDANSETRON 4 MG TAB (S0181) PO SCH ×4 (00:23→17:53)
[2018-07-06] MEDS: FIORICET TAB PO SCH ×6 (02:58→21:57)
[2018-07-06] MEDS: HYDROCORTISONE 5MG TABLET PO SCH (05:46)
[2018-07-06 06:00] VITALS: BP 101/64
[2018-07-06] MEDS: ANUSOL HC CREAM 30GM TOP SCH ×2 (09:00→21:58)
[2018-07-06] MEDS: PANTOPRAZOLE 40MG TAB (PROTONIX) PO SCH (09:59)
[2018-07-06] MEDS: PYRIDOXINE 50 MG TAB PO SCH (09:59)
[2018-07-06] MEDS: TOPIRAMATE (TopAMAX) 25 MG TAB PO SCH (10:00)
[2018-07-06] MEDS: MECLIZINE 25 MG TABLET PO SCH ×3 (10:00→17:54)
[2018-07-06] MEDS: APIXABAN 5 MG TAB (ELIQUIS) PO SCH ×2 (10:01→21:57)
[2018-07-06 14:48] LABS: HEMATOCRIT 36.5 % (36.0-47.0); HEMOGLOBIN 12.3 g/dl (12.0-15.5); MEAN CORPUSCULAR HEMOGLOBIN 30.7 pg (27.0-33.0); MEAN CORPUSCULAR HGB CONC 33.7 g/dl (32.0-36.5); PLATELET COUNT, AUTOMATED 303 10^3/uL (150-450); RED BLOOD COUNT 4.01 10^6/uL (4.00-5.40); WHITE BLOOD COUNT 7.1 10^3/uL (4.0-10.0)
[2018-07-06 15:20] LABS: ALBUMIN 3.9 GM/DL (3.2-5.2); ALT/SGPT 32 U/L (12-78); BILIRUBIN,TOTAL 0.2 MG/DL (0.2-1.0); BLOOD UREA NITROGEN 4 MG/DL (7-18); CALCIUM LEVEL 9.2 MG/DL (8.5-10.1); CARBON DIOXIDE LEVEL 23 MEQ/L (21-32); CHLORIDE LEVEL 110 MEQ/L (98-107); CREATININE FOR GFR 0.71 MG/DL (0.55-1.30); GLOMERULAR FILTRATION RATE > 60.0 (>60); GLUCOSE, FASTING 112 MG/DL (70-100); POTASSIUM SERUM 3.3 MEQ/L (3.5-5.1); SODIUM LEVEL 141 MEQ/L (136-145); TOTAL PROTEIN 7.7 GM/DL (6.4-8.2)
[2018-07-06] MEDS ORDERED: POTASSIUM CHLORIDE 10 MEQ SR TABLET PO ONE ×2 (15:30→19:30)
[2018-07-06] MEDS: INDOMETHACIN 25 MG CAP PO PRN (19:36)
[2018-07-06] MEDS: TOPIRAMATE (TopAMAX) 100 MG TAB PO SCH (21:57)
[2018-07-06] MEDS: ANUSOL HC 25MG SUPP PR SCH (21:57)
[2018-07-06] MEDS: [UNRECOGNIZED DRUG - OTHER] PO SCH (21:58)
[2018-07-06] MEDS: HERB LAX PO SCH (21:58)
[2018-07-07] MEDS: VALPROIC ACID 250 MG CAP PO SCH ×2 (00:04→12:36)
[2018-07-07] MEDS: MECLIZINE 25 MG TABLET PO SCH ×4 (00:04→17:50)
[2018-07-07] MEDS: diazePAM 2 MG TAB PO SCH ×2 (00:04→12:35)
[2018-07-07] MEDS: PROCHLORPERAZINE 5 MG TAB (S0183) PO SCH ×4 (00:04→17:52)
[2018-07-07] MEDS: ONDANSETRON 4 MG TAB (S0181) PO SCH ×4 (00:04→17:50)
[2018-07-07] MEDS: FIORICET TAB PO SCH ×6 (02:35→22:06)
[2018-07-07 06:00] VITALS: BP 111/68
[2018-07-07] MEDS: HYDROCORTISONE 5MG TABLET PO SCH (06:02)
[2018-07-07] MEDS: ANUSOL HC CREAM 30GM TOP SCH ×2 (09:00→21:00)
[2018-07-07] MEDS: PANTOPRAZOLE 40MG TAB (PROTONIX) PO SCH (09:55)
[2018-07-07] MEDS: PYRIDOXINE 50 MG TAB PO SCH (09:56)
[2018-07-07] MEDS: APIXABAN 5 MG TAB (ELIQUIS) PO SCH ×2 (09:57→22:05)
[2018-07-07] MEDS: TOPIRAMATE (TopAMAX) 25 MG TAB PO SCH (09:57)
[2018-07-07] MEDS: TOPIRAMATE (TopAMAX) 100 MG TAB PO SCH (22:05)
[2018-07-07] MEDS: ANUSOL HC 25MG SUPP PR SCH (22:06)
[2018-07-07] MEDS: HERB LAX PO SCH (22:07)
[2018-07-07] MEDS: [UNRECOGNIZED DRUG - OTHER] PO SCH (22:07)
[2018-07-08] MEDS: PROCHLORPERAZINE 5 MG TAB (S0183) PO SCH ×4 (01:19→18:07)
[2018-07-08] MEDS: VALPROIC ACID 250 MG CAP PO SCH ×2 (01:19→12:39)
[2018-07-08] MEDS: ONDANSETRON 4 MG TAB (S0181) PO SCH ×4 (01:20→18:05)
[2018-07-08] MEDS: diazePAM 2 MG TAB PO SCH ×2 (01:20→12:40)
[2018-07-08] MEDS: MECLIZINE 25 MG TABLET PO SCH ×4 (01:23→18:05)
[2018-07-08] MEDS: FIORICET TAB PO SCH ×6 (02:58→22:07)
[2018-07-08 06:00] VITALS: BP 104/60
[2018-07-08] MEDS: HYDROCORTISONE 5MG TABLET PO SCH (06:47)
[2018-07-08] MEDS: PYRIDOXINE 50 MG TAB PO SCH (10:54)
[2018-07-08] MEDS: ANUSOL HC CREAM 30GM TOP SCH ×2 (10:54→22:08)
[2018-07-08] MEDS: PANTOPRAZOLE 40MG TAB (PROTONIX) PO SCH (10:55)
[2018-07-08] MEDS: SCOPOLAMINE 1MG TRANSDERMAL PATCH TOP SCH (10:55)
[2018-07-08] MEDS: TOPIRAMATE (TopAMAX) 25 MG TAB PO SCH (10:55)
[2018-07-08] MEDS: APIXABAN 5 MG TAB (ELIQUIS) PO SCH ×2 (10:55→22:07)
[2018-07-08] MEDS: ANUSOL HC 25MG SUPP PR SCH (21:00)
[2018-07-08] MEDS: TOPIRAMATE (TopAMAX) 100 MG TAB PO SCH (22:06)
[2018-07-08] MEDS: [UNRECOGNIZED DRUG - OTHER] PO SCH (22:08)
[2018-07-08] MEDS: HERB LAX PO SCH (22:08)
[2018-07-09] MEDS: VALPROIC ACID 250 MG CAP PO SCH ×2 (01:15→12:49)
[2018-07-09] MEDS: MECLIZINE 25 MG TABLET PO SCH ×4 (01:15→18:17)
[2018-07-09] MEDS: diazePAM 2 MG TAB PO SCH ×2 (01:16→12:49)
[2018-07-09] MEDS: PROCHLORPERAZINE 5 MG TAB (S0183) PO SCH ×4 (01:16→18:17)
[2018-07-09] MEDS: ONDANSETRON 4 MG TAB (S0181) PO SCH ×4 (01:16→18:16)
[2018-07-09] MEDS: FIORICET TAB PO SCH ×6 (02:59→21:55)
[2018-07-09 06:00] VITALS: BP 94/56
[2018-07-09] MEDS: HYDROCORTISONE 5MG TABLET PO SCH (06:34)
[2018-07-09] MEDS: PYRIDOXINE 50 MG TAB PO SCH (08:56)
[2018-07-09] MEDS: APIXABAN 5 MG TAB (ELIQUIS) PO SCH ×2 (08:56→21:55)
[2018-07-09] MEDS: TOPIRAMATE (TopAMAX) 25 MG TAB PO SCH (08:56)
[2018-07-09] MEDS: PANTOPRAZOLE 40MG TAB (PROTONIX) PO SCH (08:57)
[2018-07-09] MEDS: ANUSOL HC CREAM 30GM TOP SCH ×2 (08:58→21:59)
--- NOTE | 2018-07-09 14:04 | IPN ---
DATE OF SERVICE: 07/09/2018 Jemima is stable. She is having these episodes where she " out" with transient loss of memory and probably consciousness. Dr. Giraldo and I have discussed these events. I have been in communication with [facility] yesterday and today. Today Jemima was put on a wait list for video EEG monitoring. They understand and I expressed on two occasions with them that she is not on acute level of care, that she is on fpc facility (SNF) level of care and the triage nurse did not feel that that would preclude transfer down for video EEG monitoring. Jemima is agreeable to this so she is on a wait list.
[2018-07-09] MEDS: ANUSOL HC 25MG SUPP PR SCH (21:54)
[2018-07-09] MEDS: TOPIRAMATE (TopAMAX) 100 MG TAB PO SCH (21:54)
[2018-07-09] MEDS: HERB LAX PO SCH (21:57)
[2018-07-09] MEDS: [UNRECOGNIZED DRUG - OTHER] PO SCH (21:57)
[2018-07-10] MEDS: diazePAM 2 MG TAB PO SCH ×2 (00:12→13:21)
[2018-07-10] MEDS: MECLIZINE 25 MG TABLET PO SCH ×4 (00:12→18:17)
[2018-07-10] MEDS: PROCHLORPERAZINE 5 MG TAB (S0183) PO SCH ×4 (00:12→18:16)
[2018-07-10] MEDS: ONDANSETRON 4 MG TAB (S0181) PO SCH ×4 (00:12→18:16)
[2018-07-10] MEDS: VALPROIC ACID 250 MG CAP PO SCH ×2 (00:13→13:22)
[2018-07-10] MEDS: FIORICET TAB PO SCH ×6 (02:10→21:48)
[2018-07-10 06:00] VITALS: BP 100/58
[2018-07-10] MEDS: HYDROCORTISONE 5MG TABLET PO SCH (06:02)
[2018-07-10 06:13] LABS: HEMATOCRIT 35.3 % (36.0-47.0); HEMOGLOBIN 11.6 g/dl (12.0-15.5); MEAN CORPUSCULAR HEMOGLOBIN 29.8 pg (27.0-33.0); MEAN CORPUSCULAR HGB CONC 32.9 g/dl (32.0-36.5); MEAN CORPUSCULAR VOLUME 90.7 fl (80.0-96.0); PLATELET COUNT, AUTOMATED 282 10^3/uL (150-450); RED BLOOD COUNT 3.89 10^6/uL (4.00-5.40); WHITE BLOOD COUNT 4.4 10^3/uL (4.0-10.0)
[2018-07-10 06:33] LABS: ALBUMIN 3.4 GM/DL (3.2-5.2); ALT/SGPT 34 U/L (12-78); BILIRUBIN,TOTAL 0.2 MG/DL (0.2-1.0); BLOOD UREA NITROGEN 5 MG/DL (7-18); CALCIUM LEVEL 8.2 MG/DL (8.5-10.1); CARBON DIOXIDE LEVEL 23 MEQ/L (21-32); CHLORIDE LEVEL 110 MEQ/L (98-107); CREATININE FOR GFR 0.65 MG/DL (0.55-1.30); GLOMERULAR FILTRATION RATE > 60.0 (>60); GLUCOSE, FASTING 85 MG/DL (70-100); MAGNESIUM LEVEL 2.1 MG/DL (1.8-2.4); POTASSIUM SERUM 3.8 MEQ/L (3.5-5.1); SODIUM LEVEL 141 MEQ/L (136-145); TOTAL PROTEIN 6.5 GM/DL (6.4-8.2)
[2018-07-10] MEDS: ANUSOL HC CREAM 30GM TOP SCH ×2 (09:00→21:00)
[2018-07-10] MEDS: TOPIRAMATE (TopAMAX) 25 MG TAB PO SCH (10:18)
[2018-07-10] MEDS: APIXABAN 5 MG TAB (ELIQUIS) PO SCH ×2 (10:18→21:46)
[2018-07-10] MEDS: PANTOPRAZOLE 40MG TAB (PROTONIX) PO SCH (10:18)
[2018-07-10] MEDS: PYRIDOXINE 50 MG TAB PO SCH (10:19)
--- NOTE | 2018-07-10 21:23 | IPNPDOC ---
Subjective Date Seen The patient was seen on 07/10/18. Subjective Chief Complaint/HPI I met a couple times with the patient today. We discussed her symptoms in the morning. She reports that she has had a few more "blip" episodes over the weekend. She still finds there is 1-2 each day. Often one will be sometime between 8-12 PM, but the other one is more difficult to predict. She still has not found a regular pattern associated with these episodes including: timing for medication, timing from exercise, timing from eating, or the amount of sleep she had the night prior. She does report a slight increase in symptoms of vertigo. She is also more sensitive to people jostling her bed again. She is still quite interested in eliminating the valproic acid and looking at the possibility of increasing another medication to see if the symptoms can be controlled. I also met with the patient and discharge planning team that included: her nurse Katya, Anh Roberson, Adali Isaac, and David Babb of physical therapy. The purpose of this meeting was to work to find the quickest discharge we could that is also safe. I expressed significant concern with regards to episodes where she is not conscious, or at least does not remember. I'm continuing to pursue video EEG monitoring. We are still on the waiting list at [place]. I would like to expand the search to include the [facility] and [facility]. The latter because they specifically have a dysautonomia center. All of her caregivers continued to feel that home is now a safe environment for her as long as we are able to make sure she will not get hurt because of lapses in consciousness. The patient has some concerns about this. She has specific concerns about how much her parents can or should be asked to provide additional care for her. She is considering finding another living environment if being discharged to her parents also would put an additional burden on them. After we concluded the meeting, Katya expressed her opinion to me that "we have failed the patient psychiatrically". She reports that when she or any of the other nurses have been in the room during these "blips" that the patient is alert and oriented. She will then fall asleep and seemed to have an amnesia related to the experience, however, the nurses have not observed her in any situation where she would be a danger to herself. They've only observed that she has lapses in memory. General: Reports: Normal Appetite ENT: Reports: Head Aches (related mostly at 10/01) Pulmonary: Denies: Dyspnea, Cough Cardiovascular: Denies: Palpitations Gastrointestinal: Reports: Nausea; Denies: Vomiting Neurological: Reports: Weakness, Other Symptoms (slight increase in vertigo) Psych: Reports: Mood Normal, Memory Issues (continued "blips") Objective Physical Examination General Exam: Positive: Alert, Cooperative (sitting cross-legged on her bed wearing blue light blocking glasses at 11:30 AM when I entered the room), No Acute Distress, Other (she did not seem to notice if I subtly came into contact with her bed and jostled it a little today) Eye Exam: Positive: Conjunctiva & lids normal, EOMI; Negative: Sclera icteric ENT Exam: Positive: Mucous membr. moist/pink Neck Exam: Positive: Supple Extremity Exam: Negative: Clubbing, Cyanosis, Edema, Swelling Neuro Exam: Positive: Normal Speech, Normal Tone Psych Exam: Positive: Mood NL, Memory Intact (during my interview), Oriented x 3 Assessment /Plan Problems (1) Spell of altered cognition Status: Chronic Problem Text: 07/10: She continues to have more of these "blips" at a frequency of roughly 1-2 a day. She is very interested in continuing to titrate off the valproic acid, even though I wonder if this was helping to hold these symptoms at bay previously. I will continue to down titrate her on this medication. It may be reasonable to try to increase the topiramate, however I would like to talk to someone at a receiving facility for the video EEG monitoring to make sure that they are willing to take her on any migraine/seizure medications before titrate this up any further. We are continuing to pursue video EEG monitoring. I would like to expand her search radius from just [facility] to include [place] and [facility]. 07/02: She hasn't had more "blackouts" today, but did have some episodes (that she calls blips) of decreased mental acuity. I'm not certain what these relate to, but am focusing on the things that have been changing recently, most notably the decrease in the valproic acid and the increase in the topiramate. I think it is likely that if we continue to pursue our intended plans with these (down titrating the valproic acid, holding the topiramate steady) that these will work themselves out. I will continue to down titrate her valproic acid on 250mg per q3 day cycle. I put in orders for the next two down titrations and will be back on service before the next adjustment is needed. 07/01: She continues to have these spells on a daily basis. In careful reflection, it seems that these episodes started shortly after we started Depakote for migraine prevention. As her Depakote level was being increased into the seizure prevention range these episodes increased in frequency. As her vertigo is much improved we will weaning her down off of this medication. If the vertigo symptoms get much worse off of this medication, then we'll consider inc reasing it again and watch more closely for side effects. 06/22 negative EEG favor PNEA vs narcolepsy sudden onset of fatigue s T/C activity, loss of B/B, eyes rolling back ? possibly triggered by defecation 06/20/18 EEG report P 06/19/18 4 spells lasting 15-30 mins; therefore, checked EEG 06/18/[address] NAD 01/2018 normal 24H video EEG monitoring per patient at [facility] (but no spells while on monitor) (2) Vestibular migraine Problem Text: 07/10: I will drop the valproic acid to 250 mg at noon only starting today. The below regimen was adjusted. I may consider increasing the diazepam temporarily to see if this helps stave off the vertigo well we taper her off the valproic acid. This would not be a long-term change. DVP 250 PO at noon starting 07/10 topiramate 50 in am, 100 at hs ondansetron ODT 8mg qid prochlorperazine 10 PO qid meclizine 50 po qid diazepam 2 PO BID scopolamine 1 mg topical q72h pyridoxine 100 PO QD Fioricet 1 PO q4h indomethacin 25 PO TID prn migraine. sumatran 100 mg PO BID PRN 07/02: will decrease the valproic acid to 250/500 starting tomorrow and 250 bid starting on 07/06. Leave the others the same for now. 06/[address] Browne and Supriya for ARU-initial consult for ARU eval was placed 05/31, then again 06/10-per Supriya we should have answer if insurance will cover by 06/13 06/11 - today I am changing her Fioricet to prn. She felt it was a safer drug that many of the others since the main ingredient that she was familiar with was caffeine. I explained how the barbital is metabolized into a barbiturate. She was more agreeable to making this prn and trying to wean it off after learning this. I anticipate a decrease in the diazepam dose to 1mg q12h tomorrow. 06/10 - she had an "episode" which to me certainly looks like an atypical migraine, though vestibular symptoms were not prominent this time. She refused the triptan to decrease the chance she would become tolerant to this. I reeducated her on the appropriate and inappropriate use of triptans and encouraged her to try it the next time she has an episode like this. I will probably move the decrease of the diazepam dose to 06/12 in case this "episode" was related to the decrease in the diazepam, though again the vestibular symptoms were not prominent. I will also discuss taking her Fioricet from routine to prn as this medication with routine use will induce tolerance and possibly can cause episodes of confusion and decreased mental clarity like she was having. 06/09 - she is tolerating the decrease in the diazepam dose well. I will probably try to reduce the diazepam to 1 mg twice a day on 06/11. 06/08 - Her symptoms are about the same, BUT she was able to defer the medications for about 4h this morning without symptoms. Based on this I feel it is a safe time to begin weaning her diazepam as I don't think she needs it as much any more. She requests to change that medication and the Depakote to a 12 and 12 schedule to facilitate her sleep and give her more time for activities and socialization during the times of day when she most often has visitors. 06/07 - DVP level still <50. Will increase to 500/750. Monitor. Discussed changing the timing of the meds from and , but she isn't sure when she wants it. 06/05 - will check a repeat valproic acid level tomorrow. This regimen seems to have her the most functional so far. She is reporting some feelings of sedation after the diazepam doses, but these are transient. I will make the indomethacin scheduled for now with a plan to decrease the dose of the diazepam soon. 06/02 stable CBCD/CMP, VPA 27-increased DVP to 500 BID, changed ondan IV to ODT 05/30 changed propran 10 BID to carve 3.125 BID (? allergic rxn to propranolol dye-within 10 mins of 1 dose-immediate throat pain) and + DVP 250 BID 05/29 Dr. Lei Neurology favored "more advanced neurological care than can be offered in [place]", multi-discipline approach and psychiatric evaluation 05/23/18 MRI brain c/s angie and MR face s angie NAD (3) Adrenal insufficiency Status: Chronic Problem Text: 07/10: Very soon I would like to eliminate the last dose of hydrocortisone. I'm choosing not to make this change at precisely the same time as I reduce her valproic acid. 07/02: down titrated to just 5mg @ 0700 daily starting tomorrow. 06/27: slight decrease today of hydrocortisone per previously outlined plan.. Favor tertiary AI 2 iatrogenic chronic glucocorticoid steroid use from previous PCP for unknown reason. goal to slowly wean off HC-decreasing dose by 5 mg q5-7D. 06/19 decreased to -stable SBP 110-130, 06/18 Na 139/K 3.9 06/08 decreased to 06/02 decreased HC 10 TID to , stable SBP, Na/K 05/22 has received stress dose HC, but s s/s of adrenal crisis; therefore, restarted HC 10 TID (HD ) 05/21 Na 142/K 3.7 c SBP 130s on admission (4) Physical deconditioning Status: Chronic Problem Text: 07/10: She seems to objectively be continuing to make slow but steady progress. I was little discouraged that she reintroduce the idea of short-term rehabilitation today. This is not a possibility for her because she would no longer qualify, however, it indicates a mental reversal of plans in her mind which I don't think is the best for her. 07/02: while her progress has been slow, much slower than we are used to for acute patients, if compared to how she came to us, she is making progress on a weekly basis. She would like to be able to go home for Anamika and I feel that this is a motivation we can tap into. 07/01: It is not clear what her current discharge status will be. I continue to support an ARU status as she has medical issues that need active management, but they change on a weekly, not daily basis. Now that she has become comfortable with the therapists here at [facility] that sounds like the best option for her. 06/26 hoping that change in insurance will enable rehab services 06/20 per PT, insurance has denied ARU; therefore, favoring STR vs LTC (PCP Dr. Giraldo agrees c this plan)-placed another PFS consult for placement-plan to change to SNF status if PFS agrees 05/31 PMR consulted-per Supriya (ARU coordinator)-will be accepted to [facility] ARU if insurance will cover (5) Orthostatic dizziness Status: Chronic Problem Text: 07/10: One of the considerations for a facility for video EEG monitoring may also be a dysautonomia center. This would be convenient if we are able to get her transferred to their care for further evaluation. 07/02: while she doesn't classically fit into this, as her vitals don't change enough when orthostatics are done. I am beginning to reconsider autonomic dysfunction as a valid line of investigation. 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 Midodrine and fludrocortisone are held. Suspect that the symptoms or orthostatic intolerance are more migraine related than true autonomic dysfunction. (6) Constipation, chronic Status: Chronic Problem Text: 07/02: She may benefit from a colorectal surgical evaluation once discharged. I am also starting to ask why this relatively young woman has had constipation issues for the last decade. There may be many explanations (e.g. IBS-C), but autonomic dysregulation could be one of them. 06/27: exam consistent with possible small rectal fissure due to finding of localizing discomfort, no mass. but no bleeding noted. patient is not a good candidate for treatment with rectal NTG due to headaches. she describes prolapsing tissue at times, that she reduces with gloved finger, that has been problem for years she says. recommend eval by colorectal specialist after discharge from hospital. 06/26 patient requesting Arturo to evaluate perianal discomfort with BM. deferred to 06/27. Chronic senna / enema dependence (admits to chronic 8-10 "herbal" senna QD for "years" and ~q2W tap water/cider enema prn) Probably exacerbates abdominal component of her migraine. Stable daily BMs on HD senna. 05/22/18 + HD senna 05/14/18 CT AP c moderate R sided fecal stasis (7) Deep vein thrombosis, upper right extremity Problem Text: Favor 3M DOAC given provoked by PICC. She will be done with anticoagulation roughly 09/16/2018. caution on indo (attempt to wean off) 06/19 changed LMWH/VKA to apixiban per px request (blood draws are very traumatic for px) 06/16 RUE US: Acute occlusive thrombus in the right axillary vein extending through the right basilic vein along with small focus of nonocclusive thrombus in the distal cephalic vein. (8) Chronic autoimmune thyroiditis Status: Chronic Discussed With: Patient Problem Specific Plan: Monitor Clinically, Repeat Labs Problem Text: Thyroid fx are basically normal on little/no supplementation. Will d/c supplementation and monitor her thyroid fx at regular intervals. Next thyroid fx testing will likely be just before Anamika. 06/05/18: TPO Ab are markedly positive. Tg Ab are mildly positive. Her last set of thyroid function tests were done just before she was admitted and were completely normal. She states that she was on 3/4 grain of Nature Thyroid BID which could correlate to about 150mcg of levothyroxine. However, it is not clear how fastidiously she was taking her supplement. She has theoretically been on 1/4 grain of the Nature Thyroid BID here, but has about 3 doses that were actually administered. My plan for now is to repeat the thyroid function tests since she basically has not been on thyroid supplementation for about 2 weeks. If they are normal, then I am willing to take a bet that her thyroid is functional enough at present to self-regulate and will advocate stopping all thyroid supplementation and monitoring her thyroid functions closely as it is likely that the gland will eventually fail from the auto-immune insult. If they are abnormal, then I'd like to evaluate the pattern and start her on some form of regulated levothyroxine +/- Cytomel if it seems needed. 06/04/18 TPO/TG Ab P (if -, i.e. not c/w AITD and therefore, highly doubt she needs complete replacement) 06/03/18 recommended to change to LT4 (given too high of T3/T4 ratio of porcine TH /, normal human ratio on 08/04), but ONLY formulation patient will take is Tirosint which is not on [facility] nor [facility] (patient's prescription plan) formulary; therefore, will probably need to continue Nature-Throid (but keep at a constant dose-patient was prescribed 1/4 grain (16.25 mg) BID since admission BUT has only taken 3 times!) 05/10/18 0.41, 0.8, 106 on HD "self-titrated" desiccated porcine TH-taking somewhere between 1/4-3/4 grain BID (which would be between LT4 25-75 BID) Plan/VTE VTE Prophylaxis Ordered?: Yes (patient noted to refuse prophylaxis dose.) Plan Diet: Continue Current Activity: Continue Current, Advance Therapy: PT Medications: Taper Steroids Anticipated Discharge: Transfer Advance Directives: Other Advance Directive VS, I&O, 24H, Fishbone Vital Signs/I&O Vital Signs Date Time Temp Pulse Resp B/P (MAP) Pulse Ox O2 Delivery O2 Flow Rate FiO2 07/10/18 18:46 18 07/10/18 13:52 Room Air 07/10/18 06:00 97.8 83 100/58 (72) 98 I&O- Last 24 Hours up to 6 AM 07/10/18 05:59 Intake Total 1580 ml Balance 1580 ml Laboratory Data 24H LABS Laboratory Tests 2 07/10/18 05:40: Nucleated Red Blood Cells % (auto) 0.0, Anion Gap 8, Glomerular Filtration Rate > 60.0, Blood Urea Nitrogen 5L, Creatinine 0.65, Sodium Level 141, Potassium Level 3.8, Chloride Level 110H, Carbon Dioxide Level 23, Calcium Level 8.2L, Aspartate Amino Transf (AST/SGOT) 19, Alanine Aminotransferase (ALT/SGPT) 34, Alkaline Phosphatase 51, Total Bilirubin 0.2, Total Protein 6.5, Albumin 3.4, Magnesium Level 2.1, Albumin/Globulin Ratio 1.10 CBC/BMP Laboratory Tests 07/10/18 05:40 Red Blood Count 3.89 L, Mean Corpuscular Volume 90.7, Mean Corpuscular Hemoglobin 29.8, Mean Corpuscular Hemoglobin Concent 32.9, Red Cell Distribution Width 13.9, Calcium Level 8.2 L, Aspartate Amino Transf (AST/SGOT) 19, Alanine Aminotransferase (ALT/SGPT) 34, Alkaline Phosphatase 51, Total Bilirubin 0.2, Total Protein 6.5, Albumin 3.4 Luis Giraldo MD Jul 10, 2018 9:23 pm
[2018-07-10] MEDS: ANUSOL HC 25MG SUPP PR SCH (21:47)
[2018-07-10] MEDS: TOPIRAMATE (TopAMAX) 100 MG TAB PO SCH (21:47)
[2018-07-10] MEDS: HERB LAX PO SCH (21:49)
[2018-07-10] MEDS: [UNRECOGNIZED DRUG - OTHER] PO SCH (21:49)
[2018-07-11 00:07] LABS: RMSFIGG1 Negative (Negative); ROCKY MTN SPOTTED FEVER IgM 0.61 index (0.00-0.89)
[2018-07-11] MEDS: PROCHLORPERAZINE 5 MG TAB (S0183) PO SCH ×5 (00:12→23:56)
[2018-07-11] MEDS: ONDANSETRON 4 MG TAB (S0181) PO SCH ×5 (00:12→23:56)
[2018-07-11] MEDS: diazePAM 2 MG TAB PO SCH ×3 (00:13→23:56)
[2018-07-11] MEDS: MECLIZINE 25 MG TABLET PO SCH ×5 (00:13→23:56)
[2018-07-11] MEDS: FIORICET TAB PO SCH ×6 (02:26→22:01)
[2018-07-11 06:00] VITALS: BP 97/54
[2018-07-11] MEDS: HYDROCORTISONE 5MG TABLET PO SCH (06:34)
[2018-07-11] MEDS: ANUSOL HC CREAM 30GM TOP SCH ×2 (09:00→20:58)
[2018-07-11] MEDS: APIXABAN 5 MG TAB (ELIQUIS) PO SCH ×2 (10:04→22:01)
[2018-07-11] MEDS: TOPIRAMATE (TopAMAX) 25 MG TAB PO SCH (10:04)
[2018-07-11] MEDS: PANTOPRAZOLE 40MG TAB (PROTONIX) PO SCH (10:06)
[2018-07-11] MEDS: PYRIDOXINE 50 MG TAB PO SCH (10:06)
[2018-07-11] MEDS: SCOPOLAMINE 1MG TRANSDERMAL PATCH TOP SCH (10:06)
[2018-07-11] MEDS: VALPROIC ACID 250 MG CAP PO SCH (13:24)
--- NOTE | 2018-07-11 20:53 | IPNPDOC ---
Text Note Date of Service The patient was seen on 07/11/18. NOTE Today met briefly with the patient. She reports that she is having more muscle weakness and had some difficulty getting out of bed today. She attributes this to the decrease in her valproic acid which started last night. I'm not certain to change would impact her so fast, but I did suggest that she seemed to do best on a regimen of valproic acid twice a day 500/250. I ask whether she wants to go back up to this. She reports that she does not because she feels that her mentation is clear though less valproic acid she is on. She does acknowledge she's having additional difficulty with mobility as we continue to down titrate this medication. She feels that this is temporary and she will likely be back to where she was prior. Additional she wonders if we should be uptitrating additional medications like topiramate. I did reach out to the transfer service at [facility]. I spoke to several different physicians with the help of a content coordinator. Eventually I was told that my request for transfer sounds reasonable for a video EEG monitoring, however, the person I was speaking to would need to speak to the general neurology attending. They would give me a call back. I have not received a call back this evening. I will try to reach out to them again tomorrow. I am moving forward with my planned to discontinue her hydrocortisone today. In several days I will likely recheck a morning cortisol level to see whether her adrenals have stepped back up to providing her intrinsic steroids. Her electrolytes are stable. VS,Fishbone, I+O VS, Fishbone, I+O Vital Signs Date Time Temp Pulse Resp B/P (MAP) Pulse Ox O2 Delivery O2 Flow Rate FiO2 07/11/18 19:09 18 07/11/18 18:39 Room Air 07/11/18 06:00 97.7 55 97/54 (68) 100 I&O- Last 24 Hours up to 6 AM 07/11/18 06:00 Intake Total 1320 ml Balance 1320 ml Luis Giraldo MD Jul 11, 2018 8:53 pm
[2018-07-11] MEDS: HERB LAX PO SCH (20:57)
[2018-07-11] MEDS: ANUSOL HC 25MG SUPP PR SCH (20:57)
[2018-07-11] MEDS: [UNRECOGNIZED DRUG - OTHER] PO SCH (20:57)
[2018-07-11] MEDS: TOPIRAMATE (TopAMAX) 100 MG TAB PO SCH (22:01)
[2018-07-12] MEDS: FIORICET TAB PO SCH ×6 (02:01→22:34)
[2018-07-12 06:00] VITALS: BP 105/64
[2018-07-12] MEDS: ONDANSETRON 4 MG TAB (S0181) PO SCH ×3 (06:01→18:01)
[2018-07-12] MEDS: PROCHLORPERAZINE 5 MG TAB (S0183) PO SCH ×3 (06:01→18:00)
[2018-07-12] MEDS: MECLIZINE 25 MG TABLET PO SCH ×3 (06:02→18:01)
[2018-07-12 06:58] LABS: HEMATOCRIT 37.4 % (36.0-47.0); HEMOGLOBIN 12.2 g/dl (12.0-15.5); MEAN CORPUSCULAR HGB CONC 32.6 g/dl (32.0-36.5); MEAN CORPUSCULAR VOLUME 92.1 fl (80.0-96.0); PLATELET COUNT, AUTOMATED 272 10^3/uL (150-450); RED BLOOD COUNT 4.06 10^6/uL (4.00-5.40)
[2018-07-12 07:26] LABS: ALBUMIN 3.8 GM/DL (3.2-5.2); ALT/SGPT 32 U/L (12-78); BILIRUBIN,TOTAL 0.2 MG/DL (0.2-1.0); BLOOD UREA NITROGEN 7 MG/DL (7-18); CALCIUM LEVEL 8.5 MG/DL (8.5-10.1); CARBON DIOXIDE LEVEL 26 MEQ/L (21-32); CHLORIDE LEVEL 108 MEQ/L (98-107); CREATININE FOR GFR 0.65 MG/DL (0.55-1.30); GLOMERULAR FILTRATION RATE > 60.0 (>60); GLUCOSE, FASTING 90 MG/DL (70-100); POTASSIUM SERUM 3.6 MEQ/L (3.5-5.1); SODIUM LEVEL 141 MEQ/L (136-145); TOTAL PROTEIN 7.2 GM/DL (6.4-8.2)
[2018-07-12] MEDS: ANUSOL HC CREAM 30GM TOP SCH ×2 (09:00→22:39)
[2018-07-12] MEDS: PYRIDOXINE 50 MG TAB PO SCH (09:40)
[2018-07-12] MEDS: PANTOPRAZOLE 40MG TAB (PROTONIX) PO SCH (09:40)
[2018-07-12] MEDS: TOPIRAMATE (TopAMAX) 25 MG TAB PO SCH (09:41)
[2018-07-12] MEDS: APIXABAN 5 MG TAB (ELIQUIS) PO SCH ×2 (09:41→22:33)
[2018-07-12] MEDS: diazePAM 2 MG TAB PO SCH (12:12)
[2018-07-12] MEDS: VALPROIC ACID 250 MG CAP PO SCH (12:13)
--- NOTE | 2018-07-12 22:03 | IPNPDOC ---
Text Note Date of Service The patient was seen on 07/12/18. NOTE I again saw the patient briefly today and coordinated with other physicians. Jemima reports that she has not had one of her "blips" in the last 24h. She continues to feel that these episodes were related to being on the valproic acid and that getting off of this medication is the chawla to her not having them. She reports that she is feeling a bit stronger today, though she is still feeling much weaker than she was just a few days ago. She believes that she will continue to regain strength as time goes on. She also reports that she had her weekly telephonic visit with her counselor in [place], Nickie Lui. She felt that this session was helpful to her. This morning I received a call back from Maritza at the transfer center of [facility] ( opt #1). She requested contact information for our consulting neurologist. I explained that I could provide it to her, but that they have not seen the patient since , so I wasn't sure it would do much good. I offered to fax her a copy of the most recent consult report so she could get it to Dr. Pastor who could then decide if he still wanted their contact information or not. I did this (faxing it to her HIPAA approved e-mail account). Dr. Pastor returned my call this afternoon and agreed that talking to a neurologist who had seen the patient for almost two months wouldn't make much sense. He stated that they were willing to accept her for the video EEG monitoring, but requested that we have our neurology team see her again first. He wants to get their take on these episodes that she is having. I contacted Dr. Fitzgerald to request a reconsult. He called me and said that he had been discussing the case with Dr. Lei and they felt strongly like her symptoms have a psychogenic, not a neurogenic, cause. He recommended she have a psychiatry evaluation. I explained that we have done this, but Dr. Alvarez of psychiatry didn't find any problems that she felt she could treat. The problem with this is that I have a patient having symptoms that may or may not be serious, but all of the relevant specialists feel that management doesn't belong with them. This leaves our team managing her by ourselves. I would like to prove that at least these symptoms are not a serious threat to her health; then I can send her home and we can continue the evaluation in the outpatient setting. The way I see to do this is to get a video EEG monitor done and either dx a problem or be able to reassure her that these symptoms are annoying but not life threatening. I can not get her into the closest facility ([facility]) at this time and they are unable/unwilling to give me a time frame when they may be able to see her. I have a facility that is willing to accept her for this service, but they want our neurology to see her for this problem first. Dr. Escobedo agreed that he would see her tomorrow and offer her opinion on these current episodes. In discussing why I had selected [facility] for the mitchell ring, we discussed that I was interested in a further evaluation of her autonomic system given an unusual cluster of her reported symptoms: constipation, difficulty sweating in the heat, resting tachycardia, orthostatic symptoms (with orthostatic BP). These symptoms may be unrelated, but they could also indicate a dysautonomia. That facility was the closest I could find that had a dysautonomia center. Dr. Escobedo said that he was aware of a physician at [facility] in [place] who also had expertise in treating autonomic dysfunction. [place] also has the capability to do video EEG monitoring. I was unaware of the autonomic dysfunction clinic there, although I did know that they did the vi jewels monitoring. Given this information, [place] sounds like a more attractive option for transfer than [facility] at this time. I will wait for Dr. Fitzgerald's consultation (and interpretation of the EEG that was ordered today). If he still recommends she be evaluated at a higher level of care, perhaps we can work together to get her transferred to [facility]; at least for the video EEG monitoring. VS,Fishbone, I+O VS, Fishbone, I+O Laboratory Tests 07/12/18 06:22 Red Blood Count 4.06, Mean Corpuscular Volume 92.1, Mean Corpuscular Hemoglobin 30.0, Mean Corpuscular Hemoglobin Concent 32.6, Red Cell Distribution Width 13.5, Calcium Level 8.5, Aspartate Amino Transf (AST/SGOT) 16, Alanine Aminotransferase (ALT/SGPT) 32, Alkaline Phosphatase 62, Total Bilirubin 0.2, Total Protein 7.2, Albumin 3.8 Vital Signs Date Time Temp Pulse Resp B/P (MAP) Pulse Ox O2 Delivery O2 Flow Rate FiO2 07/12/18 18:46 18 Room Air 07/12/18 06:00 98.1 65 105/64 (74) 98 I&O- Last 24 Hours up to 6 AM 07/12/18 05:59 Intake Total 740 ml Balance 740 ml Luis Giraldo MD Jul 12, 2018 10:03 pm
[2018-07-12] MEDS: ANUSOL HC 25MG SUPP PR SCH (22:34)
[2018-07-12] MEDS: TOPIRAMATE (TopAMAX) 100 MG TAB PO SCH (22:37)
[2018-07-12] MEDS: [UNRECOGNIZED DRUG - OTHER] PO SCH (22:37)
[2018-07-12] MEDS: HERB LAX PO SCH (22:37)
[2018-07-13] MEDS: PROCHLORPERAZINE 5 MG TAB (S0183) PO SCH ×4 (00:43→18:13)
[2018-07-13] MEDS: ONDANSETRON 4 MG TAB (S0181) PO SCH ×4 (00:43→18:13)
[2018-07-13] MEDS: diazePAM 2 MG TAB PO SCH ×2 (00:43→13:26)
[2018-07-13] MEDS: MECLIZINE 25 MG TABLET PO SCH ×4 (00:43→18:14)
[2018-07-13] MEDS: FIORICET TAB PO SCH ×6 (02:40→21:55)
[2018-07-13 06:00] VITALS: BP 98/62
[2018-07-13] MEDS: ANUSOL HC CREAM 30GM TOP SCH ×2 (09:00→22:17)
[2018-07-13] MEDS: TOPIRAMATE (TopAMAX) 25 MG TAB PO SCH (10:07)
[2018-07-13] MEDS: APIXABAN 5 MG TAB (ELIQUIS) PO SCH ×2 (10:07→21:54)
[2018-07-13] MEDS: PYRIDOXINE 50 MG TAB PO SCH (10:07)
[2018-07-13] MEDS: PANTOPRAZOLE 40MG TAB (PROTONIX) PO SCH (10:07)
[2018-07-13] MEDS: VALPROIC ACID 250 MG CAP PO SCH (13:26)
[2018-07-13] MEDS: ANUSOL HC 25MG SUPP PR SCH (21:00)
[2018-07-13] MEDS: HERB LAX PO SCH (21:53)
[2018-07-13] MEDS: [UNRECOGNIZED DRUG - OTHER] PO SCH (21:53)
[2018-07-13] MEDS: TOPIRAMATE (TopAMAX) 100 MG TAB PO SCH (21:54)
[2018-07-14] MEDS: MECLIZINE 25 MG TABLET PO SCH ×5 (01:04→23:56)
[2018-07-14] MEDS: PROCHLORPERAZINE 5 MG TAB (S0183) PO SCH ×5 (01:04→23:56)
[2018-07-14] MEDS: diazePAM 2 MG TAB PO SCH ×3 (01:05→23:56)
[2018-07-14] MEDS: ONDANSETRON 4 MG TAB (S0181) PO SCH ×5 (01:05→23:56)
[2018-07-14] MEDS: FIORICET TAB PO SCH ×6 (02:41→22:09)
[2018-07-14 06:00] VITALS: BP 100/56
--- NOTE | 2018-07-14 08:44 | EEG ---
DATE OF EE07/13/2018 REFERRING PHYSICIAN: Dr. Toby Peace DIAGNOSIS: Lapses of consciousness. EEG NUMBER: [id number] HISTORY: Patient is a 32-year-old woman who was admitted at [facility] due to headaches, dizziness, and has episodes of blips in her consciousness. This EEG was done to rule out epileptic potential. She is currently taking diazepam, Protonix, pyridoxine, Topamax, meclizine, Depakote, scopolamine patch, Eliquis, etc. TECHNICAL DESCRIPTION: This digital EEG was recorded by 21 scalp, ear and two EKG electrodes and was reviewed in bipolar and referential montages following reformatting in 10-20 international electrode placement system. INTERPRETATION: Patient was noted to be awake and drowsy states during this EEG. Resting awake background rhythm consisted of well formed posterior dominant rhythm, anterior/posterior gradient comprising of 9 hertz alpha activity measuring 20-100 microvolts in amplitude, which were symmetric and reactive to eye opening. Anteriorly low voltage and mixed frequency activity was noted. Attenuation of posterior dominant rhythm was seen during transition into drowsiness. Stage 1 and 2 sleep were reviewed and were symmetric bilaterally. Hyperventilation could not be performed. Photic stimulation at 3-30 hertz elicited symmetric photic driving, especially at mid frequencies. EKG revealed normal sinus rhythm. No focal, lateralizing or epileptiform abnormalities were seen. No relevant clinical activity was noted. CONCLUSION: This EEG in awake, drowsy states, stage 1 and 2 sleep is within normal limits.
[2018-07-14] MEDS: APIXABAN 5 MG TAB (ELIQUIS) PO SCH ×2 (09:57→22:06)
[2018-07-14] MEDS: PANTOPRAZOLE 40MG TAB (PROTONIX) PO SCH (09:58)
[2018-07-14] MEDS: TOPIRAMATE (TopAMAX) 25 MG TAB PO SCH (09:58)
[2018-07-14] MEDS: PYRIDOXINE 50 MG TAB PO SCH (09:58)
[2018-07-14] MEDS: SCOPOLAMINE 1MG TRANSDERMAL PATCH TOP SCH (09:59)
[2018-07-14] MEDS: ANUSOL HC CREAM 30GM TOP SCH ×2 (09:59→22:10)
[2018-07-14] MEDS: VALPROIC ACID 250 MG CAP PO SCH (12:28)
[2018-07-14] MEDS: ANUSOL HC 25MG SUPP PR SCH (22:05)
[2018-07-14] MEDS: TOPIRAMATE (TopAMAX) 100 MG TAB PO SCH (22:09)
[2018-07-14] MEDS: [UNRECOGNIZED DRUG - OTHER] PO SCH (22:11)
[2018-07-14] MEDS: HERB LAX PO SCH (22:11)
--- NOTE | 2018-07-14 22:17 | IPNPDOC ---
Text Note Date of Service The patient was seen on 07/14/18. VS,Fishbone, I+O VS, Fishbone, I+O Vital Signs Date Time Temp Pulse Resp B/P (MAP) Pulse Ox O2 Delivery O2 Flow Rate FiO2 07/14/18 22:09 16 07/14/18 06:23 Room Air 07/14/18 06:00 97.6 75 100/56 (71) 98 I&O- Last 24 Hours up to 6 AM 07/14/18 06:00 Intake Total 480 ml Output Total 0 ml Balance 480 ml Luis Giraldo MD Jul 14, 2018 22:17
[2018-07-15] MEDS: FIORICET TAB PO SCH ×5 (02:02→17:23)
[2018-07-15] MEDS: PROCHLORPERAZINE 5 MG TAB (S0183) PO SCH ×3 (05:25→17:24)
[2018-07-15] MEDS: ONDANSETRON 4 MG TAB (S0181) PO SCH ×3 (05:25→17:23)
[2018-07-15] MEDS: MECLIZINE 25 MG TABLET PO SCH ×3 (05:25→17:23)
[2018-07-15 06:00] VITALS: BP 98/57
[2018-07-15 06:38] LABS: HEMATOCRIT 31.9 % (36.0-47.0); HEMOGLOBIN 10.5 g/dl (12.0-15.5); MEAN CORPUSCULAR HEMOGLOBIN 30.1 pg (27.0-33.0); MEAN CORPUSCULAR HGB CONC 32.9 g/dl (32.0-36.5); MEAN CORPUSCULAR VOLUME 91.4 fl (80.0-96.0); PLATELET COUNT, AUTOMATED 244 10^3/uL (150-450); RED BLOOD COUNT 3.49 10^6/uL (4.00-5.40); WHITE BLOOD COUNT 4.4 10^3/uL (4.0-10.0)
[2018-07-15 07:20] LABS: ALBUMIN 3.1 GM/DL (3.2-5.2); BLOOD UREA NITROGEN 6 MG/DL (7-18); CARBON DIOXIDE LEVEL 22 MEQ/L (21-32); CHLORIDE LEVEL 113 MEQ/L (98-107); CREATININE FOR GFR 0.62 MG/DL (0.55-1.30); FREE T4 0.71 NG/DL (0.76-1.46); GLOMERULAR FILTRATION RATE > 60.0 (>60); GLUCOSE, FASTING 97 MG/DL (70-100); PHOSPHORUS LEVEL 3.6 MG/DL (2.5-4.9); POTASSIUM SERUM 3.6 MEQ/L (3.5-5.1); SODIUM LEVEL 142 MEQ/L (136-145)
[2018-07-15] MEDS: ANUSOL HC CREAM 30GM TOP SCH (09:00)
[2018-07-15] MEDS: PANTOPRAZOLE 40MG TAB (PROTONIX) PO SCH (10:08)
[2018-07-15] MEDS: PYRIDOXINE 50 MG TAB PO SCH (10:09)
[2018-07-15] MEDS: TOPIRAMATE (TopAMAX) 25 MG TAB PO SCH (10:09)
[2018-07-15] MEDS: APIXABAN 5 MG TAB (ELIQUIS) PO SCH (10:10)
[2018-07-15] MEDS ORDERED: TOPIRAMATE (TopAMAX) 25 MG TAB PO ONE (13:00)
[2018-07-15] MEDS: diazePAM 2 MG TAB PO SCH (13:13)
--- NOTE | 2018-07-15 14:44 | DS.PDOC ---
Discharge Summary General Date of Admission May 22, 2018 at 03:29 Date of Discharge 07/15/2018 Primary Care Physician: Luis Giraldo MD Attending Physician: Luis Giraldo MD Specialist/Consultants Involve: JUAN VERGARA MD Specialist/Consultants Involve Meenu Alvarez D.O.- psychiatry; Tanja Torres NP- pain management Discharge Summary ADMITTING DIAGNOSES: 1. Intractable vomiting. DISCHARGE DIAGNOSES: 1. Vestibular migraine, new dx. 2. Spells of altered cognition, etiology uncertain. 3. Possible autonomic dysfunction. 4. Tertiary (iatrogenic) adrenal insufficiency. 5. Physical deconditioning. 6. Orthostatic dizziness. 7. Constipation, chronic. 8. DVT of the right upper extremity, new dx. 9. Autoimmune thyroiditis, new dx. 10. Breast tenderness and enlargement, likely due to fibrocystic changes as well as impaired venous drainage secondary to DVT. PROCEDURES PERFORMED DURING STAY: PICC insertion left basilic vein. ADMISSION HISTORY: . Please see the admission history and physical for the remaining details. HOSPITAL COURSE: Ms. Baum was admitted with intractable nausea that was determined to be related to atypical migraines (abdominal vs vestibular). These were brought under initial control with diazepam, a slew of anti-nausea medications, Fioricet, and valproic acid. Once we were able to get her up and start rehabilitation she had a fluctuating course. For days or even a week she would get stronger and almost be to the point of independence then she would have a set back and would need to have decrease her physical activity and subsequently regain the conditioning she had gained. It is not precisely clear what caused these setbacks leading some to speculate that a conversion disorder or functional neurologic syndrome was at play. She was evaluated by psychiatry who felt that this was not the case. While this was going on several other things occurred. She was slowly weaned off the supplemental hydrocortisone that she had been placed on by a physician in [facility] (Dr. Simpson). We believe that this was causing an iatrogenic adrenal insufficiency. Additionally she was tested and found to have autoimmune thyroiditis. However, her T4 was WNL. We discussed treatment of this with the patient, but decided not to muddy the endocrine zayas any more by introducing another hormone, at least until we could get her more stable. The last few weeks of her hospitalization she began to have "blips" which were either blackout episodes or episodes of amnesia. Initially it seemed like she may be having true loss of consciousness, which lead to a safety concern when planning discharge as she would not have 24h supervision in her parent's home. However, as time went on the nursing staff began to report that they were interacting with her during these episodes, she just didn't have any recollection of this interaction or the intervening events after the fact. The patient was convinced that these were a side effect of the valproic acid, consequently, this was slowly weaned off. At first the episodes did not decrease and there was a move to transfer her to a facility where con tinuous video EEG monitoring could be done to help rule in or out seizure and narcolepsy, as well as help answer the question of amnesia vs. true loss of consciousness. However, before this could be completely arranged the episodes subsided and she was discharged home with a referral for home health services. DISCHARGE CONDITION: Stable. FOLLOW-UP: Prior to discharge an appointment was scheduled with Dr. Giraldo on 07/21/18 at 10 a.m. DIET: As tolerated. ACTIVITY: As tolerated and per physical and occupational therapy. DISCHARGE MEDICATIONS: Please see below. ALLERGIES: Please see below. LABORATORY DATA: Please see below. IMAGING: CT the abdomen and pelvis, MRI of the orbits and face, MRI of the brain, vascular ultrasound of the upper extremity, head CT TIME SPENT ON DISCHARGE: Greater than 40 minutes. Vital Signs/I&Os Vital Signs Date Time Temp Pulse Resp B/P (MAP) Pulse Ox O2 Delivery O2 Flow Rate FiO2 07/15/18 13:12 20 07/15/18 06:00 97.1 66 98/57 (71) 98 Room Air I&O- Last 24 Hours up to 6 AM 07/15/18 06:00 Intake Total 1010 ml Output Total 1 ml Balance 1009 ml Laboratory Data Labs 24H Laboratory Tests 2 07/15/18 06:18: Nucleated Red Blood Cells % (auto) 0.0, Blood Urea Nitrogen 6L, Creatinine 0.62, Sodium Level 142, Potassium Level 3.6, Chloride Level 113H, Carbon Dioxide Level 22, Anion Gap 7L, Glomerular Filtration Rate > 60.0, Calcium Level 8.0L, Phosphorus Level 3.6, Albumin 3.1L, Thyroid Stimulating Hormone (TSH) 3.860H, Free Thyroxine 0.71L CBC/BMP Laboratory Tests 07/15/18 06:18 Red Blood Count 3.49 L, Mean Corpuscular Volume 91.4, Mean Corpuscular Hemoglobin 30.1, Mean Corpuscular Hemoglobin Concent 32.9, Red Cell Distribution Width 13.7, Anion Gap 7 L Discharge Medications Scheduled Apixaban Base (Eliquis) 5 Mg Tab, 5 MG PO BID@1000,2200 Pyridoxine HCl (Vitamin B6) 50 Mg Tab, 100 MG PO DAILY@1000 Topiramate (Topamax) 100 Mg Tab, 100 MG PO BID@1000,2200 [Scopolamine] 1 MG TDSY, 1 MG TOP Q72H Scheduled PRN (Proctozone-Hc) 2.5 % Cre, 0 DOSE TOP BID PRN for HEMORRHOIDS (Butalbital/Acetaminophen/ 50-325-40 mg) 1 Tab Tab, 1 EA PO Q4H PRN for HEADACHE Diazepam (Diazepam) 2 Mg Tab, 2 MG PO BID@0000,1200 PRN for DIZZINESS Hydrocortisone Acetate (Anucort-Hc) 25 Mg Sup, 25 MG TX QHS PRN for HEMORRHOIDS Meclizine HCl (Meclizine HCl) 25 Mg Tab, 25 MG PO Q6H PRN for NAUSEA Ondansetron HCl (Ondansetron HCl) 4 Mg Tab, 8 MG PO Q6H PRN for NAUSEA Prochlorperazine (Prochlorperazine Maleate) 5 Mg Tab, 10 MG PO Q6H PRN for NAUSEA Sumatriptan Succinate (Sumatriptan Succinate) 25 Mg Tab, 100 MG PO BIDP PRN for MIGRAINE Allergies Coded Allergies: Gluten Meal (Verified Allergy, Unknown, 05/21/18) Luis Giraldo MD Jul 15, 2018 14:44
[2018-07-15] MEDS ORDERED: PROC5TA PO (14:55)
[2018-07-15] MEDS ORDERED: ONDA4TAB5 PO (14:55)
[2018-07-15] MEDS ORDERED: VITA50TA49 PO (14:55)
[2018-07-15] MEDS ORDERED: Scopolamine TOP (14:55)
[2018-07-15] MEDS ORDERED: TOPA100T12 PO (14:55)
[2018-07-15] MEDS ORDERED: BUTA-198 PO (14:55)
[2018-07-15] MEDS ORDERED: SUMA25TA3 PO (14:55)
[2018-07-15] MEDS ORDERED: MECL-68 PO (14:55)
[2018-07-15] MEDS ORDERED: ANUSHCSU PR (14:55)
[2018-07-15] MEDS ORDERED: DIAZ2TAB PO (14:55)
[2018-07-15] MEDS ORDERED: PROC1CRE5 TOP (14:55)
[2018-07-15] MEDS ORDERED: ELIQ5TAB PO (14:55)
[2018-07-15] MEDS ORDERED: SCOPOLAMINE 1MG TRANSDERMAL PATCH TOP SCH (16:00)
[2018-07-15] MEDS ORDERED: TOPIRAMATE (TopAMAX) 100 MG TAB PO SCH (22:00)
== END 2018-07-15 17:50 | disposition home health service (06) | DRG 54 ==
LOC: M ED 20:03 → M ED INP 05-22 03:29 → M MS4PR 05-22 10:29 → M MSPAV 05-22 16:32 → M PCU 05-24 02:05 → M MS5PR 06-01 12:57
PROVIDERS: ADMIT Hospitalist; ATTEND Family Medicine
PROC: 02HV33Z Insertion of Infusion Device into Superior Vena Cava, Percutaneous Approach (ICD-10-PCS; principal; 2018-05-25)
PROC: 02HV33Z Insertion of Infusion Device into Superior Vena Cava, Percutaneous Approach (ICD-10-PCS; 2018-06-08)
DX: G43.811 Other migraine, intractable, with status migrainosus (principal); I95.9 Hypotension, unspecified; I82.621 Acute embolism and thrombosis of deep veins of right upper extremity; E27.40 Unspecified adrenocortical insufficiency; G90.9 Disorder of the autonomic nervous system, unspecified; R11.2 Nausea with vomiting, unspecified; K58.1 Irritable bowel syndrome with constipation; E06.3 Autoimmune thyroiditis; N60.39 Fibrosclerosis of unspecified breast; Z79.899 Other long term (current) drug therapy; F43.10 Post-traumatic stress disorder, unspecified; F32.9 Major depressive disorder, single episode, unspecified; G47.00 Insomnia, unspecified

== ENCOUNTER → 2018-08-03 | Outpatient (CLI) | payer MEDICAID ==
[~2018-08-03] MED LIST: ANUSHCSU PR; BUTA-198 PO; DIAZ2TAB PO; ELIQ5TAB PO; HYDR5TAB59 PO; MECL-68 PO; MIDO10TA PO; ONDA4TAB5 PO; PROC1CRE5 TOP; PROC5TA PO; SUMA25TA3 PO; Scopolamine TOP; TOPA100T12 PO; TOPI25CA PO; TOPI50TA9 PO; VITA50TA49 PO
--- NOTE | 2018-08-03 17:53 | REP ---
Right upper extremity duplex Doppler venous ultrasound. Real time compression and duplex Doppler evaluation of the right upper extremity deep venous system is performed. The right subclavian, jugular, axillary, brachial, basilic and cephalic veins are fully compressible where accessible with transducer pressure, and demonstrate no intraluminal thrombus and normal venous waveforms. There is no evidence of deep venous thrombosis. Impression: No evidence of deep venous thrombosis of the right upper extremity deep vein system. Electronically Signed by Luis Fernando Franco MD 08/03/2018 05:45 P
== END ==
LOC: M RAD 16:09
PROVIDERS: ATTEND Internal Medicine
DX: M79.601 Pain in right arm (principal)

== ENCOUNTER 2019-03-08 15:41 | Emergency (ER) | payer MEDICAID ==
[~2019-03-08] VITALS: Ht 160 cm; Wt 61.4 kg
[~2019-03-08 15:41] MED LIST changes: +HYDR-4327 PO; -HYDR5TAB59 PO; -MECL-68 PO; +MECL1TAB31 PO; +ONDA-83 PO; -ONDA4TAB5 PO; -TOPI25CA PO; +TOPI25CA3 PO; -VITA50TA49 PO; +VITA50TA7 PO
[2019-03-08] MEDS ORDERED: NS 1,000 ML IV ONE ×2 (17:15→18:15)
[2019-03-08 17:24] LABS: BASO % 0.4 % (0.0-1.0); EOS # 0.1 10^3/uL (0.0-0.50); EOS % 2.4 % (0.0-3.0); HEMATOCRIT 37.9 % (36.0-47.0); HEMOGLOBIN 12.4 g/dl (12.0-15.5); LYMPH # 1.8 10^3/uL (1.5-4.5); LYMPH % 39.2 % (24.0-44.0); MEAN CORPUSCULAR HEMOGLOBIN 28.2 pg (27.0-33.0); MEAN CORPUSCULAR HGB CONC 32.7 g/dl (32.0-36.5); MEAN CORPUSCULAR VOLUME 86.1 fl (80.0-96.0); MONO # 0.4 10^3/uL (0.0-0.8); NEUTROPHILS # 2.2 10^3/uL (1.8-7.7); NEUTROPHILS % 48.8 % (36.0-66.0); PLATELET COUNT, AUTOMATED 287 10^3/uL (150-450); WHITE BLOOD COUNT 4.5 10^3/uL (4.0-10.0)
[2019-03-08 17:30] LABS: ALBUMIN 4.1 GM/DL (3.2-5.2); ALT/SGPT 36 U/L (12-78); AMYLASE 57 U/L (25-115); BILIRUBIN,DIRECT < 0.1 MG/DL (0.0-0.2); BILIRUBIN,TOTAL 0.3 MG/DL (0.2-1.0); BLOOD UREA NITROGEN 5 MG/DL (7-18); CALCIUM LEVEL 9.5 MG/DL (8.5-10.1); CARBON DIOXIDE LEVEL 28 MEQ/L (21-32); CHLORIDE LEVEL 106 MEQ/L (98-107); GLOMERULAR FILTRATION RATE > 60.0 (>60); GLUCOSE, FASTING 108 MG/DL (70-100); HCG, SERUM QUANTITATIVE < 1.0 MIU/ML; LIPASE 129 U/L (73-393); POTASSIUM SERUM 4.1 MEQ/L (3.5-5.1); SODIUM LEVEL 140 MEQ/L (136-145)
[2019-03-08 17:34] LABS: APPEARANCE, URINE CLEAR (CLEAR); BACTERIA, URINE AUTO 1+ (NEGATIVE); BILIRUBIN, URINE AUTO NEGATIVE (NEGATIVE); BLOOD, URINE BLOOD NEGATIVE (NEGATIVE); COLOR, URINE YELLOW (YELLOW); GLUCOSE, URINE (UA) AUTO NEGATIVE (NEGATIVE); KETONE, URINE AUTO NEGATIVE (NEGATIVE); LEUKOCYTE ESTERASE, URINE AUTO NEGATIVE (NEGATIVE); NITRITE, URINE AUTO NEGATIVE (NEGATIVE); PROTEIN, URINE AUTO NEGATIVE (NEGATIVE); RBC, URINE AUTO 1 /HPF (0-3); SPECIFIC GRAVITY URINE AUTO 1.004 (1.002-1.035); SQUAMOUS EPITHELIAL CELL UR AU 0 /HPF (0-6); UROBILINOGEN, URINE AUTO 0.2 mg/dL (0.0-2.0); WBC, URINE AUTO 1 /HPF (0-3)
[2019-03-08] MEDS ORDERED: ONDANSETRON 4MG/2ML VIAL (J2405) IV ONE (20:15)
[2019-03-08 20:50] VITALS: BP 124/73
== END 2019-03-08 20:52 | disposition home or self-care (01) ==
LOC: M ED 15:41
DX: E86.0 Dehydration (principal); R11.2 Nausea with vomiting, unspecified; R19.7 Diarrhea, unspecified; I10 Essential (primary) hypertension; G43.909 Migraine, unspecified, not intractable, without status migrainosus; G90.9 Disorder of the autonomic nervous system, unspecified; I95.1 Orthostatic hypotension; Z79.899 Other long term (current) drug therapy; Z91.018 Allergy to other foods
CPT/HCPCS: 80048; 80076; 81001; 82150; 83690; 84702; 85025; 96361; 96374; 99284; J2405

== ENCOUNTER 2020-10-04 17:32 | Emergency (ER) | payer MEDICAID, MEDICARE ==
[~2020-10-04] VITALS: Ht 160 cm; Wt 59.3 kg
[~2020-10-04 17:32] MED LIST changes: -HYDR-4327 PO; +HYDR-4467 PO; -PROC5TA PO; +PROC5TAB57 PO; +PYRI50TA41 PO; -VITA50TA7 PO
[2020-10-04] MEDS ORDERED: CVS1CAP2 PO (18:10)
[2020-10-04] MEDS ORDERED: PRED5TA PO (18:10)
[2020-10-04] MEDS ORDERED: AJOV225I SC (18:10)
[2020-10-04] MEDS ORDERED: [UNRECOGNIZED DRUG - CODE] NARES (18:10)
[2020-10-04] MEDS ORDERED: PRED1TABL PO (18:10)
[2020-10-04] MEDS ORDERED: voltaren (18:10)
[2020-10-04] MEDS ORDERED: LEVO100T5 PO (18:10)
[2020-10-04] MEDS ORDERED: MEST60TA PO (18:10)
[2020-10-04] MEDS ORDERED: vitamin d3 PO (18:10)
[2020-10-04 18:22] LABS: BASO % 0.3 % (0.0-1.0); EOS % 0.4 % (0.0-3.0); HEMOGLOBIN 13.3 g/dl (12.0-15.5); LYMPH # 1.5 10^3/uL (1.5-5.0); LYMPH % 19.9 % (24.0-44.0); MEAN CORPUSCULAR HEMOGLOBIN 29.4 pg (27.0-33.0); MEAN CORPUSCULAR HGB CONC 33.3 g/dl (32.0-36.5); MEAN CORPUSCULAR VOLUME 88.5 fl (80.0-96.0); MONO # 0.6 10^3/uL (0.0-0.8); MONO % 8.2 % (2.0-8.0); NEUTROPHILS # 5.4 10^3/uL (1.5-8.5); NEUTROPHILS % 70.8 % (36.0-66.0); PLATELET COUNT, AUTOMATED 291 10^3/uL (150-450); RED BLOOD COUNT 4.52 10^6/uL (4.00-5.40); WHITE BLOOD COUNT 7.6 10^3/uL (4.0-10.0)
[2020-10-04 18:27] LABS: INR 0.94; PARTIAL THROMBOPLASTIN TIME 25.3 SECONDS (24.2-38.5); PROTHROMBIN TIME 12.8 SECONDS (12.5-14.3)
[2020-10-04 18:45] LABS: ACETAMINOPHEN LEVEL < 2.0 UG/ML (10.0-30.0); ALBUMIN 4.1 GM/DL (3.2-5.2); ALT/SGPT 30 U/L (12-78); BILIRUBIN,DIRECT 0.1 MG/DL (0.0-0.2); BILIRUBIN,TOTAL 0.4 MG/DL (0.2-1.0); BLOOD UREA NITROGEN 6 MG/DL (7-18); CALCIUM LEVEL 9.3 MG/DL (8.5-10.1); CARBON DIOXIDE LEVEL 29 MEQ/L (21-32); CHLORIDE LEVEL 104 MEQ/L (98-107); CK-MB VALUE MASS < 1.0 NG/ML (<3.6); CPK CREATINE PHOSPHOKINASE 42 U/L (26-192); ETHYL ALCOHOL (ETHANOL) < 0.003 % (0.000-0.010); GLOMERULAR FILTRATION RATE > 60.0 (>60); GLUCOSE, FASTING 84 MG/DL (70-100); MB/CK RELATIVE INDEX 2.38 (< OR =4); POTASSIUM SERUM 3.4 MEQ/L (3.5-5.1); SALICYLATE LEVEL < 1.7 MG/DL (5.0-30.0); SODIUM LEVEL 139 MEQ/L (136-145); THYROID STIMULATING HORMONE 0.086 uIU/ML (0.358-3.740); TOTAL PROTEIN 7.6 GM/DL (6.4-8.2); TROPONIN I < 0.02 NG/ML (< 0.10)
--- NOTE | 2020-10-04 19:05 | REPVR ---
PROCEDURE INFORMATION: Exam: MR Angiogram Head Without Contrast, Arteries Exam date and time: 10/04/2020 6:07 PM Age: 34 years old Clinical indication: Weakness; Additional info: Jaw/lower facial numbness/weakness TECHNIQUE: Imaging protocol: MR angiogram head without contrast. Exam focused on the arteries. COMPARISON: MRI-Brain W/O FOLL BY WITH 05/23/2018 9:48 PM FINDINGS: ANTERIOR CIRCULATION: Right internal carotid artery: Intracranial segment is patent with no significant stenosis. No aneurysm. Right middle cerebral artery: No occlusion or significant stenosis. No aneurysm. Right anterior cerebral artery: No occlusion or significant stenosis. No aneurysm. Left internal carotid artery: Intracranial segment is patent with no significant stenosis. No aneurysm. Left middle cerebral artery: No occlusion or significant stenosis. No aneurysm. Left anterior cerebral artery: No occlusion or significant stenosis. No aneurysm. POSTERIOR CIRCULATION: Right vertebral artery: No occlusion or significant stenosis. No aneurysm. Left vertebral artery: No occlusion or significant stenosis. No aneurysm. Basilar artery: No occlusion or significant stenosis. No aneurysm. Right posterior cerebral artery: No occlusion or significant stenosis. No aneurysm. Left posterior cerebral artery: No occlusion or significant stenosis. No aneurysm. IMPRESSION: No stenosis or occlusion. No large vessel occlusion identified in the cerebral arteries. Electronically signed by: Colton Lin On 10/04/2020 19:05:26 PM
[2020-10-04] MEDS ORDERED: FIORICET TAB PO ONE (19:20)
--- NOTE | 2020-10-04 19:42 | REPVR ---
PROCEDURE INFORMATION: Exam: MR Head Without Contrast Exam date and time: 10/04/2020 6:07 PM Age: 34 years old Clinical indication: Weakness, facial; Additional info: Jaw/lower facial numbness/weakness TECHNIQUE: Imaging protocol: MR of the head without contrast. COMPARISON: MRI-Brain W/O FOLL BY WITH 05/23/2018 9:48 PM FINDINGS: Brain: Normal. No acute infarct. No hemorrhage. No significant white matter disease. No edema. Cerebral ventricles: Normal. No ventriculomegaly. Bones/joints: Unremarkable. Paranasal sinuses: Normal as visualized. No acute sinusitis. Mastoid air cells: Normal as visualized. No mastoid effusion. Orbital cavity: Unremarkable. Soft tissues: Unremarkable. IMPRESSION: No acute findings. Electronically signed by: Reinier Ocampo On 10/04/2020 19:42:01 PM
[2020-10-04 20:16] VITALS: BP 139/63
--- NOTE | 2020-10-05 09:11 | REP ---
INDICATION: facial numbness COMPARISON: 06/18/2018 TECHNIQUE: Axial noncontrast images from the skull base to the vertex with coronal reformations. This CT examination was performed using the following dose reduction techniques: Automated exposure control, adjustment of mA and/or kv according to the patient's size, and use of iterative reconstruction technique. FINDINGS: The ventricles, sulci, and cisterns are normal in position and appearance. Franco-white differentiation is maintained. No acute intracranial hemorrhage, mass/mass effect, pathology or trauma/injury. No evidence for acute infarction. No extra-axial fluid collection. Calvarium is intact. Paranasal sinuses and mastoid air cells are clear. IMPRESSION: Normal noncontrast head CT. No evidence for acute intracranial pathology or trauma/injury. <Electronically signed by Todd Lobo > 10/05/20 [id number]
--- NOTE | 2020-10-05 09:38 | ECGEPIP ---
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
[2020-10-05] MEDS ORDERED: CORT10TA PO ×2 (18:26)
[2020-10-05] MEDS ORDERED: MIDO5TA PO (18:26)
== END 2020-10-04 20:38 | disposition home or self-care (01) ==
LOC: M ED 17:32
DX: G43.009 Migraine without aura, not intractable, without status migrainosus (principal); E27.40 Unspecified adrenocortical insufficiency; F43.10 Post-traumatic stress disorder, unspecified; A69.20 Lyme disease, unspecified; Z86.718 Personal history of other venous thrombosis and embolism; Z88.8 Allergy status to other drugs, medicaments and biological substances; Z91.018 Allergy to other foods

== ENCOUNTER 2020-10-05 17:59 | Emergency (ER) | payer MEDICARE ==
[~2020-10-05] VITALS: Ht 160 cm; Wt 59.7 kg
[~2020-10-05 17:59] MED LIST changes: +AJOV225I SC; +CVS1CAP2 PO; +LEVO100T5 PO; +MEST60TA PO; +PRED1TABL PO; +PRED5TA PO; +[UNRECOGNIZED DRUG - CODE] NARES; +vitamin d3 PO; +voltaren
[2020-10-05] MEDS ORDERED: CORT10TA PO ×2 (18:26)
[2020-10-05] MEDS ORDERED: MIDO5TA PO (18:26)
--- NOTE | 2020-10-05 20:06 | REPVR ---
PROCEDURE INFORMATION: Exam: CT Head Without Contrast Exam date and time: 10/05/2020 7:30 PM Age: 34 years old Clinical indication: R sided tingling, slurred speech TECHNIQUE: Imaging protocol: Computed tomography of the head without contrast. Radiation optimization: All CT scans at this facility use at least one of these dose optimization techniques: automated exposure control; mA and/or kV adjustment per patient size (includes targeted exams where dose is matched to clinical indication); or iterative reconstruction. COMPARISON: 1. CT Head without contrast 10/04/2020 5:44 PM 2. MRI Brain without Contrast 10/04/2020 6:29:35 PM 3. MRA BRAIN W/O CONTRAST 10/04/2020 6:29:35 PM FINDINGS: Brain: There is no CT evidence for an acute large vessel territorial infarct. No acute intracranial hemorrhage is seen. No mass, mass effect, midline shift, or herniation is noted. The cortical gyration pattern, basal ganglia, thalami, brainstem, and cerebellum are normal in appearance. Cerebral ventricles: Normal. No hydrocephalus. Bones/joints: The skull is intact. No suspicious osteolytic or osteoblastic lesion. Paranasal sinuses: The imaged portions of the sinuses are well-aerated. No air-fluid levels are noted in the sinuses. Mastoid air cells: Clear. Soft tissues: Unremarkable. No soft tissue fluid collection. IMPRESSION: No acute intracranial abnormality. Electronically signed by: Dwight Anaya On 10/05/2020 20:06:27 PM
[2020-10-05 20:56] VITALS: BP 137/71
[2020-10-07 15:09] LABS: ANTINUCLEAR ANTIBODIES DIRECT Negative (Negative)
== END 2020-10-05 21:04 | disposition home or self-care (01) ==
LOC: M ED 17:59
DX: G43.809 Other migraine, not intractable, without status migrainosus (principal); I49.8 Other specified cardiac arrhythmias; E07.9 Disorder of thyroid, unspecified; A69.20 Lyme disease, unspecified; Z88.8 Allergy status to other drugs, medicaments and biological substances; Z91.018 Allergy to other foods

== ENCOUNTER 2020-10-07 16:02 | Observation (INO) | payer MEDICARE ==
[~2020-10-07] VITALS: Ht 160 cm; Wt 61.8 kg
[~2020-10-07 16:02] MED LIST changes: +CORT10TA PO; +MIDO5TA PO
[2020-10-07] MEDS ORDERED: NS 1,000 ML IV ONE (16:45)
[2020-10-07] MEDS: METOCLOPRAMIDE INJ 10MG/2ML VIAL (J2765 PER 1) IV ONE ×2 (16:52→17:05)
[2020-10-07 17:00] VITALS: BP 129/76
--- NOTE | 2020-10-07 17:00 | REP ---
INDICATION: CVA - Nursing interventions must not delay CT. COMPARISON: October 05, 2020.. TECHNIQUE: Helical scanning is acquired. 5 mm axial images were reformatted. Coronal MPR images were generated. FINDINGS: Bone window settings demonstrate an intact bony calvarium. There is no evidence of skull fracture or incidental bony calvarial lesion. The visualized paranasal sinuses appear clear. No intraorbital abnormality is seen. On soft tissue window setting images; the lateral, third, and fourth ventricles are normal in size and position. Franco-white differentiation pattern is normal above and below the tentorium. There are is no evidence of intracranial hemorrhage. No mass, edema, infarction, or midline shift is seen. No extra-axial fluid collection is appreciated. IMPRESSION: Negative noncontrast head CT. <Electronically signed by Gregorio Yanes > 10/07/20 [id number]
[2020-10-07 17:15] LABS: BASO % 0.4 % (0.0-1.0); EOS % 0.5 % (0.0-3.0); HEMATOCRIT 39.5 % (36.0-47.0); HEMOGLOBIN 12.9 g/dl (12.0-15.5); LYMPH # 1.2 10^3/uL (1.5-5.0); LYMPH % 15.7 % (24.0-44.0); MEAN CORPUSCULAR HEMOGLOBIN 29.5 pg (27.0-33.0); MEAN CORPUSCULAR HGB CONC 32.7 g/dl (32.0-36.5); MEAN CORPUSCULAR VOLUME 90.2 fl (80.0-96.0); MONO # 0.5 10^3/uL (0.0-0.8); MONO % 7.4 % (2.0-8.0); NEUTROPHILS # 5.5 10^3/uL (1.5-8.5); NEUTROPHILS % 75.6 % (36.0-66.0); PLATELET COUNT, AUTOMATED 296 10^3/uL (150-450); RED BLOOD COUNT 4.38 10^6/uL (4.00-5.40); WHITE BLOOD COUNT 7.3 10^3/uL (4.0-10.0)
[2020-10-07 17:25] LABS: INR 0.89; PROTHROMBIN TIME 12.2 SECONDS (12.5-14.3)
[2020-10-07 17:26] LABS: PARTIAL THROMBOPLASTIN TIME 24.7 SECONDS (24.2-38.5)
[2020-10-07 17:44] LABS: HCG, SERUM QUALITATIVE NEGATIVE (NEGATIVE)
[2020-10-07 17:53] LABS: ALBUMIN 4.2 GM/DL (3.2-5.2); ALT/SGPT 28 U/L (12-78); BILIRUBIN,DIRECT < 0.1 MG/DL (0.0-0.2); BILIRUBIN,TOTAL 0.2 MG/DL (0.2-1.0); BLOOD UREA NITROGEN 8 MG/DL (7-18); CALCIUM LEVEL 9.4 MG/DL (8.5-10.1); CARBON DIOXIDE LEVEL 28 MEQ/L (21-32); CHLORIDE LEVEL 107 MEQ/L (98-107); CK-MB VALUE MASS < 1.0 NG/ML (<3.6); CPK CREATINE PHOSPHOKINASE 42 U/L (26-192); CREATININE FOR GFR 0.51 MG/DL (0.55-1.30); FREE T4 1.19 NG/DL (0.76-1.46); GLOMERULAR FILTRATION RATE > 60.0 (>60); GLUCOSE, FASTING 87 MG/DL (70-100); MB/CK RELATIVE INDEX 2.38 (< OR =4); POTASSIUM SERUM 4.2 MEQ/L (3.5-5.1); SODIUM LEVEL 140 MEQ/L (136-145); THYROID STIMULATING HORMONE 0.042 uIU/ML (0.358-3.740); TOTAL PROTEIN 7.6 GM/DL (6.4-8.2); TROPONIN I < 0.02 NG/ML (< 0.10)
--- NOTE | 2020-10-07 18:20 | REP ---
INDICATION: CVA. Shortness of breath. COMPARISON: Comparison chest x-ray March 13, 2012. TECHNIQUE: Portable upright AP chest radiograph. FINDINGS: The lungs are well inflated and free of infiltrate. Pleural angles are sharp. Heart size is normal. Pulmonary vasculature is not increased. Monitoring electrodes are seen. IMPRESSION: No active disease. <Electronically signed by Gregorio Yanes > 10/07/20 [id number]
[2020-10-07] MEDS ORDERED: DICL50TAB PO (19:03)
[2020-10-07] MEDS ORDERED: D31000TA2 PO (19:03)
[2020-10-07] MEDS ORDERED: BUTA1CAP PO (19:03)
[2020-10-07] MEDS ORDERED: TIRO100C3 PO (19:03)
[2020-10-07] MEDS ORDERED: ONDA8TAB10 PO (19:03)
[2020-10-07] MEDS ORDERED: MECL1TAB31 PO (19:03)
[2020-10-07] MEDS ORDERED: HYDR-4467 PO ×2 (19:03)
[2020-10-07] MEDS ORDERED: SODI1TAB12 PO (19:04)
[2020-10-07] MEDS ORDERED: ACETAMINOPHEN TAB 650MG DOSE (2X325MG) PO PRN (20:00)
--- NOTE | 2020-10-07 20:09 | ECGEPIP ---
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
--- NOTE | 2020-10-07 20:09 | HPEPDOC ---
[facility] Medical History & Physical Date of Admission Oct 07, 2020 Date of Service: Oct 07, 2020 Attending Physician: OSEAS RODARTE MD History and Physical CHIEF COMPLAINT: slurred speech, numbness HISTORY OF PRESENT ILLNESS: 34 year old female with PMHx detailed below presented to the ED today for recurrent symptoms of right sided body numbness and episodes of slurred speech. She states her symptoms began on Tuesday when she was resting comfortable at home talking to her brother. She states she christine ddenly started slurring her words. She felt that she knew what she wanted to say in her head, but when she would talk it was not understandable. She then began to notice numbness on the right side of her face that extended down her body. She states this bothered her most on her face but she could feel it all over. She states she called her doctors in [facility] who instructed her to go to the ER. The patient was seen and evaluated in the ER and subsequently discharged home. She states that she felt ok that night but began to have symptoms again on Tuesday. She notes this began with the numbness in her face and then she suddenly had a sharp, burning pain on the right side of her face beginning at the caodaism and spreading over her face. She states this felt very different from her typical migraine symptoms. She states she again went to the ER, was evaluated, and was discharged home. She states she felt better that night again. The patient states she had recurrent symptoms again of slurred speech and right sided numbness on Tuesday, but did not present to the ER. The patient states that today, Tuesday, she again had a right sided headache which felt different than her typical migraine headaches. She also again noticed the right sided facial numbness which extended down her body. She does not notice any subjective weakness, but during examination states she feels weaker when strength is being tested on the right versus her left side. Of note, the patient is from [facility] and follows there for her multiple medical issues. She was in the area for a about a month ago and developed COVID- 19 infection along with other members of her family. She states that most of her symptoms have resolved, but she continues to have some occasional chills. She was also having night sweats which have resolved in the past week. No fevers in the past two weeks. PAST MEDICAL HISTORY: Migraine without aura DVT in 2019, appears to be provoked during hospital stay, s/p eliquis Hypothyroidism Adrenal insufficiency Orthostatic HTN Elevated prolactin level POTS Vitamin D deficiency PAST SURGICAL HISTORY: Adenoidectomy SOCIAL HISTORY: Social smoker, quit 10 years ago. No alcohol use. No history IV drug or illicit substance use Lives in [facility] FAMILY HISTORY: Paternal grandmother with bladder and colon CA, grandfather of stroke Maternal grandmother of stroke, grandfather of cardiac disease ALLERGIES: Please see below. REVIEW OF SYSTEMS: CONSTITUTIONAL: Denies fevers, fatigue, unexpected change in weight. HEENT: Denies change in vision, change in hearing. CARDIOVASCULAR: Denies chest pain, palpitations, shortness of breath. RESPIRATORY: Denies dyspnea, cough, wheezing. GASTROINTESTINAL: Denies nausea, vomiting, abdominal pain, diarrhea, constipation, blood in stool. GENITOURINARY: Denies dysuria, urinary frequency, urinary urgency. SKIN: Denies rash, lesions. MUSCULOSKELETAL: Denies joint pain or muscle aches. NEUROLOGICAL: See HPI. PSYCHIATRIC: Denies change in mood. HOME MEDICATIONS: Please see below. PHYSICAL EXAMINATION: VITAL SIGNS: see below GENERAL: Alert, comfortable, in no acute distress HEENT: Normocephalic, atraumatic, PERRLA, EOMI, sclera anicteric, moist mucous membranes NECK: Supple, trachea midline, no lymphadenopathy, no JVD CARDIOVASCULAR: Regular rate and rhythm, normal S1 and S2. No murmurs, rubs, or gallops RESPIRATORY: Clear to auscultation bilaterally with equal air entry bilaterally. No wheezing, rhonchi, or rales. ABDOMEN: Soft, nontender, nondistended, bowel sounds present, no masses or hepatosplenomegaly appreciated EXTREMITIES: No cyanosis or edema. Pulses 2+/4 in bilateral upper and lower extremities SKIN: Pierz, warm, dry NEUROLOGIC: Alert and oriented x3 to person, place and time. Decreased sensation to light touch over the right face (CN V1-3) as well as the entire right side of the body. Subjective weakness on the right upper and lower extremity compared to the left with bilateral 5/5 strength on testing. DTRs equal in bilateral upper and lower extremities. Remaining cranial nerves 2-12 intact. PSYCHIATRIC: Mood and affect appropriate LABORATORY DATA: See below. IMAGING: - CXR No active disease. - Head CT Negative noncontrast head CT. MICROBIOLOGY: Please see below. ASSESSMENT: 34 year old female with PMHx including migraine without aura, DVT in 2019, unclear if provoked, hypothyroidism, adrenal insufficiency, orthostatic HTN, and POTS presents with 4 day history of intermittent right sided numbness, right sided headaches, and slurred speech concerning for TIA/stroke vs complex migraine admitted for further work up PLAN: 1. Right sided facial/body numbness with transient slurred speech 2/2 TIA/stroke vs complex migraine vs MS vs functional neurologic syndrome - NIH stroke score in the ER was 2. Dr. Lei was contacted by the ER physician. - Neurochecks q4h. Monitor on telemetry. Echocardiogram ordered. MRI/MRA head ordered. Carotid U/S ordered. - Given one time dose of aspirin 325mg. Ordered lipid profile. Migraine without aura - pt states current symptoms are not similar to her typical migraine symptoms Hypothyroidism - continue home levothyroxine - TSH slightly low with normal free T4, clinically appears euthyroid. Adrenal insufficiency - continue home hydrocortisone Orthostatic HTN - continue home midodrine Vitamin D deficiency - continue home supplement DVT prophylaxis: SC lovenox Disposition: admitted for observation to med/surg with telemetry Vital Signs Vital Signs Date Time Temp Pulse Resp B/P (MAP) Pulse Ox O2 Delivery O2 Flow Rate FiO2 10/07/20 17:00 129/76 10/07/20 16:04 97.0 64 20 100 Room Air Laboratory Data Labs 24H Laboratory Tests 2 10/07/20 16:41: Immature Granulocyte % (Auto) 0.4, Neutrophils (%) (Auto) 75.6H, Lymphocytes (%) (Auto) 15.7L, Monocytes (%) (Auto) 7.4, Eosinophils (%) (Auto) 0.5, Basophils (%) (Auto) 0.4, Neutrophils # (Auto) 5.5, Lymphocytes # (Auto) 1.2L, Monocytes # (Auto) 0.5, Eosinophils # (Auto) 0.0, Basophils # (Auto) 0.0, Nucleated Red Blood Cells % (auto) 0.0, Prothrombin Time 12.2, Prothromb Time International Ratio 0.89, Activated Partial Thromboplast Time 24.7L, Anion Gap 5L, Glomerular Filtration Rate > 60.0, Calcium Level 9.4, Total Bilirubin 0.2, Direct Bilirubin < 0.1, Aspartate Amino Transf (AST/SGOT) 11, Alanine Aminotransferase (ALT/SGPT) 28, Alkaline Phosphatase 48, Total Creatine Kinase 42, Creatine Kinase MB < 1.0, Creatine Kinase MB Relative Index 2.38, Troponin I < 0.02, Total Protein 7.6, Albumin 4.2, Albumin/Globulin Ratio 1.2, Thyroid Stimulating Hormone (TSH) 0.042L, Free Thyroxine 1.19, Human Chorionic Gonadotropin, Qual NEGATIVE CBC/BMP Laboratory Tests 10/07/20 16:41 Home Medications Scheduled Cholecalciferol (Vitamin D3) (Vitamin D3) 1,000 Unit Tablet, 1,000 UNITS PO QHS Fremanezumab-Vfrm (Ajovy) 225 Mg/1.5 Ml Syringe, 4.5 ML SC Q3M WAS DUE 09/22/20 BUT WAS DELAYED DUE TO COVID Hydrocortisone (Hydrocortisone) 5 Mg Tablet, 15 MG PO QAM Hydrocortisone (Hydrocortisone) 5 Mg Tablet, 10 MG PO QPM TAKES AT 1500 Levothyroxine Sodium (Tirosint) 100 Mcg Capsule, 100 MCG PO DAILY Midodrine HCl (Midodrine HCl) 5 Mg Tablet, 15 MG PO QID EVERY 3.5 HOURS STARTING AT 8AM Pyridostigmine [place] (Mestinon) 60 Mg Tablet, 60 MG PO QID EVERY 3.5 HOURS STARTING AT 8AM Scheduled PRN Butalb/Acetaminophen/Caffeine (Ykxilw-Sseononk-Olkb 50-300-40) 1 Each Capsule, 1 CAP PO DAILY PRN for HEADACHE Diclofenac Sodium (Diclofenac Sodium) 50 Mg Tablet.dr, 50 MG PO TID PRN for PAIN Meclizine HCl (Meclizine HCl) 25 Mg Tablet, 25 MG PO Q8H PRN for DIZZINESS Ondansetron HCl (Ondansetron HCl) 8 Mg Tablet, 8 MG PO Q6H PRN for NAUSEA OR VOMITING Sodium Chloride (Sodium Chloride) 1 Gm Tablet, 1 GM PO PRN PRN for LOW BLOOD PRESSURE Allergies Coded Allergies: albuterol (Verified Allergy, Unknown, 10/04/20) dexamethasone (Verified Allergy, Unknown, 10/04/20) gluten (Verified Allergy, Unknown, 03/08/19) GME ATTESTATION GME ATTESTATION My faculty preceptor for this patient encounter was physically present during the encounter and was fully available. All aspects of the patient interview, examination, medical decision making process, and medical care plan development were reviewed and approved by the faculty preceptor. The faculty preceptor is aware and concurs with the plan as stated in the body of this note and will att est to such by his/her cosignature. ATTENDING NOTE TIME OF SERVICE 750PM Ms. Baum is a 34 yr old F w a hx graves dz, POTs, Migraines, Adrenal insufficiency & DVTs who presented w c/o facial paresthesia of unclear cause. Plan: f/u MRI/MRA rest per Dr. Nair H&P JOHN STEWARD D.O. Oct 07, 2020 20:08 OSEAS RODARTE MD Oct 08, 2020 02:00
[2020-10-07] MEDS ORDERED: VITAMIN D 1,000 INTERNATIONAL UNITS TABLET PO SCH (21:00)
[2020-10-07] MEDS ORDERED: ASPIRIN 81 MG CHEW TABLET PO ONE (21:00)
--- NOTE | 2020-10-07 21:15 | REPVR ---
PROCEDURE INFORMATION: Exam: MR Head Without Contrast Exam date and time: 10/07/2020 8:39 PM Age: 34 years old Clinical indication: Pain; Headache not specified; Additional info: CVA TECHNIQUE: Imaging protocol: MR of the head without contrast. COMPARISON: MRI-Brain without Contrast 10/04/2020 6:29 PM FINDINGS: Brain: Normal. No acute infarct. No hemorrhage. No significant white matter disease. No edema. Cerebral ventricles: Normal. No ventriculomegaly. Bones/joints: Unremarkable. Paranasal sinuses: Normal as visualized. No acute sinusitis. Mastoid air cells: Normal as visualized. No mastoid effusion. Orbital cavity: Unremarkable. Soft tissues: Unremarkable. IMPRESSION: No acute findings. Electronically signed by: German Mendoza On 10/07/2020 21:15:27 PM
--- NOTE | 2020-10-07 21:17 | REPVR ---
PROCEDURE INFORMATION: Exam: MR Angiogram Head Without Contrast, Arteries Exam date and time: 10/07/2020 8:39 PM Age: 34 years old Clinical indication: Pain; Headache; Additional info: CVA TECHNIQUE: Imaging protocol: MR angiogram head without contrast. Exam focused on the arteries. 3D rendering (Not supervised by radiologist): MIP and/or 3D reconstructed images were created by the technologist. COMPARISON: MRA BRAIN W/O CONTRAST 10/04/2020 6:29 PM FINDINGS: ANTERIOR CIRCULATION: Right internal carotid artery: Intracranial segment is patent with no significant stenosis. No aneurysm. Right middle cerebral artery: No occlusion or significant stenosis. No aneurysm. Right anterior cerebral artery: No occlusion or significant stenosis. No aneurysm. Left internal carotid artery: Intracranial segment is patent with no significant stenosis. No aneurysm. Left middle cerebral artery: No occlusion or significant stenosis. No aneurysm. Left anterior cerebral artery: No occlusion or significant stenosis. No aneurysm. POSTERIOR CIRCULATION: Right vertebral artery: No occlusion or significant stenosis. No aneurysm. Left vertebral artery: No occlusion or significant stenosis. No aneurysm. Basilar artery: No occlusion or significant stenosis. No aneurysm. Right posterior cerebral artery: No occlusion or significant stenosis. No aneurysm. Left posterior cerebral artery: No occlusion or significant stenosis. No aneurysm. IMPRESSION: No stenosis or occlusion. Electronically signed by: German Mendoza On 10/07/2020 21:17:08 PM
[2020-10-07 22:04] LABS: RSV AMPLIFICATION NEGATIVE (NEGATIVE)
[2020-10-07 23:30] VITALS: BP 137/79
[2020-10-08] VITALS: BP 137/79
--- NOTE | 2020-10-08 01:29 | REPVR ---
PROCEDURE INFORMATION: Exam: US Duplex Bilateral Extracranial Arteries Exam date and time: 10/07/2020 12:42 AM Age: 34 years old Clinical indication: Numbness / parasthesia; Right; Additional info: R/O stroke/tia TECHNIQUE: Imaging protocol: Real-time Duplex ultrasound scan of the bilateral carotid and vertebral arteries combining young scale, color Doppler and spectral waveform analysis. Bilateral exam. COMPARISON: CT Head without contrast 10/07/2020 4:45 PM FINDINGS: Right common carotid artery: Unremarkable. No occlusion or stenosis. Waveforms are normal. Right internal carotid artery: Unremarkable. No occlusion or stenosis. Waveforms are normal. Right ICA/CCA ratio: Within normal limits. Right external carotid artery: No stenosis in the origin. Right vertebral artery: Unremarkable. Antegrade flow. Left common carotid artery: Unremarkable. No occlusion or stenosis. Waveforms are normal. Left internal carotid artery: Unremarkable. No occlusion or stenosis. Waveforms are normal. Left ICA/CCA ratio: Within normal limits. Left external carotid artery: No stenosis in the origin. Left vertebral artery: Unremarkable. Antegrade flow. IMPRESSION: No carotid arterial stenosis. REFERENCES: SRU CRITERIA. The degree of internal carotid artery stenosis is based on criteria defined by the Society of Radiologists in Ultrasound (SRU). Normal is no stenosis. Mild is less than 50% stenosis. Moderate is 50-69% stenosis. Severe is greater than 69% stenosis to near occlusion. Near occlusion is a markedly narrowed lumen. Total occlusion is no detectable patent lumen. Electronically signed by: Anibal Hinds On 10/08/2020 01:28:49 AM
[2020-10-08 04:00] VITALS: BP 133/69
[2020-10-08] MEDS ORDERED: LEVOTHYROXINE 100MCG TABLET (0.1MG) PO SCH (06:00)
[2020-10-08 06:08] LABS: HEMATOCRIT 35.6 % (36.0-47.0); HEMOGLOBIN 11.4 g/dl (12.0-15.5); MEAN CORPUSCULAR HEMOGLOBIN 29.5 pg (27.0-33.0); MEAN CORPUSCULAR VOLUME 92.2 fl (80.0-96.0); PLATELET COUNT, AUTOMATED 260 10^3/uL (150-450); RED BLOOD COUNT 3.86 10^6/uL (4.00-5.40); WHITE BLOOD COUNT 6.8 10^3/uL (4.0-10.0)
[2020-10-08] MEDS: PYRIDOSTIGMINE 60 MG TAB PO SCH ×2 (06:31→10:51)
[2020-10-08] MEDS: MIDODRINE 5 MG TAB PO SCH ×2 (06:31→09:51)
[2020-10-08 06:32] LABS: BLOOD UREA NITROGEN 7 MG/DL (7-18); CALCIUM LEVEL 8.9 MG/DL (8.5-10.1); CARBON DIOXIDE LEVEL 31 MEQ/L (21-32); CHLORIDE LEVEL 108 MEQ/L (98-107); CHOLESTEROL LEVEL 184 MG/DL (<200); CREATININE FOR GFR 0.54 MG/DL (0.55-1.30); GLOMERULAR FILTRATION RATE > 60.0 (>60); GLUCOSE, FASTING 98 MG/DL (70-100); HDL CHOLESTEROL 63 MG/DL (>40); LDL CHOLESTEROL 95 MG/DL (<100); NON-HDL-C 121 MG/DL; POTASSIUM SERUM 4.2 MEQ/L (3.5-5.1); SODIUM LEVEL 140 MEQ/L (136-145); TRIGLYCERIDES LEVEL 131 MG/DL (<150)
[2020-10-08 07:17] VITALS: BP 114/63
[2020-10-08] MEDS ORDERED: HYDROCORTISONE 5MG TABLET PO SCH (09:00)
[2020-10-08] MEDS ORDERED: ENOXAPARIN 40MG/0.4ML SYRINGE (J1650 PER 10MG) SC SCH (09:00)
[2020-10-08 12:00] VITALS: BP 128/70
[2020-10-08] MEDS ORDERED: hydrOXYzine 10 MG TAB PO SCH (15:00)
--- NOTE | 2020-10-08 15:15 | DS.PDOC ---
Discharge Summary General Date of Admission Oct 07, 2020 at 16:03 Date of Discharge 10/08/20 Discharge Summary PROCEDURES PERFORMED DURING STAY: [None]. ADMITTING DIAGNOSES: Right sided facial/body numbness Migraine without aura Hypothyroidism Adrenal insufficiency Orthostatic HTN Vitamin D deficiency DISCHARGE DIAGNOSES: Right sided facial/body numbness Migraine without aura Hypothyroidism Adrenal insufficiency Orthostatic HTN Vitamin D deficiency COMPLICATIONS/CHIEF COMPLAINT: Right Facial Numbness. HISTORY OF PRESENT ILLNESS: 34 year old female with PMHx detailed below presented to the ED today for recurrent symptoms of right sided body numbness and episodes of slurred speech. She states her symptoms began on Tuesday when she was resting comfortable at home talking to her brother. She states she suddenly started slurring her words. She felt that she knew what she wanted to say in her head, but when she would talk it was not understandable. She then began to notice numbness on the right side of her face that extended down her body. She states this bothered her most on her face but she could feel it all over. She states she called her doctors in [facility] who instructed her to go to the ER. The patient was seen and evaluated in the ER and subsequently discharged home. She states that she felt ok that night but began to have symptoms again on Tuesday. She notes this began with the nu mbness in her face and then she suddenly had a sharp, burning pain on the right side of her face beginning at the baptism and spreading over her face. She states this felt very different from her typical migraine symptoms. She states she again went to the ER, was evaluated, and was discharged home. She states she felt better that night again. The patient states she had recurrent symptoms again of slurred speech and right sided numbness on Tuesday, but did not present to the ER. The patient states that today, Tuesday, she again had a right sided headache which felt different than her typical migraine headaches. She also again noticed the right sided facial numbness which extended down her body. She does not notice any subjective weakness, but during examination states she feels weaker when strength is being tested on the right versus her left side. Of note, the patient is from [facility] and follows there for her multiple medical issues. She was in the area for a about a month ago and developed COVID- 19 infection along with other members of her family. She states that most of her symptoms have resolved, but she continues to have some occasional chills. She was also having night sweats which have resolved in the past week. No fevers in the past two weeks. HOSPITAL COURSE: During hospital stay MRA, MRI and Doppler ultrasound were done, negative for stroke or acute bleed. I talked to Dr. Lei, he recommended discharge patient with neurologist follow-up. Facial numbness can be attributed to migraine or neuralgia secondary to previous Covid infection DISCHARGE MEDICATIONS: Please see below. ALLERGIES: Please see below. PHYSICAL EXAMINATION ON DISCHARGE: VITAL SIGNS: Please see below. GENERAL: Alert, comfortable, in no acute distress HEENT: Normocephalic, atraumatic, PERRLA, EOMI, sclera anicteric, moist mucous membranes NECK: Supple, trachea midline, no lymphadenopathy, no JVD CARDIOVASCULAR: Regular rate and rhythm, normal S1 and S2. No murmurs, rubs, or gallops RESPIRATORY: Clear to auscultation bilaterally with equal air entry bilaterally. No wheezing, rhonchi, or rales. ABDOMEN: Soft, nontender, nondistended, bowel sounds present, no masses or hepatosplenomegaly appreciated EXTREMITIES: No cyanosis or edema. Pulses 2+/4 in bilateral upper and lower extremities SKIN: [place], warm, dry NEUROLOGIC: Alert and oriented x3 to person, place and time. Decreased sensation to light touch over the right face (CN V1-3) as well as the entire right side of the body. Subjective weakness on the right upper and lower extremity compared to the left with bilateral 5/5 strength on testing. DTRs equal in bilateral upper and lower extremities. Remaining cranial nerves 2-12 intact. PSYCHIATRIC: Mood and affect appropriate LABORATORY DATA: Please see below. IMAGING: PROCEDURE INFORMATION: Exam: MR Angiogram Head Without Contrast, Arteries Exam date and time: 10/07/2020 8:39 PM Age: 34 years old Clinical indication: Pain; Headache; Additional info: CVA TECHNIQUE: Imaging protocol: MR angiogram head without contrast. Exam focused on the arteries. 3D rendering (Not supervised by radiologist): MIP and/or 3D reconstructed images were created by the technologist. COMPARISON: MRA BRAIN W/O CONTRAST 10/04/2020 6:29 PM FINDINGS: ANTERIOR CIRCULATION: Right internal carotid artery: Intracranial segment is patent with no significant stenosis. No aneurysm. Right middle cerebral artery: No occlusion or significant stenosis. No aneurysm. Right anterior cerebral artery: No occlusion or significant stenosis. No aneurysm. Left internal carotid artery: Intracranial segment is patent with no significant stenosis. No aneurysm. Left middle cerebral artery: No occlusion or significant stenosis. No aneurysm. Left anterior cerebral artery: No occlusion or significant stenosis. No aneurysm. POSTERIOR CIRCULATION: Right vertebral artery: No occlusion or significant stenosis. No aneurysm. Left vertebral artery: No occlusion or significant stenosis. No aneurysm. Basilar artery: No occlusion or significant stenosis. No aneurysm. Right posterior cerebral artery: No occlusion or significant stenosis. No aneurysm. Left posterior cerebral artery: No occlusion or significant stenosis. No aneurysm. IMPRESSION: No stenosis or occlusion. [facility] NAME: LETICIA JACOBS DATE OF : 1985 BUSINESS NUMBER: [id number] AGE: 34 SEX: F REPORT #: [id number] ROOM: [facility] TECHNOLOGIST: [facility] DOCTOR: ARNULFO DE LEON MD Ordered for Date&Time: 10/07/201830 cc: [~ rep ct ivnm] Service Date&Time: 10/07/202038 This report is in Signed status. Interpretation performed by [facility]. Thank you for having your radiology procedures performed at [facility] RADIOLOGY REPORT Date&Time printed: [~ rep prt dt last] [~ rep prt tm last] Page 2 of 2 [place] [id number] RADIOLOGY REPORT This report is in Signed status. Interpretation performed by [facility]. Thank you for having your radiology procedures performed at [facility] RADIOLOGY REPORT Date&Time printed: [~ rep prt dt last] [~ rep prt tm last] Page 1 of 1 PROCEDURE INFORMATION: Exam: MR Head Without Contrast Exam date and time: 10/07/2020 8:39 PM Age: 34 years old Clinical indication: Pain; Headache not specified; Additional info: CVA TECHNIQUE: Imaging protocol: MR of the head without contrast. COMPARISON: MRI-Brain without Contrast 10/04/2020 6:29 PM FINDINGS: Brain: Normal. No acute infarct. No hemorrhage. No significant white matter disease. No edema. Cerebral ventricles: Normal. No ventriculomegaly. Bones/joints: Unremarkable. Paranasal sinuses: Normal as visualized. No acute sinusitis. Mastoid air cells: Normal as visualized. No mastoid effusion. Orbital cavity: Unremarkable. Soft tissues: Unremarkable. IMPRESSION: No acute findings. Electronically signed by: German Burgess On 10/07/2020 21:15:27 PM DD: GERMAN BURGESS MD 10/07/202038 DT: NURIA 10/07/202114 DS: DANYELLE 10/07/202114 [~ rep ct labl] PROGNOSIS: Fair ACTIVITY: [As tolerated]. DIET: Regular DISPOSITION: 01 Home, Self-Care. ITEMS TO FOLLOWUP ON ON OUTPATIENT: Follow-up with neurologist and PCP DISCHARGE CONDITION: [Stable]. TIME SPENT ON DISCHARGE: 25minutes. Vital Signs/I&Os Vital Signs Date Time Temp Pulse Resp B/P (MAP) Pulse Ox O2 Delivery O2 Flow Rate FiO2 10/08/20 12:00 97.5 69 20 128/70 (89) 99 Room Air I&O- Last 24 Hours up to 6 AM 10/08/20 06:00 Intake Total 1120 ml Output Total 1700 ml Balance -580 ml Laboratory Data Labs 24H Laboratory Tests 2 10/07/20 16:41: Immature Granulocyte % (Auto) 0.4, Neutrophils (%) (Auto) 75.6H, Lymphocytes (%) (Auto) 15.7L, Monocytes (%) (Auto) 7.4, Eosinophils (%) (Auto) 0.5, Basophils (%) (Auto) 0.4, Neutrophils # (Auto) 5.5, Lymphocytes # (Auto) 1.2L, Monocytes # (Auto) 0.5, Eosinophils # (Auto) 0.0, Basophils # (Auto) 0.0, Nucleated Red Blood Cells % (auto) 0.0, Prothrombin Time 12.2, Prothromb Time International Ratio 0.89, Activated Partial Thromboplast Time 24.7L, Anion Gap 5L, Glomerular Filtration Rate > 60.0, Calcium Level 9.4, Total Bilirubin 0.2, Direct Bilirubin < 0.1, Aspartate Amino Transf (AST/SGOT) 11, Alanine Aminotransferase (ALT/SGPT) 28, Alkaline Phosphatase 48, Total Creatine Kinase 42, Creatine Kinase MB < 1.0, Creatine Kinase MB Relative Index 2.38, Troponin I < 0.02, Total Protein 7.6, Albumin 4.2, Albumin/Globulin Ratio 1.2, Thyroid Stimulating Hormone (TSH) 0.042L, Free Thyroxine 1.19, Human Chorionic Gonadotropin, Qual NEGATIVE 10/07/20 20:46: Coronavirus (COVID-19)(PCR) POSITIVEA, Influenza Type A (RT-PCR) NEGATIVE, Influenza Type B (RT-PCR) NEGATIVE, Respiratory Syncytial Virus (PCR) NEGATIVE 10/08/20 05:17: Nucleated Red Blood Cells % (auto) 0.0, Anion Gap 1L, Glomerular Filtration Rate > 60.0, Calcium Level 8.9, Triglycerides Level 131, Total Cholesterol 184, LDL Cholesterol 95, Non-HDL Cholesterol (LDL + VLDL) 121, Total HDL Cholesterol 63, Cholesterol/HDL Ratio 2.920 CBC/BMP Laboratory Tests 10/07/20 16:41 10/08/20 05:17 Discharge Medications Scheduled Cholecalciferol (Vitamin D3) (Vitamin D3) 1,000 Unit Tablet, 1,000 UNITS PO QHS, (Reported) Fremanezumab-Vfrm (Ajovy) 225 Mg/1.5 Ml Syringe, 4.5 ML SC Q3M, (Reported) WAS DUE 09/22/20 BUT WAS DELAYED DUE TO COVID Hydrocortisone (Hydrocortisone) 5 Mg Tablet, 15 MG PO QAM, (Reported) Hydrocortisone (Hydrocortisone) 5 Mg Tablet, 10 MG PO QPM, (Reported) TAKES AT 1500 Levothyroxine Sodium (Tirosint) 100 Mcg Capsule, 100 MCG PO DAILY, (Reported) Midodrine HCl (Midodrine HCl) 5 Mg Tablet, 15 MG PO QID, (Reported) EVERY 3.5 HOURS STARTING AT 8AM Pyridostigmine Jones (Mestinon) 60 Mg Tablet, 60 MG PO QID, (Reported) EVERY 3.5 HOURS STARTING AT 8AM Scheduled PRN Butalb/Acetaminophen/Caffeine (Wsndub-Swhehplz-Rfag 50-300-40) 1 Each Capsule, 1 CAP PO DAILY PRN for HEADACHE, (Reported) Diclofenac Sodium (Diclofenac Sodium) 50 Mg Tablet.dr, 50 MG PO TID PRN for PAIN, (Reported) Meclizine HCl (Meclizine HCl) 25 Mg Tablet, 25 MG PO Q8H PRN for DIZZINESS, (Reported) Ondansetron HCl (Ondansetron HCl) 8 Mg Tablet, 8 MG PO Q6H PRN for NAUSEA OR VOMITING, (Reported) Sodium Chloride (Sodium Chloride) 1 Gm Tablet, 1 GM PO PRN PRN for LOW BLOOD PRESSURE, (Reported) Allergies Coded Allergies: albuterol (Verified Allergy, Unknown, 10/04/20) dexamethasone (Verified Allergy, Unknown, 10/04/20) gluten (Verified Allergy, Unknown, 03/08/19) LAKHWINDER GAMEZ DO Oct 08, 2020 15:15
--- NOTE | 2020-10-10 14:37 | ECHO ---
DATE OF PROCEDURE: 10/08/2020 Age: 34 Gender: Female REFERRING PHYSICIAN: Josefina Santoro DO REASON FOR STUDY: Transient ischemic attack (TIA). MEASUREMENTS: IVS 0.9 cm LV 4.3 cm LVPW 0.9 cm LA 3.1 cm Aorta 3.0 cm IVC 1.5 cm DOPPLER MEASUREMENT Peak velocity across the aortic valve 1.4 m/s Peak velocity across the LVOT 1.2 m/s Mitral E 1.1 Mitral A 0.4 with a ratio of 2.3 Maximum tricuspid valve velocity 2.2 m/s 2D COMMENTS: 1. Normal left ventricle size, wall thickness, and normal global left ventricular systolic function. The estimated left ventricular systolic ejection fraction is 65% to 70%. 2. Normal left atrium. Normal right atrium and right ventricle. 3. The atrial septal appeared to be normal without evidence of defect or shunt. 4. Normal aortic root. 5. No pericardial effusion seen. 6. Normal aortic valve, mitral valve, tricuspid valve, and pulmonic valve. The proximal pulmonary artery branches were not well visualized. 7. The inferior vena cava was normal in size. Central venous pressure is most likely normal. DOPPLER: It detects mild mitral regurgitation, mild tricuspid regurgitation, and trace pulmonic regurgitation. The calculated pulmonary artery systolic pressure appeared to be normal. Assessment of the left ventricular diastolic function appeared to be normal. IMPRESSION: 1. Normal global left ventricular systolic and diastolic function. 2. Mild mitral regurgitation. 3. Mild tricuspid regurgitation with a normal calculated pulmonary artery systolic pressure. 4. A bubble study was done with agitated normal saline and there was no passage of bubbles from the right heart chambers to the left. [facility]
== END 2020-10-08 12:33 | disposition home or self-care (01) ==
LOC: M ED 16:02 → M ED INP 16:03 → ENRESERV 22:31 → M PCU 23:18
PROVIDERS: ADMIT Internal Medicine; ATTEND Internal Medicine
DX: R29.810 Facial weakness (principal); G43.019 Migraine without aura, intractable, without status migrainosus; G45.8 Other transient cerebral ischemic attacks and related syndromes; E03.9 Hypothyroidism, unspecified; E27.40 Unspecified adrenocortical insufficiency; I10 Essential (primary) hypertension; E55.9 Vitamin D deficiency, unspecified; K90.41 Non-celiac gluten sensitivity; Z87.891 Personal history of nicotine dependence; Z79.899 Other long term (current) drug therapy; Z88.8 Allergy status to other drugs, medicaments and biological substances; Z86.16 Personal history of COVID-19
CPT/HCPCS: 36415; 70450; 70544; 70551; 71045; 80048; 80061; 80076; 82550; 82553; 84439; 84443; 84484; 84703; 85025; 85027; 85610; 85730; 87631; 93005; 93041; 93306; 93880; 94760; 96360; 96372; 97161; 97165; 99285; G0378; J1650

== ENCOUNTER 2021-04-28 21:10 | Emergency (ER) | payer MEDICARE, MEDICAID ==
[~2021-04-28] VITALS: Ht 160 cm; Wt 63.2 kg
[~2021-04-28 21:10] MED LIST changes: +BUTA1CAP PO; +D31000TA2 PO; +DICL50TAB PO; +ONDA8TAB10 PO; +SODI1TAB12 PO; +TIRO100C3 PO
[2021-04-28 21:11] VITALS: BP 112/69
== END 2021-04-28 21:38 | disposition left against medical advice (07) ==
LOC: M ED 21:10
DX: Z53.21 Procedure and treatment not carried out due to patient leaving prior to being seen by health care provider (principal)

== ENCOUNTER 2023-06-05 19:58 | Emergency (ER) | payer MEDICARE, MEDICAID ==
[~2023-06-05] VITALS: Ht 160 cm; Wt 63.6 kg
[~2023-06-05 19:58] MED LIST changes: -D31000TA2 PO; +MECL-209 PO; -MECL1TAB31 PO; +ONDA-84 PO; -ONDA8TAB10 PO; +TOPI-254 PO; -TOPI25CA3 PO; +TOPI25CA5 PO; -TOPI50TA9 PO; +VITA100093 PO
[2023-06-05 20:00] VITALS: BP 127/83; TEMP 99.7; O2SAT 97
== END 2023-06-05 22:31 | disposition left against medical advice (07) ==
LOC: M ED 19:58
DX: Z53.21 Procedure and treatment not carried out due to patient leaving prior to being seen by health care provider (principal)